=== PATIENT | female | born 1950 | race Hispanic/Latino ===

== ENCOUNTER 2017-07-08 15:15 | Emergency (ER) | payer OTHER ==
--- NOTE | 2017-07-08 16:55 | EDPHYS ---
Physician Documentation [facility] Name: Lottie Apodaca Age: 66 yrs Sex: Female : 1950 Arrival Date: 07/08/2017 Time: 15:19 Bed 30 Private MD: Carter Castillo V ED Physician Santana Macias HPI: 07/08 16:52 This 66 yrs old Female presents to ER via Ambulatory with complaints of Back pm1 Pain, High Blood Pressure. 16:52 The patient presents with pain that is chronic. The symptoms are located in the low pm1 back. The pain does not radiate. Associated signs and symptoms: Pertinent negatives: abdominal pain, chest pain, constipation, dysuria, fever, headache, incontinence, numbness, tingling, urinary retention, vomiting, weakness, shortness of breath. The problem was sustained Chronic pain. Patient usually requires CHRIS once per year. The patient has experienced similar episodes in the past, chronically. Patient with chronic lower back pain. Patient has [address] Olivier for epidural steroid injection. Patient is currently taking hydrocodone at home for pain. Patient reports pain was worse today and she noticed that her pressure was elevated at home. Patient's pain has not changed in location or characteristic, only increased intensity. Patient wanted to make sure that there were no issues that might prevent her from having her procedure tomorrow. 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 Historical: - Allergies: 15:30 No Known Allergies; hj - Home Meds: 15:30 metformin 1,000 mg Oral tr24 1 tab once daily [Active]; bisoprolol fumarate 5 mg oral hj tab 1 tab once daily [Active]; hydrocodone-acetaminophen 10-325 mg oral tab 1 tab every 4-6 hours [Active]; Lyrica Oral 1 cap 2 times per day [Active]; Myrbetriq 25 mg oral Tb24 1 tab once daily [Active]; - PMHx: 15:30 Diabetes - NIDDM; Hypertension; hj - PSHx: 15:30 LEFT KNEE REPAIR; LOWER BACK; hj ROS: 16:52 Constitutional: Negative for fever, chills, and weight loss, Eyes: Negative for injury, pm1 pain, redness, and discharge, ENT: Negative for injury, pain, and discharge, Neck: Negative for injury, pain, and swelling, Cardiovascular: Negative for chest pain, palpitations, and edema, Respiratory: Negative for shortness of breath, cough, wheezing, and pleuritic chest pain, Abdomen/GI: Negative for abdominal pain, nausea, vomiting, diarrhea, and constipation. 16:52 : Negative for injury, bleeding, discharge, and swelling, MS/Extremity: Negative for injury and deformity, Skin: Negative for injury, rash, and discoloration, Neuro: Negative for headache, weakness, numbness, tingling, and seizure. 16:52 Back: Positive for pain at rest, of the lumbar area. Exam: 16:52 Constitutional: This is a well developed, well nourished patient who is awake, alert, pm1 and in no acute distress. Head/Face: Normocephalic, atraumatic. Eyes: Pupils equal round and reactive to light, extra-ocular motions intact. Lids and lashes normal. Conjunctiva and sclera are non-icteric and not injected. Cornea within normal limits. Periorbital areas with no swelling, redness, or edema. ENT: Nares patent. No nasal discharge, no septal abnormalities noted. Tympanic membranes are normal and external auditory canals are clear. Oropharynx with no redness, swelling, or masses, exudates, or evidence of obstruction, uvula midline. Mucous membranes moist. Neck: Trachea midline, no thyromegaly or masses palpated, and no cervical lymphadenopathy. Supple, full range of motion without nuchal rigidity, or vertebral point tenderness. No Meningismus. Chest/axilla: Normal chest wall appearance and motion. Nontender with no deformity. No lesions are appreciated. Cardiovascular: Regular rate and rhythm with a normal S1 and S2. No gallops, murmurs, or rubs. No pulse deficits. Respiratory: Lungs have equal breath sounds bilaterally, clear to auscultation and percussion. No rales, rhonchi or wheezes noted. No increased work of breathing, no retractions or nasal flaring. Abdomen/GI: Soft, non-tender, with normal bowel sounds. No distension or tympany. No guarding or rebound. No evidence of tenderness throughout. 16:52 Skin: Warm, dry with normal turgor. Normal color with no rashes, no lesions, and no evidence of cellulitis. MS/ Extremity: Pulses equal, no cyanosis. Neurovascular intact. Full, normal range of motion. 16:52 Back: pain, is absent, normal spinal alignment noted, vertebral tenderness, is appreciated at lumbar spine, muscle spasm, is appreciated in the right low back. 16:52 Neuro: Orientation: is normal, Motor: moves all fours, Sensation: is normal, no obvious gross deficits, Deep tendon reflexes are 2+ (normal) in the right patellar, right Achilles, left patellar and left Achilles. Vital Signs: 15:31 BP 147 / 76; Pulse 58; Resp 18; Temp 98.1(TE); Pulse Ox 98% on R/A; Weight 84.37 kg; hj Height 4 ft. 9 in. (144.78 cm); Pain 10/10; 17:48 BP 142 / 80; Pulse 64; Resp 18; Pulse Ox 98% ; tl3 15:31 Body Mass Index 40.25 (84.37 kg, 144.78 cm) MDM: 16:19 Patient medically screened. [facility] 16:53 Data reviewed: vital signs. Data interpreted: Pulse oximetry: on room air is 98 %. pm1 Interpretation: normal. Counseling: I had a detailed discussion with the patient and/or guardian regarding: the historical points, exam findings, and any diagnostic results supporting the discharge/admit diagnosis, the need for outpatient follow up, to return to the emergency department if symptoms worsen or persist or if there are any questions or concerns that arise at home. Administered Medications: No medications were administered Disposition: 07/09 10:48 Co-signature as Attending Physician, Santana Macias MD I agree with the assessment and [facility] plan of care. Disposition: 07/08/17 16:54 Discharged to Home. Impression: Other chronic pain, Low back pain. - Condition is Stable. - Discharge Instructions: Chronic Back Pain. - Medication Reconciliation Form, Thank You Letter form. - Follow up: Emergency Department; When: As needed; Reason: Worsening of condition. Follow up: Guillermo Olivier DO; When: Tomorrow; Reason: Recheck today's complaints, Continuance of care, Re-evaluation by your physician. - Problem is new. - Symptoms have improved. Signatures: Santana Macias MD MD cha Joaquin, Henry RN RN J Luis Reardon NP [employer] MACHINE pm1 Meek, Staci, RN RN tl3 Corrections: (The following items were deleted from the chart) 07/08 16:55 16:53 Counseling: I had a detailed discussion with the patient and/or guardian pm1 regarding: the historical points, exam findings, and any diagnostic results supporting the discharge/admit diagnosis, the need for outpatient follow up, to return to the emergency department if symptoms worsen or persist or if there are any questions or concerns that arise at home, pm1
--- NOTE | 2017-07-08 16:55 | ER ---
Nurse's Notes [facility] Name: Lottie Apodaca Age: 66 yrs Sex: Female : 1950 Arrival Date: 07/08/2017 Time: 15:19 Bed 30 Private MD: Carter Castillo V Diagnosis: Other chronic pain;Low back pain Presentation: 07/08 15:26 Presenting complaint: Patient states: im scheduled for a epidural steroid injection hj with my pain doctor, and the pain is bad affecting my BP;. Transition of care: patient was not received from another setting of care. Onset of symptoms was July 08, 2017. Care prior to arrival: None. 15:26 Method Of Arrival: Ambulatory hj 15:26 Acuity: CHRIS 4 hj Triage Assessment: 15:31 General: Appears in no apparent distress. Behavior is calm, cooperative, appropriate hj for age. Pain: Complains of pain in lumbar area, left low back and right low back. Historical: - Allergies: 15:30 No Known Allergies; hj - Home Meds: 15:30 metformin 1,000 mg Oral tr24 1 tab once daily [Active]; bisoprolol fumarate 5 mg oral hj tab 1 tab once daily [Active]; hydrocodone-acetaminophen 10-325 mg oral tab 1 tab every 4-6 hours [Active]; Lyrica Oral 1 cap 2 times per day [Active]; Myrbetriq 25 mg oral Tb24 1 tab once daily [Active]; - PMHx: 15:30 Diabetes - NIDDM; Hypertension; hj - PSHx: 15:30 LEFT KNEE REPAIR; LOWER BACK; hj Screenin:17 Abuse screen: Denies threats or abuse. Nutritional screening: No deficits noted. kb1 Tuberculosis screening: No symptoms or risk factors identified. Fall Risk None identified. Assessment: 15:31 Neuro: Level of Consciousness is awake, alert, obeys commands, Oriented to person, hj place, time, situation. 16:17 General: Appears in no apparent distress. Behavior is calm, cooperative. Pain: kb1 Complains of pain in lower back. Neuro: Level of Consciousness is awake, alert, obeys commands, Oriented to person, place, time, situation. Cardiovascular: Patient's skin is warm and dry. Respiratory: Respiratory effort is even, unlabored, Respiratory pattern is regular, symmetrical. GI: No signs and/or symptoms were reported involving the gastrointestinal system. : No signs and/or symptoms were reported regarding the genitourinary system. Musculoskeletal: Reports pain in lower back pt is scheduled for epidural tomorrow for chronic back pain. States "the pain is just worse and I'm concerned because my blood pressure has been running high". Vital Signs: 15:31 BP 147 / 76; Pulse 58; Resp 18; Temp 98.1(TE); Pulse Ox 98% on R/A; Weight 84.37 kg; hj Height 4 ft. 9 in. (144.78 cm); Pain 10/10; 17:48 BP 142 / 80; Pulse 64; Resp 18; Pulse Ox 98% ; tl3 15:31 Body Mass Index 40.25 (84.37 kg, 144.78 cm) ED Course: 15:19 Patient arrived in ED. mr 15:19 Carter Castillo MD is Private Physician. mr 15:28 Triage completed. hj 15:31 Arm band placed on left wrist. hj 16:15 Sasha Avila RN is Primary Nurse. kb1 16:17 Patient has correct armband on for positive identification. Placed in gown. Bed in low kb1 position. Side rails up X 1. Pulse ox on. NIBP on. 16:17 No provider procedures requiring assistance completed. kb1 16:18 J Luis Reardon NP is PHCP. pm1 16:18 Santana Macias MD is Attending Physician. pm1 16:54 Guillermo Olivier DO is Referral Physician. pm1 17:48 Patient did not have IV access during this emergency room visit. tl3 Administered Medications: No medications were administered Outcome: 16:54 Discharge ordered by . pm1 17:48 Discharged to home via wheelchair. tl3 17:48 Condition: stable 17:48 Discharge instructions given to patient, Instructed on discharge instructions, Demonstrated understanding of instructions, follow-up care. 17:50 Patient left the ED. tl3 Signatures: Lottie BranduinNiranjan RN RN J Luis Reardon NP [employer] AGENT pm1 Sasha Avila RN RN kb1 Staci Eden RN RN tl3 Corrections: (The following items were deleted from the chart) 07/09 00:42 00:41 Patient did not have IV access during this emergency room visit. tl3 tl3
[2017-07-08 17:53] VITALS: BP 147/76; TEMP 98.1; O2SAT 98
== END 2017-07-08 17:50 | disposition home or self-care (01) ==
LOC: ER 15:15
DX: G89.29 Other chronic pain (principal); I10 Essential (primary) hypertension; E11.9 Type 2 diabetes mellitus without complications
CPT/HCPCS: 99283

== ENCOUNTER 2018-02-04 13:02 | Emergency (ER) | payer OTHER ==
--- NOTE | 2018-02-04 14:01 | RAD REPORT ---
EXAM DESCRIPTION: RAD - Knee Right 3 View - 02/04/2018 1:56 pm CLINICAL HISTORY: PAIN COMPARISON: No comparisons FINDINGS: Mild tricompartmental osteoarthritic changes are present. No fracture, dislocation or aggr essive bone lesion. Trace suprapatellar joint effusion is present. IMPRESSION: Mild osteoarthritis.
--- NOTE | 2018-02-04 14:41 | ER ---
Nurse's Notes [facility] Name: Lottie Apodaca Age: 67 yrs Sex: Female : 1950 Arrival Date: 02/04/2018 Time: 13:04 Bed 17 Private MD: Carter Castillo V Diagnosis: Pain in right knee Presentation: 02/04 13:07 Presenting complaint: Patient states: right knee pain since Sunday. Pt took Marlin 7.5 sv mg 1.5 hours ago. Transition of care: patient was not received from another setting of care. Onset of symptoms was January 29, 2018. Care prior to arrival: None. 13:07 Method Of Arrival: Ambulatory sv 13:07 Acuity: CHRIS 4 sv 13:16 Risk Assessment: Do you want to hurt yourself or someone else? Patient reports no ph desire to harm self or others. Initial Sepsis Screen: Does the patient meet any 2 criteria? No. Patient's initial sepsis screen is negative. Does the patient have a suspected source of infection? No. Patient's initial sepsis screen is negative. Triage Assessment: 13:07 General: Appears in no apparent distress. uncomfortable, Behavior is calm, cooperative, sv appropriate for age. Pain: Complains of pain in right knee Pain currently is 6 out of 10 on a pain scale. Neuro: Level of Consciousness is awake, alert, obeys commands, Oriented to person, place, time, situation, Moves all extremities. ambulates with her cane. Respiratory: Respiratory effort is even, unlabored, Respiratory pattern is regular, symmetrical. Historical: - Allergies: 13:14 No Known Allergies; sv - Home Meds: 13:14 bisoprolol fumarate 5 mg Oral tab 1 tab once daily [Active]; hydrocodone-acetaminophen sv 10-325 mg Oral tab 1 tab every 4-6 hours [Active]; Lyrica Oral 1 cap 2 times per day [Active]; metformin 1,000 mg Oral tr24 1 tab once daily [Active]; Myrbetriq 25 mg Oral Tb24 1 tab once daily [Active]; - PMHx: 13:14 Diabetes - NIDDM; Hypertension; sv - PSHx: 13:14 LEFT KNEE REPAIR; LOWER BACK; left toe; right shoulder; sv - Immunization history:: Flu vaccine is up to date. - Social history:: Smoking status: Patient/guardian denies using tobacco, Patient/guardian denies using alcohol, street drugs, The patient lives with family. - Ebola Screening: : No symptoms or risks identified at this time. - Family history:: not pertinent. Screenin:16 Abuse screen: Denies threats or abuse. Denies injuries from another. Nutritional ph screening: No deficits noted. Tuberculosis screening: No symptoms or risk factors identified. Fall Risk None identified. Assessment: 13:15 General: Appears in no apparent distress. comfortable, obese, Behavior is calm, bp cooperative, appropriate for age. General: PT AMBULATES WITH CANE AT BASELINE. 14:54 Reassessment: PT D/C HOME AMBULATORY WITH FAMILY, DX WITH R KNEE PAIN. bp Vital Signs: 13:14 BP 145 / 84; Pulse 64; Resp 20; Temp 97.4; Pulse Ox 97% ; Weight 88.45 kg; Height 4 ft. sv 9 in. (144.78 cm); Pain 6/10; 14:37 BP 107 / 80; Pulse 59; Resp 16; Pulse Ox 97% ; bp 13:14 Body Mass Index 42.20 (88.45 kg, 144.78 cm) sv ED Course: 13:04 Patient arrived in ED. as 13:04 Carter Castillo MD is Private Physician. as 13:07 Elgin Ryan MD is Attending Physician. ma2 13:13 Triage completed. sv 13:14 Arm band placed on. sv 13:16 Patient has correct armband on for positive identification. Bed in low position. Call ph light in reach. Side rails up X 1. 13:35 Abe Chavez, RADHA is Primary Nurse. bp 13:54 X-ray completed. Portable x-ray completed in exam room. Patient tolerated procedure ka well. 13:55 Knee Right 3 View XRAY In Process Unspecified. EDMS 14:55 No provider procedures requiring assistance completed. Patient did not have IV access bp during this emergency room visit. Administered Medications: No medications were administered Outcome: 14:41 Discharge ordered by . ma2 14:55 Discharged to home ambulatory, with family. bp 14:55 Condition: stable 14:55 Discharge instructions given to patient, family, Instructed on discharge instructions, follow up and referral plans. medication usage, crutch walking, Demonstrated understanding of instructions, follow-up care, medications, crutch walking, Prescriptions given X 1. 15:03 Patient left the ED. bp Signatures: Dispatcher [employer] EDMS Carol Robledo, RN Bree Bird Patricia, RN RN ph Aguilera, Katelyn ka Peltier, Brian, RN RN Elgin Mcfarlane MD MD ma2
--- NOTE | 2018-02-04 14:41 | EDPHYS ---
Physician Documentation [facility] Name: Lottie Apodaca Age: 67 yrs Sex: Female : 1950 Arrival Date: 02/04/2018 Time: 13:04 Bed 17 Private MD: Carter Castillo V ED Physician Elgin Ryan HPI: 02/04 13:14 This 67 yrs old Female presents to ER via Ambulatory with complaints of Knee ma2 Pain. 13:14 Onset: The symptoms/episode began/occurred suddenly, 1 day(s) ago. Context: The problem ma2 was sustained resulted from the patient falling, The patient can partially bear weight on the affected extremity. the patient is able to ambulate. Associated signs and symptoms: Pertinent positives: Pertinent negatives: fever, numbness, rash, tingling, weakness. Severity of symptoms: At their worst the symptoms were moderate, in the emergency department the symptoms are unchanged. Historical: - Allergies: 13:14 No Known Allergies; sv - Home Meds: 13:14 bisoprolol fumarate 5 mg Oral tab 1 tab once daily [Active]; hydrocodone-acetaminophen sv 10-325 mg Oral tab 1 tab every 4-6 hours [Active]; Lyrica Oral 1 cap 2 times per day [Active]; metformin 1,000 mg Oral tr24 1 tab once daily [Active]; Myrbetriq 25 mg Oral Tb24 1 tab once daily [Active]; - PMHx: 13:14 Diabetes - NIDDM; Hypertension; sv - PSHx: 13:14 LEFT KNEE REPAIR; LOWER BACK; left toe; right shoulder; sv - Immunization history:: Flu vaccine is up to date. - Social history:: Smoking status: Patient/guardian denies using tobacco, Patient/guardian denies using alcohol, street drugs, The patient lives with family. - Ebola Screening: : No symptoms or risks identified at this time. - Family history:: not pertinent. ROS: 13:14 Constitutional: Negative for fever, chills, and weight loss, Neck: Negative for injury, ma2 pain, and swelling, Back: Negative for injury and pain. 13:14 MS/extremity: Positive for injury or acute deformity, pain, Negative for abrasion, contusion, deformity, tenderness. 13:14 All other systems are negative. Exam: 13:14 Constitutional: This is a well developed, well nourished patient who is awake, alert, ma2 and in no acute distress. ENT: Nares patent. No nasal discharge, no septal abnormalities noted. Tympanic membranes are normal and external auditory canals are clear. Oropharynx with no redness, swelling, or masses, exudates, or evidence of obstruction, uvula midline. Mucous membranes moist. Cardiovascular: Regular rate and rhythm with a normal S1 and S2. No gallops, murmurs, or rubs. Normal PMI, no JVD. No pulse deficits. Respiratory: Lungs have equal breath sounds bilaterally, clear to auscultation and percussion. No rales, rhonchi or wheezes noted. No increased work of breathing, no retractions or nasal flaring. Abdomen/GI: Soft, non-tender, with normal bowel sounds. No distension or tympany. No guarding or rebound. No evidence of tenderness throughout. 13:14 Musculoskeletal/extremity: ROM: no acute changes, Circulation is intact in all extremities. Sensation intact. Compartment Syndrome exam of affected extremity: is normal. Vital Signs: 13:14 BP 145 / 84; Pulse 64; Resp 20; Temp 97.4; Pulse Ox 97% ; Weight 88.45 kg; Height 4 ft. sv 9 in. (144.78 cm); Pain 6/10; 14:37 BP 107 / 80; Pulse 59; Resp 16; Pulse Ox 97% ; bp 13:14 Body Mass Index 42.20 (88.45 kg, 144.78 cm) sv MDM: 13:07 Patient medically screened. ma2 13:14 Differential diagnosis: fracture, sprain, foreign body, arthritis. ma2 14:40 Data reviewed: vital signs, nurses notes, radiologic studies. Counseling: I had a ma2 detailed discussion with the patient and/or guardian regarding: the historical points, exam findings, and any diagnostic results supporting the discharge/admit diagnosis, the presence of at least one elevated blood pressure reading (>120/80) during this emergency department visit, the need for outpatient follow up. Response to treatment: the patient's symptoms have markedly improved after treatment. 02/04 13:14 Order name: Knee Right 3 View XRAY; Complete Time: 14:23 ma2 02/04 14:26 Order name: Knee Immobilizer; Complete Time: 14:53 ma2 Administered Medications: No medications were administered Disposition: 02/04/18 14:41 Discharged to Home. Impression: Pain in right knee. - Condition is Stable. - Discharge Instructions: Knee Pain. - Prescriptions for Tylenol- Codeine #3 300-30 mg Oral Tablet - take 2 tablet by ORAL route every 6 hours As needed; 6 tablet. - Medication Reconciliation Form, Thank You Letter, Antibiotic Education, Prescription Opioid Use form. - Follow up: Private Physician; When: Tomorrow; Reason: Continuance of care. Signatures: Dispatcher [employer] Carol Le, RN RN Abe Chavez RN RN bp Elgin Ryan MD MD ma2 Corrections: (The following items were deleted from the chart) 15:03 14:41 02/04/2018 14:41 Discharged to Home. Impression: Pain in right knee. Condition is bp Stable. Discharge Instructions: Knee Pain. Prescriptions for Tylenol-Codeine #3 300-30 mg Oral Tablet - take 2 tablet by ORAL route every 6 hours As needed; 6 tablet. and Forms are Medication Reconciliation Form, Thank You Letter, Antibiotic Education, Prescription Opioid Use. Follow up: Private Physician; When: Tomorrow; Reason: Continuance of care. ma2
[2018-02-05 14:46] VITALS: BP 107/80; TEMP 97.4; O2SAT 97
== END 2018-02-04 15:03 | disposition home or self-care (01) ==
LOC: ER 13:02
DX: M25.561 Pain in right knee (principal); I10 Essential (primary) hypertension; E11.9 Type 2 diabetes mellitus without complications
CPT/HCPCS: 99283

== ENCOUNTER 2018-02-22 17:38 | Emergency (ER) | payer OTHER ==
[2018-02-22] MEDS ORDERED: HYDROCODONE/APAP 5/325 MG TAB ONE (19:12)
--- NOTE | 2018-02-22 20:35 | RAD REPORT ---
EXAM DESCRIPTION: RAD - Shoulder Left 2 View - 02/22/2018 7:46 pm CLINICAL HISTORY: Left shoulder pain status post fall FINDINGS: No fracture or dislocation is seen. The bones are osteoporotic
--- NOTE | 2018-02-22 21:03 | RAD REPORT ---
EXAM DESCRIPTION: Adolph Single View02/22/2018 8:47 pm CLINICAL HISTORY: Chest pain COMPARISON: 2014 FINDINGS: The lungs appear clear of acute infiltrate. The heart is normal size A moderately displaced fracture of the medial left clavicle is seen
--- NOTE | 2018-02-22 21:04 | RAD REPORT ---
EXAM DESCRIPTION: RAD - Clavicle Left - 02/22/2018 7:46 pm CLINICAL HISTORY: Left shoulder pain status post fall FINDINGS: A moderately displaced fracture of the medial left clavicle is seen
--- NOTE | 2018-02-22 21:07 | ER ---
Nurse's Notes [facility] Name: Lottie Apodaca Age: 67 yrs Sex: Female : 1950 Arrival Date: 02/22/2018 Time: 17:39 Bed 19 Private MD: Carter Castillo V Diagnosis: Fracture of unspecified part of left clavicle Presentation: 02/22 18:13 Presenting complaint: Patient states: "I was carrying my purse and another small bag, aj1 and its a little wet, and I slipped and I hit the corner where the door is" Report pain to neck, and left shoulder. Denies hitting, denies LOC. Transition of care: patient was not received from another setting of care. Onset of symptoms was February 22, 2018 at 17:00. Risk Assessment: Do you want to hurt yourself or someone else? Patient reports no desire to harm self or others. Initial Sepsis Screen: Does the patient meet any 2 criteria? No. Patient's initial sepsis screen is negative. Does the patient have a suspected source of infection? No. Patient's initial sepsis screen is negative. Care prior to arrival: None. 18:13 Method Of Arrival: Wheelchair aj1 18:13 Acuity: CHRIS 4 aj1 Triage Assessment: 18:15 General: Appears in no apparent distress. uncomfortable, Behavior is calm, cooperative, aj1 appropriate for age. Pain: Complains of pain in anterior aspect of left shoulder, posterior aspect of left shoulder and neck Pain currently is 9 out of 10 on a pain scale. Neuro: Level of Consciousness is awake, alert, obeys commands. Cardiovascular: Patient's skin is warm and dry. Respiratory: Airway is patent Respiratory effort is even, unlabored, Respiratory pattern is regular, symmetrical. Historical: - Allergies: 18:15 No Known Allergies; aj1 - Home Meds: 18:15 bisoprolol fumarate 5 mg Oral tab 1 tab once daily [Active]; hydrocodone-acetaminophen aj1 10-325 mg Oral tab 1 tab every 4-6 hours [Active]; Lyrica Oral 1 cap 2 times per day [Active]; metformin 1,000 mg Oral tr24 1 tab once daily [Active]; Myrbetriq 25 mg Oral Tb24 1 tab once daily [Active]; - PMHx: 18:15 Diabetes - NIDDM; Hypertension; aj1 - Immunization history:: Flu vaccine is up to date. - Social history:: Smoking status: Patient/guardian denies using tobacco. - Ebola Screening: : Patient denies travel to an Ebola-affected area in the 21 days before illness onset. Screenin:12 Abuse screen: Denies threats or abuse. Denies injuries from another. Nutritional ak1 screening: No deficits noted. Tuberculosis screening: No symptoms or risk factors identified. Fall Risk None identified. Assessment: 19:13 General: Appears in no apparent distress. Behavior is calm, cooperative. Pain: ak1 Complains of pain in left arm. Neuro: Level of Consciousness is awake, alert, obeys commands, Oriented to person, place, time, situation, Appropriate for age Manager Financial Reporting are equal bilaterally Moves all extremities. Gait is steady, Speech is normal. Cardiovascular: No deficits noted. Respiratory: No deficits noted. GI: No signs and/or symptoms were reported involving the gastrointestinal system. : No signs and/or symptoms were reported regarding the genitourinary system. EENT: No signs and/or symptoms were reported regarding the EENT system. Derm: No signs and/or symptoms reported regarding the dermatologic system. Musculoskeletal: No signs and/or symptoms reported regarding the musculoskeletal system. Vital Signs: 18:15 BP 164 / 79; Pulse 56; Resp 18; Temp 97.6; Pulse Ox 96% on R/A; Weight 86.18 kg (R); aj1 Height 4 ft. 9 in. (144.78 cm) (R); Pain 9/10; 20:56 BP 127 / 63; Pulse 52; Resp 17; Pulse Ox 97% on R/A; mw2 18:15 Body Mass Index 41.12 (86.18 kg, 144.78 cm) aj1 ED Course: 17:39 Patient arrived in ED. as 17:39 Carter Castillo MD is Private Physician. as 18:15 Triage completed. aj1 18:15 Arm band placed on Patient placed in an exam room. aj1 18:27 J Luis Reardon NP is PHCP. pm1 18:27 Cullen Love MD is Attending Physician. pm1 19:01 Shazia Carter, RN is Primary Nurse. ak1 19:12 Patient has correct armband on for positive identification. Bed in low position. Call ak1 light in reach. Side rails up X 1. 19:46 Clavicle Left XRAY In Process Unspecified. EDMS 19:46 Shoulder Left (2 View) XRAY In Process Unspecified. EDMS 20:44 X-ray completed. Portable x-ray completed in exam room. Patient tolerated procedure kw well. 20:48 Chest Single View XRAY In Process Unspecified. EDMS 21:05 Van Ronquillo MD is Referral Physician. pm1 21:13 No provider procedures requiring assistance completed. Patient did not have IV access ak1 during this emergency room visit. Administered Medications: 19:08 Drug: [place] 5 mg-325 mg 1 tabs Route: PO; ak1 20:17 Follow up: Response: No adverse reaction ak1 Outcome: 21:06 Discharge ordered by MD. pm1 21:14 Condition: good ak1 21:14 Discharge instructions given to patient, family, Instructed on discharge instructions, follow up and referral plans. sling care 21:19 Discharged to home ambulatory, with family. ak1 21:19 Demonstrated understanding of instructions, follow-up care. 21:27 Patient left the ED. ak1 Signatures: Dispatcher [employer] EDMS Christy Butler, RN RN aj1 Bree Pineda Kimberlee kw Krenek, Amber, RN RN ak1 J Luis Reardon NP TRAPEZE ARTIST pm1 Dariel Patricio mw2
--- NOTE | 2018-02-22 21:07 | EDPHYS ---
Physician Documentation [facility] Name: Lottie Apodaca Age: 67 yrs Sex: Female : 1950 Arrival Date: 02/22/2018 Time: 17:39 Bed 19 Private MD: Carter Castillo V ED Physician Cullen Love HPI: 02/22 21:00 This 67 yrs old Female presents to ER via Wheelchair with complaints of Left pm1 shoulder and clavicle pain. 21:00 The patient or guardian complains of pain, that is acute. left shoulder and left pm1 clavicle. Context: The problem was sustained at home, resulted from a fall, Slipped on wet surface and hit the door frame with her left shoulder, The patient notes a deformity, left clavicle. Onset: The symptoms/episode began/occurred just prior to arrival, today. Modifying factors: the symptoms are alleviated by remaining still, The symptoms are aggravated by movement. Associated signs and symptoms: Pertinent negatives: chest pain, shortness of breath, headache, head injury, neck pain, LOC. Severity of symptoms: in the emergency department the symptoms are actually worse. Treatment prior to arrival includes: no previous treatment. The patient has not experienced similar symptoms in the past. The patient has not recently seen a physician. Historical: - Allergies: 18:15 No Known Allergies; aj1 - Home Meds: 18:15 bisoprolol fumarate 5 mg Oral tab 1 tab once daily [Active]; hydrocodone-acetaminophen aj1 10-325 mg Oral tab 1 tab every 4-6 hours [Active]; Lyrica Oral 1 cap 2 times per day [Active]; metformin 1,000 mg Oral tr24 1 tab once daily [Active]; Myrbetriq 25 mg Oral Tb24 1 tab once daily [Active]; - PMHx: 18:15 Diabetes - NIDDM; Hypertension; aj1 - Immunization history:: Flu vaccine is up to date. - Social history:: Smoking status: Patient/guardian denies using tobacco. - Ebola Screening: : Patient denies travel to an Ebola-affected area in the 21 days before illness onset. ROS: 21:00 Constitutional: Negative for fever, chills, and weight loss, Eyes: Negative for injury, pm1 pain, redness, and discharge, ENT: Negative for injury, pain, and discharge, Neck: Negative for injury, pain, and swelling, Cardiovascular: Negative for chest pain, palpitations, and edema, Respiratory: Negative for shortness of breath, cough, wheezing, and pleuritic chest pain, Abdomen/GI: Negative for abdominal pain, nausea, vomiting, diarrhea, and constipation, Back: Negative for injury and pain. 21:00 Skin: Negative for injury, rash, and discoloration, Neuro: Negative for headache, weakness, numbness, tingling, and seizure. 21:00 MS/extremity: Positive for pain, of the left clavicle and left shoulder. Exam: 21:00 Constitutional: This is a well developed, well nourished patient who is awake, alert, pm1 and in no acute distress. Head/Face: Normocephalic, atraumatic. Eyes: Pupils equal round and reactive to light, extra-ocular motions intact. Lids and lashes normal. Conjunctiva and sclera are non-icteric and not injected. Cornea within normal limits. Periorbital areas with no swelling, redness, or edema. ENT: Nares patent. No nasal discharge, no septal abnormalities noted. Tympanic membranes are normal and external auditory canals are clear. Oropharynx with no redness, swelling, or masses, exudates, or evidence of obstruction, uvula midline. Mucous membranes moist. Neck: Trachea midline, no thyromegaly or masses palpated, and no cervical lymphadenopathy. Supple, full range of motion without nuchal rigidity, or vertebral point tenderness. No Meningismus. Cardiovascular: Regular rate and rhythm with a normal S1 and S2. No gallops, murmurs, or rubs. Normal PMI, no JVD. No pulse deficits. 21:00 Respiratory: Lungs have equal breath sounds bilaterally, clear to auscultation and percussion. No rales, rhonchi or wheezes noted. No increased work of breathing, no retractions or nasal flaring. Abdomen/GI: Soft, non-tender, with normal bowel sounds. No distension or tympany. No guarding or rebound. No evidence of tenderness throughout. Back: No spinal tenderness. No costovertebral tenderness. Full range of motion. Skin: Warm, dry with normal turgor. Normal color with no rashes, no lesions, and no evidence of cellulitis. MS/ Extremity: Pulses equal, no cyanosis. Neurovascular intact. Full, normal range of motion. Patient able to raise left arm above her head and touch the top of her head and slowly lower left arm to side 21:00 Chest/axilla: Palpation: crepitus, is not appreciated, tenderness, of the left clavicle. 21:00 Neuro: Orientation: is normal, Motor: is normal, moves all fours, Sensation: is normal, no obvious gross deficits. Vital Signs: 18:15 BP 164 / 79; Pulse 56; Resp 18; Temp 97.6; Pulse Ox 96% on R/A; Weight 86.18 kg (R); aj1 Height 4 ft. 9 in. (144.78 cm) (R); Pain 9/10; 20:56 BP 127 / 63; Pulse 52; Resp 17; Pulse Ox 97% on R/A; mw2 18:15 Body Mass Index 41.12 (86.18 kg, 144.78 cm) aj1 MDM: 18:38 Patient medically screened. pm1 20:15 ED course: Left clavicular xray reviewed with Dr. Kincaid. Recommended chest x-ray. If no pm1 pneumothorax present, patient can follow up with orthopedics. 21:03 ED course: Reviewed X-ray with Dr. Kincaid. No pneumothorax present. Will discharge patient pm1 to follow up with orthopedics. 21:08 Data reviewed: vital signs. Data interpreted: Pulse oximetry: on room air is 97 %. pm1 Interpretation: normal. Counseling: I had a detailed discussion with the patient and/or guardian regarding: the historical points, exam findings, and any diagnostic results supporting the discharge/admit diagnosis, radiology results, the need for outpatient follow up, for definitive care, a orthopedic surgeon, to return to the emergency department if symptoms worsen or persist or if there are any questions or concerns that arise at home. 02/22 18:45 Order name: Clavicle Left XRAY; Complete Time: 21:08 pm1 02/22 18:45 Order name: Shoulder Left (2 View) XRAY; Complete Time: 20:57 pm1 02/22 20:13 Order name: Sling; Complete Time: 20:26 pm1 02/22 20:13 Order name: Chest Single View XRAY; Complete Time: 21:08 pm1 Administered Medications: 19:08 Drug: [place] 5 mg-325 mg 1 tabs Route: PO; ak1 20:17 Follow up: Response: No adverse reaction ak1 Disposition: 02/22/18 21:06 Discharged to Home. Impression: Fracture of unspecified part of left clavicle. - Condition is Stable. - Discharge Instructions: Clavicle Fracture. - Medication Reconciliation Form, Thank You Letter, Prescription Opioid Use form. - Follow up: Emergency Department; When: As needed; Reason: Worsening of condition. Follow up: Van Ronquillo MD; When: 2 - 3 days; Reason: Recheck today's complaints, Continuance of care, Re-evaluation by your physician. - Problem is new. - Symptoms have improved. Addendum: 02/25/2018 07:44 Co-signature as Attending Physician, Cullen Love MD. r n Signatures: Dispatcher [employer] EDMS Christy Butler RN RN aj1 Cullen Love MD MD rn Krenek, Amber, RN RN ak1 J Luis Reardon, TODDLER NANNY TODDLER NANNY pm1 Corrections: (The following items were deleted from the chart) 02/22 21:09 21:03 ED course: Reviewed X-ray with Dr. Kincaid. No pneumothorax present. Will discharge pm1 patient to follow up with orthopedics. pm1 21:27 21:06 02/22/2018 21:06 Discharged to Home. Impression: Fracture of unspecified part of ak1 left clavicle. Condition is Stable. Forms are Medication Reconciliation Form, Thank You Letter, Antibiotic Education, Prescription Opioid Use. Follow up: Emergency Department; When: As needed; Reason: Worsening of condition. Follow up: Van Ronquillo; When: 2 - 3 days; Reason: Recheck today's complaints, Continuance of care, Re-evaluation by your physician. Problem is new. Symptoms have improved. pm1
[2018-02-22 22:12] VITALS: TEMP 97.6
[2018-02-22 22:14] VITALS: BP 127/63; O2SAT 97
== END 2018-02-22 21:27 | disposition home or self-care (01) ==
LOC: ER 17:38
DX: S42.002A Fracture of unspecified part of left clavicle, initial encounter for closed fracture (principal); W01.198A Fall on same level from slipping, tripping and stumbling with subsequent striking against other object, initial encounter; Y93.89 Activity, other specified; Y92.009 Unspecified place in unspecified non-institutional (private) residence as the place of occurrence of the external cause; I10 Essential (primary) hypertension; E11.9 Type 2 diabetes mellitus without complications
CPT/HCPCS: 71045; 99283

== ENCOUNTER 2019-12-02 09:08 | Emergency (ER) | payer OTHER ==
[2019-12-02 09:56] LABS: Absolute Lymphocytes (CBC) 2.9 K/uL (0.7-4.9); Basophils % 1.3 % (0-1.3); Hematocrit 39.4 % (36.0-45.0); Lymphocytes % 39.7 % (15.3-44.8); MPV 11.4 fL (7.6-11.3); RBC Red Blood Cell Count 4.26 M/uL (3.86-4.86)
[2019-12-02 10:22] LABS: Albumin 3.5 g/dL (3.4-5.0); Bilirubin Total 0.5 mg/dL (0.2-1.0); Potassium 3.9 mmol/L (3.5-5.1); Protein, Total 7.9 g/dL (6.4-8.2)
--- NOTE | 2019-12-02 10:34 | RAD REPORT ---
EXAM DESCRIPTION: CT - Chest Abdomen Pelvis W Cont - 12/02/2019 10:04 am CLINICAL HISTORY: abd pain COMPARISON: No comparisons TECHNIQUE: Following dynamic enhancement using 100 milliliters nonionic IV contrast, axial imaging o f the chest, abdomen and pelvis was performed. Biphasic technique was utilized through the abdomen. No oral contrast administered. All CT scans are performed using dose optimization technique as appropriate and may include automated exposure control or mA/KV adjustment according to patient size. FINDINGS: No focal mass or consolidation. Dependent atelectasis seen in each posterior lower lung fi eld. No pleural effusion, pleural thickening or pneumothorax. No significant aortic or pulmonary elroy rial tree finding. Mediastinal and hilar regions show no mass or abnormal lymphadenopathy. No chest w all mass or axillary lymphadenopathy. Liver shows mild fatty infiltration pattern with no focal liver lesion. Spleen and pancreas show no s uspicious findings. Gallbladder and biliary tree are unremarkable. Gallstones can be occult on CT im aging. Symmetric renal function is seen with no suspicious mass or hydronephrosis. Fullness of each r enal pelvis is a normal variant. A 17 millimeter cyst is present anterior mid right kidney. No adrena l abnormality seen. Urinary bladder shows no wall thickening or mass. Punctate air density along the nondependent portion of the bladder without other abnormality seen. This may be from a catheterizatio n procedure. Cystitis is not suspected. Uterus and ovaries show no suspicious findings. No gastric dilatation or wall thickening. No dilated small bowel loops. Moderate stool volume seen in nondilated colon. No active colon process seen. Appendicitis is not evident. No free air, free fluid or inflammatory stranding. No mass or bulky lymphadenopathy. Disc and bony degenerative changes are present in the spine. Bilateral hip joint and shoulder joint d egenerative changes present as well. No acute or destructive process identified. Spinal stenosis and foraminal stenosis suspected at L5-S1 and L4-5. Central canal detail is inherently limited. No significant vascular findings. IMPRESSION: No acute lung parenchymal process. No mass, lymphadenopathy or other acute chest finding . Abdomen shows mild fatty infiltration of the liver with no focal liver lesion. No acute GI process id entifiable. Prominent degenerative changes in the lower lumbar spine with suspected spinal stenosis and foraminal stenosis at L4-5 and L5-S1.
--- NOTE | 2019-12-02 10:43 | RAD REPORT ---
EXAM DESCRIPTION: RAD - Hand Right 3 View - 12/02/2019 10:13 am CLINICAL HISTORY: hand pain COMPARISON: No comparisons FINDINGS: No fracture is identified. There is no dislocation or periosteal reaction noted. Osteopen ic changes are present. Degenerative changes are present in the first carpal row and radiocarpal join t space. IP joint degenerative changes are present. Patient appears to have a fixed flexure at the fth PIP joint. No foreign body. IV tubing overlies the wrist. IMPRESSION: Osteopenic and degenerative changes are present. No acute fracture confirmed. Repeat imaging in 7 days could be performed if the patient remains symptomatic for fracture.
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
[2019-12-02 11:14] VITALS: TEMP 98.6
[2019-12-02 11:15] VITALS: BP 148/63; O2SAT 95
== END 2019-12-02 11:08 | disposition home or self-care (01) ==
LOC: ER 09:08
DX: S20.221A Contusion of right back wall of thorax, initial encounter (principal); S20.211A Contusion of right front wall of thorax, initial encounter; M79.644 Pain in right finger(s); V49.49XA Driver injured in collision with other motor vehicles in traffic accident, initial encounter; I10 Essential (primary) hypertension; E11.9 Type 2 diabetes mellitus without complications
CPT/HCPCS: 85025; 36415; 82565; 80053; 71260; 74177; 73130; Q9967; 99284

== ENCOUNTER 2020-01-11 02:01 | Emergency (ER) | payer OTHER ==
[2020-01-11 02:45] LABS: Absolute Lymphocytes (CBC) 1.9 K/uL (0.7-4.9); Basophils % 0.8 % (0-1.3); Hematocrit 41.7 % (36.0-45.0); Lymphocytes % 8.1 % (15.3-44.8); MPV 11.6 fL (7.6-11.3); RBC Red Blood Cell Count 4.45 M/uL (3.86-4.86)
[2020-01-11] MEDS ORDERED: NA CHLORIDE 0.9% 1,000 ML ONE ×4 (02:47→07:36)
[2020-01-11] MEDS ORDERED: ONDANSETRON 4 MG/2 ML VIAL ONE ×2 (02:47→08:24)
[2020-01-11] MEDS ORDERED: FAMOTIDINE 20 MG/2 ML VIAL IV ONE (02:47)
[2020-01-11] MEDS ORDERED: MORPHINE 4 MG/ML SYR ONE ×2 (02:47→04:13)
[2020-01-11 03:07] LABS: Platelet Estimate ADEQ
[2020-01-11 03:08] LABS: Blood Morphology Comment NOT SEEN (NOT SEEN)
[2020-01-11 03:10] LABS: Albumin 3.7 g/dL (3.4-5.0); Bilirubin Direct 0.5 mg/dL (0-0.2); Bilirubin Total 0.9 mg/dL (0.2-1.0); Potassium 3.6 mmol/L (3.5-5.1)
[2020-01-11] MEDS ORDERED: PIPER/TAZO/NS 3.375gm 3.375 GM/100 ML BAG ONE (03:59)
[2020-01-11 05:42] LABS: Urine Blood 1+ (NEG); Urine Glucose 1+ (NEG); Urine Protein 1+ (NEG); Urine pH 5.5 (5.0-7.0)
[2020-01-11] MEDS ORDERED: HYDROMORPHONE HCL 1 MG/ML INJ ONE ×2 (06:48→08:24)
--- NOTE | 2020-01-11 07:23 | ER ---
Nurse's Notes [facility] Name: Lottie Apodaca Age: 69 yrs Sex: Female : 1950 Arrival Date: 01/11/2020 Time: 02:05 Bed 8 Private MD: Carter Castillo V Diagnosis: Upper abdominal pain, unspecified;Acute pancreatitis;Type 2 diabetes mellitus Presentation: 01/10 02:15 Chief complaint: Patient states: i have abdominal pain and vomiting since 10 pm last mg2 night. Coronavirus screen: Client denies travel out of the [place] in the last 14 days. At this time, the client does not indicate any symptoms associated with coronavirus-19. Ebola Screen: No symptoms or risks identified at this time. Initial Sepsis Screen: Does the patient meet any 2 criteria? No. Patient's initial sepsis screen is negative. Does the patient have a suspected source of infection? No. Patient's initial sepsis screen is negative. Risk Assessment: Do you want to hurt yourself or someone else? Patient reports no desire to harm self or others. Onset of symptoms was January 10, 2020 at 22:00. 02:15 Method Of Arrival: Wheelchair mg2 02:15 Acuity: CHRIS 3 mg2 Triage Assessment: 02:20 General: Appears in no apparent distress. comfortable, Behavior is calm, cooperative. mg2 Pain: Complains of pain in abdomen. EENT: No signs and/or symptoms were reported regarding the EENT system. Neuro: Level of Consciousness is awake, alert, obeys commands, Oriented to person, place, time, situation. Cardiovascular: Capillary refill < 3 seconds Patient's skin is warm and dry. Respiratory: Airway is patent Respiratory effort is even, unlabored, Respiratory pattern is regular, symmetrical. GI: Reports lower abdominal pain, upper abdominal pain, vomiting. : No signs and/or symptoms were reported regarding the genitourinary system. Derm: Skin is intact, is healthy with good turgor, Skin is pink, warm \T\ dry. normal. Musculoskeletal: Circulation, motion, and sensation intact. Capillary refill < 3 seconds. Historical: - Allergies: 02:20 No Known Allergies; mg2 - Home Meds: 02:20 metformin 1,000 mg Oral tr24 1 tab once daily [Active]; hydrocodone-acetaminophen mg2 10-325 mg Oral tab 1 tab every 4-6 hours [Active]; Lyrica Oral 1 cap 2 times per day [Active]; Myrbetriq 25 mg Oral Tb24 1 tab once daily [Active]; bisoprolol fumarate 5 mg Oral tab 1 tab once daily [Active]; - PMHx: 02:20 Diabetes - NIDDM; Hypertension; mg2 - PSHx: 02:20 shoulder sx; mg2 - Immunization history:: Flu vaccine status is unknown. - Social history:: Smoking status: Patient denies any tobacco usage or history of. Patient/guardian denies using alcohol, street drugs, IV drugs. Screenin:21 Abuse screen: Denies threats or abuse. Denies injuries from another. Nutritional mg2 screening: No deficits noted. Tuberculosis screening: No symptoms or risk factors identified. Fall Risk IV access (20 points). Assessment: 02:21 General: see triage assessment. mg2 02:23 General: [phone]- Anita ( daughter). mg2 03:16 Reassessment: Anita (daughter) [phone]. ea 03:37 GI: Abd is soft and non tender X 4 quads. mg2 04:34 Reassessment: Patient and/or family updated on plan of care and expected duration. Pain ea level reassessed. Patient is alert, oriented x 3, equal unlabored respirations, skin warm/dry/pink. 05:21 Reassessment: Daughter informed about the plan that patient may need hospitalization. mg2 05:56 Reassessment: Patient and/or family updated on plan of care and expected duration. Pain ea level reassessed. Patient is alert, oriented x 3, equal unlabored respirations, skin warm/dry/pink. 06:39 Reassessment: Patient appears in no apparent distress at this time. Patient and/or mg2 family updated on plan of care and expected duration. Pain level reassessed. Patient is alert, oriented x 3, equal unlabored respirations, skin warm/dry/pink. 06:53 Reassessment: i spoke to the daughter about the plan for transfer and she they prefer mg2 her to be transferred to [facility] or [facility]. [facility] has no GI specialist now, will try [facility]. 07:50 Reassessment: report called to Davin at [facility], pending EMS transportation. em 08:00 Reassessment: assisted to the restroom via wheelchair, reports pain is still 8/10, em provider notified, received ne verbal orders. 09:00 Reassessment: Patient appears in no apparent distress at this time. Patient is alert, em oriented x 3, equal unlabored respirations, skin warm/dry/pink. report given to [facility]. Vital Signs: 02:15 BP 168 / 89; Pulse 98; Resp 18; Temp 96.6; Pulse Ox 100% on R/A; Weight 79.38 kg; mg2 Height 4 ft. 11 in. (149.86 cm); 03:17 BP 188 / 89; Pulse 95; Resp 18; Pulse Ox 95% on R/A; ea 03:17 BP 168 / 89; Pulse 89; Resp 18; Pulse Ox 95% on R/A; mg2 03:57 BP 169 / 89; Pulse 97; Resp 18; Pulse Ox 97% on R/A; ea 04:33 BP 161 / 94; Pulse 96; Resp 18; Temp 97; Pulse Ox 95% on R/A; ea 06:00 BP 184 / 94; Pulse 100; Resp 18; Pulse Ox 94% on R/A; ea 06:19 BP 169 / 88; Pulse 105; Resp 18; Pulse Ox 92% on R/A; mg2 08:00 BP 192 / 92; Pulse 99; Resp 16; Pulse Ox 100% on 2 lpm NC; Pain 8/10; em 02:15 Body Mass Index 35.35 (79.38 kg, 149.86 cm) mg2 ED Course: 02:05 Patient arrived in ED. am2 02:05 Carter Castillo MD is Private Physician. am2 02:06 Marko Sandoval MD is Attending Physician. mh7 02:15 Moreno Allen RN is Primary Nurse. mg2 02:17 Triage completed. mg2 02:20 Arm band placed on. mg2 02:21 No provider procedures requiring assistance completed. Inserted saline lock: 20 gauge mg2 in right antecubital area, using aseptic technique. Blood collected. by meron barr. 02:22 Patient has correct armband on for positive identification. mg2 03:17 IV discontinued, intact, bleeding controlled, No redness/swelling at site. Pressure mg2 dressing applied. 03:18 Inserted saline lock: 20 gauge in left antecubital area, using aseptic technique. Blood mg2 collected. 03:48 CT Abd/Pelvis - IV Contrast Only In Process Unspecified. EDMS 06:37 Inserted saline lock: 20 gauge in right hand, using aseptic technique. Blood collected. mg2 06:45 initiated a transfer with Alysa from the [facility] [place]/ Per Alysa they have eb to decline the patient in transfer due to not having the services requested production sorter either. 06:51 initiated a transfer with Chadd from the [facility]. eb 06:59 per Chadd at the [facility] transfer declined due to [facility] being at capacity./ asked him to try [facility]. 07:08 connected the hospitalist production sorter from [facility] with Dr. Sandoval for ar5 patient transfer consultation. 07:13 Attending Physician role handed off by Marko Sandoval MD [facility] 07:13 Santana Macias MD is Attending Physician. [facility] 07:19 administrative approval given by Chadd Peng Rn/ patient has been accepted to ar5 [facility] 3rd floor/ Dr. Dempsey has accepted the patient in transfer/ report to be called to [phone]. Administered Medications: 02:50 Drug: Zofran (Ondansetron) 4 mg Route: IVP; Site: right antecubital; mg2 03:38 Follow up: Response: No adverse reaction mg2 02:50 Drug: Pepcid 20 mg Route: IVP; Site: right antecubital; mg2 03:37 Follow up: Response: No adverse reaction mg2 02:51 Drug: NS 0.9% 1000 ml Route: IV; Rate: 1000 ml; Site: right antecubital; mg2 08:24 Follow up: IV Status: Completed infusion; IV Intake: 1000ml em 02:51 Drug: morphine 4 mg Route: IVP; Site: right antecubital; mg2 03:38 Follow up: Response: No adverse reaction; RASS: Alert and Calm (0) mg2 03:58 Drug: Zosyn 3.375 grams Route: IVPB; Infused Over: 60 mins; Site: left antecubital; ea 08:24 Follow up: Response: No adverse reaction; IV Status: Completed infusion; IV Intake: em 100ml 03:58 Drug: NS 0.9% 1000 ml Route: IV; Rate: 1000 ml; Site: left antecubital; ea 08:23 Follow up: IV Status: Completed infusion; IV Intake: 1000ml em 04:10 Drug: morphine 4 mg {Note: RASS 0.} Route: IVP; Site: left antecubital; ea 04:31 Follow up: Response: No adverse reaction; Pain is decreased; RASS: Alert and Calm (0) ea 06:38 Drug: Dilaudid 1 mg Route: IVP; Site: right hand; mg2 07:05 Follow up: Response: No adverse reaction; Pain is decreased; RASS: Alert and Calm (0) ea 06:38 Drug: NS 0.9% 1000 ml Route: IV; Rate: 125 ml/hr; Site: right hand; mg2 07:48 Drug: NS 0.9% 1000 ml Route: IV; Rate: 1 bolus; Site: right hand; em 08:05 Drug: NS 0.9% 1000 ml Route: IV; Rate: 1 bolus; Site: right hand; em 08:20 Drug: Zofran (Ondansetron) 4 mg Route: IVP; Site: right hand; em 08:22 Drug: Dilaudid 1 mg Route: IVP; Site: right hand; em Intake: 08:23 IV: 1000ml; Total: 1000ml. em 08:24 IV: 100ml; Total: 1100ml. em 08:24 IV: 1000ml; Total: 2100ml. em Outcome: 07:23 ER care complete, transfer ordered by . [facility] 09:17 Transferred by ground EMS Transfer form completed. X-rays sent w/ patient. em 09:17 Condition: good 09:17 Instructed on the need for admit, Demonstrated understanding of instructions. 09:30 Patient left the ED. em Signatures: Dispatcher [employer] Santana Martin MD MD cha Munoz, Edgar RN RN Melvina Mendoza am2 Berta Carrillo RN RN ea Botello, Elizabeth eb Gardose, Michele RN Johanna Argueta Maurice, MD MD 7
--- NOTE | 2020-01-11 07:23 | EDPHYS ---
Physician Documentation [facility] Name: Lottie Apodaca Age: 69 yrs Sex: Female : 1950 Arrival Date: 01/11/2020 Time: 02:05 Bed 8 Private MD: Carter Castillo V ED Physician Santana Macias HPI: 01/10 02:27 This 69 yrs old Female presents to ER via Wheelchair with complaints of mh7 Abdominal Pain. 02:27 The patient presents with abdominal pain that is diffuse. Onset: The symptoms/episode mh7 began/occurred last night. The symptoms do not radiate. Associated signs and symptoms: Pertinent positives: nausea and vomiting, Pertinent negatives: anorexia, blood in stools, chest pain, constipation, diarrhea, dysuria, fever, headache, hematuria, palpitations, shortness of breath, vaginal discharge, vomiting blood. 02:28 The symptoms are described as intermittent, vague, waxing/waning. Modifying factors: mh7 The symptoms are alleviated by nothing, the symptoms are aggravated by food. Severity of pain: At its worst the pain was moderate today, in the emergency department the pain is unchanged. Historical: - Allergies: 02:20 No Known Allergies; mg2 - Home Meds: 02:20 metformin 1,000 mg Oral tr24 1 tab once daily [Active]; hydrocodone-acetaminophen mg2 10-325 mg Oral tab 1 tab every 4-6 hours [Active]; Lyrica Oral 1 cap 2 times per day [Active]; Myrbetriq 25 mg Oral Tb24 1 tab once daily [Active]; bisoprolol fumarate 5 mg Oral tab 1 tab once daily [Active]; - PMHx: 02:20 Diabetes - NIDDM; Hypertension; mg2 - PSHx: 02:20 shoulder sx; mg2 - Immunization history:: Flu vaccine status is unknown. - Social history:: Smoking status: Patient denies any tobacco usage or history of. Patient/guardian denies using alcohol, street drugs, IV drugs. ROS: 02:28 Constitutional: Negative for fever, chills, and weight loss, Eyes: Negative for injury, mh7 pain, redness, and discharge, ENT: Negative for injury, pain, and discharge, Neck: Negative for injury, pain, and swelling, Cardiovascular: Negative for chest pain, palpitations, and edema, Respiratory: Negative for shortness of breath, cough, wheezing, and pleuritic chest pain, Back: Negative for injury and pain, : Negative for injury, bleeding, discharge, and swelling, MS/Extremity: Negative for injury and deformity, Skin: Negative for injury, rash, and discoloration, Neuro: Negative for headache, weakness, numbness, tingling, and seizure, Psych: Negative for depression, anxiety, suicide ideation, homicidal ideation, and hallucinations, Allergy/Immunology: Negative for hives, rash, and allergies, Endocrine: Negative for neck swelling, polydipsia, polyuria, polyphagia, and marked weight changes, Hematologic/Lymphatic: Negative for swollen nodes, abnormal bleeding, and unusual bruising. Exam: 02:28 Head/Face: Normocephalic, atraumatic. Eyes: Pupils equal round and reactive to light, mh7 extra-ocular motions intact. Lids and lashes normal. Conjunctiva and sclera are non-icteric and not injected. Cornea within normal limits. Periorbital areas with no swelling, redness, or edema. Neck: Trachea midline, no thyromegaly or masses palpated, and no cervical lymphadenopathy. Supple, full range of motion without nuchal rigidity, or vertebral point tenderness. No Meningismus. Chest/axilla: Normal chest wall appearance and motion. Nontender with no deformity. No lesions are appreciated. Cardiovascular: Regular rate and rhythm with a normal S1 and S2. No gallops, murmurs, or rubs. Normal PMI, no JVD. No pulse deficits. Respiratory: Lungs have equal breath sounds bilaterally, clear to auscultation and percussion. No rales, rhonchi or wheezes noted. No increased work of breathing, no retractions or nasal flaring. 02:28 Back: No spinal tenderness. No costovertebral tenderness. Full range of motion. Skin: Warm, dry with normal turgor. Normal color with no rashes, no lesions, and no evidence of cellulitis. MS/ Extremity: Pulses equal, no cyanosis. Neurovascular intact. Full, normal range of motion. Neuro: Awake and alert, GCS 15, oriented to person, place, time, and situation. Cranial nerves II-XII grossly intact. Motor strength 5/5 in all extremities. Sensory grossly intact. Cerebellar exam normal. Normal gait. Psych: Awake, alert, with orientation to person, place and time. Behavior, mood, and affect are within normal limits. 02:28 Constitutional: The patient appears in no acute distress, alert, awake, uncomfortable. 02:28 Abdomen/GI: Inspection: abdomen appears normal, Bowel sounds: normal, in all quadrants, Palpation: moderate abdominal tenderness, in all quadrants, Rectal exam: the exam is deferred, because of patient request, Indicators: McBurney's point is tender, Boswell's sign is positive, Rovsing's sign is positive, Obturator sign is positive, Psoas sign is positive, Liver: no appreciated palpable abnormalities, Hernia: not appreciated. Vital Signs: 02:15 BP 168 / 89; Pulse 98; Resp 18; Temp 96.6; Pulse Ox 100% on R/A; Weight 79.38 kg; mg2 Height 4 ft. 11 in. (149.86 cm); 03:17 BP 188 / 89; Pulse 95; Resp 18; Pulse Ox 95% on R/A; ea 03:17 BP 168 / 89; Pulse 89; Resp 18; Pulse Ox 95% on R/A; mg2 03:57 BP 169 / 89; Pulse 97; Resp 18; Pulse Ox 97% on R/A; ea 04:33 BP 161 / 94; Pulse 96; Resp 18; Temp 97; Pulse Ox 95% on R/A; ea 06:00 BP 184 / 94; Pulse 100; Resp 18; Pulse Ox 94% on R/A; ea 06:19 BP 169 / 88; Pulse 105; Resp 18; Pulse Ox 92% on R/A; mg2 08:00 BP 192 / 92; Pulse 99; Resp 16; Pulse Ox 100% on 2 lpm NC; Pain 8/10; em 02:15 Body Mass Index 35.35 (79.38 kg, 149.86 cm) mg2 MDM: 02:26 Patient medically screened. 7 07:01 Differential diagnosis: bowel obstruction, cholecystitis, Cholelithiasis, mh7 diverticulitis, gastritis, gastroesophageal reflux disease, myocardia ischemia or infarction, non-specific abd pain, pancreatitis, Peptic Ulcer Disease, urinary tract infection. Data reviewed: vital signs, nurses notes, lab test result(s), CBC, electrolytes, urinalysis, EKG, radiologic studies, CT scan. Data interpreted: Pulse oximetry: on room air is 97 %. Interpretation: normal. 08:16 Test interpretation: by ED physician or midlevel provider: ECG. ED course: pt improving etienne and [facility] [place], dr treadwell. 01/10 02:15 Order name: Basic Metabolic Panel; Complete Time: 06:32 [facility] [place] 01/10 02:15 Order name: CBC with Diff; Complete Time: 03:42 [facility] [place] 01/10 02:15 Order name: Hepatic Function; Complete Time: 06:32 [facility] [place] 01/10 02:15 Order name: Lipase; Complete Time: 06:32 [facility] [place] 01/10 02:52 Order name: Lactate; Complete Time: 03:43 [facility] 01/10 02:52 Order name: Blood Culture Adult (2) [facility] 01/10 02:39 Order name: CT Abd/Pelvis - IV Contrast Only [facility] 01/10 02:53 Order name: Manual Differential; Complete Time: 03:42 [facility] 01/10 02:53 Order name: Blood Culture [facility] 01/10 04:31 Order name: Amylase, Serum; Complete Time: 06:32 [facility] 01/10 05:38 Order name: Urine Dipstick--Ancillary (enter results); Complete Time: 06:13 [facility] 01/10 07:14 Order name: Lactate Sepsis 2 HR Follow-up; Complete Time: 07:20 [facility] 01/10 02:15 Order name: IV Saline Lock; Complete Time: 02:22 [facility] [place] [place] 01/10 02:15 Order name: Labs collected and sent; Complete Time: 02:22 [facility] [place] [place] 01/10 02:27 Order name: Urine Dipstick-Ancillary (obtain specimen); Complete Time: 05:14 [facility] 01/10 02:27 Order name: EKG - Nurse/Tech; Complete Time: 02:51 7 Administered Medications: 02:50 Drug: Zofran (Ondansetron) 4 mg Route: IVP; Site: right antecubital; mg2 03:38 Follow up: Response: No adverse reaction mg2 02:50 Drug: Pepcid 20 mg Route: IVP; Site: right antecubital; mg2 03:37 Follow up: Response: No adverse reaction mg2 02:51 Drug: NS 0.9% 1000 ml Route: IV; Rate: 1000 ml; Site: right antecubital; mg2 08:24 Follow up: IV Status: Completed infusion; IV Intake: 1000ml em 02:51 Drug: morphine 4 mg Route: IVP; Site: right antecubital; mg2 03:38 Follow up: Response: No adverse reaction; RASS: Alert and Calm (0) mg2 03:58 Drug: Zosyn 3.375 grams Route: IVPB; Infused Over: 60 mins; Site: left antecubital; ea 08:24 Follow up: Response: No adverse reaction; IV Status: Completed infusion; IV Intake: em 100ml 03:58 Drug: NS 0.9% 1000 ml Route: IV; Rate: 1000 ml; Site: left antecubital; ea 08:23 Follow up: IV Status: Completed infusion; IV Intake: 1000ml em 04:10 Drug: morphine 4 mg {Note: RASS 0.} Route: IVP; Site: left antecubital; ea 04:31 Follow up: Response: No adverse reaction; Pain is decreased; RASS: Alert and Calm (0) ea 06:38 Drug: Dilaudid 1 mg Route: IVP; Site: right hand; mg2 07:05 Follow up: Response: No adverse reaction; Pain is decreased; RASS: Alert and Calm (0) ea 06:38 Drug: NS 0.9% 1000 ml Route: IV; Rate: 125 ml/hr; Site: right hand; mg2 07:48 Drug: NS 0.9% 1000 ml Route: IV; Rate: 1 bolus; Site: right hand; em 08:05 Drug: NS 0.9% 1000 ml Route: IV; Rate: 1 bolus; Site: right hand; em 08:20 Drug: Zofran (Ondansetron) 4 mg Route: IVP; Site: right hand; em 08:22 Drug: Dilaudid 1 mg Route: IVP; Site: right hand; em Disposition: 01/11/20 07:23 Transfer ordered to [facility]. Diagnosis are Upper abdominal pain, unspecified, Acute pancreatitis, Type 2 diabetes mellitus. - Reason for transfer: Higher level of care. - Accepting physician is to [facility] sanab[facility] Dr. Peter Chong. - Condition is Fair. - Problem is new. - Symptoms have improved. Signatures: Dispatcher [employer] Santana Martin MD MD cha Munoz, Edgar, RN RN em Berta Carrillo RN RN ea Gardose, Michele RN RN [facility] [place] Mariama Sandovale, MD MD mh7 Corrections: (The following items were deleted from the chart) 09:30 07:23 01/11/2020 07:23 Transfer ordered to [facility]. Diagnosis is Upper em abdominal pain, unspecified; Acute pancreatitis; Type 2 diabetes mellitus. Reason for transfer: Higher level of care. Accepting physician is to [facility], Dr. Marcio Treadwell. Condition is Fair. Problem is new. Symptoms have improved. etienne
[2020-01-11] MEDS ORDERED: ASPIRIN 81 MG CHEWABLE TABLET ONE (09:21)
[2020-01-11 09:43] VITALS: TEMP 97
[2020-01-11 09:47] VITALS: BP 192/92; O2SAT 100
--- NOTE | 2020-01-11 11:26 | RAD REPORT ---
EXAM DESCRIPTION: CT - Abdomen Pelvis W Contrast - 01/11/2020 4:51 am CLINICAL HISTORY: 69-year-old female with abdominal pain TECHNIQUE: Axial CT imaging of the abdomen and pelvis was performed following the administration of intravenous contrast.. Oral contrast was not administered. Sagittal and coronal reconstructed image s were then performed. The CT study is performed according to ALARA (as low as reasonably achievabl e) or ALARA/IMAGE GENTLY, with automatic adjustment of mA and/or kV according to patient size. Performed on: 01/11/2020 at 3:35 AM. COMPARISON: CT abdomen and pelvis performed on 12/02/2019 FINDINGS: Lung bases: The lung bases are clear. There is minimal bibasilar atelectasis and/or fibros is, greater in the left lung base. Liver: The liver is normal in size and configuration. No focal hepatic abnormalities are identified. Liver attenuation is within normal limits. Spleen: The spleen is normal is size, configuration and attenuation. There are a couple of calcified splenic granulomas. Gallbladder and bile duct: The gallbladder is well distended and unremarkable. There is no biliary ductal dilatation. Pancreas: There is extensive peripancreatic inflammation and edema. There is free fluid in the retrop eritoneal space. Findings are consistent with acute pancreatitis. Adrenal Glands: The adrenal glands are normal in size and configuration. Kidneys: The kidneys are normal in size and configuration. There is no evidence of hydronephrosis. Th ere is no evidence of nephrolithiasis. There is a grossly stable 1.6 cm right renal cyst. Stomach: The stomach is grossly normal. There is no definite hiatal hernia. Bowel: The bowel gas pattern is non specific and non obstructive. There are inflammatory changes surr ounding the duodenum likely reactive in nature due to the adjacent acute pancreatitis. There is also inflammation surrounding the hepatic flexure. Appendix: There is no CT evidence of acute appendicitis. Free air: There is no evidence of free air. Free fluid: There is free fluid in the retroperitoneal space and there is a small amount of free flui d in the pelvis. Vasculature: The aorta is normal in caliber and contour. The inferior vena cava is grossly unremarkab le. Lymphadenopathy: No pathologic lymphadenopathy is identified. Bladder: The bladder is well distended and smooth in contour. Reproductive: The uterus is grossly within normal limits. Bones: No acute osseous abnormalities are identified. There is an old fracture of the anterior right seventh rib. There are degenerative changes of the thoracolumbar spine with vacuum discs present at m ultiple levels. There is grade 1 anterolisthesis of L5 relative to S1 Soft tissues: No focal soft tissue abnormalities are identified. IMPRESSION: 1. There is extensive peripancreatic inflammation and edema consistent with acute pancre atitis. There is no CT evidence of pancreatic necrosis at this time. 2. Evidence of prior granulomatous disease. 3. Stable right renal cyst. Electronically signed by: Christina Frazier DO 01/11/2020 4:14 AM CDT Due to temporary technical issues with the PACS/Fluency reporting system, reports are being signed by the in house radiologist without review as a courtesy to ensure prompt reporting. The interpreting r adiologist is fully responsible for the content of the report.
== END 2020-01-11 09:30 | disposition short-term general hospital (02) ==
LOC: ER 02:01
DX: K85.90 Acute pancreatitis without necrosis or infection, unspecified (principal); E11.9 Type 2 diabetes mellitus without complications; I10 Essential (primary) hypertension
CPT/HCPCS: 93005; 87040 ×2; 85025; 80048; 36415; 82150; 80076; 83605 ×2; 81003; 83690; 74177; 99285; Q9967; J2543; J1170 ×2; J7030 ×4; J2405 ×2

== ENCOUNTER 2020-12-28 12:28 | Emergency (ER) | payer OTHER ==
--- OUTSIDE RECORDS SUMMARY | 2020-12-28 12:33 | XMS REPORT | Continuity of Care Document ---
:1950 Author Organization [facility] t Address [address] [place] [address] Care Team Providers Name Role Phone Ashwin Joseph Attending Clinician Lakesha Brunson Attending Clinician Ashwin Joseph Admitting Clinician Lakesha Brunson Admitting Clinician Problems Condition Condition Condition Status Onset Resolution Last Treating Co mments Source Name Details Category Date Date Treatment Clinician Date ACUTE Diagnosis Active 2020-01-20 Mem oria PANCREAITI 01-10 21:53:00 l S ACUTE 00:00: Emigdio PANCREAITI 00 S Active 01/11/2020 [facility] ACUTE Diagnosis Active 2020-01-11 Mem oria PANCREATIT 01-10 11:16:00 l IS ACUTE 00:00: [place] PANCREATIT 00 IS Active 0 [facility] DEGENERATI Diagnosis Active 2014-042015-03-22 Memoria VE 1-03 22:00:00 l ARTHRITIS 00:00: [place] LEFT KNEE DEGENERATI 00 VE ARTHRITIS LEFT KNEE Active 02/23/2015 [facility] DEGENERATI Diagnosis Active 2014-042015-03-11 Memoria VE -03 06:33:00 l ARTHRITIS 00:00: Emigdio DEGENERATI 00 VE ARTHRITIS Active 02/23/2015 [facility] Syncope Problem Resolve 2020-01-19 Mem oria and d 07:06:47 l collapse Syncope Isabel nn (disorder) and collapse (disorder) Resolved Problem 01/19/2020 D/T HYPOGLYCEM IA [facility], [place] Type II Problem Active 2020-01-19 Luis Eduardo duc diabetes 07:06:47 l mellitus Type II Isabel nn uncontroll diabetes ed mellitus (finding) uncontroll ed (finding) Active Problem 01/19/2020 [facility] ACUTE Diagnosis Active 2020-01-20 Mem oria PANCREATIT 21:53:00 l IS WITHOUT ACUTE Isabel nn NECROSIS PANCREATIT OR I IS WITHOUT NECROSIS OR I Active [facility] OSTEOARTHR Diagnosis Active 2015-03-22 Memoria ITIS OF 22:00:00 l KNEE, Emigdio UNSPECIFIE OSTEOARTHR D ITIS OF KNEE, UNSPECIFIE D Active [facility] Acute Problem 2020-01-19 Memor ia pancreatit 07:06:47 l is without Acute Isabel nn necrosis pancreatit or is without infection, necrosis unspecifie or d infection, unspecifie d 01/19/2020 [facility] Lower Problem Resolve 2014-042020-01-19 2020-01-19 Memoria urinary d 0-01 07:06:47 07:06:47 l tract Lower 00:00: Emigdio infectious urinary 00 disease tract (disorder) infectious disease (disorder) Resolved 01/21/2015 Problem 01/19/[facility] Anemia Problem Resolve 2020-01-19 2020-01-19 Memoria (disorder) d 1-01 07:06:47 07:06:47 l Anemia 00:00: Emigdio (disorder) 00 Resolved 04/23/2012 Problem 01/19/2020 D/T [facility] Allergies, Adverse Reactions, Alerts Allergy Allergy Status Severity Reaction(s) Onset Inactive Treating Comm ents Source Name Type Date Date Clinician YVONNE YVONNE Active Memoria Inhibito Inhibito l rs rs Emigdio Social History Social Habit Start Date Stop Date Quantity Comments Source Social History 2015-03-11 2015-03-11 [facility] carly 14:37:12 14:37:12 Medications Ordered Filled Start Stop Current Ordering Indication Dosage Frequency Signature Comments Components Source Medication Medication Date Date Medication? Clinician (SIG) Name Name Ciprofloxac Yes 500 mg = 1 Memoria in 500 MG 9-23 tab, PO, l Oral Tablet 16:12: Q12H, X 10 Emigdio [Cipro] 00 day, # 20 tab, 0 Refill(s), Pharmacy: [id number], 165.1, cm, 01/11/20 11:33:00 CDT, Height, 77.273, kg, 01/11/20 11:33:00 CDT, Weight Metronidazo 2019- Yes 500 mg = 1 Memoria le 500 MG 01-13 tab, PO, l Oral Tablet 16:12: Q8H, X 7 He rmann [Flagyl] day, # 21 tab, 0 Refill(s), Pharmacy: [facility] #[id number], 165.1, cm, 01/11/20 11:33:00 CDT, Height, 77.273, kg, 01/11/20 11:33:00 CDT, Weight ketOROLAC 2019-0 No IV, ONCE Luis Eduardo duc (ANES) 01-12 l 18:38: glycopyrrol No Route: IV, Memoria ate (ANES) 01-12 Drug form: l 18:38: INJ, ONCE, Stop date: 01/13/20 13:38:00 CDT neostigmine No Route: IV, Memoria (ANES) 01-12 Drug form: l 18:38: INJ, ONCE, Stop date: 01/13/20 13:38:00 CDT ePHEDrine No Route: IV, Me moria (ANES) 01-12 Drug form: l 18:21: INJ, ONCE, Stop date: 01/13/20 13:21:00 CDT fentaNYL No Route: IV, Mem oria (ANES) 01-12 Drug form: l 18:10: INJ, ONCE Stop date: 01/13/20 13:10:00 CDT ondansetron No Route: IV, Memoria (ANES) 01-12 Drug form: l 18:10: INJ, ONCE, Stop date: 01/13/20 13:10:00 CDT phenylephri 2019- No Route: IV, Memoria ne (ANES) 01-12 Drug form: l 18:05: INJ, ONCE, Stop date: 01/13/20 13:05:00 CDT esmolol 2019- No Route: IV, Luis Eduardo duc (ANES) 01-12 Drug form: l 18:05: INJ, ONCE, Stop date: 01/13/20 13:05:00 CDT propofol 2020-0 No Route: IV, Mem oria (ANES) 01-12 Drug form: l 17:55: INJ, ONCE, Stop date: 01/13/20 12:55:00 CDT rocuronium No Route: IV, Faisal emoria (ANES) 01-12 Drug form: l 17:55: INJ, ONCE, Stop date: 01/13/20 12:55:00 CDT succinylcho No Route: IV, Memoria line (ANES) 01-12 Drug form: l 17:55: INJ, ONCE, Stop date: 01/13/20 12:55:00 CDT ceFAZolin No Route: IV, moria (ANES) 01-12 Drug form: l 17:55: INJ, ONCE, Stop date: 01/13/20 12:55:00 CDT midazolam No Route: IV, Me moria (ANES) 01-12 Drug form: l 17:50: SOLN, 00 ONCE, Stop date: 01/13/20 12:50:00 CDT lidocaine No Route: IV, Me moria (ANES) 01-12 Drug form: l 17:50: INJ, ONCE, Stop date: 01/13/20 12:50:00 CDT Calcium No 1,000 mL, Memor ia Chloride 01-12 Rate: 75 l 0.0014 17:27: ml/hr, MEQ/ML / 00 Infuse Potassium over: 13.3 Chloride hr, Route: 0.004 IV, Dosing MEQ/ML / Weight Sodium 77.273 kg, Chloride Total 0.103 Volume: MEQ/ML / 1,000, Sodium Start Lactate date: 0.028 01/13/20 MEQ/ML 12:27:00 Injectable CDT, Solution Duration: 30 day, Stop date: 02/12/20 12:26:00 CDT, 1.9, m2, 0 Lactated No Route: IV, Mem oria Ringers 01-12 Total l Injection 16:53: Volume: Isabel nn IV (ANES) 00 1,000, 1000 mL Start date: 01/13/20 11:53:00 CDT, Stop date: 01/13/20 12:53:00 CDT Insulin 0 No 10 unit, Coleman a regular 01-12 Route: IV, l 16:32: ONCE, Dosing Weight 77.273, kg, Start date: 01/13/20 11:32:00 CDT, Stop date: 01/13/20 11:32:00 CDT Hydralazine No Notes: Luis Eduardo duc 01-12 (Same as: l 14:33: Apresoline Emigdio ) Push over 5 minutes Metoprolol No Notes: Memor ia 01-12 (Same as: l 14:33: Lopressor) Push over 2 minutes Oxycodone No Notes: Memori a Hydrochlori 01-12 (Same as: l de 5 MG 14:33: Roxicodone Herm giacomo Oral Tablet ) Morphine No Notes: Memoria 01-12 (Same l 14:33: as:MORPhin Emigdio 00 e Sulfate) Flumazenil No Notes: Memor ia 01-12 (Same as: l 14:33: Romazicon) Naloxone No Notes: Memoria 01-12 Same as l 14:33: Narcan Meperidine No Notes: Memor ia 01-12 (Same As: l 14:33: Demerol) Ondansetron No Notes: Luis Eduardo duc 01-12 (Same as: l 14:33: Zofran) MEDICATION WASTE Product Size: 4 mg Product Wasted: ___ mg Zosyn No Notes: Memoria 01-12 (Same as: l 13:00: Zosyn) Dosing based on Piperacill in component MEDICATION WASTE Product Size: 3375 mg Product Wasted: ___ mg insulin, No Notes: Memoria isophane 01-11 (Same as: l 22:00: Humulin N) Roll in palms of hands gently; Do not shake vigorously . WASTE: F/P - Black; E - Municipal Trash Bin Stable for 31 days at room temperatur e Expires in days from ____Date Hydralazine 2019-0 No Notes: Luis Eduardo duc 9-21 (Same as: l 16:00: Apresoline ) May interfere w/enteral feedings Take With Food. Protonix 2019-0 No Notes: For Mem oria 9-21 IV push l 14:00: reconstitu te with 10 ml 0.9% sodium chloride and push over 2 minutes. (Same as: Protonix) Amlodipine 2019-0 No 5 mg, 1 Luis Eduardo duc -21 tab, l 14:00: Route: PO, Drug form: TAB, Daily, Dosing Weight 77.273, kg, Start date: 01/12/20 9:00:00 CDT, Duration: 30 day, Stop date: 02/10/20 9:00:00 CDT Raloxifene 2019-0 No Notes: Memor ia - Hazardous l 14:00: Drug Group 2:Non-anti neoplastic Hazardous Drug -- Refer to safe handling procedure PPE Matrix (Same as:Evista) "Do Not Crush" Lyrica 2019-0 No Notes: Memoria 9-20 Same as l 22:00: Lyrica Amlodipine 2019-0 No Notes: Memor ia 9-20 (Same as: l 19:00: Norvasc) Dextrose 2019-0 No 12.5 gm, Memor ia 50% Syringe - 25 mL, l (D50W) 18:21: Route: IVP, Drug Form: INJ, Dosing Weight 77.273, kg, PRN, PRN Blood Glucose Results, Start date: 01/11/20 13:21:00 CDT, Duration: 30 day, Stop date: 02/10/20 13:20:00 CDT, 0 Glucagon 2019-0 No 1 mg, Memoria - Route: IM, l 18:21: Drug form: PDR/INJ, PRN, Dosing Weight 77.273, kg, PRN Blood Glucose Results, Start date: 01/11/20 13:21:00 CDT, Duration: 30 day, Stop date: 02/10/20 13:20:00 CDT, 0 Insulin 2020-0 No Notes: Memoria Lispro -20 (Same as: l 18:21: Humalog) [place] 00 Roll in palms of hands gently; Do not shake vigorously . WASTE: F/P - Black; E - Municipal Trash Bin Stable for 28 days at room temperatur e. Expires in days from ____Date Acetaminoph 2019-0 No Notes: Luis Eduardo duc en 325 MG / -20 Same as l Hydrocodone 18:21: [place] Isabel nn Bitartrate 00 325-7.5mg 7.5 MG Oral Do not Tablet exceed 4gm/day of acetaminop hen. amLODIPine 2019-0 Yes 5 mg = 1 Mem oria 5 mg oral 9-20 tab, PO, l tablet 17:56: Daily, # Emigdio 00 30 tab, 0 Refill(s) raloxifene 0 Yes 60 mg = 1 Me moria 60 mg oral 9-20 tab, PO, l tablet 17:56: Daily, # [place] 00 30 tab, 0 Refill(s) Acetaminoph 2019-0 Yes 1 tab, PO, Memoria en 325 MG / -20 TID, 0 l Hydrocodone 17:39: Refill(s) H ermann Bitartrate 00 7.5 MG Oral Tablet Hydrochloro 2019-0 Yes 1 tab, PO, Memoria thiazide 25 9-20 Daily, # l MG / 17:39: 30 tab, 0 [place] Losartan 00 Refill(s) Potassium 100 MG Oral Tablet pregabalin Yes 50 mg = 1 Me moria 50 MG Oral 9-20 cap, PO, l Capsule 17:39: BID, 0 [place] [Lyrica] 00 Refill(s) 24 HR Yes 50 mg = 1 Memoria mirabegron 9-20 tab, PO, l 50 MG 17:39: Daily, # [place] Extended 00 30 tab, 0 Release Refill(s) Tablet [Myrbetriq] Lovenox No Notes: Memoria 9-20 (Same as: l 16:00: Lovenox) Emigdio 00 Clonidine 2019-0 No Notes: Memori a Hydrochlori 20 (Same As: l de 0.1 MG 15:47: Catapres) Her ram Oral Tablet 00 Labetalol No Notes: Memori a -20 (Same as: l 15:46: Normodyne, [place] Trandate) Push over 2 minutes Give bolus over 2-3 minutes. Dextrose 2020-0 No 12.5 gm, Memor ia 50% Syringe - 25 mL, l (D50W) 15:45: Route: Emigdio 00 IVP, Drug Form: INJ, Dosing Weight 71.364, kg, PRN, PRN Blood Glucose Results, Start date: 01/11/20 10:45:00 CDT, Duration: 30 day, Stop date: 02/10/20 10:44:00 CDT, 0 Glucagon 2020-0 No 1 mg, Memoria 01-10 Route: IM, l 15:45: Drug form: [place] PDR/INJ, PRN, Dosing Weight 71.364, kg, PRN Blood Glucose Results, Start date: 01/11/20 10:45:00 CDT, Duration: 30 day, Stop date: 02/10/20 10:44:00 CDT, 0 Insulin 2019-0 No Notes: Memoria Lispro 01-10 (Same as: l 15:45: Humalog) Roll in palms of hands gently; Do not shake vigorously . WASTE: F/P - Black; E - Municipal Trash Bin Stable for 28 days at room temperatur e. Expires in days from ____Date LR IV 1,000 2020-0 No 1,000 mL, M emoria mL 01-10 Rate: 150 l 15:44: ml/hr, Infuse over: 6.7 hr, Route: IV, Dosing Weight 71.364 kg, Total Volume: 1,000, Start date: 01/11/20 10:44:00 CDT, Duration: 30 day, Stop date: 02/10/20 10:43:00 CDT, 1.73, m2, 0 Morphine 2020-0 No 2 mg, 1 Memori a 9-20 mL, Route: l 15:44: IVP, Drug form: SOLN, Q4H, Dosing Weight 71.364, kg, PRN Pain Score 7-10, Start date: 01/11/20 10:44:00 CDT, Duration: 30 day, Stop date: 02/10/20 10:43:00 CDT, 0 Zofran No Notes: Memoria 01-10 (Same as: l 15:44: Zofran) MEDICATION WASTE Product Size: 4 mg Product Wasted: ___ mg Morphine 2014-04 No Notes: Memoria 05-13 (Same l 20:50: as:MORPhin Emigdio 00 e Sulfate) Aspirin 81 2014-04 Yes 81 mg = 1 Me moria MG Chewable -21 tab, PO, l Tablet 15:24: BID, # 42 Gio n 00 tab, 0 Refill(s) POLYETHYLEN 2014-04 Yes 17 gm, PO, Memoria E GLYCOL 05-13 Daily, X l 3350 142 13:47: 15 day, # Herm giacomo MG/ML Oral 00 255 gm, 0 Solution Refill(s) [Miralax] docusate 2014-04 Yes 100 mg = 1 Mem oria sodium 100 -21 cap, PO, l mg oral 13:47: BID, # 28 Isable nn capsule 00 cap, 0 Refill(s) celecoxib 2014-04 Yes 200 mg = 1 Me moria 200 mg oral -21 cap, PO, l capsule 13:47: Q12H, # 28 Herm giacomo 00 cap, 0 Refill(s) Aspirin 325 2014-04 Yes 325 mg = 1 Memoria MG Enteric -21 tab, PO, l Coated 13:47: Q12H, # 28 Isabel nn Tablet 00 tab, 0 Refill(s) Glucagon 2014-04 No 1 mg, Memoria 05-13 Route: IM, l 12:48: Drug form: PDR/INJ, PRN, Dosing Weight 71.364, kg, PRN Blood Glucose Results, Start date: 03/13/15 6:48:00, Duration: 30 day, Stop date: 04/12/15 6:47:00 Dextrose 2014-04 No 12.5 gm, Memor ia 50% Syringe 05-13 25 mL, l 12:48: Route: IVP, Drug Form: INJ, Dosing Weight 71.364, kg, PRN, PRN Blood Glucose Results, Start date: 03/13/15 6:48:00, Duration: 30 day, Stop date: 04/12/15 6:47:00 Insulin, 2014-04 No Notes: Memoria Aspart, 1-21 (Same as: l Human 12:48: NovoLOG) [place] 00 Dexamethaso 2014-04 No Notes: Luis Eduardo duc ne 1-20 Concentrat l 18:28: ion: [place] 00 4mg/ml Ditropan XL 2014-04 No Notes: Luis Eduardo duc 1-20 (Same as: l 15:00: Ditropan [place] 00 XL) "Do Not Crush" POLYETHYLEN 2014-04 No Notes: Luis Eduardo duc E GLYCOL 1-20 Dissolve l 3350 15:00: in 8 oz of Emigdio 00 water or juice. (Same as: Miralax) Losartan 2014-04 No Notes: Memoria 1-20 (Same as: l 15:00: Cozaar) [place] 00 Hydrochloro 2014-04 No Notes: Luis Eduardo duc thiazide 1-20 (Same as: l 12.5 MG 15:00: Hydrodiuri Herm giacomo Oral 00 l) With Capsule food. Aspirin 81 2014-04 No 81 mg = 1 Me moria MG Chewable 1-20 tab, PO, l Tablet 15:00: BID, # 42 Gio n 00 tab, 0 Refill(s) Metformin 2014-04 No Notes: Memori a hydrochlori 1-20 (Same as: l de 1000 MG 14:00: Glucophage H ermann Oral Tablet 00 ) Take with meal Protonix 2014-04 No 40 mg, Memoria 1-20 Route: PO, l 13:30: Drug form: [place] 00 ECTAB, Before Breakfast, Dosing Weight 71.364, kg, Start date: 03/12/15 7:30:00, Duration: 30 day, Stop date: 04/10/15 7:30:00 Aspirin 2014-04 No Notes: (Do Luis Eduardo duc 1-20 Not Crush) l 03:00: Do not Emigdio 00 crush or chew. celecoxib 2014-04 No Notes: Memori a 1-20 NSAID. l 03:00: Please Emigdio 00 check indication . Not for seizure. (Same As: CeleBREX) Metformin 2014-04 No Notes: Memori a 1-20 (Same as: l 00:49: Glucophage Emigdio 00 ) Take with meal Ondansetron 2014-04 No Notes: Luis Eduardo duc -20 (Same as: l 00:28: Zofran) MEDICATION WASTE Product Size: 4 mg Product Wasted: ___ mg Tranexamic 2014-04 No Notes: Memor ia Acid -20 (Same as: l 00:28: Lysteda) Non-Formul amber Flexeril 2014-04 No Notes: Memoria 05-11 (Same As: l 23:20: Flexeril) Insulin, 2014-04 No Notes: Memoria Aspart, 05-11 (Same as: l Human 23:15: NovoLOG) Dextrose 2014-04 No 25 gm, 50 Luis Eduardo duc 50% Syringe 1-19 mL, Route: l 23:15: IVP, Drug Form: INJ, Dosing Weight 71.364, kg, PRN, PRN Blood Glucose Results, Start date: 03/11/15 17:15:00, Duration: 30 day, Stop date: 04/10/15 17:14:00 Glucagon 2014-04 No 1 mg, Memoria 05-11 Route: IM, l 23:15: Drug form: PDR/INJ, PRN, Dosing Weight 71.364, kg, PRN Blood Glucose Results, Start date: 03/11/15 17:15:00, Duration: 30 day, Stop date: 04/10/15 17:14:00 Docusate 2014-04 No Notes: Memoria 05-11 (Same as: l 23:00: Colace) (Do Not Crush) ceFAZolin 2014-04 No Notes: Memori a (SCIP) 05-11 Same as l 23:00: Ancef ropivacaine 2014-04 No Notes: Memoria 05-11 NOT FOR IV l 18:48: use Ropivacain e 5 mg/mL (49.25 mL) Epinephrin e 1 mg/mL (0.5 mL) Clonidine 0.1 mg/mL (0.8 mL) Ketorolac 30 mg/mL (1 mL) Normal Saline 48.45 mL Labetalol 2014-04 No 10 mg, 2 Luis Eduardo duc 1-19 mL, Route: l 18:36: IVP, Drug Emigdio 00 form: INJ, Q5Min, Dosing Weight 71.364, kg, PRN Elevated BP, Start date: 03/11/15 12:36:00, Duration: 5 doses or times, Stop date: 03/11/15 16:00:00 Hydralazine 2014-04 No Notes: Luis Eduardo duc - (Same as: l 18:36: Apresoline [place] ) Push over 5 minutes Naloxone 2014-04 No Notes: Memoria 05-11 Same as l 18:36: Narcan [place] Flumazenil 2014-04 No Notes: Memor ia 05-11 (Same as: l 18:36: Romazicon) Emigdio 00 Hydromorpho 2014-04 No Notes: Luis Eduardo duc ne 05-11 Same as l 18:36: Dilaudid Ondansetron 2014-04 No Notes: Luis Eduardo duc 05-11 (Same as: l 18:36: Zofran) [place] 00 MEDICATION WASTE Product Size: 4 mg Product Wasted: ___ mg Ondansetron 2014-04 No Notes: Luis Eduardo duc 05-11 (Same as: l 18:28: Zofran) Emigdio 00 MEDICATION WASTE Product Size: 4 mg Product Wasted: ___ mg Bisacodyl 2014-04 No Notes: Memori a - (Same As: l 18:28: Dulcolax, [place] 00 Bisco-Lax) Diphenhydra 2014-04 No Notes: Luis Eduardo duc mine 05-11 (Same as: l 18:28: Benadryl) Emigdio 00 Oxycodone 2014-04 No Notes: Memori a Hydrochlori 05-11 (Same as: l de 5 MG 18:28: Roxicodone Herm giacomo Oral Tablet ) Morphine 2014-04 No Notes: Memoria - (Same l 18:28: as:MORPhin [place] e Sulfate) Milk of 2014-04 No Notes: Memoria Magnesia 05-11 (Same as: l 18:28: Milk of Emigdio 00 Magnesia, MOM) Temazepam 2014-04 No Notes: Memori a - (Same As: l 18:28: Restoril) [place] Tylenol 2014-04 No Notes: Do Memor ia 05-11 not exceed l 18:28: 4 gm/day. Emigdio 00 (Same as: Tylenol) Acetaminoph 2014-04 No Notes: Do M emoria en 325 MG / 05-11 not exceed l Hydrocodone 18:28: 4gm/day of [place] Bitartrate 00 acetaminop 10 MG Oral hen. Tablet (Same as: [place] 325/10) zolpidem 2014-04 No Notes: Memoria 05-11 (Same As: l 18:28: Ambien) Emigdio 00 Maalox 2014-04 No Notes: Memoria Advanced 05-11 (aluminum l Regular 18:28: hydroxide- Herm giacomo Strength 00 magnesium SUSP hyd- simethicon e 400-400-40 mg/5ml 30 ml ud ISMAEL) Acetaminoph 2014-04 No Notes: Do M emoria en 325 MG / 05-11 not exceed l Hydrocodone 18:28: 4gm/day of [place] Bitartrate 00 acetaminop 10 MG Oral hen. Tablet (Same as: [Flushing Flushing 10/325] 325/10) NS 1,000 mL 2014-04 No 1,000 mL, M emoria 05-11 Rate: 85 l 18:28: ml/hr, [place] 00 Infuse over: 11.8 hr, Route: IV, Dosing Weight 71.364 kg, Total Volume: 1,000, Start date: 03/11/15 12:28:00, Duration: 30 day, Stop date: 04/10/15 12:27:00 Naloxone 2014-04 No Notes: Memoria 05-11 Same as l 16:46: Narcan Emigdio 00 Flumazenil 2014-04 No Notes: Memor ia 05-11 (Same as: l 16:46: Romazicon) Emigdio 00 Morphine 2014-04 No Notes: Memoria 05-11 (Same l 16:46: as:MORPhin Emigdio 00 e Sulfate) Hydromorpho 2014-04 No Notes: Luis Eduardo duc ne 05-11 Same as l 16:46: Dilaudid Emigdio 00 Ondansetron 2014-04 No Notes: Luis Eduardo duc 05-11 (Same as: l 16:46: Zofran) [place] 00 MEDICATION WASTE Product Size: 4 mg Product Wasted: ___ mg Hydralazine 2014-04 No Notes: Luis Eduardo duc 05-11 (Same as: l 16:46: Apresoline ) Push over 5 minutes Zofran 2014-04 No 4 mg, Memoria 05-11 Route: IV, l 15:12: ONCE, Dosing Weight 71.364, kg, Start date: 03/11/15 9:12:00, Stop date: 03/11/15 9:12:00 Ancef 2014-04 No Notes: Memoria 05-11 Same as l 15:12: Ancef Dexamethaso 2014-04 No 10 mg, Luis Eduardo duc ne 05-11 Route: IV, l 15:11: ONCE, Dosing Weight 71.364, kg, Start date: 03/11/15 9:11:00, Stop date: 03/11/15 9:11:00 Celebrex 2014-04 No 400 mg, Memori a 05-11 Route: PO, l 15:10: ONCE, Dosing Weight 71.364, kg, Start date: 03/11/15 9:10:00, Stop date: 03/11/15 9:10:00 Tranexamic 2014-04 No 1,950 mg, Me moria Acid 05-11 Route: PO, l 12:50: Drug form: Emigdio TAB, ONCE, Dosing Weight 72.727, kg, Start date: 03/11/15 6:50:00, Stop date: 03/11/15 6:50:00 losartan 25 2014-04 Yes 25 mg = 1 M emoria mg oral 1-18 tab, PO, l tablet 16:51: Daily, # Emigdio 00 30 tab, 0 Refill(s) promethazin 2014-04 Yes 25 mg = 1 M emoria e 25 mg 1-18 tab, PO, l oral tablet 16:50: Q4H, PRN He for motion sickness, # 60 tab, 0 Refill(s) meloxicam 2014-04 No 15 mg = 1 Mem oria 15 mg oral 1-18 tab, PO, l tablet 16:49: Daily, # Emigdio 00 30 tab, 0 Refill(s) Cyclobenzap 2014-04 Yes 10 mg = 1 M emoria rine 1-18 tab, PO, l hydrochlori 16:49: TID, PRN He rmann de 10 MG 00 for spasm, Oral Tablet # 30 tab, [Flexeril] 0 Refill(s) Acetaminoph 2014-04 No 1 tab, PO, Memoria en 325 MG / 1-18 BID, PRN l Hydrocodone 16:48: Pain, # 60 [place] Bitartrate 00 tab, 0 10 MG Oral Refill(s) Tablet [[place]ushing 10/325] hydrochloro 2014-04 Yes 12.5 mg = M emoria thiazide 1-18 1 tab, PO, l 12.5 mg 16:48: Daily, # Gio n oral tablet 00 30 tab, 0 Refill(s) 24 HR 2014-04 Yes 5 mg = 1 Memoria Oxybutynin 1-18 tab, PO, l chloride 5 16:47: BID, # 30 He rmann MG Extended 00 tab, 0 Release Refill(s) Tablet [Ditropan] Omeprazole 2014-04 Yes 40 mg = 1 Me moria 40 MG 1-18 cap, PO, l Enteric 16:47: Daily, # Gio n Coated 00 30 cap, 0 Capsule Refill(s) [Prilosec] Metformin 2014-04 Yes 1,000 mg = Me moria hydrochlori 1-18 1 tab, PO, l de 1000 MG 16:46: BID-Meals, H ermann Oral Tablet 00 # 60 tab, 0 Refill(s) Vital Signs Vital Name Observation Time Observation Value Comments Source Respitory Rate 2020-01-14 13:00:00 Maudeori al [place] Systolic (mm Hg) 2020-01-14 13:00:00 Luis Eduardo rial [place] Diastolic (mm Hg) 2020-01-14 13:00:00 Mem orial [place] Temperature Oral (F) 2020-01-14 13:00:00 98.2 F [facility] [place] Heart Rate 2020-01-14 13:00:00 [facility] Emigdio Systolic (mm Hg) 2020-01-14 09:00:00 Luis Eduardo rial [place] Diastolic (mm Hg) 2020-01-14 09:00:00 Mem orial Emigdio Heart Rate 2020-01-14 09:00:00 [facility] [place] Temperature Oral (F) 2020-01-14 09:00:00 98.5 F [facility] [place] Heart Rate 2020-01-14 05:00:00 [facility] [place] Systolic (mm Hg) 2020-01-14 05:00:00 Luis Eduardo rial [place] Diastolic (mm Hg) 2020-01-14 05:00:00 Mem orial Emigdio Temperature Oral (F) 2020-01-14 05:00:00 97.7 F [facility] [place] Respitory Rate 2020-01-13 21:00:00 Memori al [place] Respitory Rate 2020-01-13 19:35:00 Memori al [place] Height 2020-01-11 16:33:00 165.1 cm [facility] [place] Weight 2020-01-11 16:33:00 [facility] [place] BMI Calculated 2020-01-11 16:33:00 Memori al [place] Systolic (mm Hg) 2015-03-14 14:00:00 Luis Eduardo rial Emigdio Diastolic (mm Hg) 2015-03-14 14:00:00 Mem orial Emigdio Respitory Rate 2015-03-14 14:00:00 Memori al [place] Heart Rate 2015-03-14 14:00:00 [facility] [place] Temperature Oral (F) 2015-03-14 14:00:00 98 F [facility] [place] Respitory Rate 2015-03-14 10:30:00 Memori al [place] Heart Rate 2015-03-14 10:30:00 [facility] Emigdio Temperature Oral (F) 2015-03-14 10:30:00 97.9 F [facility] Emigdio Systolic (mm Hg) 2015-03-14 10:30:00 Luis Eduardo rial [facility] Diastolic (mm Hg) 2015-03-14 10:30:00 [facility] [place] Respitory Rate 2015-03-14 06:30:00 [facility] Systolic (mm Hg) 2015-03-14 06:30:00 Luis Eduardo [facility] [place] Diastolic (mm Hg) 2015-03-14 06:30:00 [facility] Temperature Oral (F) 2015-03-14 06:30:00 97.6 F [facility] [place] Heart Rate 2015-03-14 06:30:00 [facility] [place] Weight 2015-03-11 14:35:00 [facility] BMI Calculated 2015-03-11 14:35:00 [facility] [place] Height 2015-03-10 16:31:00 144.78 cm [facility] [place] Procedures Procedure Date / Time Performed Performing Clinician [facility] Arthroscopy of shoulder 2009-04-23 00:00:00 Luis Eduardo piper [facility] Arthrodesis of thumb 2004-04-23 00:00:00 Unique kaufman [facility] Arthroscopy of knee 2004-04-23 00:00:00 Carlyle Beal ORIF - Open reduction and 2003-04-23 00:00:00 Wa johnna Beal internal fixation of fracture Lumbar discectomy [facility]le [facility] nn Encounters Start End Encounter Admission Attending Care Care Encounter Source Date/Time Date/Time Type Type Clinicians Facility Department ID 2020-01-11 Inpatient [facility] [id number] B L 10:32:00 2020-01-11 2020-01-14 Inpatient nullFlavo [facility] [id number] Memoria 15:32:00 18:22:00 r Emigdio 62 l [facility] 2020-01-11 2020-01-14 Outpatient [facility] [id number] 10:32:00 13:22:00 , 62 [place] 2020-01-11 2020[facility] [id number] 10:32:00 13:22:00 , Sunny 62 [place] 2015-03-11 2015-03-14 Inpatient nullFlavo [facility] [id number] Mem[facility] 12:33:00 15:00:00 r Emigdio 00 l [facility] 2015-03-11 2015-03-14 Outpatient Nannette [facility] [id number] 06:33:00 09:00:00 Abe Crowder Results Test Description Test Time Test Comments Results Result Comments Source CHEM PANEL 2020-01-14 352 [facility] 09:22:00 CHEM PANEL 2020-01-14 252 [facility] 09:22:00 CHEM PANEL 2020-01-14 20 [facility] 09:22:00 CHEM PANEL 2020-01-14 0.99 [facility] 09:22:00 CHEM PANEL 2020-01-14 140 [facility] 09:22:00 CHEM PANEL 2020-01-14 3.3 [facility] 09:22:00 CHEM PANEL 2020-01-14 106 [facility] 09:22:00 CHEM PANEL 2020-01-14 26 [facility] 09:22:00 CHEM PANEL 2020-01-14 8.4 [facility] 09:22:00 CHEM PANEL 2020-01-14 6.1 [facility] 09:22:00 CHEM PANEL 2020-01-14 2.2 [facility] 09:22:00 CHEM PANEL 2020-01-14 42 [facility] 09:22:00 CHEM PANEL 2020-01-14 101 [facility] 09:22:00 CHEM PANEL 2020-01-14 85 [facility] 09:22:00 CHEM PANEL 2020-01-14 1.4 [facility] 09:22:00 CHEM PANEL 2020-01-14 11.3 [facility] 09:22:00 CHEM PANEL 2020-01-14 09:22:00 Test Item Value Reference Range Interpretation Comme nts B/C Ratio (test code = B/C Ratio) 20 1 6-25 [facility] PBSVG6092-10-53 09:22:003.9[facility] 2020-01-14 09:22:00 Test Item Value Reference Range Interpretation Comments A/G Ratio (test code = A/G Ratio) 0.6 1 0.7-1.6 [facility] PKRXP5988-22-01 09:22:0057[facility]MATOLOGY 2020-01-14 09:22:0018.4[facility] ShopotwHTOBWOGQVC5957-05-48 09:22:003.57[facility] XejxjphHQKSPCCTCX8556-02-19 09:22:0011.3[facility] SgtdgtqLLMWQMSMFM9343-91-41 09:22:0033.4[facility] OzztyxvGFEDZYYHVE5067-76-01 09:22:0093.8[facility] DTWQACEWIC7907-59-09 09:22:00 Test Item Value Reference Range Interpretation Comments MCH (test code = MCH) 31.6 pg 27.0-31.0 [facility] ThkajldZZQZVYIPXU5643-60-45 09:22:0033.7[facility]MATOLOGY 2020-01-14 09:22:0013.3[facility] XktlrmtRFWETFLBEK8029-34-73 09:22:40641Xerwttbq AynmzmgSNDWSIKKLR2725-88-13 09:22:0011.1[facility] GxaxxnmSOGQFMORHB0131-45-64 09:22:0085.1[facility] FqefgttWEPNFBVTUQ5088-64-19 09:22:006.8[facility] ASRAMHPZDP3727-07-59 09:22:007.9[facility] XllrqtkJYLYKFXBEY4862-61-54 09:22:000.1 [facility] FiohzpmPLFCAEIFQP1797-21-42 09:22:000.1[facility]Y 2020-01-14 09:22:0015.6[facility] QgbwcthGRADRVJGKV4881-17-66 09:22:001.3[facility] HpwbxiwRPEOZAWUPK0306-37-19 09:22:001.5[facility] ScwbcphEBTQOXZDSA1991-54-13 15:21:00Not Detected (01/13/20 10:21 AM)[facility] BLHGO5364-47-04 08:50:02798Heqzlzxj [facility]annCHEM JYSSD5821-84-79 08:50:0015[facility] FEKUT7627-56-38 08:50:000.80[facility] QAQXL9311-91-40 08:50:03558 [facility] ORJDY5912-15-89 08:50:003.4[facility]annCHE[facility] PANEL 2020-01-13 08:50:02970Gltrsinj [facility]annCHEM GJVMU3512-49-00 08:50:0024[facility] VIXRU6732-27-14 08:50:008.3[facility] VJREH7846-28-09 08:50:006.4[facility] GZXQX6556-92-28 08:50:002.4[facility] XRKRI2046-55-43 08:50:0038[facility] ZRJVZ2747-36-12 08:50:0095 [facility] BYOLM1071-24-25 08:50:0077[facility]CHE[facility] PANEL 2020-01-13 08:50:001.5[facility] XHDJX3640-38-06 08:50:0013.4[facility] EUNVY1641-47-83 08:50:00 Test Item Value Reference Range Interpretation Comments B/C Ratio (test code = B/C Ratio) 19 1 6-25 [facility] MBMNB6106-02-34 08:50:004.0[facility]CHE[facility] PANEL 2020-01-13 08:50:00 Test Item Value Reference Range Interpretation Comments A/G Ratio (test code = A/G Ratio) 0.6 1 0.7-1.6 [facility] RIKWG3635-54-63 08:50:0075[facility] PANEL 2020-01-13 08:50:500679Idxrltzt WgkzrzoJZAWAXBVCX0464-55-69 08:50:0024.6[facility] BezzwapTFLBAKUJJP5881-31-07 08:50:003.76[facility] RhcrbrdYPMJHRCODD0640-19-85 08:50:0011.9[facility] HgiajtpCDLWEBXONV3692-25-45 08:50:0035.0[facility] PBLMTLNWYS1558-69-78 08:50:0093.2[facility] VqnegjeVATOZFBBYF5377-73-34 08:50:00 Test Item Value Reference Range Interpretation Comments MCH (test code = MCH) 31.6 pg 27.0-31.0 [facility] CdvozeuEXKOBEBCJR1880-45-64 08:50:0033.9[facility]annHEMATOLOGY 2020-01-13 08:50:0012.9[facility] VndelbmMYPXCTXTIY2600-21-03 08:50:30897Arpprdxu SbmsuxxIAQLCHSQHA6071-46-52 08:50:0011.1[facility] SczgdsgGWKKBOCFNB7909-47-82 08:50:0086.1[facility] QwelquhYPKKAIRAXO3593-99-53 08:50:005.4[facility] NUPORRTLQH3084-60-26 08:50:008.4[facility] NklsgkiNHSVNFRFDC0149-27-68 08:50:000.1 [facility] XbyutoyMBYOERPSLO9234-83-56 08:50:0021.2[facility]annHEMATOLOGY 2020-01-13 08:50:001.3[facility] KvcquzsVMRTWIMNJL2042-27-40 08:50:002.1[facility]annSPECIAL DNXMGOCOE5897-60-15 08:50:007.7[facility]annCHEM PANEL 2020-01-12 09:04:006.3[facility]annCHE[facility] SLNDO0626-73-15 09:04:002.7[facility]annCHE[facility] KHLZD1929-13-00 09:04:0047[facility]CHE[facility] CUOWE4644-93-94 09:04:77883Uvrflggp HermannCHEM UKOKD7595-93-98 09:04:0068[facility]CHE[facility] TDKUB4831-52-93 09:04:001.4[facility] HBXRF9853-68-64 09:04:0011.9 [facility] FMJOU3880-85-40 09:04:00 Test Item Value Reference Range Interpretation Comments B/C Ratio (test code = B/C Ratio) 22 1 6-25 [facility] LYCUK8877-34-39 09:04:003.6[facility]annCHE[facility] PANEL 2020-01-12 09:04:00 Test Item Value Reference Range Interpretation Comments A/G Ratio (test code = A/G Ratio) 0.8 1 0.7-1.6 [facility] ZVYGE1908-51-13 09:04:0066[facility]annHEMATOLOGY 2020-01-12 09:04:0020.5[facility] WxhodczBAVBPAYENB6156-01-05 09:04:004.13[facility] UwxwbkjOMNHKFUDRS8742-12-28 09:04:0012.8[facility] LynytosEYIJBBBQXC9966-22-23 09:04:0038.3[facility] QllssniEGTDEFJPOE7938-47-38 09:04:0092.8[facility] WQNNECFSBN3303-88-35 09:04:00 Test Item Value Reference Range Interpretation Comments MCH (test code = MCH) 31.1 pg 27.0-31.0 [facility] YimqldkMNIGMMCHXB0581-80-82 09:04:0033.6[facility]annHEMATOLOGY 2020-01-12 09:04:0013.0[facility] UvecshfJYRCIGKQTJ7850-56-40 09:04:28039Dorgwkbu XqeeqdbWEELZNKCLK4229-36-69 09:04:0011.2[facility] ItooyiyLETSDVGKAS1202-62-28 09:04:0084.3[facility] FmgicsbUOMTHDCULC5535-93-98 09:04:006.5[facility] PQEIDEEBHW9224-43-80 09:04:008.9[facility] QmqjyodIJVQZQSBPM9689-77-51 09:04:000.3 [facility] AseeemqDPKSRFZEXO8826-69-65 09:04:0017.3[facility]annHEMATOLOGY 2020-01-12 09:04:001.3[facility] ManouqbCHBYMMAQHX2621-76-13 09:04:001.8[facility] AjnzndzOZQCLEKPJP0047-29-39 09:04:000.1[facility]annCHEM XJCUA4674-22-23 09:04:038709Umqwgnkn HermannCHEM KJKLJ3855-88-22 09:04:40408Qknpigzl [facility]annCHEM STGOC4617-32-99 09:04:0019[facility]annCHE[facility] YNLVT5910-76-06 09:04:000.88 [facility]CHE[facility] GXAWN9644-91-92 09:04:23257Vlunqobj [facility]annCHEM PANEL 2020-01-12 09:04:003.9[facility]annCHE[facility] SHWCP8880-42-67 09:04:19115Phkiyrsz [facility]annCHEM TDPJJ1093-52-78 09:04:0023[facility]annCHE[facility] DJBFY6901-30-38 09:04:008.1[facility] UjwzjynVGMLRS4238-46-52 17:27:29692Zfryyyrt HermannLIPIDS 2020-01-11 17:27:0075[facility] AygtzcyHJLCTJ2106-00-73 17:27:0064[facility] PBWZNZ2039-05-13 17:27:00 Test Item Value Reference Range Interpretation Comments CHD Risk (test code = CHD Risk) 2.36 1 3.90-5.80 [facility] MqlmxssHDBLVK3134-74-09 17:27:0072[facility] ZezbdwaIVPFDY2225-19-76 17:27:00 Test Item Value Reference Range Interpretation Comments VLDL (test code = VLDL) 15 1 [facility] OxzmdseLTUZLWOOCA3749-53-60 10:06:0031.0[facility]annHEMATOLOGY 2015-03-13 10:06:0010.1[facility] SxrhhrxAGPWOLTDQYPR2404-50-57 09:41:0025[facility] EwgtbzlQXKSKPJDCGXB4143-81-18 09:41:0012.5[facility] HermannELECTROLYTES 2015-03-12 09:41:000.9[facility] JjgnecyPTLLKUBEQTCV7881-85-98 09:41:51624Aptxfwuz QijwlumVDCSNTIRIOMY2594-30-11 09:41:0015[facility] VzjhfofIPPZLTLPOIKF0122-49-19 09:41:009.1[facility] ZdqhwojRWHCGJOAVSMA1681-01-83 09:41:0067[facility] ENZKBKWONZFF5317-39-02 09:41:004.5[facility] ItczsdoCZCSVAMUTVJU4786-20-48 09:41:27976Dgxdnozi KmjorohDLUSHHCCURGW0297-55-69 09:41:25576Uhqmcvqs [place] VTDSOETMGZ1486-86-10 09:41:009.9[facility] OkiqjkdCGTGZAQZFM7434-97-33 09:41:00 30.0[facility] HermannSPECIAL GWPNSBQXW8360-49-44 09:41:005.8[facility]
--- NOTE | 2020-12-28 15:56 | RAD REPORT ---
EXAM DESCRIPTION: CT - Head Brain Wo Cont - 12/28/2020 3:49 pm CLINICAL HISTORY: TRAUMA, fall with head trauma, headache COMPARISON: No comparisons TECHNIQUE: Axial 5 mm thick images of the head were obtained without IV contrast. All CT scans are performed using dose optimization technique as appropriate and may include automated exposure control or mA/KV adjustment according to patient size. FINDINGS: No intracranial hemorrhage, mass, edema or shift of mid-line structures. No acute cortical based infarction. No cortical edema or sulcal effacement. Mild to moderate atrophy present with vent ricles in proportion to volume loss. Chronic ischemic change seen in the cerebral hemispheres. Ventri cles are normal. Mastoid air cells and visualized portions of the paranasal sinuses are clear. No acute bony findings. IMPRESSION: Negative non-contrast CT head examination for acute intracranial finding.
--- NOTE | 2020-12-28 16:45 | EDPHYS ---
Physician Documentation [facility] Name: Lottie Apodaca Age: 70 yrs Sex: Female : 1950 Arrival Date: 12/28/2020 Time: 12:34 Bed 10 Private MD: ED Physician Santana Macias HPI: 12/28 16:34 This 70 yrs old Female presents to ER via Ambulatory with complaints of Fall jr8 Injury. 16:34 Details of fall: The patient fell from an upright position, while standing, while jr8 walking. Onset: The symptoms/episode began/occurred acutely, today. Associated injuries: The patient sustained injury to the head, injury to the chest, left arm. Severity of symptoms: At their worst the symptoms were moderate, in the emergency department the symptoms are unchanged. The patient has not experienced similar symptoms in the past. The patient has not recently seen a physician. This is a 70-year-old female that was walking up the stairs when she tripped causing her to fall forward hitting her head and left shoulder. Patient has since had left shoulder pain, left rib pain, mild frontal head pain. Denies loss of consciousness. Mechanical in origin.. Historical: - Allergies: 13:21 No Known Allergies; ll1 - PMHx: 13:21 Diabetes - NIDDM; Hypertension; ll1 - PSHx: 13:21 Cholecystectomy; ll1 - Immunization history:: Client reports receiving the 2nd dose of the Covid vaccine, Flu vaccine is not up to date. - Social history:: Smoking status: Patient denies any tobacco usage or history of. ROS: 16:34 Eyes: Negative for injury, pain, redness, and discharge, ENT: Negative for injury, jr8 pain, and discharge, Neck: Negative for injury, pain, and swelling, Cardiovascular: Negative for chest pain, palpitations, and edema, Respiratory: Negative for shortness of breath, cough, wheezing, and pleuritic chest pain, Abdomen/GI: Negative for abdominal pain, nausea, vomiting, diarrhea, and constipation, Back: Negative for injury and pain, Skin: Negative for injury, rash, and discoloration, Neuro: Negative for headache, weakness, numbness, tingling, and seizure. 16:34 MS/extremity: Positive for pain, tenderness, of the left arm. Exam: 16:34 Constitutional: This is a well developed, well nourished patient who is awake, alert, jr8 and in no acute distress. Head/Face: Normocephalic, atraumatic. Eyes: Pupils equal round and reactive to light, extra-ocular motions intact. Lids and lashes normal. Conjunctiva and sclera are non-icteric and not injected. Cornea within normal limits. Periorbital areas with no swelling, redness, or edema. ENT: Nares patent. No nasal discharge, no septal abnormalities noted. Tympanic membranes are normal and external auditory canals are clear. Oropharynx with no redness, swelling, or masses, exudates, or evidence of obstruction, uvula midline. Mucous membranes moist. Neck: Trachea midline, no thyromegaly or masses palpated, and no cervical lymphadenopathy. Supple, full range of motion without nuchal rigidity, or vertebral point tenderness. No Meningismus. Cardiovascular: Regular rate and rhythm with a normal S1 and S2. No gallops, murmurs, or rubs. Normal PMI, no JVD. No pulse deficits. Respiratory: Lungs have equal breath sounds bilaterally, clear to auscultation and percussion. No rales, rhonchi or wheezes noted. No increased work of breathing, no retractions or nasal flaring. Abdomen/GI: Soft, non-tender, with normal bowel sounds. No distension or tympany. No guarding or rebound. No evidence of tenderness throughout. Back: No spinal tenderness. No costovertebral tenderness. Full range of motion. Skin: Warm, dry with normal turgor. Normal color with no rashes, no lesions, and no evidence of cellulitis. Neuro: Awake and alert, GCS 15, oriented to person, place, time, and situation. Cranial nerves II-XII grossly intact. Motor strength 5/5 in all extremities. Sensory grossly intact. 16:34 Chest/axilla: Inspection: normal, Palpation: tenderness, that is mild, of the left lateral anterior chest. 16:34 Musculoskeletal/extremity: Extremities: grossly normal except: noted in the left shoulder: decreased ROM, pain, tenderness, ROM: limited active range of motion, limited passive range of motion, limited active range of motion due to pain, limited passive range of motion due to pain, Circulation is intact in all extremities. Sensation intact. Vital Signs: 13:19 BP 144 / 75; Pulse 60; Resp 17; Temp 98.2; Pulse Ox 100% ; Weight 68.49 kg; Height 4 ll1 ft. 9 in. (144.78 cm); Pain 10/10; 15:22 BP 128 / 54; Pulse 64; Resp 16; Pulse Ox 99% ; vg1 16:20 BP 126 / 60; Pulse 62; Resp 16; Pulse Ox 100% ; vg1 17:00 BP 122 / 71; Pulse 63; Resp 16; Pulse Ox 98% on R/A; vg1 13:19 Body Mass Index 32.68 (68.49 kg, 144.78 cm) ll1 Jazz Coma Score: 15:22 Eye Response: spontaneous(4). Verbal Response: oriented(5). Motor Response: obeys vg1 commands(6). Total: 15. Trauma Score (Adult): 15:22 Eye Response: spontaneous(1); Verbal Response: oriented(1); Motor Response: obeys vg1 commands(2); Systolic BP: > 89 mm Hg(4); Respiratory Rate: 10 to 29 per min(4); Jazz Score: 15; Trauma Score: 12 Procedures: 16:34 Splinting: Splint applied to left shoulder using sling, applied by nurse. Examined by 8 me, post splint application: neurovascular intact, 2+ distal pulses palpable, brisk capillary refill noted. MDM: 15:19 Patient medically screened. 8 16:34 Data reviewed: vital signs, nurses notes, radiologic studies, CT scan, plain films. 8 Data interpreted: Pulse oximetry: on room air is 99 %. Interpretation: normal. Counseling: I had a detailed discussion with the patient and/or guardian regarding: the historical points, exam findings, and any diagnostic results supporting the discharge/admit diagnosis, radiology results, the need for outpatient follow up, a orthopedic surgeon, to return to the emergency department if symptoms worsen or persist or if there are any questions or concerns that arise at home. ED course: Dr. Smiley. Recommend sling at this time. Unlikely to be operative. Patient placed in sling and will have him follow-up with Dr. Smiley.. 12/28 15:26 Order name: CT Head Brain wo Cont; Complete Time: 16:23 jr8 12/28 15:26 Order name: XRAY Ribs LEFT; Complete Time: 17:08 jr8 12/28 15:26 Order name: XRAY Shoulder LEFT 2 view; Complete Time: 17:08 jr8 12/28 16:33 Order name: Sling; Complete Time: 17:13 jr8 Administered Medications: 16:54 Drug: morphine 4 mg Route: IM; Site: right deltoid; vg1 19:22 Follow up: Response: No adverse reaction vg1 Disposition: 12/29 08:25 Co-signature as Attending Physician, Santana Macias MD I agree with the assessment and etienne plan of care. Disposition Summary: 12/28/20 16:45 Discharge Ordered Location: Home jr8 Problem: new jr8 Symptoms: have improved jr8 Condition: Stable jr8 Diagnosis - Displaced fracture left humeral head jr8 Followup: jr8 - With: Lior Smiley MD - When: 2 - 3 days - Reason: Recheck today's complaints, Continuance of care, Re-evaluation by your physician Discharge Instructions: - Discharge Summary Sheet jr8 - Humerus Fracture Treated With Immobilization jr8 Forms: - Medication Reconciliation Form jr8 - Thank You Letter jr8 - Antibiotic Education jr8 - Prescription Opioid Use jr8 Signatures: Dispatcher [employer] EDSantana Sethi MD MD cha Roszak, Josh, PA PA jr8 Prudence Rodriguez RN RN vg1 Jyotsna Ca RN RN ll1
--- NOTE | 2020-12-28 16:45 | ER ---
Nurse's Notes [facility] Name: Lottie Apodaca Age: 70 yrs Sex: Female : 1950 Arrival Date: 12/28/2020 Time: 12:34 Bed 10 Private MD: Diagnosis: Displaced fracture left humeral head Presentation: 12/28 13:19 Chief complaint: Patient states: Trip and fall 1 hour [employer]. Fell onto face. + nasal ll1 bleeding, resolved now. No known LOC. L shoulder/arm pain since. Pain down entire L side. Coronavirus screen: Client denies travel out of the [place] in the last 14 days. At this time, the client does not indicate any symptoms associated with coronavirus-19. Ebola Screen: Patient denies travel to an Ebola-affected area in the 21 days before illness onset. Initial Sepsis Screen: Does the patient meet any 2 criteria? No. Patient's initial sepsis screen is negative. Does the patient have a suspected source of infection? Yes: Bone or joint infection. Risk Assessment: Do you want to hurt yourself or someone else? Patient reports no desire to harm self or others. Onset of symptoms was December 28, 2020. 13:19 Method Of Arrival: Ambulatory ll1 13:19 Acuity: CHRIS 3 ll1 15:21 Care prior to arrival: None. Mechanism of Injury: Fall from standing position. Trauma vg1 event details: Injury occurred in the [facility]. Historical: - Allergies: 13:21 No Known Allergies; ll1 - PMHx: 13:21 Diabetes - NIDDM; Hypertension; ll1 - PSHx: 13:21 Cholecystectomy; ll1 - Immunization history:: Client reports receiving the 2nd dose of the Covid vaccine, Flu vaccine is not up to date. - Social history:: Smoking status: Patient denies any tobacco usage or history of. Screenin:20 Abuse screen: Denies threats or abuse. Nutritional screening: No deficits noted. vg1 Tuberculosis screening: No symptoms or risk factors identified. Fall Risk Fall in past 12 months (25 points). No secondary diagnosis (0 pts). No IV (0 pts). Ambulatory Aid- None/Bed Rest/Nurse Assist (0 pts). Gait- Normal/Bed Rest/Wheelchair (0 pts) Mental Status- Oriented to own ability (0 pts). Total Hou Fall Scale indicates No Risk (0-24 pts). Primary Survey: 15:17 NO uncontrolled hemorrhage observed. A: The patient is alert. Airway: patent, Oxygen vg1 via non-rebreather Oral cavity: clear. Breathing/Chest: Respiratory pattern: regular, Respiratory effort: spontaneous, Breath sounds: clear, Chest inspection: symmetrical rise and fall of the chest. Circulation: Pulses: palpable right radial artery and left radial artery. Disability Alert. Exposure/Environment: A warming method has been applied: A warm blanket has been provided to the patient. Assessment: 15:18 General: Appears in no apparent distress. comfortable, Behavior is calm, cooperative. vg1 Pain: Complains of pain in Left shoulder Pain currently is 10 out of 10 on a pain scale. Pain began today. Neuro: Level of Consciousness is awake, alert, obeys commands, confused, Oriented to person, place, time, situation. Cardiovascular: Capillary refill < 3 seconds in bilateral fingers Patient's skin is warm and dry. Respiratory: Airway is patent Respiratory effort is even, unlabored. GI: No signs and/or symptoms were reported involving the gastrointestinal system. : No signs and/or symptoms were reported regarding the genitourinary system. EENT: no abrasions or bruising noted on pt nose. Derm: Skin is intact, Skin is pink, warm \T\ dry. Bruising that is blue on Right loyola . Musculoskeletal: Range of motion: limited in left shoulder and left elbow. 16:38 Reassessment: Patient appears in no apparent distress at this time. No changes from vg1 previously documented assessment. Patient and/or family updated on plan of care and expected duration. Pain level reassessed. Patient is alert, oriented x 3, equal unlabored respirations, skin warm/dry/pink. 17:13 Reassessment: Patient appears in no apparent distress at this time. Patient and/or vg1 family updated on plan of care and expected duration. Pain level reassessed. Patient is alert, oriented x 3, equal unlabored respirations, skin warm/dry/pink. Patient states feeling better. Vital Signs: 13:19 BP 144 / 75; Pulse 60; Resp 17; Temp 98.2; Pulse Ox 100% ; Weight 68.49 kg; Height 4 ll1 ft. 9 in. (144.78 cm); Pain 10/10; 15:22 BP 128 / 54; Pulse 64; Resp 16; Pulse Ox 99% ; vg1 16:20 BP 126 / 60; Pulse 62; Resp 16; Pulse Ox 100% ; vg1 17:00 BP 122 / 71; Pulse 63; Resp 16; Pulse Ox 98% on R/A; vg1 13:19 Body Mass Index 32.68 (68.49 kg, 144.78 cm) ll1 Jazz Coma Score: 15:22 Eye Response: spontaneous(4). Verbal Response: oriented(5). Motor Response: obeys vg1 commands(6). Total: 15. Trauma Score (Adult): 15:22 Eye Response: spontaneous(1); Verbal Response: oriented(1); Motor Response: obeys vg1 commands(2); Systolic BP: > 89 mm Hg(4); Respiratory Rate: 10 to 29 per min(4); Jazz Score: 15; Trauma Score: 12 ED Course: 12:34 Patient arrived in ED. ja2 13:21 Triage completed. ll1 13:22 Arm band placed on. ll1 15:08 Prudence Rodriguez, RN is Primary Nurse. vg1 15:19 Bandar De La Torre PA is PHCP. jr8 15:19 Santana Macias MD is Attending Physician. jr8 15:20 Patient has correct armband on for positive identification. Bed in low position. Call vg1 light in reach. Adult w/ patient. 15:49 CT Head Brain wo Cont In Process Unspecified. EDMS 16:17 XRAY Ribs LEFT In Process Unspecified. EDMS 16:17 XRAY Shoulder LEFT 2 view In Process Unspecified. EDMS 16:43 Lior Zendejas MD is Referral Physician. jr8 17:15 No provider procedures requiring assistance completed. Patient did not have IV access vg1 during this emergency room visit. Administered Medications: 16:54 Drug: morphine 4 mg Route: IM; Site: right deltoid; vg1 19:22 Follow up: Response: No adverse reaction vg1 Outcome: 16:45 Discharge ordered by . jr8 17:15 Discharged to home via wheelchair, with family. vg1 17:15 Condition: stable 17:15 Discharge instructions given to patient, family, Instructed on discharge instructions, follow up and referral plans. Demonstrated understanding of instructions, follow-up care. 17:16 Patient left the ED. vg1 Signatures: Dispatcher [employer] EDMS Bandar De La Torre PA PA jr8 Prudence Rodriguez RN RN vg1 Jyotsna Ca RN RN ll1 Whitney Watts
--- NOTE | 2020-12-28 16:52 | RAD REPORT ---
EXAM DESCRIPTION: RAD - Shoulder Left 2 View - 12/28/2020 4:17 pm CLINICAL HISTORY: PAIN COMPARISON: Shoulder Left 2 View dated 02/22/2018; Chest Abdomen Pelvis W Cont dated 12/02/2019 TECHNIQUE: Internal and external rotation views of the left shoulder were obtained. FINDINGS: There is a transverse fracture through the surgical neck with 1/2 shaft width medial displ acement of the distal shaft fracture fragment. There is impaction of the lateral margin of the shaft into the medial margin of the partially dislocated humeral head. Acromial humeral joint space is widened. There is mineralization present in this joint space that cou ld represent greater tuberosity fracture. Prior joint calcification is possible as well. Joint calcif ications were evident on in November 2019 CT chest study. No AC joint separation or inferiorly directed spurring. There is partially calcified capsular thicken ing along the superior margin. No pathologic bone process seen. IMPRESSION: Transverse fracture of the surgical neck proximal left humerus. Shaft is displaced medi ally with the lateral margin impacting into the humeral head. Humeral head is partially dislocated and greater tuberosity fracture is suspected as well.
--- NOTE | 2020-12-28 16:54 | RAD REPORT ---
EXAM DESCRIPTION: RAD - Ribs Left - 12/28/2020 4:17 pm CLINICAL HISTORY: Fall, rib pain COMPARISON: Left shoulder same date FINDINGS: Proximal humerus fracture and partial dislocation of the humeral head are present and sepa rately detailed in left shoulder report. No pneumothorax, pulmonary contusion or measurable pleural fluid collection identifiable in the left hemithorax. Rib detail is limited. No displaced rib fractures identified. IMPRESSION: Rib detail is limited but no displaced rib fracture is identifiable. Proximal left humerus fracture and left shoulder joint findings are separately detailed.
[2020-12-28] MEDS ORDERED: MORPHINE 4 MG/ML SYR ONE (17:04)
[2020-12-28] MEDS ORDERED: ONDANSETRON 4 MG (ODT) TAB ONE (17:20)
[2020-12-28 17:23] VITALS: TEMP 98.2
[2020-12-28 17:26] VITALS: BP 122/71; O2SAT 98
== END 2020-12-28 17:16 | disposition home or self-care (01) ==
LOC: ER 12:28
DX: S42.212A Unspecified displaced fracture of surgical neck of left humerus, initial encounter for closed fracture (principal); W19.XXXA Unspecified fall, initial encounter; Y93.01 Activity, walking, marching and hiking; I10 Essential (primary) hypertension
CPT/HCPCS: 70450; 96372; 99283

== ENCOUNTER 2022-03-01 11:17 | Emergency (ER) | payer OTHER ==
--- OUTSIDE RECORDS SUMMARY | 2022-03-01 11:24 | XMS REPORT | Continuity of Care Document ---
:1950 Author Organization [facility] Address [address] [place] [address] Care Team Providers Name Role Phone YOSEF PRADO Primary Care Physician Unavailable BOONE MAHARAJ Attending Clinician Unavailable Forrest Joyner Attending Clinician Unavailable Doctor Unassigned, [place] Attending Clinician Unavailable Kendra Cortes PT Attending Clinician Unavailable Boone Maharaj MD Attending Clinician Sana Frank PT Attending Clinician Unavailable LANE LINCOLN Attending Clinician Unavailable Nurse, Adc Pob Immunization Attending Clinician Unavailable Lane Lincoln DO Attending Clinician Kaela Gresham PT Attending Clinician Unavailable SUNNY SOMERS Attending Clinician Unavailable Sunny Somers Attending Clinician Abe Brunson Attending Clinician Forrest Joyner Admitting Clinician Unavailable SUNNY SOMERS Admitting Clinician Unavailable Sunny Somers Admitting Clinician Abe Brunson Admitting Clinician Payers Payer Name Policy Type Policy Number Effective Date Expiration Date S ource MEDICARE PART A [id number] 2013 \\T\\ B 00:00:00 Problems Condition Condition Condition Status Onset Resolution Last Treating Co mments Source Name Details Category Date Date Treatment Clinician Date Decreased Decreased Disease Active 2020-04 Uni vers ROM of ROM of 1-10 ity of left left 00:00: [place] shoulder shoulder 00 Medica l Branch Shoulder Shoulder Disease Active 2020-04 Unive rs weakness weakness 1-10 ity of 00:00: [place] 00 Medical Branch Abnormal Abnormal Disease Active 2020-04 Unive rs posture posture 1-10 ity of 00:00: [place] [address] Medical Branch ACUTE ACUTE Diagnosis Active 2020-01-11 Mem oria PANCREATIT PANCREATIT 01-10 11:16:00 l IS IS Active 00:00: Emigdio 01/11/[address] [place] [address] ACUTE ACUTE Diagnosis Active 2020-01-20 Mem oria PANCREAITI PANCREAITI 01-10 21:53:00 l S S Active 00:00: Emigdio 01/11/2020 [facility] DEGENERATI DEGENERAT Diagnosis Active 2014-042015-03-22 Memoria VE CHRISTY 1-03 22:00:00 l ARTHRITIS ARTHRITIS 00:00: Herm giacomo LEFT KNEE LEFT KNEE 00 Active 02/23/2015 [facility] DEGENERATI DEGENERAT Diagnosis Active 2014-042015-03-11 Memoria VE CHRISTY 1-03 06:33:00 l ARTHRITIS ARTHRITIS 00:00: Herm giacomo Active 00 02/23/2015 [facility] Type II Type II Problem Active 2020-01-19 Id moria diabetes diabetes 07:06:47 l mellitus mellitus Gio n uncontroll uncontroll ed ed (finding) (finding) Active Problem 01/19/2020 [facility] ACUTE ACUTE Diagnosis Active 2020-01-20 Mem oria PANCREATIT PANCREATIT 21:53:00 l IS WITHOUT IS WITHOUT He rmann NECROSIS NECROSIS OR I OR I Active [facility] OSTEOARTHR OSTEOARTH Diagnosis Active 2015-03-22 Memoria ITIS OF RITIS OF 22:00:00 l KNEE, KNEE, [place] UNSPECIFIE UNSPECIFIE D D Active [facility] Acute Acute Problem 2020-01-19 Memor ia pancreatit pancreatit 07:06:47 l is without is without He rmann necrosis necrosis or or infection, infection, unspecifie unspecifie d d 01/19/2020 [facility] Syncope Syncope Problem Resolve 2020-01-19 M emoria and and d 07:06:47 l collapse collapse Gio n (disorder) (disorder) Resolved Problem 01/19/2020 D/T HYPOGLYCEM IA [facility] Lower Lower Problem Resolve 2014-042020-01-19 2020-01-19 Memoria urinary urinary d 0 07:06:47 07:06:47 l tract tract 00:00: [place] infectious infectious 00 disease disease (disorder) (disorder) Resolved 01/21/2015 Problem 01/19/2020 [facility] Anemia Anemia Problem Resolve 2020-01-19 2020-01-19 Memoria (disorder) (disorder) d 04-23 07:06:47 07:06:47 l Resolved 00:00: Emigdio 04/23/2012 00 Problem 01/19/2020 D/T BLEEDING ULCER [facility] Allergies, Adverse Reactions, Alerts Allergy Allergy Status Severity Reaction(s) Onset Inactive Treating Comm ents Source Name Type Date Date Clinician No Known DA Active U [facility] Allergie 2-08 Clear s 00:00: [address] NO KNOWN Drug Active [facility] ALLERGIE Class ity of [facility] YVONNE YVONNE Active Memoria Inhibito Inhibito l rs rs Emigdio Social History Social Habit Start Date Stop Date Quantity Comments Source Exposure to Not sure [facility] SARS-CoV-2 (event) Medica l [place] Alcohol intake 2021-02-04 2021-02-04 0 /d [facility] 00:00:00 00:00:00 Medical Branch Social History 2015-03-11 2015[facility]03[facility]11 [facility] 14:37:12 Sex [birth year] [facility] 00:00:00 00:00:00 Medical Branch Smoking Status Start Date Stop Date Source Never smoker [facility] Medications Ordered Filled Start Stop Current Ordering Indication Dosage Frequency Signature Comments Components Source Medication Medication Date Date Medication? Clinician (SIG) Name Name amLODIPine Yes Univers 5 mg tablet 9-10 ity of 00:00: [place] 00 [facility] Branch amLODIPine 2021-0 Yes Univers 5 mg tablet 9-10 ity of 00:00: [place] 00 Medical Branch amLODIPine 2020-0 Yes Univers 5 mg tablet 9-10 ity of 00:00: [place] 00 Medical Branch raloxifene 2020-0 Yes Univers 60 mg 9-09 ity of tablet 00:00: [place] 00 Medical Branch raloxifene 2020-0 Yes Univers 60 mg 9-09 ity of tablet 00:00: [place] 00 Medical Branch raloxifene 2020-0 Yes Univers 60 mg 9-09 ity of tablet 00:00: [place] 00 Medical Branch MYRBETRIQ 2020-0 Yes 1{tbl} Take 1 Univ ers 50 mg 9-02 tablet by ity of tablet 00:00: mouth [place] 00 daily. Medical Branch MYRBETRIQ 2020-0 Yes 1{tbl} Take 1 Univ ers 50 mg 9-02 tablet by ity of tablet 00:00: mouth [place] 00 daily. Medical Branch MYRBETRIQ 2020-0 Yes 1{tbl} Take 1 Univ ers 50 mg 9-02 tablet by ity of tablet 00:00: mouth [place] 00 daily. Medical Branch metoprolol 2020-0 Yes 25mg Take 25 mg U nivers tartrate 25 8-31 by mouth 2 it y of mg tablet 00:00: (two) [place] 00 times Medical daily with Branch meals. metoprolol 2020-0 Yes 25mg Take 25 mg U nivers tartrate 25 8-31 by mouth 2 it y of mg tablet 00:00: (two) [place] 00 times Medical daily with Branch meals. metoprolol 2020-0 Yes 25mg Take 25 mg U nivers tartrate 25 8-31 by mouth 2 it y of mg tablet 00:00: (two) [place] 00 times Medical daily with Branch meals. LEVEMIR 0 Yes INJECT Univers FLEXTOUCH 8-24 UNDER THE ity o f U-100 00:00: SKIN 30 [place] INSULN 100 00 UNITS ONCE Med ical unit/mL (3 A DAY Branch mL) BEFORE injection BEDTIME MEAL LEVEMIR 2020-0 Yes INJECT Univers FLEXTOUCH 8-24 UNDER THE ity o f U-100 00:00: SKIN 30 [place] INSULN 100 00 UNITS ONCE Med ical unit/mL (3 A DAY Branch mL) BEFORE injection BEDTIME MEAL LEVEMIR 2020-0 Yes INJECT Univers FLEXTOUCH 8-24 UNDER THE ity o f U-100 00:00: SKIN 30 [place] INSULN 100 00 UNITS ONCE Med ical unit/mL (3 A DAY Branch mL) BEFORE injection BEDTIME MEAL levocetiriz 2020-0 Yes 5mg Take 5 mg U nivers ine 5 mg 8-20 by mouth ity of tablet 00:00: at [place] [address] bedtime. Medical Branch levocetiriz 2020-0 Yes 5mg Take 5 mg U nivers ine 5 mg 8-20 by mouth ity of tablet 00:00: at [place] [address] bedtime. Medical Branch levocetiriz 0 Yes 5mg Take 5 mg U nivers ine 5 mg 8-20 by mouth ity of tablet 00:00: at [place] [address] bedtime. Medical Branch pravastatin 0 Yes TAKE 1 Univ ers 20 mg 7-31 TABLET BY ity of tablet 00:00: MOUTH [place] 00 DAILY WITH Medical EVEING Branch MEAL pravastatin 0 Yes TAKE 1 Univ ers 20 mg 7-31 TABLET BY ity of tablet 00:00: MOUTH [place] 00 DAILY WITH Medical EVEING Branch MEAL pravastatin 2020-0 Yes TAKE 1 Univ ers 20 mg 7-31 TABLET BY ity of tablet 00:00: MOUTH [place] 00 DAILY WITH Medical EVEING Branch MEAL pregabalin 0 Yes 50mg Take 50 mg U nivers 50 mg 6-25 by mouth 2 ity of capsule 00:00: (two) [place] 00 times Medical daily. Branch pregabalin 0 Yes 50mg Take 50 mg U nivers 50 mg 6-25 by mouth 2 ity of capsule 00:00: (two) [place] 00 times Medical daily. Branch pregabalin 0 Yes 50mg Take 50 mg U nivers 50 mg 6-25 by mouth 2 ity of capsule 00:00: (two) [place] 00 times Medical daily. Branch Ciprofloxac Yes 500 mg = 1 Memoria in 500 MG 9-23 tab, PO, l Oral Tablet 16:12: Q12H, X 10 [place] [Cipro] 00 day, # 20 tab, 0 Refill(s), Pharmacy: [facility] #[id number], 165.1, cm, 01/11/20 11:33:00 CDT, Height, 77.273, kg, 01/11/20 11:33:00 CDT, Weight Metronidazo 2020-0 Yes 500 mg = 1 Memoria le 500 MG 9-23 tab, PO, l Oral Tablet 16:12: Q8H, X 7 He rmann [Flagyl] day, # 21 tab, 0 Refill(s), [id number], 165.1, cm, 01/11/20 11:33:00 CDT, Height, 77.273, kg, 01/11/20 11:33:00 CDT, Weight Ciprofloxac Yes 500 mg = 1 Memoria in 500 MG 9-23 tab, PO, l Oral Tablet 16:12: Q12H, X 10 [place] [Cipro] day, # 20 tab, 0 Refill(s), Pharmacy: [facility] #[id number], 165.1, cm, 01/11/20 11:33:00 CDT, Height, 77.273, kg, 01/11/20 11:33:00 CDT, Weight Metronidazo 2019-0 Yes 500 mg = 1 Memoria le 500 MG 9-23 tab, PO, l Oral Tablet 16:12: Q8H, X 7 He rmann [Flagyl] day, # 21 tab, 0 Refill(s), Pharmacy: [facility] #[id number], 165.1, cm, 01/11/20 11:33:00 CDT, Height, 77.273, kg, 01/11/20 11:33:00 CDT, Weight ketOROLAC 0 No IV, ONCE Luis Eduardo duc (ANES) 01-12 l 18:38: glycopyrrol 0 No Route: IV, Memoria ate (ANES) 01-12 Drug form: l 18:38: INJ, ONCE, Stop date: 01/13/20 13:38:00 CDT neostigmine 0 No Route: IV, Memoria (ANES) 01-12 Drug form: l 18:38: INJ, ONCE, Stop date: 01/13/20 13:38:00 CDT ketOROLAC 2019-0 No IV, ONCE Luis Eduardo duc (ANES) 01-12 l 18:38: glycopyrrol 2019-0 No Route: IV, Memoria ate (ANES) 01-12 Drug form: l 18:38: INJ, ONCE, Stop date: 01/13/20 13:38:00 CDT neostigmine 2019-0 No Route: IV, Memoria (ANES) 01-12 Drug form: l 18:38: INJ, ONCE, Stop date: 01/13/20 13:38:00 CDT ePHEDrine 2019-0 No Route: IV, Me moria (ANES) 01-12 Drug form: l 18:21: INJ, ONCE, Stop date: 01/13/20 13:21:00 CDT ePHEDrine 2020-0 No Route: IV, Me moria (ANES) 01-12 Drug form: l 18:21: INJ, ONCE, Stop date: 01/13/20 13:21:00 CDT fentaNYL 2020-0 No Route: IV, Mem oria (ANES) 01-12 Drug form: l 18:10: INJ, ONCE, Stop date: 01/13/20 13:10:00 CDT ondansetron 2020-0 No Route: IV, Memoria (ANES) 01-12 Drug form: l 18:10: INJ, ONCE, Stop date: 01/13/20 13:10:00 CDT fentaNYL 2020-0 No Route: IV, Mem oria (ANES) 01-12 Drug form: l 18:10: INJ, ONCE, Stop date: 01/13/20 13:10:00 CDT ondansetron 2020-0 No Route: IV, Memoria (ANES) 01-12 Drug form: l 18:10: INJ, ONCE, Stop date: 01/13/20 13:10:00 CDT phenylephri 2019-0 No Route: IV, Memoria ne (ANES) 01-12 Drug form: l 18:05: INJ, ONCE, Stop date: 01/13/20 13:05:00 CDT esmolol 2019-0 No Route: IV, Luis Eduardo duc (ANES) 01-12 Drug form: l 18:05: INJ, ONCE, Stop date: 01/13/20 13:05:00 CDT phenylephri 2020-0 No Route: IV, Memoria ne (ANES) 01-12 Drug form: l 18:05: INJ, ONCE, Stop date: 01/13/20 13:05:00 CDT esmolol 2020-0 No Route: IV, Luis Eduardo duc (ANES) 01-12 Drug form: l 18:05: INJ, ONCE, Stop date: 01/13/20 13:05:00 CDT propofol 2020-0 No Route: IV, Mem oria (ANES) 01-12 Drug form: l 17:55: INJ, ONCE, Stop date: 01/13/20 12:55:00 CDT rocuronium 2020-0 No Route: IV, M emoria (ANES) 01-12 Drug form: l 17:55: INJ, ONCE, Stop date: 01/13/20 12:55:00 CDT succinylcho 2020-0 No Route: IV, Memoria line (ANES) 01-12 Drug form: l 17:55: INJ, ONCE, Stop date: 01/13/20 12:55:00 CDT ceFAZolin 2020-0 No Route: IV, Me moria (ANES) 01-12 Drug form: l 17:55: INJ, ONCE, Stop date: 01/13/20 12:55:00 CDT propofol 2020-0 No Route: IV, Mem oria (ANES) 01-12 Drug form: l 17:55: INJ, ONCE, Stop date: 01/13/20 12:55:00 CDT rocuronium 2020-0 No Route: IV, M emoria (ANES) 01-12 Drug form: l 17:55: INJ, ONCE, Stop date: 01/13/20 12:55:00 CDT succinylcho 2020-0 No Route: IV, Memoria line (ANES) 01-12 Drug form: l 17:55: INJ, ONCE, Stop date: 01/13/20 12:55:00 CDT ceFAZolin 2020-0 No Route: IV, Me moria (ANES) 01-12 Drug form: l 17:55: INJ, ONCE, Stop date: 01/13/20 12:55:00 CDT midazolam 2020-0 No Route: IV, Me moria (ANES) 01-12 Drug form: l 17:50: SOLN, Emigdio 00 ONCE, Stop date: 01/13/20 12:50:00 CDT lidocaine 2020-0 No Route: IV, moria (ANES) 01-12 Drug form: l 17:50: INJ, ONCE, Emigdio Stop date: 01/13/20 12:50:00 CDT midazolam 2020-0 No Route: IV, Me moria (ANES) 01-12 Drug form: l 17:50: SOLN, [place] 00 ONCE, Stop date: 01/13/20 12:50:00 CDT lidocaine 2020-0 No Route: IV, Me moria (ANES) 01-12 Drug form: l 17:50: INJ, ONCE, Emigdio 00 Stop date: 01/13/20 12:50:00 CDT Calcium 2019-0 No 1,000 mL, Memor ia Chloride 01-12 Rate: 75 l 0.0014 17:27: ml/hr, Emigdio MEQ/ML / 00 Infuse Potassium over: 13.3 Chloride hr, Route: 0.004 IV, Dosing MEQ/ML / Weight Sodium 77.273 kg, Chloride Total 0.103 Volume: MEQ/ML / 1,000, Sodium Start Lactate date: 0.028 01/13/20 MEQ/ML 12:27:00 Injectable CDT, Solution Duration: 30 day, Stop date: 02/12/20 12:26:00 CDT, 1.9, m2, 0 Calcium 2019-0 No 1,000 mL, Memor ia Chloride 01-12 Rate: 75 l 0.0014 17:27: ml/hr, Emigdio MEQ/ML / 00 Infuse Potassium over: 13.3 Chloride hr, Route: 0.004 IV, Dosing MEQ/ML / Weight Sodium 77.273 kg, Chloride Total 0.103 Volume: MEQ/ML / 1,000, Sodium Start Lactate date: 0.028 01/13/20 MEQ/ML 12:27:00 Injectable CDT, Solution Duration: 30 day, Stop date: 02/12/20 12:26:00 CDT, 1.9, m2, 0 Lactated 2019-0 No Route: IV, Mem oria Ringers 9-22 Total l Injection 16:53: Volume: Isabel nn IV (ANES) 00 1,000, 1000 mL Start date: 01/13/20 11:53:00 CDT, Stop date: 01/13/20 12:53:00 CDT Lactated 2020-0 No Route: IV, Mem oria Ringers 01-12 Total l Injection 16:53: Volume: Isabel nn IV (ANES) 00 1,000, 1000 mL Start date: 01/13/20 11:53:00 CDT, Stop date: 01/13/20 12:53:00 CDT Insulin 2020-0 No 10 unit, Memori a regular 01-12 Route: IV, l 16:32: ONCE, Dosing Weight 77.273, kg, Start date: 01/13/20 11:32:00 CDT, Stop date: 01/13/20 11:32:00 CDT Insulin 2020-0 No 10 unit, Memori a regular 01-12 Route: IV, l 16:32: ONCE, Dosing Weight 77.273, kg, Start date: 01/13/20 11:32:00 CDT, Stop date: 01/13/20 11:32:00 CDT Hydralazine 0 No Notes: Luis Eduardo duc 01-12 (Same as: l 14:33: Apresoline ) Push over 5 minutes Metoprolol 0 No Notes: Memor ia 01-12 (Same as: l 14:33: Lopressor) Push over 2 minutes Oxycodone 0 No Notes: Memori a Hydrochlori 01-12 (Same as: l de 5 MG 14:33: Roxicodone Herm giacomo Oral Tablet ) Morphine No Notes: Memoria 01-12 (Same l 14:33: as:MORPhin [place] 00 e Sulfate) Flumazenil 0 No Notes: Memor ia 01-12 (Same as: l 14:33: Romazicon) Naloxone 2019-0 No Notes: Memoria 01-12 Same as l 14:33: Narcan Meperidine 0 No Notes: Memor ia 01-12 (Same As: l 14:33: Demerol) Ondansetron 2020-0 No Notes: Luis Eduardo duc 01-12 (Same as: l 14:33: Zofran) Emigdio 00 MEDICATION WASTE Product Size: 4 mg Product Wasted: ___ mg Hydralazine No Notes: Luis Eduardo duc 01-12 (Same as: l 14:33: Apresoline [place] ) Push over 5 minutes Metoprolol No Notes: Memor ia 01-12 (Same as: l 14:33: Lopressor) Emigdio Push over 2 minutes Oxycodone 0 No Notes: Memori a Hydrochlori 01-12 (Same as: l de 5 MG 14:33: Roxicodone Herm giacomo Oral Tablet ) Morphine No Notes: Memoria 01-12 (Same l 14:33: as:MORPhin [place] e Sulfate) Flumazenil No Notes: Memor ia 01-12 (Same as: l 14:33: Romazicon) Emigdio Naloxone No Notes: Memoria 01-12 Same as l 14:33: Narcan [place] Meperidine No Notes: Memor ia 01-12 (Same As: l 14:33: Demerol) Emigdio 00 Ondansetron No Notes: Luis Eduardo duc 01-12 (Same as: l 14:33: Zofran) Emigdio MEDICATION WASTE Product Size: 4 mg Product Wasted: ___ mg Zosyn No Notes: Memoria 01-12 (Same as: l 13:00: Zosyn) Emigdio Dosing based on Piperacill in component MEDICATION WASTE Product Size: 3375 mg Product Wasted: ___ mg Zosyn No Notes: Memoria 01-12 (Same as: l 13:00: Zosyn) Emigdio 00 Dosing based on Piperacill in component MEDICATION WASTE Product Size: 3375 mg Product Wasted: ___ mg insulin, 0 No Notes: Memoria isophane 01-11 (Same as: l 22:00: Humulin N) [place] 00 Roll in palms of hands gently; Do not shake vigorously . WASTE: F/P - Black; E - Municipal Trash Bin Stable for 31 days at room temperatur e Expires in days from ____Date insulin, 0 No Notes: Memoria isophane 01-11 (Same as: l 22:00: Humulin N) Roll in palms of hands gently; Do not shake vigorously . WASTE: F/P - Black; E - Municipal Trash Bin Stable for 31 days at room temperatur e Expires in days from ____Date Hydralazine No Notes: Luis Eduardo duc - (Same as: l 16:00: Apresoline ) May interfere w/enteral feedings Take With Food. Hydralazine No Notes: Luis Eduardo duc -21 (Same as: l 16:00: Apresoline ) May interfere w/enteral feedings Take With Food. Protonix No Notes: For Mem oria 21 IV push l 14:00: reconstitu te with 10 ml 0.9% sodium chloride and push over 2 minutes. (Same as: Protonix) Amlodipine 2020-0 No 5 mg, 1 Luis Eduardo duc -21 tab, l 14:00: Route: PO, Drug form: TAB, Daily, Dosing Weight 77.273, kg, Start date: 01/12/20 9:00:00 CDT, Duration: 30 day, Stop date: 02/10/20 9:00:00 CDT Raloxifene No Notes: Memor ia 01-11 Hazardous l 14:00: Drug Group 2:Non-anti neoplastic Hazardous Drug -- Refer to safe handling procedure PPE Matrix (Same as:Evista) "Do Not Crush" Protonix 2019-0 No Notes: For Mem oria -21 IV push l 14:00: reconstitu te with 10 ml 0.9% sodium chloride and push over 2 minutes. (Same as: Protonix) Amlodipine 2020-0 No 5 mg, 1 Luis Eduardo duc [...] Matrix (Same as:Evista) "Do Not Crush" Lyrica No Notes: Memoria 9-20 Same as l 22:00: Lyrica Lyrica 2019-0 No Notes: Memoria 9-20 Same as l 22:00: Lyrica Amlodipine No Notes: Memor ia -20 (Same as: l 19:00: Norvasc) Amlodipine No Notes: Memor ia - (Same as: l 19:00: Norvasc) Dextrose 2019-0 No 12.5 gm, Memor ia 50% Syringe 01-10 25 mL, l (D50W) 18:21: Route: IVP, Drug Form: INJ, Dosing Weight 77.273, kg, PRN, PRN Blood Glucose Results, Start date: 01/11/20 13:21:00 CDT, Duration: 30 day, Stop date: 02/10/20 13:20:00 CDT, 0 Glucagon 2019-0 No 1 mg, Memoria 01-10 Route: IM, l 18:21: Drug form: PDR/INJ, PRN, Dosing Weight 77.273, kg, PRN Blood Glucose Results, Start date: 01/11/20 13:21:00 CDT, Duration: 30 day, Stop date: 02/10/20 13:20:00 CDT, 0 Insulin 2019-0 No Notes: Memoria Lispro -20 (Same as: l 18:21: Humalog) Roll in palms of hands gently; Do not shake vigorously . WASTE: F/P - Black; E - Municipal Trash Bin Stable for 28 days at room temperatur e. Expires in days from ____Date Acetaminoph 2020-0 No Notes: Luis Eduardo duc en 325 MG / 9-20 Same as l Hydrocodone 18:21: [place] Isabel nn Bitartrate 00 325-7.5mg 7.5 MG Oral Do not Tablet exceed 4gm/day of acetaminop hen. Dextrose 2020-0 No 12.5 gm, Memor ia 50% Syringe -20 25 mL, l (D50W) 18:21: Route: [place] 00 IVP, Drug Form: INJ, Dosing Weight 77.273, kg, PRN, PRN Blood Glucose Results, Start date: 01/11/20 13:21:00 CDT, Duration: 30 day, Stop date: 02/10/20 13:20:00 CDT, 0 Glucagon 2020-0 No 1 mg, Memoria - Route: IM, l 18:21: Drug form: Emigdio 00 PDR/INJ, PRN, Dosing Weight 77.273, kg, PRN Blood Glucose Results, Start date: 01/11/20 13:21:00 CDT, Duration: 30 day, Stop date: 02/10/20 13:20:00 CDT, 0 Insulin 2020-0 No Notes: Memoria Lispro -20 (Same as: l 18:21: Humalog) Roll in palms of hands gently; Do not shake vigorously . WASTE: F/P - Black; E - Municipal Trash Bin Stable for 28 days at room temperatur e. Expires in days from ____Date Acetaminoph 2020-0 No Notes: Luis Eduardo duc en 325 MG / 9-20 Same as l Hydrocodone 18:21: [place] Isabel nn Bitartrate 00 325-7.5mg 7.5 MG Oral Do not Tablet exceed 4gm/day of acetaminop hen. amLODIPine 2020-0 Yes 5 mg = 1 Mem oria 5 mg oral 9-20 tab, PO, l tablet 17:56: Daily, # 30 tab, 0 Refill(s) raloxifene 2020-0 Yes 60 mg = 1 Me moria 60 mg oral 9-20 tab, PO, l tablet 17:56: Daily, # 30 tab, 0 Refill(s) amLODIPine 2020-0 Yes 5 mg = 1 Mem oria 5 mg oral 9-20 tab, PO, l tablet 17:56: Daily, # [place] 00 30 tab, 0 Refill(s) raloxifene 2020-0 Yes 60 mg = 1 Me moria 60 mg oral 9-20 tab, PO, l tablet 17:56: Daily, # [place] 00 30 tab, 0 Refill(s) Acetaminoph 2020-0 Yes 1 tab, PO, Memoria en 325 MG / 9-20 TID, 0 l Hydrocodone 17:39: Refill(s) H ermann Bitartrate 00 7.5 MG Oral Tablet Hydrochloro 2020-0 Yes 1 tab, PO, Memoria thiazide 25 9-20 Daily, # l MG / 17:39: 30 tab, 0 Bo[place] Losartan 00 Refill(s) Potassium 100 MG Oral Tablet pregabalin 2020-0 Yes 50 mg = 1 Me moria 50 MG Oral 9-20 cap, PO, l Capsule 17:39: BID, 0 Emigdio [Lyrica] 00 Refill(s) 24 HR 2019-0 Yes 50 mg = 1 Memoria mirabegron 9-20 tab, PO, l 50 MG 17:39: Daily, # Emigdio Extended 00 30 tab, 0 Release Refill(s) Tablet [Myrbetriq] Acetaminoph 2020-0 Yes 1 tab, PO, Memoria en 325 MG / 9-20 TID, 0 l Hydrocodone 17:39: Refill(s) H ermann Bitartrate 00 7.5 MG Oral Tablet Hydrochloro 2020-0 Yes 1 tab, PO, Memoria thiazide 25 9-20 Daily, # l MG / 17:39: 30 tab, 0 Boaz Losartan 00 Refill(s) Potassium 100 MG Oral Tablet pregabalin 2020-0 Yes 50 mg = 1 Me moria 50 MG Oral 9-20 cap, PO, l Capsule 17:39: BID, 0 Emigdio [Lyrica] 00 Refill(s) 24 HR 2020-0 Yes 50 mg = 1 Memoria mirabegron 9-20 tab, PO, l 50 MG 17:39: Daily, # Emigdio Extended 00 30 tab, 0 Release Refill(s) Tablet [Myrbetriq] Lovenox 2019-0 No Notes: Memoria 9-20 (Same as: l 16:00: Lovenox) [place] 00 Lovenox 2019-0 No Notes: Memoria 9-20 (Same as: l 16:00: Lovenox) Clonidine 2019-0 No Notes: Memori a Hydrochlori 9-20 (Same As: l de 0.1 MG 15:47: Catapres) Her ram Oral Tablet 00 Clonidine 2019-0 No Notes: Memori a Hydrochlori 9-20 (Same As: l de 0.1 MG 15:47: Catapres) Her ram Oral Tablet 00 Labetalol 2019-0 No Notes: Memori a 9-20 (Same as: l 15:46: Normodyne, Trandate) Push over 2 minutes Give bolus over 2-3 minutes. Labetalol 2019-0 No Notes: Memori a 9-20 (Same as: l 15:46: Normodyne, Trandate) Push over 2 minutes Give bolus over 2-3 minutes. Dextrose 2019-0 No 12.5 gm, Memor ia 50% Syringe 01-10 25 mL, l (D50W) 15:45: Route: IVP, Drug Form: INJ, Dosing Weight 71.364, kg, PRN, PRN Blood Glucose Results, Start date: 01/11/20 10:45:00 CDT, Duration: 30 day, Stop date: 02/10/20 10:44:00 CDT, 0 Glucagon 2019-0 No 1 mg, Memoria - Route: IM, l 15:45: Drug form: PDR/INJ, PRN, Dosing Weight 71.364, kg, PRN Blood Glucose Results, Start date: 01/11/20 10:45:00 CDT, Duration: 30 day, Stop date: 02/10/20 10:44:00 CDT, 0 Insulin 2019-0 No Notes: Memoria Lispro 9-20 (Same as: l 15:45: Humalog) Roll in palms of hands gently; Do not shake vigorously . WASTE: F/P - Black; E - Municipal Trash Bin Stable for 28 days at room temperatur e. Expires in days from ____Date Dextrose 2020-0 No 12.5 gm, Memor ia 50% Syringe 9 25 mL, l (D50W) 15:45: Route: IVP, Drug Form: INJ, Dosing Weight 71.364, kg, PRN, PRN Blood Glucose Results, Start date: 01/11/20 10:45:00 CDT, Duration: 30 day, Stop date: 02/10/20 10:44:00 CDT, 0 Glucagon 2020-0 No 1 mg, Memoria 01-10 Route: IM, l 15:45: Drug form: PDR/INJ, PRN, Dosing Weight 71.364, kg, PRN Blood Glucose Results, Start date: 01/11/20 10:45:00 CDT, Duration: 30 day, Stop date: 02/10/20 10:44:00 CDT, 0 Insulin 2020-0 No Notes: Memoria Lispro 01-10 (Same as: [...] Stop date: 02/10/20 10:43:00 CDT, 0 Zofran 2020-0 No Notes: Memoria -20 (Same as: l 15:44: Zofran) MEDICATION WASTE Product Size: 4 mg Product Wasted: ___ mg LR IV 1,000 2019-0 No 1,000 mL, M emoria mL 9-20 Rate: 150 l 15:44: ml/hr, Infuse over: 6.7 hr, Route: IV, Dosing Weight 71.364 kg, Total Volume: 1,000, Start date: 01/11/20 10:44:00 CDT, Duration: 30 day, Stop date: 02/10/20 10:43:00 CDT, 1.73, m2, 0 Morphine No 2 mg, 1 Memori a 9-20 mL, Route: l 15:44: IVP, Drug form: SOLN, Q4H, Dosing Weight 71.364, kg, PRN Pain Score 7-10, Start date: 01/11/20 10:44:00 CDT, Duration: 30 day, Stop date: 02/10/20 10:43:00 CDT, 0 Zofran No Notes: Memoria -20 (Same as: l 15:44: Zofran) MEDICATION WASTE Product Size: 4 mg Product Wasted: ___ mg losartan Yes 25mg Take 25 mg Uni vers (COZAAR) 25 4-23 by mouth ity of mg tablet 11:42: daily. [address] meloxicam Yes 15mg Take 15 mg Un segun (MOBIC) 15 4-23 by mouth ity o f mg tablet 11:42: daily. [address] [place] HYDROcodone Yes 1{tbl} Take 1 Tab [facility] -acetaminop 4-23 by mouth ity of hen (NORCO) 11:42: every 8 Dominick as 10-325 mg 17 (eight) Medical tablet hours. Branch metFORMIN Yes 1000mg Take 1,000 [facility] (GLUCOPHAGE 4-23 mg by ity of ) 1,000 mg 11:42: [place] 17 (two) Medical times Branch daily. hydrochloro Yes 12.5mg Take 12.5 [facility] thiazide 4-23 mg by ity of (ESIDRIX) 11:42: mouth [place] 12.5 mg 17 daily. Medical capsule Branch bisoprolol Yes 5mg Take 5 mg Un segun 5 mg tablet 4-23 by mouth ity of 11:42: daily. [address] losartan 2018-0 Yes 25mg Take 25 mg Uni vers (COZAAR) 25 4-23 by mouth ity of mg tablet 11:42: daily. [address] meloxicam 2018-0 Yes 15mg Take 15 mg Un segun (MOBIC) 15 4-23 by mouth ity o f mg tablet 11:42: daily. [address] HYDROcodone 2018-0 Yes 1{tbl} Take 1 Tab [facility] -acetaminop 4-23 by mouth ity of hen (NORCO) 11:42: every 8 [place] as 10-325 mg 17 (eight) Medical tablet hours. Branch metFORMIN 2017-0 Yes 1000mg Take 1,000 [facility] (GLUCOPHAGE 4-23 mg by ity of ) 1,000 mg 11:42: [place] tablet 17 (two) Medical times Branch daily. hydrochloro 2018-0 Yes 12.5mg Take 12.5 [facility] thiazide 4-23 mg by ity of (ESIDRIX) 11:42: mouth [place] 12.5 mg 17 daily. Medical capsule Branch bisoprolol 2018-0 Yes 5mg Take 5 mg Un segun 5 mg tablet 4-23 by mouth ity of 11:42: daily. [address] losartan 2017-0 Yes 25mg Take 25 mg Uni vers (COZAAR) 25 4-23 by mouth ity of mg tablet 11:42: daily. [address] meloxicam 2017-0 Yes 15mg Take 15 mg Un segun (MOBIC) 15 4-23 by mouth ity o f mg tablet 11:42: daily. [address] HYDROcodone 2018-0 Yes 1{tbl} Take 1 Tab [facility] -acetaminop 4-23 by mouth ity of hen (NORCO) 11:42: every 8 [place] as 10-325 mg 17 (eight) Medical tablet hours. Branch metFORMIN 2018-0 Yes 1000mg Take 1,000 [facility] (GLUCOPHAGE 4-23 mg by ity of ) 1,000 mg 11:42: [place] 17 (two) Medical times Branch daily. hydrochloro 2018-0 Yes 12.5mg Take 12.5 [facility] thiazide 4-23 mg by ity of (ESIDRIX) 11:42: mouth [place] 12.5 mg 17 daily. Medical capsule Branch bisoprolol 0 Yes 5mg Take 5 mg Un segun 5 mg tablet 4-23 by mouth ity of 11:42: daily. [address] Branch Morphine 2014-04 No Notes: Memoria -21 (Same l 20:50: as:MORPhin Emigdio 00 e Sulfate) Morphine 2014-04 No Notes: Memoria 05-13 (Same l 20:50: as:MORPhin [place] 00 e Sulfate) Aspirin 81 2014-04 Yes 81 mg = 1 Me moria MG Chewable 1-21 tab, PO, l Tablet 15:24: BID, # 42 Gio n 00 tab, 0 Refill(s) Aspirin 81 2014-04 Yes 81 mg = 1 Me moria MG Chewable 1-21 tab, PO, l Tablet 15:24: BID, # 42 Gio n 00 tab, 0 Refill(s) POLYETHYLEN 2014-04 Yes 17 gm, PO, Memoria E GLYCOL 1-21 Daily, X l 3350 142 13:47: 15 day, # Herm giacomo MG/ML Oral 00 255 gm, 0 Solution Refill(s) [Miralax] docusate 2014-04 Yes 100 mg = 1 Mem oria sodium 100 1-21 cap, PO, l mg oral 13:47: BID, # 28 Isabel nn capsule 00 cap, 0 Refill(s) celecoxib 2014-04 Yes 200 mg = 1 Me moria 200 mg oral 1-21 cap, PO, l capsule 13:47: Q12H, # 28 Herm giacomo 00 cap, 0 Refill(s) Aspirin 325 2014-04 Yes 325 mg = 1 Memoria MG Enteric 1-21 tab, PO, l Coated 13:47: Q12H, # 28 Isabel nn Tablet 00 tab, 0 Refill(s) POLYETHYLEN 2014-04 Yes 17 gm, PO, Memoria E GLYCOL 1-21 Daily, X l 3350 142 13:47: 15 day, # Herm giacomo MG/ML Oral 00 255 gm, 0 Solution Refill(s) [Miralax] docusate 2014-04 Yes 100 mg = 1 Mem oria sodium 100 1-21 cap, PO, l mg oral 13:47: BID, # 28 Isabel nn capsule 00 cap, 0 Refill(s) celecoxib 2014-04 Yes 200 mg = 1 Me moria 200 mg oral 1-21 cap, PO, l capsule 13:47: Q12H, # 28 Herm giacomo 00 cap, 0 Refill(s) Aspirin 325 2014-04 Yes 325 mg = 1 Memoria MG Enteric 1-21 tab, PO, l Coated 13:47: Q12H, # 28 Isabel nn Tablet 00 tab, 0 Refill(s) Glucagon 2014-04 No 1 mg, Memoria 05-13 Route: IM, l 12:48: Drug form: Emigdio 00 PDR/INJ, PRN, Dosing Weight 71.364, kg, PRN Blood Glucose Results, Start date: 03/13/15 6:48:00, Duration: 30 day, Stop date: 04/12/15 6:47:00 Dextrose 2014-04 No 12.5 gm, Memor ia 50% Syringe 05-13 25 mL, l 12:48: Route: Boaz 00 IVP, Drug Form: INJ, Dosing Weight 71.364, kg, PRN, PRN Blood Glucose Results, Start date: 03/13/15 6:48:00, Duration: 30 day, Stop date: 04/12/15 6:47:00 Insulin, 2014-04 No Notes: Memoria Aspart, - (Same as: l Human 12:48: NovoLOG) Glucagon 2014-04 No 1 mg, Memoria 05-13 [...] 6:47:00 Insulin, 2014-04 No Notes: Memoria Aspart, - (Same as: l Human 12:48: NovoLOG) Dexamethaso 2014-04 No Notes: Luis Eduardo duc ne 1-20 Concentrat l 18:28: ion: Emigdio 00 4mg/ml Dexamethaso 2014-04 No Notes: Luis Eduardo duc ne 1-20 Concentrat l 18:28: ion: Emigdio 00 4mg/ml Ditropan XL 2014-04 No Notes: Luis Eduardo duc 1-20 (Same as: l 15:00: Ditropan [place] 00 XL) "Do Not Crush" POLYETHYLEN 2014-04 No Notes: Luis Eduardo duc E GLYCOL 1-20 Dissolve l 3350 15:00: in 8 oz of [place] 00 water or juice. (Same as: Miralax) Losartan 2014-04 No Notes: Memoria 1-20 (Same as: l 15:00: Cozaar) Emigdio 00 Hydrochloro 2014-04 No Notes: Luis Eduardo duc thiazide 1-20 (Same as: l 12.5 MG 15:00: Hydrodiuri Herm giacomo Oral 00 l) With Capsule food. Aspirin 81 2014-04 No 81 mg = 1 Me moria MG Chewable 1-20 tab, PO, l Tablet 15:00: BID, # 42 Gio n 00 tab, 0 Refill(s) Ditropan XL 2014-04 No Notes: Luis Eduardo duc 1-20 (Same as: l 15:00: Ditropan [place] 00 XL) "Do Not Crush" POLYETHYLEN 2014-04 No Notes: Luis Eduardo duc E GLYCOL 1-20 Dissolve l 3350 15:00: in 8 oz of [place] 00 water or juice. (Same as: Miralax) Losartan 2014-04 No Notes: Memoria 1-20 (Same as: l 15:00: Cozaar) [place] 00 Hydrochloro 2014-04 No Notes: Luis Eduardo [...] Oral Tablet 00 ) Take with meal Metformin 2014-04 No Notes: Memori a hydrochlori 1-20 (Same as: l de 1000 MG 14:00: Glucophage H ermann Oral Tablet 00 ) Take with meal Protonix 2014-04 No 40 mg, Memoria 1-20 Route: PO, l 13:30: Drug form: [place] 00 ECTAB, Before Breakfast, Dosing Weight 71.364, kg, Start date: 03/12/15 7:30:00, Duration: 30 day, Stop date: 04/10/15 7:30:00 Protonix 2014-04 No 40 mg, Memoria 1-20 Route: PO, l 13:30: Drug form: [place] 00 ECTAB, Before Breakfast, Dosing Weight 71.364, kg, Start date: 03/12/15 7:30:00, Duration: 30 day, Stop date: 04/10/15 7:30:00 Aspirin 2014-04 No Notes: (Do Luis Eduardo duc 1-20 Not Crush) l 03:00: Do not Boaz 00 crush or chew. celecoxib 2014-04 No Notes: Memori a 1-20 NSAID. l 03:00: Please Boaz 00 check indication . Not for seizure. (Same As: CeleBREX) Aspirin 2014-04 No Notes: (Do Luis Eduardo duc 1-20 Not Crush) l 03:00: Do not [place] 00 crush or chew. celecoxib 2014-04 No Notes: Memori a 1-20 NSAID. l 03:00: Please [place] 00 check indication . Not for seizure. (Same As: CeleBREX) Metformin 2014-04 No Notes: Memori a 1-20 (Same as: l 00:49: Glucophage Emigdio 00 ) Take with meal Metformin 2014-04 No Notes: Memori a 1-20 (Same as: l 00:49: Glucophage Boaz 00 ) Take with meal Ondansetron 2014-04 No Notes: Luis Eduardo duc 1-20 (Same as: l 00:28: Zofran) [place] 00 MEDICATION WASTE Product Size: 4 mg Product Wasted: ___ mg Tranexamic 2014-04 No Notes: Memor ia Acid 1-20 (Same as: l 00:28: Lysteda) [place] 00 Non-Formul amber Ondansetron 2014-04 No Notes: Luis Eduardo duc 1-20 (Same as: l 00:28: Zofran) MEDICATION WASTE Product Size: 4 mg Product Wasted: ___ mg Tranexamic 2014-04 No Notes: Memor ia Acid -20 (Same as: l 00:28: Lysteda) Non-Formul amber Flexeril 2014-04 No Notes: Memoria - (Same As: l 23:20: Flexeril) Flexeril 2014-04 No Notes: Memoria - (Same As: l 23:20: Flexeril) Insulin, 2014-04 No Notes: Memoria Aspart, - (Same as: l Human 23:15: NovoLOG) Dextrose 2014-04 No 25 gm, 50 Luis Eduadro duc 50% Syringe 1-19 mL, Route: l 23:15: IVP, Drug Form: INJ, Dosing Weight 71.364, kg, PRN, PRN Blood Glucose Results, Start date: 03/11/15 17:15:00, Duration: 30 day, Stop date: 04/10/15 17:14:00 Glucagon 2014-04 No 1 mg, Memoria 05-11 Route: IM, l 23:15: Drug form: Emigdio 00 PDR/INJ, PRN, Dosing Weight 71.364, kg, PRN Blood Glucose Results, Start date: 03/11/15 17:15:00, Duration: 30 day, Stop date: 04/10/15 17:14:00 Insulin, 2014-04 No Notes: Memoria Aspart, 05-11 [...] 05-11 Route: IM, l 23:15: Drug form: Emigdio 00 PDR/INJ, PRN, Dosing Weight 71.364, kg, PRN Blood Glucose Results, Start date: 03/11/15 17:15:00, Duration: 30 day, Stop date: 04/10/15 17:14:00 Docusate 2014-04 No Notes: Memoria - (Same as: l 23:00: Colace) Emigdio (Do Not Crush) ceFAZolin 2014-04 No Notes: Memori a (SCIP) - Same as l 23:00: Ancef [place] Docusate 2014-04 No Notes: Memoria - (Same as: l 23:00: Colace) Emigdio (Do Not Crush) ceFAZolin 2014-04 No Notes: Memori a (SCIP) - Same as l 23:00: Ancef [place] ropivacaine 2014-04 No Notes: Memoria - NOT FOR IV l 18:48: use Emigdio 00 Ropivacain e 5 mg/mL (49.25 mL) Epinephrin e 1 mg/mL (0.5 mL) Clonidine 0.1 mg/mL (0.8 mL) Ketorolac 30 mg/mL (1 mL) Normal Saline 48.45 mL ropivacaine 2014-04 No Notes: Memoria - NOT FOR IV l 18:48: use Emigdio 00 Ropivacain e 5 mg/mL (49.25 mL) Epinephrin e 1 mg/mL (0.5 mL) Clonidine 0.1 mg/mL (0.8 mL) Ketorolac 30 mg/mL (1 mL) Normal Saline 48.45 mL Hydralazine 2014-04 No Notes: Luis Eduardo duc - (Same as: l 18:36: Apresoline ) Push over 5 minutes Naloxone 2014-04 No Notes: Memoria - Same as l 18:36: Narcan Flumazenil 2014-04 No Notes: Memor ia - (Same as: l 18:36: Romazicon) Hydromorpho 2014-04 No Notes: Luis Eduardo duc ne - Same as l 18:36: Dilaudid Ondansetron 2014-04 No Notes: Luis Eduardo duc - (Same as: l 18:36: Zofran) MEDICATION WASTE Product Size: 4 mg Product Wasted: ___ mg Labetalol 2014-04 No 10 mg, 2 Luis Eduardo duc 1-19 mL, Route: l 18:36: IVP, Drug form: INJ, Q5Min, Dosing Weight 71.364, kg, PRN Elevated BP, Start date: 03/11/15 12:36:00, Duration: 5 doses or times, Stop date: 03/11/15 16:00:00 Labetalol 2014-04 No 10 mg, 2 Luis Eduardo duc 1-19 mL, Route: l 18:36: IVP, Drug form: INJ, Q5Min, Dosing Weight 71.364, kg, PRN Elevated BP, Start date: 03/11/15 12:36:00, Duration: 5 doses or times, Stop date: 03/11/15 16:00:00 Hydralazine 2014-04 No Notes: Luis Eduardo duc 05-11 (Same as: l 18:36: Apresoline ) Push over 5 minutes Naloxone 2014-04 No Notes: Memoria 05-11 Same as l 18:36: Narcan Flumazenil 2014-04 No Notes: Memor ia 05-11 (Same as: l 18:36: Romazicon) Hydromorpho 2014-04 No Notes: Luis Eduardo duc ne 05-11 Same as l 18:36: Dilaudid Ondansetron 2014-04 No Notes: Luis Eduardo duc 05-11 (Same as: l 18:36: Zofran) Emigdio 00 MEDICATION WASTE Product Size: 4 mg Product Wasted: ___ mg Ondansetron 2014-04 No Notes: Luis Eduardo duc - (Same as: l 18:28: Zofran) Emigdio 00 MEDICATION WASTE Product Size: 4 mg Product Wasted: ___ mg Bisacodyl 2014-04 No Notes: Memori a 05-11 (Same As: l 18:28: Dulcolax, Bisco-Lax) Diphenhydra 2014-04 No Notes: Luis Eduardo duc mine 05-11 (Same as: l 18:28: Benadryl) Oxycodone 2014-04 No Notes: Memori a Hydrochlori -19 (Same as: l de 5 MG 18:28: Roxicodone Herm giacomo Oral Tablet 00 ) Morphine 2014-04 No Notes: Memoria 1-19 (Same l 18:28: as:MORPhin Emigdio 00 e Sulfate) Milk of 2014-04 No Notes: Memoria Magnesia - (Same as: l 18:28: Milk of Boaz 00 Magnesia, MOM) Temazepam 2014-04 No Notes: Memori a -19 (Same As: l 18:28: Restoril) Emigdio Tylenol 2014-04 No Notes: Do Memor ia 05-11 not exceed l 18:28: 4 gm/day. Boaz (Same as: Tylenol) Acetaminoph 2014-04 No Notes: Do M emoria en 325 MG / 05-11 not exceed l Hydrocodone 18:28: 4gm/day of Emigdio Bitartrate 00 acetaminop 10 MG Oral hen. (Same Tablet as: [place] 325/10) zolpidem 2014-04 No Notes: Memoria -19 (Same As: l 18:28: Ambien) [place]az 00 Maalox 2014-04 No Notes: Memoria Advanced 05-11 (aluminum l Regular 18:28: hydroxide- Herm giacomo Strength 00 magnesium SUSP hyd- simethicon e 400-400-40 mg/5ml 30 ml ud ISMAEL) Acetaminoph 2014-04 No Notes: Do M emoria en 325 MG / 05-11 not exceed l Hydrocodone 18:28: 4gm/day of [place] Bitartrate 00 acetaminop 10 MG Oral hen. (Same Tablet as: [place] [[place] 325/10) 10325] NS 1,000 mL 2014-04 No 1,000 mL, M emoria 05-11 Rate: 85 l 18:28: ml/hr, Emigdio 00 Infuse over: 11.8 hr, Route: IV, Dosing Weight 71.364 kg, Total Volume: 1,000, Start date: 03/11/15 12:28:00, Duration: 30 day, Stop date: 04/10/15 12:27:00 Ondansetron 2014-04 No Notes: Luis Eduardo duc - (Same as: l 18:28: Zofran) Boaz 00 MEDICATION WASTE Product Size: 4 mg Product Wasted: ___ mg Bisacodyl 2014-04 No Notes: Memori a - (Same As: l 18:28: Dulcolax, Emigdio 00 Bisco-Lax) Diphenhydra 2014-04 No Notes: Luis Eduardo duc mine 05-11 (Same as: l 18:28: Benadryl) Emigdio 00 Oxycodone 2014-04 No Notes: Memori a Hydrochlori 05-11 (Same as: l de 5 MG 18:28: Roxicodone Herm giacomo Oral Tablet 00 ) Morphine 2014-04 No Notes: Memoria 05-11 (Same l 18:28: as:MORPhin Emigdio 00 e Sulfate) Milk of 2014-04 No Notes: Memoria Magnesia 05-11 (Same as: l 18:28: Milk of Emigdio 00 Magnesia, MOM) Temazepam 2014-04 No Notes: Memori a 05-11 (Same As: l 18:28: Restoril) Emigdio 00 Tylenol 2014-04 No Notes: Do Memor ia 05-11 not exceed l 18:28: 4 gm/day. Emigdio 00 (Same as: Tylenol) Acetaminoph 2014-04 No Notes: Do M emoria en 325 MG / 05-11 not exceed l Hydrocodone 18:28: 4gm/day of Boaz Bitartrate 00 acetaminop 10 MG Oral hen. (Same Tablet as: [place] 325/10) zolpidem 2014-04 No Notes: Memoria 05-11 (Same As: l 18:28: Ambien) Emigdio 00 Maalox 2014-04 No Notes: Memoria Advanced 05-11 (aluminum l Regular 18:28: hydroxide- Herm giacomo Strength 00 magnesium SUSP hyd- simethicon e 400-400-40 mg/5ml 30 ml ud ISMAEL) Acetaminoph 2014-04 No Notes: Do M emoria en 325 MG / 05-11 not exceed l Hydrocodone 18:28: 4gm/day of [place]az Bitartrate 00 acetaminop 10 MG Oral hen. (Same Tablet as: [place] [[place] 325/10) 10/325] NS 1,000 mL 2014-04 No 1,000 mL, M emoria 05-11 Rate: 85 l 18:28: ml/hr, Emigdio 00 Infuse over: 11.8 hr, Route: IV, Dosing Weight 71.364 kg, Total Volume: 1,000, Start date: 03/11/15 12:28:00, Duration: 30 day, Stop date: 04/10/15 12:27:00 Naloxone 2014-04 No Notes: Memoria - Same as l 16:46: Narcan Emigdio Flumazenil 2014-04 No Notes: Memor ia 1-19 (Same as: l 16:46: Romazicon) Emigdio Morphine 2014-04 No Notes: Memoria - (Same l 16:46: as:MORPhin Emigdio 00 e Sulfate) Hydromorpho 2014-04 No Notes: Luis Eduardo duc ne 05-11 Same as l 16:46: Dilaudid Emigdio 00 Ondansetron 2014-04 No Notes: Luis Eduardo duc - (Same as: l 16:46: Zofran) Emgidio 00 MEDICATION WASTE Product Size: 4 mg Product Wasted: ___ mg Hydralazine 2014-04 No Notes: Luis Eduardo duc 1-19 (Same as: l 16:46: Apresoline Boaz 00 ) Push over 5 minutes Naloxone 2014-04 No Notes: Memoria 05-11 Same as l 16:46: Narcan Emigdio 00 Flumazenil 2014-04 No Notes: Memor ia - (Same as: l 16:46: Romazicon) Emigdio 00 Morphine 2014-04 No Notes: Memoria - (Same l 16:46: as:MORPhin Emigdio 00 e Sulfate) Hydromorpho 2014-04 No Notes: Luis Eduardo duc ne -19 Same as l 16:46: Dilaudid [place] 00 Ondansetron 2014-04 No Notes: Luis Eduardo duc 1-19 (Same as: l 16:46: Zofran) Emigdio 00 MEDICATION WASTE Product Size: 4 mg Product Wasted: ___ mg Hydralazine 2014-04 No Notes: Luis Eduardo duc 1-19 (Same as: l 16:46: Apresoline [place]az 00 ) Push over 5 minutes Zofran 2014-04 No 4 mg, Memoria 05-11 Route: IV, l 15:12: ONCE, Dosing Weight 71.364, kg, Start date: 03/11/15 9:12:00, Stop date: 03/11/15 9:12:00 Ancef 2014-04 No Notes: Memoria 05-11 Same as l 15:12: Ancef Zofran 2014-04 No 4 mg, Memoria 05-11 Route: IV, l 15:12: ONCE, Dosing Weight 71.364, kg, Start date: 03/11/15 9:12:00, Stop date: 03/11/15 9:12:00 Ancef 2014-04 No Notes: Memoria 05-11 Same as l 15:12: Dexamethaso 2014-04 No 10 mg, Luis Eduardo duc ne 05-11 Route: IV, l 15:11: ONCE, Dosing Weight 71.364, kg, Start date: 03/11/15 9:11:00, Stop date: 03/11/15 9:11:00 Dexamethaso 2014-04 No 10 mg, Luis Eduardo duc ne 05-11 Route: IV, l 15:11: ONCE, Dosing Weight 71.364, kg, Start date: 03/11/15 9:11:00, Stop date: 03/11/15 9:11:00 Celebrex 2014-04 No 400 mg, Memori a 05-11 Route: PO, l 15:10: ONCE, Dosing Weight 71.364, kg, Start date: 03/11/15 9:10:00, Stop date: 03/11/15 9:10:00 Celebrex 2014-04 No 400 mg, Memori a 05-11 Route: PO, l 15:10: ONCE, Dosing Weight 71.364, kg, Start date: 03/11/15 9:10:00, Stop date: 03/11/15 9:10:00 Tranexamic 2014-04 No 1,950 mg, Me moria Acid 05-11 Route: PO, l 12:50: Drug form: TAB, ONCE, Dosing Weight 72.727, kg, Start date: 03/11/15 6:50:00, Stop date: 03/11/15 6:50:00 Tranexamic 2014-04 No 1,950 mg, Me moria Acid 05-11 Route: PO, l 12:50: Drug form: Emigdio 00 TAB, ONCE, Dosing Weight 72.727, kg, Start date: 03/11/15 6:50:00, Stop date: 03/11/15 6:50:00 losartan 25 2014-04 Yes 25 mg = 1 M emoria mg oral 1-18 tab, PO, l tablet 16:51: Daily, # Emigdio 00 30 tab, 0 Refill(s) losartan 2014-04 Yes 25 mg = 1 M emoria mg oral 1-18 tab, PO, l tablet 16:51: Daily, # Emigdio 00 30 tab, 0 Refill(s) promethazin 2014-04 Yes 25 mg = 1 M emoria e 25 mg 1-18 tab, PO, l oral tablet 16:50: Q4H, PRN He rmann 00 for motion sickness, # 60 tab, 0 Refill(s) promethazin 2014-04 Yes 25 mg = 1 M emoria e 25 mg 1-18 tab, PO, l oral tablet 16:50: Q4H, PRN He rmann 00 for motion sickness, # 60 tab, 0 [...] Tablet # 30 tab, [Flexeril] 0 Refill(s) meloxicam 2014-04 No 15 mg = 1 Mem oria 15 mg oral 1-18 tab, PO, l tablet 16:49: Daily, # Boaz 00 30 tab, 0 Refill(s) Cyclobenzap 2014-04 Yes 10 mg = 1 M emoria rine 1-18 tab, PO, l hydrochlori 16:49: TID, PRN He rmann de 10 MG 00 for spasm, Oral Tablet # 30 tab, [Flexeril] 0 Refill(s) Acetaminoph 2014-04 No 1 tab, PO, Memoria en 325 MG / 1-18 BID, PRN l Hydrocodone 16:48: Pain, # 60 Emigdio Bitartrate 00 tab, 0 10 MG Oral Refill(s) Tablet [[place] 10/325] hydrochloro 2014-04 Yes 12.5 mg = M emoria thiazide 1-18 1 tab, PO, l 12.5 mg 16:48: Daily, # Gio n oral tablet 00 30 tab, 0 Refill(s) Acetaminoph 2014-04 No 1 tab, PO, Memoria en 325 MG / 1-18 BID, PRN l Hydrocodone 16:48: Pain, # 60 Emigdio Bitartrate 00 tab, 0 10 MG Oral Refill(s) Tablet [[place] 10/325] hydrochloro 2014-04 Yes 12.5 mg = [...] 00 30 cap, 0 Capsule Refill(s) [Prilosec] 24 HR 2014-04 Yes 5 mg = [...] Tablet 00 # 60 tab, 0 Refill(s) Metformin 2014-04 Yes 1,000 mg = Me moria hydrochlori 1-18 1 tab, PO, l de 1000 MG 16:46: BID-Meals, H ermann Oral Tablet 00 # 60 tab, 0 Refill(s) Immunizations Ordered Filled Immunization Date Status Comments Sour e Immunization Name Name SARS-COV-2 COVID-19 2021-04-13 Completed [facility] of PFIZER VACCINE 00:00:00 [facility] SARS-COV-2 COVID-19 2020-06-18 Completed Unive rsity of PFIZER VACCINE 00:00:00 [facility] SARS-COV-2 COVID-19 2020-06-18 Completed Unive rsity of PFIZER VACCINE 00:00:00 [facility] SARS-COV-2 COVID-19 2020-06-18 Completed Unive rsity of PFIZER VACCINE 00:00:00 [facility] SARS-COV-2 COVID-19 2020-05-28 Completed Unive rsity of PFIZER VACCINE 00:00:00 [facility] SARS-COV-2 COVID-19 2020-05-28 Completed Unive rsity of PFIZER VACCINE 00:00:00 [facility] SARS-COV-2 COVID-19 2020-05-28 Completed Unive rsity of PFIZER VACCINE 00:00:00 [facility] Vital Signs Vital Name Observation Time Observation Value Comments Source Body height 2021-02-04 15:25:00 144.8 cm [facility] Body weight 2021-02-04 15:25:00 68.04 kg [facility] BMI 2021-02-04 15:25:00 32.46 kg/m2 [facility] Respitory Rate 2020-01-14 13:00:00 Memori al Emigdio Systolic (mm Hg) 2020-01-14 13:00:00 Luis Eduardo rial Emigdio Diastolic (mm Hg) 2020-01-14 13:00:00 Mem orial Emigdio Temperature Oral (F) 2020-01-14 13:00:00 98.2 F [facility] [place] Heart Rate 2020-01-14 13:00:00 [facility] Emigdio Systolic (mm Hg) 2020-01-14 09:00:00 Luis Eduardo rial [place] Diastolic (mm Hg) 2020-01-14 09:00:00 Mem orial [place] Heart Rate 2020-01-14 09:00:00 [facility] Emigdio Temperature Oral (F) 2020-01-14 09:00:00 98.5 F [facility] [place] Heart Rate 2020-01-14 05:00:00 [facility] [place] Systolic (mm Hg) 2020-01-14 05:00:00 Luis Eduardo rial [place] Diastolic (mm Hg) 2020-01-14 05:00:00 Mem orial [place] Temperature Oral (F) 2020-01-14 05:00:00 97.7 F [facility] [place] Respitory Rate 2020-01-13 21:00:00 Memori al [place] Respitory Rate 2020-01-13 19:35:00 [facility] al [place] Height 2020-01-11 16:33:00 165.1 cm [facility] [place] Weight 2020-01-11 16:33:00 [facility] Emigdio BMI Calculated 2020-01-11 16:33:00 Memori al [place] Systolic (mm Hg) 2015-03-14 14:00:00 Luis Eduardo rial Emigdio Diastolic (mm Hg) 2015-03-14 14:00:00 Mem orial [place] Respitory Rate 2015-03-14 14:00:00 Memori al Emigdio Heart Rate 2015-03-14 14:00:00 [facility] [place] Temperature Oral (F) 2015-03-14 14:00:00 98 F [facility] [place] Respitory Rate 2015-03-14 10:30:00 Memori al Emigdio Heart Rate 2015-03-14 10:30:00 [facility] Emigdio Temperature Oral (F) 2015-03-14 10:30:00 97.9 F [facility] [place] Systolic (mm Hg) 2015-03-14 10:30:00 Luis Eduardo rial Emigdio Diastolic (mm Hg) 2015-03-14 10:30:00 Mem orial Emigdio Respitory Rate 2015-03-14 06:30:00 Memori al Emigdio Systolic (mm Hg) 2015-03-14 06:30:00 Luis Eduardo rial [place] Diastolic (mm Hg) 2015-03-14 06:30:00 Mem orial Emigdio Temperature Oral (F) 2015-03-14 06:30:00 97.6 F [facility] Emigdio Heart Rate 2015-03-14 06:30:00 [facility] Emigdio Weight 2015-03-11 14:35:00 [facility] Emigdio BMI Calculated 2015-03-11 14:35:00 Coleman Chaparro Height 2015-03-10 16:31:00 144.78 cm Carlyle Beal Procedures Procedure Date / Time Performing Clinician Source Performed PHYSICIAN ORDERS 2021-05-30 06:01:[address] [facility] Arthroscopy of shoulder 2009-04-23 00:00:00 Luis Eduardo Beal Arthrodesis of thumb 2004-04-23 00:00:00 Unique Beal Arthroscopy of knee 2004-04-23 00:00:00 Carlyle Beal ORIF - Open reduction 2003-04-23 00:00:00 Coleman Chaparro and internal fixation of fracture Lumbar discectomy Carlyle Hall nn Encounters Start End Encounter Admission Attending Care Care Encounter Source Date/Time Date/Time Type Type Clinicians Facility Department ID 2021-06-07 2021-06-07 Outpatient R CAROL ANN [facility] [id number] [facility] 15:15:00 15:15:00 BOONE young [facility] 2021-05-31 2021-05-31 Inpatient CHINA KingTO LABO [id number] [facility] 09:00:00 23:00:00 [place] [facility] 2021-05-31 2021-05-31 Outpatient CHINA JoynerCL LABO [id number] [facility] 19:00:00 19:00:00 Forrest 18 [facility] 2021-05-31 2021-05-31 Outpatient JoynerCHINAWU REFE [id number] [facility] 18:36:00 18:36:00 Forrest 09 [facility] 2021-05-30 2021-05-30 Orders Doctor GUAN 1.2.840.114 [id number] [facility] 00:00:00 00:00:00 Only UnassignedMICHAEL 350.1.13.10 ity of [facility] 4.2.7.2.686 Dominick as [id number] [address] 2021-04-22 2021-04-22 Ancillary Kendra Cortes [facility] 1.2.84 0.114 [id number] Univers 09:20:00 10:00:00 Visit Boone Maharaj 350.1.13.10 [place] [id number] Me dical NAL 179 [facility] 2021-04-22 2021-04-22 Outpatient R CAROL ANN [facility] [id number] [facility] 09:20:00 09:20:00 BOONE young [facility] 2021-04-19 2021-04-19 Ancillary Sana Frank [facility] 1.2. 840.114 [id number] Univers 08:40:00 09:20:00 Visit Boone Maharaj 350.1.13.10 ity of [place] [facility] 4[place] [id number] Id dical NAL 179 [facility] 2021-04-13 2021-04-13 Outpatient R SALAZAR [facility] [id number] [facility] 13:00:00 13:00:[address] shahidaaby [facility] 2021-04-13 2021-04-13 Imm/Inj Nurse, Adc Pob Immunization [facility] 1.2.840.114 [id number] Univers 13:00:00 13:00:[address] [place] 350.1.13 .10 ity of [place] [id number] Id dical NAL 421 [facility] 2021-04-13 2021-04-13 Ancillary Sana Frank [facility] 1.2. 840.114 [id number] Univers 11:20:00 12:00:00 Visit Boone Maharaj 350.1.13.10 [place] [id number] Id dical NAL 179 [facility] 2021-04-08 2021-04-08 Ancillary Kendra Cortes [facility] 1.2.84 0.114 [id number] Univers 08:40:00 09:20:00 Visit Boone Maharaj 350.1.13.10 [place]y [place] [facility] 4[place] [id number] Id dical NAL [address] [facility] 2021-03-30 2021-03-30 Ancillary Kendra Cortes [facility] 1.2.84 0.114 [id number] [facility] 08:46:43 09:26:43 Visit Boone Maharaj [id number] it[id number] [phone] Id dical NAL [address] [facility] 2021-03-16 2021-03-16 Ancillary Sophia Kendra Pitts [facility] 1.2.84 0.114 [id number] [facility] 11:05:35 11:45:35 Visit Boone Maharaj [id number] it[place] of [id number] [phone] Id dical NAL 179 [facility] 2021-03-16 2021-03-16 Outpatient Marlin MAHARAJ [facility] [id number] [facility] 11:20:00 11:20:00 BOONE itaby [facility] 2021-03-14 2021-03-14 Ancillary Kaela Gresham [facility] 1 .2.840.114 [id number] [facility] 10:40:08 11:20:08 Visit Boone Maharaj [id number] [id number] [phone] Id dical NAL 179 [facility] 2021-03-10 2021-03-10 Ancillary Sana Frank [facility] 1.2. 840.114 [id number] [facility] 09:42:17 10:22:17 Visit Boone Maharaj [id number] it[id number] [phone] Id dical NAL [address] 2021-03-08 2021-03-08 Ancillary Sana Frank [facility] 1.2. 840.114 [id number] [facility] 10:44:18 11:24:18 Visit Boone Maharaj [id number] [id number] [phone] Id dical NAL 179 [facility] 2021-03-03 2021-03-03 Ancillary Sana Frank [facility] 1.2. 840.114 [id number] [facility] 13:35:15 14:15:15 Visit Boone Maharaj [id number] ity of [place] [facility] [id number] [phone] Id dical NAL 179 [facility] 2021-03-02 2021-03-02 Ancillary Kendra Cortes [facility] 1.2.84 0.114 [id number] [facility] 10:23:16 11:27:17 Visit Boone Maharaj [id number] ity of [place] [facility] [id number] [phone] Id dical NAL 179 [facility] 2021-02-04 2021-02-04 Hospital Carol Ann [facility] 1.2.840.114 [id number] [facility] 10:30:00 23:59:00 Encounter Boone Islas [id number] ity of [place] [id number] Dominick as Rocky?Blea [id number] Id ambar rashid 809 [facility] Office [facility] 2021-02-04 2021-02-04 Office Carol Ann [facility] 1.2.185.705 [id number] [facility] 10:30:00 11:06:34 Visit Boone ISLAS [id number] it y [facility] [id number] Dominick as ROCKY?BLEA [phone] Id ambar RASHID 198 [facility] OFFICE BUILDING 2021-02-04 2021-02-04 Outpatient R CAROL ANN [facility] [id number] [facility] 10:30:00 11:06:34 BOONE young [facility] 2021-02-04 2021-02-04 Outpatient R CAROL ANN [facility] [id number] [facility] 10:30:00 10:30:00 BOONE young [facility] 2021-02-03 2021-02-03 Outpatient R CAROL ANN [facility] [id number] Univers 08:00:00 08:00:00 BOONE young [facility] 2021-01-07 2021-01-07 [facility] [id number] Univers 09:48:51 10:34:00 Visit Boone [facility] [id number] it y of [place] [id number] Dominick as Rocky?Blea [id number] Id dic[address] Medical Office Building 2021-01-07 2021-01-07 [facility] [id number] [facility] 10:15:00 10:15:00 BOONE young [facility] 2021-01-07 2021-01-07 Orders Doctor FREIDA 1.2.840.114 [id number] [facility] 00:00:00 00:00:00 Only Unassigned, MICHAEL [id number] ity of [place] [facility] [id number] Dominick as [id number] [address] 2021-01-07 2021-01-07 Orders Doctor FREIDA 1.2.840.114 [id number] [facility] 00:00:00 00:00:00 Only Unassigned, MICHAEL [id number] ity of [place] [facility] [id number] Dominick as [id number] [address] 2020-01-11 2020-01-14 Inpatient [facility] [id number] Memoria 15:32:00 18:22:00 marlin Abarca l [facility] 2020-01-11 2020-01-14 Inpatient [facility] [id number] Memoria 15:32:00 18:22:00 marlin Abarca l [facility] 2020-01-11 2020-01-14 Inpatient U DHAMOTHARAN [facility] MED [id number] [facility]BL 10:32:00 13:22:00 , 2020-01-11 2020-01-14 Outpatient Dhamotharan [facility] [id number] 10:32:00 13:22:00 , 64 [place] 2020-01-11 2020-01-14 Outpatient Dhamotharan [facility] [id number] 10:32:00 13:22:00 , 64 [place] 2015-03-11 2015-03-14 Inpatient [facility] [id number] Memoria 12:33:00 15:00:00 r Emigdio 00 l [facility] 2015-03-11 2015-03-14 Inpatient [facility] [id number] Memoria 12:33:00 15:00:00 r Boaz 00 l [facility] 2015-03-11 2015-03-14 Outpatient Nannette [facility] [id number] 06:33:00 09:00:00 Abe 00 [place] Results Test Description Test Time Test Comments Results Result Comments Source Novel Coronavirus 2018 Inhouse 2021-06-01 19:04:00 Test Item Value Reference Range Interpretation Comme nts Novel Coronavirus 2018 Negative Negative Posit christy results are indicative of the Inhouse (test code = presenc e [id number]-9 RNA, clinical COVNONPUI) correlation wit h patient historyand other diagnosti c information is necessary to de terminepatient infection status. Positiv e results do not rule outbacterial in fection or co-infection with other viru ses. Negative results do not preclude SA RS-CoV-2 infection andshould not b e used as the sole basis for patient man agementdecisions. Negative result s must be combined with otherclinical o bservations, patient history, and ep idemiologicalinformation. Detection of SA RS-CoV-2 RNA may be affected bysamp le collection methods, storage conditi ons, and/or stageof infection. Izzy l RNA mutations, vaccinations, a ntiviraltherapeutics, antibiotics, ch emotherapeutic orimmunosuppres cornelio drugs have not been evaluated for e ffectson detection. Results are for the identification of SARS-CoV-2 RNA usingreal-time (RT) polymerase fadi n reaction (PCR) technologyfor t he qualitative detection of nucleic acid s from qahNBCQ-JtC-7 virus and diagn osis of SARS-CoV-2 virusinfection. It is an Emergency Use Authorization ( EUA) testauthorized by the U.S. FDA. Novel Coronavirus 2018 [id number] 19:03:00 Test Item Value Reference Range Interpretation Comments Novel Coronavirus Negative Negative Positive r esults are 2019 Inhouse (test indicativ e of the presence code = COVNONPUI) ofSARS-CoV -2 RNA, clinical correlation wit h patient historyand othe r diagnostic info rmation is necessary to determinepatien t infection status. Positiv e results do not rule out bacterial infection or co -infection with other viru ses. Negative result s do not preclude SARS-C oV-2 infection andsh ould not be used as the eric e basis for patient managementdecis ions. Negative result s must be combined with otherclinical observations, p atient history, and epidemiological information . Detection of SARS-CoV-2 RNA may be affe cted bysample collec tion methods, storag e conditions, and /or stageof infection. Izzy l RNA mutations, vacc inations, antiviraltherap eutics, antibiotics, chemotherapeuti c orimmunosuppres cornelio drugs have not been e valuated for effectson d etection. Results are for the identification of SARS-CoV-2 RNA usingreal-time (RT) polymerase fadi n reaction (PCR) technolog yfor the qualitative det ection of nucleic acids f rom ljeZPSL-[id number]-7 v irus and diagnosis of SA RS-CoV-2 virusinfection. It is an Emergency Use Authorization ( EUA) testauthorized by the U.S. FDA. GLYCOSYLATED HEMOGLOBIN (HA1C)2021-05-31 21:07:00 Test Item Value Reference Range Interpretation Comments GLYCOSYLATED 9.8 % 4.8-5.9 H Any condition t hat shortens HEMOGLOBIN (HA1C) erythocyte survival or (test code = GLYHGB) decreas esmean erythrocyte age (e.g., bret very from acute blood los s,hemolytic anemia) will fa lsely lower HGBA1c resultsr egardless of the method used . HGBA1c results from roel tiwari HbSS, HbCC, and HbSc must be interpreted with cautiongiven th e pathological pr ocesses, including anemi a,increased red cell turnov er, transfusion req uirements, thatadversely i mpact HGBA1c as a marker of long-term glycemiccontrol . Alternative for ms of testing such as fructosaminesho uld be considered for these patients. GLYCOSYLATED HEMOGLOBIN (HA1C)2021-05-31 21:07:00 Test Item Value Reference Range Interpretation Comments GLYCOSYLATED 9.8 % 4.8-5.9 H Any condition t hat shortens HEMOGLOBIN (HA1C) erythocyte survival or (test code = GLYHGB) decreas esmean erythrocyte age (e.g., bret very from acute blood los s,hemolytic anemai) will fa lsely lower HGBA1c resultsr egardless of the method used . HGBA1c results frompat ients with HbSS, HbCC and HbSc must be interpreted wit hcaution given the patho logical processes, incl uding anemia,increase d red cell turnover, trans fusion requirements, t hatadversely impact HGBA1c a s a marker of long-term glycemiccontrol . Alternative for ms of testing such as fructosaminesho uld be considered for these patients.Any co ndition that shortens erytho cyte survival or dec reasesmean erythrocyte age (e.g., recovery from a cute blood loss,hemolytic anemia) will falsely lower H GBA1c resultsregardle ss of the method used. HG BA1c results from patientswi th HbSS, HbCC, and HbSc must be interpreted wit h cautiongiven th e pathological pr ocesses, including anemi a,increased red cell turnov er, transfusion req uirements, thatadversely i mpact HGBA1c as a marker of long-term glycemiccontrol . Alternative for ms of testing such as fructosaminesho uld be considered for these patients.DONE A T: [facility] [id number] [facility], [place], [place] [address] COMPREHENSIVE METABOLIC [id number] 18:22:00 Test Item Value Reference Range Interpretation Comments SODIUM (test code = 142 mmol/L 136-145 N NA) POTASSIUM (test code = 4.3 mmol/L 3.5-5.1 N K) CHLORIDE (test code = 105.0 mmol/L 98-107 N CL) CARBON DIOXIDE (test 30.0 mmol/L 21-32 N code = CO2) GLUCOSE (test code = 59 mg/dL 70-110 L GLU) BLOOD UREA NITROGEN 19 mg/dL 7-18 H (test code = BUN) GLOMERULAR FILTRATION 65.7 >60 Unit o f measure: RATE (test code = GFR) mL/mi n/1.73 v5Mlpijoprx Range:Healthy Adults >90 mL/min/1.73 m2 For Chronic Kidney Disease: Stage II Mild Decrease i n GFR 60-90 Stage III Moderate Decrea se in GFR 30-59 St age IV Severe Decre ase in GFR 15-29 S tage V Kidney Failur e <15 CREATININE (test code 0.85 mg/dL 0.55-1.30 N = CREAT) TOTAL PROTEIN (test 7.1 g/dL 6.4-8.2 N code = PROT) ALBUMIN (test code = 3.4 g/dL 3.4-5.0 N ALB) GLOBULIN (test code = 3.7 g/dL 2.2-4.2 N GLOB) ALBUMIN/GLOBULIN RATIO 0.9 0.7-2.0 N (test code = A/G) CALCIUM (test code = 9.1 mg/dL 8.2-10.1 N CA) BILIRUBIN TOTAL (test 0.40 mg/dL 0.2-1.00 N code = BILT) SGOT/AST (test code = 40.0 U/L 15-37 H AST) SGPT/ALT (test code = 27.0 U/L 12-78 N Please note new ALT) normal range. ALKALINE PHOSPHATASE 112 U/L 46-116 N TOTAL (test code = ALKP) CBC W/AUTO [id number] 18:19:00 Test Item Value Reference Range Interpretation Comments WHITE BLOOD CELL (test code = WBC) 10.2 K/mm3 5.8-11.0 N RED BLOOD CELL (test code = RBC) 4.22 M/mm3 4.2-5.4 N HEMOGLOBIN (test code = HGB) 12.9 g/dL 12-16 N HEMATOCRIT (test code = HCT) 38.4 % 37-47 N MEAN CELL VOLUME (test code = MCV) 91 fL 80-98 N MEAN CELL HGB (test code = MCH) 30.6 pg 27-34 N MEAN CELL HGB CONCENTRATION (test 33.6 g/dL 30.8-34.1 N code = MCHC) RED CELL DISTRIBUTION WIDTH (test 13.1 % 11-16 N code = RDW) PLT (test code = PLT) 129 K/mm3 130-400 L MEAN PLATELET VOLUME (test code = 13.8 fL 8.9-12.1 H MPV) NEUTROPHIL % (test code = NT%) 44.0 % 45-70 L LYMPHOCYTE % (test code = LY%) 44.5 % 20-40 H MONOCYTE % (test code = MO%) 7.9 % 3-10 N EOSINOPHIL % (test code = EO%) 2.5 % 1-5 N BASOPHIL % (test code = BA%) 0.8 % 0.0-1.1 N NEUTROPHIL # (test code = NT#) 4.48 K/mm3 2.00-7.50 N LYMPHOCYTE # (test code = LY#) 4.54 K/mm3 1.50-4.00 H MONOCYTE # (test code = MO#) 0.81 K/mm3 0.2-0.8 H EOSINOPHIL # (test code = EO#) 0.26 K/mm3 0.04-0.4 N BASOPHIL # (test code = BA#) 0.08 K/mm3 0.02-0.10 N MANUAL DIFF REQUIRED (test code = NO MANUAL DIFF MDIFF) NUCLEATED RED BLOOD CELL (test 0 % 0-0 N code = NRBC) PROTHROMBIN [id number] 18:16:00 Test Item Value Reference Range Interpretation Comments PROTHROMBIN TIME 11.6 secs 9.7-12.5 N Please note new normal PATIENT (test code = range. PTP) INTERNATIONAL NORMAL 1.04 <2.0 RECOMME NDED THERAPEUTIC RATIO (test code = RANGE FOR ORAL INR) ANTICOAGULANTTR EATMENT: CONDITION INRPr ophylaxis of venous throm bosis in 2.0 - 3.0 high- risk medical or surg ical patientsTreatme nt of venous thrombos is 2.0 - 3.0Prevention o f embolism 2.0 - 3.0Prevention o f recurrent embol ism, or 3.0 - 4.5 patie nts with mechanical pros thetic intravascular v loving IS PATIENT ON ANTICOAGULANTS ? NHas Lab been notified if Patient is on Heparin Drip? NOIf Yes, orderCBC, OCCULT BLOOD, PT every other day NTHROMBOPLASTIN TIME [id number] 18:16:00 Test Item Value Reference Range Interpretation Comments PTT ACTIVATED (test 33.0 secs 26.6-34.6 N Please n ote new code = APTT) normal range. IS PATIENT ON ANTICOAGULANTS ? NHas Lab been notified if Patient is on Heparin Drip? NOIf Yes, orderCBC, OCCULT BLOOD, PT every other day NCHEM [id number] 09:[facility] 09:22:67265[facility]zzvykwn[facility]2020-09-23 09:22:0020[facility]2020-09-23 09:22:000.99 [facility]2020-09-23 09:22:00 Test Item Value Reference Range Interpretation Comments Lipase Lvl (test code = Lipase Lvl) 352 73-393 [facility]2020-09-23 09:22:00 Test Item Value Reference Range Interpretation Comments Glucose Lvl (test code = Glucose Lvl) 252 70-99 [facility]2020-09-23 09:22:00 Test Item Value Reference Range Interpretation Comments BUN (test code = BUN) 20 - [facility]2020-09-23 09:22:00 Test Item Value Reference Range Interpretation Comments Creatinine Lvl (test code = Creatinine 0.99 0.50-1.40 Lvl) [facility]2020-09-23 09:22:23570GwknylsbG[facility] 2020-01-14 09:22:00 Test Item Value Reference Range Interpretation Comments Sodium Lvl (test code = Sodium Lvl) 140 135-145 [facility]2020-09-23 09:22:00 Test Item Value Reference Range Interpretation Comments Potassium Lvl (test code = Potassium 3.3 3.5-5.1 Lvl) [facility]2020-09-23 09:22:00 Test Item Value Reference Range Interpretation Comments Chloride Lvl (test code = Chloride Lvl) 106 95-109 [facility]2020-09-23 09:22:00 Test Item Value Reference Range Interpretation Comments CO2 (test code = CO2) 26 24-32 [facility]2020-09-23 09:22:00 Test Item Value Reference Range Interpretation Comments Calcium Lvl (test code = Calcium Lvl) 8.4 8.5-10.5 [facility]2020-09-23 09:22:00 Test Item Value Reference Range Interpretation Comments Total Protein (test code = Total 6.1 6.4-8.4 Protein) [facility]2020-09-23 09:22:00 Test Item Value Reference Range Interpretation Comments Albumin Lvl (test code = Albumin Lvl) 2.2 3.5-5.0 [facility]2020-09-23 09:22:00 Test Item Value Reference Range Interpretation Comments ALT (test code = ALT) 42 See_Comment [Auto mated message] The system which ge nerated this result transmit emily reference range : <=65. The reference range was not used to interpr et this result as leanne l/abnormal. [facility]2020-09-23 09:22:00 Test Item Value Reference Range Interpretation Comments AST (test code = AST) 101 See_Comment [Auto mated message] The system which ge nerated this result transmit emily reference range : <=37. The reference range was not used to interpr et this result as leanne l/abnormal. [facility]2020-09-23 09:22:00 Test Item Value Reference Range Interpretation Comments Alk Phos (test code = Alk Phos) 85 39-136 [facility]2020-09-23 [facility] 09:22:00 Test Item Value Reference Range Interpretation Comments Bili Total (test code = Bili Total) 1.4 0.2-1.3 [facility]2020-09-23 09:22:00 Test Item Value Reference Range Interpretation Comments AGAP (test code = AGAP) 11.3 10.0-20.0 [facility]2020-09-23 09:22:00 Test Item Value Reference Range Interpretation Comments B/C Ratio (test code = B/C Ratio) 20 1 6-25 [facility]2020-09-23 09:22:00 Test Item Value Reference Range Interpretation Comments Globulin (test code = Globulin) 3.9 2.7-4.2 [facility]2020-09-23 09:22:00 Test Item Value Reference Range Interpretation Comments A/G Ratio (test code = A/G Ratio) 0.6 1 0.7-1.6 [facility]2020-09-23 09:22:00 Test Item Value Reference Range Interpretation Comments eGFR (test code = eGFR) 57 [facility]mvkfvqHFSADYYUQR4763-86-58 09:22:00 Test Item Value Reference Range Interpretation Comments WBC (test code = WBC) 18.4 3.7-10.4 [facility]MegyexeMNZZRJIORK7963-07-68 09:22:00 Test Item Value Reference Range Interpretation Comments RBC (test code = RBC) 3.57 4.20-5.40 [facility]stRfuzhagYTTKVAHXFN0758-37-98 09:22:00 Test Item Value Reference Range Interpretation Comments Hgb (test code = Hgb) 11.3 12.0-16.0 [facility]stMmyfowyTEZPLVRPDX6526-41-59 09:22:00 Test Item Value Reference Range Interpretation Comments Hct (test code = Hct) 33.4 36.0-48.0 [facility]2020-09-23 09:22:82323Sdqqudeu Herm[facility]HE[facility] 2020-01-14 09:22:00 Test Item Value Reference Range Interpretation Comments MCV (test code = MCV) 93.8 80.0-98.0 [facility]stKwlmygqDMNBKXIUVS0775-80-18 09:22:00 Test Item Value Reference Range Interpretation Comments MCH (test code = MCH) 31.6 pg 27.0-31.0 [facility]stFercgwjNCGIWXZNPA9058-01-53 09:22:00 Test Item Value Reference Range Interpretation Comments MCHC (test code = MCHC) 33.7 32.0-36.0 [facility]stLmotgjvHSZIDDONEN4755-47-31 09:22:00 Test Item Value Reference Range Interpretation Comments RDW (test code = RDW) 13.3 11.5-14.5 [facility]stEhqcjkkUBSOVIYABZ2016-30-20 09:22:00 Test Item Value Reference Range Interpretation Comments Platelet (test code = Platelet) 115 133-450 [facility]stHonxuinUBIXWXGIYW8815-19-49 09:22:00 Test Item Value Reference Range Interpretation Comments MPV (test code = MPV) 11.1 7.4-10.4 [facility]stOtbvcvpKXXHOOKQZL7549-00-79 09:22:00 Test Item Value Reference Range Interpretation Comments Segs (test code = Segs) 85.1 45.0-75.0 [facility]stLwgdzieSAYCJOUGSQ6980-87-37 09:22:00 Test Item Value Reference Range Interpretation Comments Lymphocytes (test code = Lymphocytes) 6.8 20.0-40.0 [facility]stGmdqnacBBTGAMPVZZ7215-92-07 09:22:00 Test Item Value Reference Range Interpretation Comments Monocytes (test code = Monocytes) 7.9 2.0-12.0 [facility]BfutyxoBUFWFACUJY8519-28-72 09:22:00 Test Item Value Reference Range Interpretation Comments Eosinophils (test code = 0.1 See_Comment [A utomated message] The Eosinophils) system which ge nerated this result tra nsmitted reference range : <=4.0. The reference r mara was not used to int erpret this result as normal/abnormal . [facility]icsannCHEM [id number] 09:22:0026[facility] 2020-01-14 09:22:00 Test Item Value Reference Range Interpretation Comments Basophils (test code = 0.1 See_Comment [Aut omated message] The Basophils) system which ge nerated this result tra nsmitted reference range : <=1.0. The reference r mara was not used to int erpret this result as normal/abnormal . [facility] HospitalAfjtquvUQWNLFPDXB2181-43-95 09:22:00 Test Item Value Reference Range Interpretation Comments Neutrophils # (test code = Neutrophils 15.6 1.5-8.1 #) [facility] HospitalCqionvnSLDWTWQFDV4905-07-45 09:22:00 Test Item Value Reference Range Interpretation Comments Lymphocytes # (test code = Lymphocytes 1.3 1.0-5.5 #) [facility] HospitalRtvrhngKXGMFRKWMX4718-73-79 09:22:00 Test Item Value Reference Range Interpretation Comments Monocytes # (test code 1.5 See_Comment [Aut omated message] The = Monocytes #) system which generated this result tra nsmitted reference range : <=0.8. The reference r mara was not used to int erpret this result as normal/abnormal . [facility]annCHE[facility] PYQQF0839-29-18 09:22:008.4[facility] HermannCHEM PANEL 2020-01-14 09:22:006.1[facility] HermannCHEM [id number] 09:22:002.2[facility] HermannCHEM KZSQR0240-41-63 09:22:0042[facility] HermannCHEM LVAKY5902-90-18 09:22:43134Kbfkubtx HermannCHEM SVMAP1476-45-01 09:22:0085[facility] HermannCHEM WFRGG0040-32-11 09:22:001.4[facility] HermannCHEM JIUBC1596-46-01 09:22:0011.3 [facility]annCHEM ZQKOI0111-98-19 09:22:00 Test Item Value Reference Range Interpretation Comments B/C Ratio (test code = B/C Ratio) 20 1 6-25 [facility]annCHEM [id number] 09:22:003.9[facility] HermannCHEM PANEL 2020-01-14 09:22:00 Test Item Value Reference Range Interpretation Comments A/G Ratio (test code = A/G Ratio) 0.6 1 0.7-1.6 [facility]annCHEM [id number] 09:22:0057[facility] HermannHEMATOLOGY 2020-01-14 09:22:0018.4[facility] BpnccoaKSPTLCNXBY6964-32-96 09:22:003.57[facility] GtavjnfZBOAAURMKU5514-18-66 09:22:0011.3[facility] SjzmoxwJZANOHLMLG0602-74-04 09:22:0033.4[facility] RjmzugwAITCYYSHAO3264-44-10 09:22:0093.8[facility] SPIXMJMHTW3649-13-95 09:22:00 Test Item Value Reference Range Interpretation Comments MCH (test code = MCH) 31.6 pg 27.0-31.0 [facility] JzirfaxCFXPQOLHOK6952-87-99 09:22:0033.7[facility] HermannHEMATOLOGY 2020-01-14 09:22:0013.3[facility] MguvqmjXFAKSULCWL6668-91-02 09:22:74702Qkzvlqrg IwbbugaQFLDMHRQMQ2371-18-43 09:22:0011.1[facility] HdinwnyAUCIVCIUXC8190-86-10 09:22:0085.1[facility] SjbtlokDUXBQXQNLO0171-10-55 09:22:006.8[facility] RJYZRFIBHP9228-89-97 09:22:007.9[facility] FqebrxkACVVJCGHPM0967-43-69 09:22:000.1 [facility] FbnoxwzSVCLAXBTFR5080-95-41 09:22:000.1[facility] HermannHEMATOLOGY 2020-01-14 09:22:0015.6[facility] VsnghbgPLYMUPRNPG5674-39-34 09:22:001.3[facility] MzdmxtvQQXJBPKYOP2350-75-78 09:22:001.5[facility] IntmtpqIHKGSSMLLW4171-47-52 15:21:00 Test Item Value Reference Range Interpretation Comments Coronavirus (COVID-19) Not Detected (01/13/20 SUBHA (test code = 10:21 AM) Coronavirus (COVID-19) SUBHA) [facility] BvikfhvYLAEHXJEFK8577-61-59 15:21:00Not Detected (01/13/20 10:21 AM) [facility]annCHEM [id number] 08:50:0075[facility] HermannCHEM PANEL 2020-01-13 08:50:060642Ayhiegye BgpazikIYUDCQHBOE3213-98-03 08:50:0024.6[facility] FqixbyyCDKTMONOEN9920-96-70 08:50:003.76[facility] HoyahirWPUSSARJUG0349-20-23 08:50:0011.9[facility] TuehnemUAPJGAFFOS4010-57-85 08:50:0035.0[facility] NYNPWCRVAG8376-74-94 08:50:0093.2[facility] JtvkzicKSYXRIXCZZ2344-79-22 08:50:00 Test Item Value Reference Range Interpretation Comments MCH (test code = MCH) 31.6 pg 27.0-31.0 [facility] IklkvxkCVLLGGIMMD7641-96-15 08:50:0033.9[facility] HermannHEMATOLOGY 2020-01-13 08:50:0012.9[facility] MhmjetaJCMEVPSBXN7148-62-44 08:50:55960Btxetfch GclfiahQDAYZHBXQH3245-46-18 08:50:0011.1[facility] JvztectQZDDMPHSMW7219-46-70 08:50:0086.1[facility] QaaplymENJETOGFJZ2861-51-79 08:50:005.4[facility] Emigdio JZEOIHSOAP3674-45-80 08:50:008.4[facility] SlwbhzjESZKMNMJAD2068-12-50 08:50:000.1 [facility] LnepmbvPLCIISWQJF1748-57-92 08:50:0021.2[facility] HermannHEMATOLOGY 2020-01-13 08:50:001.3[facility] BgkfszrODHGRREUPK8004-66-22 08:50:002.1[facility] HermannSPECIAL QZNXWEXKO6805-28-71 08:50:007.7[facility] BoazCHEM PANEL 2020-01-13 08:50:00 Test Item Value Reference Range Interpretation Comments Glucose Lvl (test code = Glucose Lvl) 238 70-99 [facility]2020-09-22 08:50:00 Test Item Value Reference Range Interpretation Comments BUN (test code = BUN) 15 7-22 [facility]2020-09-22 08:50:00 Test Item Value Reference Range Interpretation Comments Creatinine Lvl (test code = Creatinine 0.80 0.50-1.40 Lvl) [facility]2020-09-22 08:50:00 Test Item Value Reference Range Interpretation Comments Sodium Lvl (test code = Sodium Lvl) 139 135-145 [facility]2020-09-22 08:50:00 Test Item Value Reference Range Interpretation Comments Potassium Lvl (test code = Potassium 3.4 3.5-5.1 Lvl) [facility]2020-09-22 08:50:00 Test Item Value Reference Range Interpretation Comments Chloride Lvl (test code = Chloride Lvl) 105 95-109 [facility]2020-09-22 08:50:00 Test Item Value Reference Range Interpretation Comments CO2 (test code = CO2) 24 24-32 [facility]2020-09-22 08:50:00 Test Item Value Reference Range Interpretation Comments Calcium Lvl (test code = Calcium Lvl) 8.3 8.5-10.5 [facility]2020-09-22 08:50:00 Test Item Value Reference Range Interpretation Comments Total Protein (test code = Total 6.4 6.4-8.4 Protein) [facility]2020-09-22 08:50:00 Test Item Value Reference Range Interpretation Comments Albumin Lvl (test code = Albumin Lvl) 2.4 3.5-5.0 [facility]2020-09-22 08:50:00 Test Item Value Reference Range Interpretation Comments ALT (test code = ALT) 38 See_Comment [Auto mated message] The system which ge nerated this result transmit emily reference range : <=65. The reference range was not used to interpr et this result as leanne l/abnormal. [facility] [id number] 08:50:00 Test Item Value Reference Range Interpretation Comments AST (test code = AST) 95 See_Comment [Auto mated message] The system which ge nerated this result transmit emily reference range : <=37. The reference range was not used to interpr et this result as leanne l/abnormal. [facility] [id number] 08:50:00 Test Item Value Reference Range Interpretation Comments Alk Phos (test code = Alk Phos) 77 39-136 [facility] [id number] 08:50:00 Test Item Value Reference Range Interpretation Comments Bili Total (test code = Bili Total) 1.5 0.2-1.3 [facility] [id number] 08:50:00 Test Item Value Reference Range Interpretation Comments AGAP (test code = AGAP) 13.4 10.0-20.0 [facility] [id number] 08:50:00 Test Item Value Reference Range Interpretation Comments B/C Ratio (test code = B/C Ratio) 19 1 6-25 [facility] [id number] 08:50:00 Test Item Value Reference Range Interpretation Comments Globulin (test code = Globulin) 4.0 2.7-4.2 [facility] [id number] 08:50:00 Test Item Value Reference Range Interpretation Comments A/G Ratio (test code = A/G Ratio) 0.6 1 0.7-1.6 [facility] [id number] 08:50:00 Test Item Value Reference Range Interpretation Comments eGFR (test code = eGFR) 75 [facility] [id number] 08:50:00 Test Item Value Reference Range Interpretation Comments Lipase Lvl (test code = Lipase Lvl) 1377 [address] [facility]icsShrvqmbGEXZOMXXGD9999-85-43 08:50:00 Test Item Value Reference Range Interpretation Comments WBC (test code = WBC) 24.6 3.7-10.4 [facility]icsNibsmwvGLFHCVTLTY7493-27-13 08:50:00 Test Item Value Reference Range Interpretation Comments RBC (test code = RBC) 3.76 4.20-5.40 [facility]QobkoxnGUJMHSHHIV5873-92-25 08:50:00 Test Item Value Reference Range Interpretation Comments Hgb (test code = Hgb) 11.9 12.0-16.0 [facility] HospitalPjrwpflDOABHTTZUB9693-31-40 08:50:00 Test Item Value Reference Range Interpretation Comments Hct (test code = Hct) 35.0 36.0-48.0 [facility] HospitalYbxccwmFQEUEXLDAN0705-94-30 08:50:00 Test Item Value Reference Range Interpretation Comments MCV (test code = MCV) 93.2 80.0-98.0 [facility] HospitalVddmdrmLLPTUTRPEK7300-03-43 08:50:00 Test Item Value Reference Range Interpretation Comments MCH (test code = MCH) 31.6 pg 27.0-31.0 [facility] HospitalQnfwjjaSTCAYGLQEP6799-53-32 08:50:00 Test Item Value Reference Range Interpretation Comments MCHC (test code = MCHC) 33.9 32.0-36.0 [facility] HospitalPmcrrsjYKAIXKCUMZ7440-94-77 08:50:00 Test Item Value Reference Range Interpretation Comments RDW (test code = RDW) 12.9 11.5-14.5 [facility] HospitalJihytxkJYJJDXDDVX5544-40-24 08:50:00 Test Item Value Reference Range Interpretation Comments Platelet (test code = Platelet) 117 133-450 [facility] HospitalZfaiggdUWOZNNLDYI4350-47-47 08:50:00 Test Item Value Reference Range Interpretation Comments MPV (test code = MPV) 11.1 7.4-10.4 [facility] HospitalOnnwlieZXZPWYPTSW6351-67-98 08:50:00 Test Item Value Reference Range Interpretation Comments Segs (test code = Segs) 86.1 45.0-75.0 [place] 569130-09-22 08:50:00 Test Item Value Reference Range Interpretation Comments Lymphocytes (test code = Lymphocytes) 5.4 20.0-40.0 [place] 569130-09-22 08:50:00 Test Item Value Reference Range Interpretation Comments Monocytes (test code = Monocytes) 8.4 2.0-12.0 [facility] HospitalFmhknsjUDDZPJRWBB9531-36-74 08:50:00 Test Item Value Reference Range Interpretation Comments Basophils (test code = 0.1 See_Comment [Aut omated message] The Basophils) system which ge nerated this result tra nsmitted reference range : <=1.0. The reference r mara was not used to int erpret this result as normal/abnormal . [facility]icsFtgikajQFAMVGMXIO3936-63-78 08:50:00 Test Item Value Reference Range Interpretation Comments Neutrophils # (test code = Neutrophils 21.2 1.5-8.1 #) [facility]PjndgilJSLDBVSKFQ0904-57-68 08:50:00 Test Item Value Reference Range Interpretation Comments Lymphocytes # (test code = Lymphocytes 1.3 1.0-5.5 #) [facility]icsMfeckogNBIHQDKGCD5817-66-63 08:50:00 Test Item Value Reference Range Interpretation Comments Monocytes # (test code 2.1 See_Comment [Aut omated message] The = Monocytes #) system which generated this result tra nsmitted reference range : <=0.8. The reference r mara was not used to int erpret this result as normal/abnormal . [facility]icsannTH[facility]IAL BFJSKJAXQ0621-80-01 08:50:00 Test Item Value Reference Range Interpretation Comments Hgb A1C (test code = Hgb A1C) 7.7 [facility]annCHEM [id number] 08:50:47021Tmangwzn HermannCHEM PANEL 2020-01-13 08:50:0015[facility] HermannCHEM UAKXB1057-90-01 08:50:000.80[facility] HermannCHEM MNLVI9570-70-52 08:50:79003Mwitcurr HermannCHEM UAHIX8012-23-46 08:50:003.4[facility] HermannCHEM ZCEWD5979-51-28 08:50:11284Exhjsfle HermannCHEM XSDXG7493-55-82 08:50:0024[facility] HermannCHEM HEAUQ6833-67-21 08:50:008.3 [facility]annCHEM CNZZR5752-73-46 08:50:006.4[facility] HermannCHEM PANEL 2020-01-13 08:50:002.4[facility] HermannCHEM INIXA0677-73-62 08:50:0038[facility] HermannCHEM DZXQR8358-75-23 08:50:0095[facility] HermannCHEM HNNNP6863-95-36 08:50:0077[facility] HermannCHEM NWRCV3441-77-16 08:50:001.5[facility] HermannCHEM HMVYB3872-69-45 08:50:0013.4[facility] HermannCHEM YRONZ3849-86-50 08:50:00 Test Item Value Reference Range Interpretation Comments B/C Ratio (test code = B/C Ratio) 19 1 6-25 [facility]annCHEM SCVWY4127-74-35 08:50:004.0[facility] HermannCHEM PANEL 2020-01-13 08:50:00 Test Item Value Reference Range Interpretation Comments A/G Ratio (test code = A/G Ratio) 0.6 1 0.7-1.6 [facility]annCHEM [id number] 09:04:168641Xtpgacwe HermannCHEM PANEL 2020-01-12 09:04:28886Knusoqdt HermannCHEM VHWQT5868-21-39 09:04:0019[facility] HermannCHEM QKXVW6051-35-15 09:04:000.88[facility] HermannCHEM TXASM1402-78-48 09:04:97069Pstgqdsf HermannCHEM YSAEX8148-78-20 09:04:003.9[facility] HermannCHEM HNBGM5584-86-11 09:04:13054Zoawxrhp HermannCHEM QXGXA7153-35-84 09:04:0023 [facility]annCHEM JADLP2195-93-56 09:04:008.1[facility] HermannCHEM PANEL 2020-01-12 09:04:006.3[facility] HermannCHEM WZIPE8061-71-64 09:04:002.7[facility] HermannCHEM YHJYC3877-52-90 09:04:0047[facility] HermannCHEM FHAAV4879-09-02 09:04:46228Mamuuogk HermannCHEM HTZNT6369-98-29 09:04:0068[facility] HermannCHEM HEEIY5180-25-70 09:04:001.4[facility] HermannCHEM VJFQW5924-12-43 09:04:0011.9 [facility]annCHEM MTVTH0137-75-13 09:04:00 Test Item Value Reference Range Interpretation Comments B/C Ratio (test code = B/C Ratio) 22 1 6-25 [facility]annCHEM GCKBL9041-67-69 09:04:003.6[facility] HermannCHEM PANEL 2020-01-12 09:04:00 Test Item Value Reference Range Interpretation Comments A/G Ratio (test code = A/G Ratio) 0.8 1 0.7-1.6 [facility]annCHEM DMZXM5943-79-99 09:04:0066[facility] HermannHEMATOLOGY 2020-01-12 09:04:0020.5[facility] FemyjgwXTJJLFUNYN0629-36-24 09:04:004.13[facility] XicadgaJZWWFDEAQE5378-75-56 09:04:0012.8[facility] InhcbexGBCFNMPZQD3920-36-56 09:04:0038.3[facility] FsqnmkoBDXZXQQDRK0010-64-59 09:04:0092.8[facility] BBTZXTVAOU6648-81-95 09:04:00 Test Item Value Reference Range Interpretation Comments MCH (test code = MCH) 31.1 pg 27.0-31.0 [facility] CtfwmdgREALZJDPCF2048-75-25 09:04:0033.6[facility] HermannHEMATOLOGY 2020-01-12 09:04:0013.0[facility] IzddxbhLZHZEVDQSG8043-64-57 09:04:31916Jqhvgqxx ZowcackDCSSSGJMUZ8718-84-41 09:04:0011.2[facility] IxpanvzPSQTAEJVSL4953-03-54 09:04:0084.3[facility] GyivdomILIYTKHQCK1297-91-74 09:04:006.5[facility] Emigdio FBONDDMNHZ6720-02-79 09:04:008.9[facility] EwxzjziMRBWUYCIYK3657-92-22 09:04:000.3 [facility] MjlclgrIZMCPVPSCY3917-28-86 09:04:0017.3[facility] HermannHEMATOLOGY 2020-01-12 09:04:001.3[facility] QjpzqudMTBNYZYNOC1767-84-23 09:04:001.8[facility] ZavnlheJODTITAFTM0290-20-45 09:04:000.1[facility] HermannCHEM OHBWW2940-95-90 09:04:00 Test Item Value Reference Range Interpretation Comments Lipase Lvl (test code = Lipase Lvl) 6650 73393 [facility]2020-09-21 09:04:00 Test Item Value Reference Range Interpretation Comments Glucose Lvl (test code = Glucose Lvl) 285 70-99 [place] 606910-09-21 09:04:00 Test Item Value Reference Range Interpretation Comments BUN (test code = BUN) 19 7-22 [place] 606910-09-21 09:04:00 Test Item Value Reference Range Interpretation Comments Creatinine Lvl (test code = Creatinine 0.88 0.50-1.40 Lvl) [facility]2020-09-21 09:04:00 Test Item Value Reference Range Interpretation Comments Sodium Lvl (test code = Sodium Lvl) 141 135-145 [place] 606910-09-21 09:04:00 Test Item Value Reference Range Interpretation Comments Potassium Lvl (test code = Potassium 3.9 3.5-5.1 Lvl) [place] 606910-09-21 09:04:00 Test Item Value Reference Range Interpretation Comments Chloride Lvl (test code = Chloride Lvl) 110 95-109 [place] 606910-09-21 09:04:00 Test Item Value Reference Range Interpretation Comments CO2 (test code = CO2) 23 24-32 [place] 606910-09-21 09:04:00 Test Item Value Reference Range Interpretation Comments Calcium Lvl (test code = Calcium Lvl) 8.1 8.5-10.5 [place] 606910-09-21 09:04:00 Test Item Value Reference Range Interpretation Comments Total Protein (test code = Total 6.3 6.4-8.4 Protein) [place] 606910-09-21 09:04:00 Test Item Value Reference Range Interpretation Comments Albumin Lvl (test code = Albumin Lvl) 2.7 3.5-5.0 [place] 606910-09-21 09:04:00 Test Item Value Reference Range Interpretation Comments ALT (test code = ALT) 47 See_Comment [Auto mated message] The system which ge nerated this result transmit emily reference range : <=65. The reference range was not used to interpr et this result as leanne l/abnormal. [place] 606910-09-21 09:04:00 Test Item Value Reference Range Interpretation Comments AST (test code = AST) 114 See_Comment [Auto mated message] The system which ge nerated this result transmit emily reference range : <=37. The reference range was not used to interpr et this result as leanne l/abnormal. [facility] ClinicsYub XCQFF5217-45-53 09:04:00 Test Item Value Reference Range Interpretation Comments Alk Phos (test code = Alk Phos) 68 39-136 [facility] ClinicsYub MSZOQ9146-53-28 09:04:00 Test Item Value Reference Range Interpretation Comments Bili Total (test code = Bili Total) 1.4 0.2-1.3 [facility] KWPRU9133-22-01 09:04:00 Test Item Value Reference Range Interpretation Comments AGAP (test code = AGAP) 11.9 10.0-20.0 [facility] ClinicsYub RYEMA1920-26-13 09:04:00 Test Item Value Reference Range Interpretation Comments B/C Ratio (test code = B/C Ratio) 22 1 6-25 [facility] DSEFX0326-88-26 09:04:00 Test Item Value Reference Range Interpretation Comments Globulin (test code = Globulin) 3.6 2.7-4.2 [facility]icsYub JYGTD9410-07-56 09:04:00 Test Item Value Reference Range Interpretation Comments A/G Ratio (test code = A/G Ratio) 0.8 1 0.7-1.6 [facility] ClinicsYub ZAEBU0179-08-38 09:04:00 Test Item Value Reference Range Interpretation Comments eGFR (test code = eGFR) 66 [facility]stHavynljXSDBUHTFAY1615-99-41 09:04:00 Test Item Value Reference Range Interpretation Comments WBC (test code = WBC) 20.5 3.7-10.4 [place] 569130-09-21 09:04:00 Test Item Value Reference Range Interpretation Comments RBC (test code = RBC) 4.13 4.20-5.40 [facility] HospitalDldllvtCMANDEIWLD2795-37-73 09:04:00 Test Item Value Reference Range Interpretation Comments Hgb (test code = Hgb) 12.8 12.0-16.0 [facility]stOznitjhFRYIQIQXSW1491-71-03 09:04:00 Test Item Value Reference Range Interpretation Comments Hct (test code = Hct) 38.3 36.0-48.0 [facility] HospitalUnqqjmkHHJFPGQXJI8027-78-80 09:04:00 Test Item Value Reference Range Interpretation Comments MCV (test code = MCV) 92.8 80.0-98.0 [facility] HospitalIzsndoeIUZJOFQSBI0405-22-36 09:04:00 Test Item Value Reference Range Interpretation Comments MCH (test code = MCH) 31.1 pg 27.0-31.0 [facility] HospitalUtjwflsVAGVZRMJXF3991-71-68 09:04:00 Test Item Value Reference Range Interpretation Comments MCHC (test code = MCHC) 33.6 32.0-36.0 [facility] HospitalUlzakvtJVPMDKGPVC0302-12-50 09:04:00 Test Item Value Reference Range Interpretation Comments RDW (test code = RDW) 13.0 11.5-14.5 [facility] HospitalGkplhgxBGJJZVPLTT2536-41-06 09:04:00 Test Item Value Reference Range Interpretation Comments Platelet (test code = Platelet) 131 133-450 [facility] HospitalVvjjesmWIRJBUXOUB4080-73-18 09:04:00 Test Item Value Reference Range Interpretation Comments MPV (test code = MPV) 11.2 7.4-10.4 [facility] HospitalXwliimbVLASITNGUU4129-91-37 09:04:00 Test Item Value Reference Range Interpretation Comments Segs (test code = Segs) 84.3 45.0-75.0 [facility] HospitalTsbjxqoNVJPMOSQBQ5308-02-98 09:04:00 Test Item Value Reference Range Interpretation Comments Lymphocytes (test code = Lymphocytes) 6.5 20.0-40.0 [facility] HospitalIxgnwukTPLRFLBVTJ7101-20-06 09:04:00 Test Item Value Reference Range Interpretation Comments Monocytes (test code = Monocytes) 8.9 2.0-12.0 [facility] HospitalYaoupnjZEANYNIOPH6422-13-57 09:04:00 Test Item Value Reference Range Interpretation Comments Basophils (test code = 0.3 See_Comment [Aut omated message] The Basophils) system which ge nerated this result tra nsmitted reference range : <=1.0. The reference r mara was not used to int erpret this result as normal/abnormal . [facility] HospitalZqeqnusJBAJGSZYNW2058-50-30 09:04:00 Test Item Value Reference Range Interpretation Comments Neutrophils # (test code = Neutrophils 17.3 1.5-8.1 #) [facility] HospitalBptcxmyDKNYKZESEN9103-18-45 09:04:00 Test Item Value Reference Range Interpretation Comments Lymphocytes # (test code = Lymphocytes 1.3 1.0-5.5 #) [facility] HospitalPotgztkGFSXLKYQGU3441-46-87 09:04:00 Test Item Value Reference Range Interpretation Comments Monocytes # (test code 1.8 See_Comment [Aut omated message] The = Monocytes #) system which generated this result tra nsmitted reference range : <=0.8. The reference r mara was not used to int erpret this result as normal/abnormal . [facility] HospitalNlbzulfRTRWPQHOCU0911-57-39 09:04:00 Test Item Value Reference Range Interpretation Comments Basophils # (test code 0.1 See_Comment [Aut omated message] The = Basophils #) system which generated this result tra nsmitted reference range : <=0.2. The reference r mara was not used to int erpret this result as normal/abnormal . [facility]stPpmoexnUTCRCE6251-68-35 17:27:01683Rnhejxhl EszmoutTSROWF5925-20-47 17:27:0075[facility] CamarilloUuxkbctIPHXZY8555-20-18 17:27:0064[facility] HermannLIPIDS 2020-01-11 17:27:00 Test Item Value Reference Range Interpretation Comments CHD Risk (test code = CHD Risk) 2.36 1 3.90-5.80 [facility]stBgdvqglYTQLZK5222-80-51 17:27:0072[facility]St[facility] CamarilloFlbhbwxJSBQKT4383-92-38 17:27:00 Test Item Value Reference Range Interpretation Comments VLDL (test code = VLDL) 15 1 [facility] ClinicsRntlpxoFJMPVD4731-20-86 17:27:00 Test Item Value Reference Range Interpretation Comments Chol (test code = Chol) 151 [facility]stPdjiprrXALXWH1408-05-81 17:27:00 Test Item Value Reference Range Interpretation Comments Trig (test code = Trig) 75 [facility] HillcrestVvdkzemJGBAVY3666-66-10 17:27:00 Test Item Value Reference Range Interpretation Comments HDL (test code = HDL) 64 [facility] Hill[facility]stFvpoatfDIPGSS3479-58-55 17:27:00 Test Item Value Reference Range Interpretation Comments CHD Risk (test code = CHD Risk) 2.36 1 3.90-5.80 [facility] IupednoNSACWE3538-32-74 17:27:00 Test Item Value Reference Range Interpretation Comments LDL (Calculated) (test code = LDL 72 (Calculated)) [facility] CapefebZGXIVG0286-06-99 17:27:00 Test Item Value Reference Range Interpretation Comments VLDL (test code = VLDL) 15 1 [facility] UclsraiTUULPKPLNQ6334-43-84 10:06:0031.0[facility] HermannHEMATOLOGY 2015-03-13 10:06:0010.1[facility] DloypjpZKEIPZVMDM7429-83-46 10:06:00 Test Item Value Reference Range Interpretation Comments Hct (test code = Hct) 31.0 36.0-48.0 [facility] VntipkjKESLTEITMV7348-16-61 10:06:00 Test Item Value Reference Range Interpretation Comments Hgb (test code = Hgb) 10.1 12.0-16.0 [facility] IidaxjuIGJCVFCXVMGT1543-18-87 09:41:0025[facility] HermannELECTROLYTES 2015-03-12 09:41:0012.5[facility] XfzbgtuERSEBOQINSLW9625-91-95 09:41:000.9 [facility] HdrauczTWNPNWBUQBJF7764-67-58 09:41:09563Fhrfthda HermannELECTROLYTES 2015-03-12 09:41:0015[facility] YpqihtyNDBHKHUJSFUJ2909-51-76 09:41:009.1[facility] ByzbsauCSRMFJEYMRZX3600-50-65 09:41:0067[facility] YyiewkrQXDLBHCQIFDP1060-78-02 09:41:004.5[facility] ZqrswjcDYMGNEFEADEV4853-83-35 09:41:06445Jcllnrnt Emigdio CLOKCGLRJWTP5406-92-65 09:41:30627Vbslpuid PveihscDFVYNWIZRC1100-56-52 09:41:00 9.9[facility] QswvgxpXQGSOSQEKD2076-21-82 09:41:0030.0[facility] HermannSPECIAL USZXJDZDZ6491-55-80 09:41:005.8[facility] RmmtaykFOFSGEJIIUSG6862-74-67 09:41:00 Test Item Value Reference Range Interpretation Comments CO2 (test code = CO2) 25 24-32 [facility] XpogmleZYDKHZUKWOEX1081-81-23 09:41:00 Test Item Value Reference Range Interpretation Comments AGAP (test code = AGAP) 12.5 10.0-20.0 [facility]NnnuncmYJFQAPYHOMMN7131-16-88 09:41:00 Test Item Value Reference Range Interpretation Comments Creatinine Lvl (test code = Creatinine 0.9 0.5-1.4 Lvl) [facility] HospitalNhfsqnfMLPYAIOYFTFS7812-14-93 09:41:00 Test Item Value Reference Range Interpretation Comments Glucose Lvl (test code = Glucose Lvl) 137 70-99 [facility] HospitalFzsrlubQVOAYKPKIBCL0659-50-80 09:41:00 Test Item Value Reference Range Interpretation Comments BUN (test code = BUN) 15 7-22 [facility] HospitalCtkltiiHDDACFMLPBEI4105-32-06 09:41:00 Test Item Value Reference Range Interpretation Comments Calcium Lvl (test code = Calcium Lvl) 9.1 8.5-10.5 [facility] HospitalWaqczmyWTJPPQMIOMEQ4320-21-15 09:41:00 Test Item Value Reference Range Interpretation Comments eGFR (test code = eGFR) 67 [facility] HospitalKftllsxWDBPDORWWPBH1398-44-88 09:41:00 Test Item Value Reference Range Interpretation Comments Potassium Lvl (test code = Potassium 4.5 3.5-5.1 Lvl) [facility] HospitalIsljmhbUWIAHUAZZZPT8265-22-04 09:41:00 Test Item Value Reference Range Interpretation Comments Chloride Lvl (test code = Chloride Lvl) 105 95-109 [facility] HospitalBnyldoaMRBDULWGUFSO9855-39-31 09:41:00 Test Item Value Reference Range Interpretation Comments Sodium Lvl (test code = Sodium Lvl) 138 135-145 [facility]FcxvpmxMVDKXWOQRO2485-36-97 09:41:00 Test Item Value Reference Range Interpretation Comments Hgb (test code = Hgb) 9.9 12.0-16.0 [facility] HospitalTuwoysfHFBKVMAHWK5495-61-41 09:41:00 Test Item Value Reference Range Interpretation Comments Hct (test code = Hct) 30.0 36.0-48.0 [facility] QCNMBTPNO6773-79-20 09:41:00 Test Item Value Reference Range Interpretation Comments Hgb A1C (test code = Hgb A1C) 5.8 [facility]
--- NOTE | 2022-03-01 12:45 | RAD REPORT ---
EXAM DESCRIPTION: CT - Head C Spine Cap Wo Con - 03/01/2022 12:25 pm CLINICAL HISTORY: Trauma, head and neck injury. Chest, abdomen and pelvis pain. fall with head injury and right flank pain COMPARISON: Abdomen Pelvis W Contrast dated 01/11/2020 TECHNIQUE: CT head without contrast. CT cervical spine without contrast with coronal and sagittal reformatted images. CT chest, abdomen and pelvis with coronal and sagittal reformatted images of the spine. All CT scans are performed using dose optimization technique as appropriate and may include automated exposure control or mA/KV adjustment according to patient size. FINDINGS: CT HEAD WITHOUT CONTRAST: No intracranial hemorrhage, hydrocephalus or extra-axial fluid collection. No acute large vascular te rritory infarct. The paranasal sinuses and mastoids are clear. The calvarium is intact. CT CERVICAL SPINE WITHOUT CONTRAST: No fracture or subluxation. The prevertebral soft tissues are normal in thickness. CT CHEST, ABDOMEN, PELVIS: Thorax: Chest Wall: No abnormal mass Lungs: No acute abnormality. Scattered calcified pulmonary nodules. Pleura: No effusions or pneumothorax. Jocelyne/Mediastinum: No lymphadenopathy. Aorta/Pulmonary Arteries: Unremarkable Heart: Normal size. Multi-vessel coronary artery disease. Mitral annular calcifications. Abdomen/Pelvis: Liver: No acute abnormality or suspicious lesions. Biliary: Cholecystectomy. Question extrahepatic biliary ductal dilatation measured 18 millimeters. No te dilatation seen of the pancreatic head, however. No intrahepatic biliary ductal dilatation is seen . Stomach: No significant focal abnormality. Duodenum: No significant focal abnormality. Pancreas: 4.7 cm fluid collection at the pancreatic body likely a pseudocyst. Pancreatic atrophy is n oted. Spleen: No significant abnormality. Adrenal: No suspicious lesions. Kidney/ureter: No hydronephrosis. No renal calculi. Retroperitoneum: No retroperitoneal adenopathy. Vascular: No aneurysm. Bowel: No significant focal abnormality. Peritoneum: No ascites or free air. Bladder: Grossly unremarkable. Reproductive: No adnexal masses. Bones: Chronic superior endplate deformity at L3. Mild compression deformity at L5 is unchanged. Righ t lateral sixth through eighth rib fractures that are nondisplaced. Other: n/a IMPRESSION: 1. No acute intracranial abnormality. 2. No acute fracture or traumatic malalignment of the cervical spine. 3. Acute right lateral fifth through eighth rib fractures. No pneumothorax. The rib fractures are non displaced. 4. Cystic structure at the pancreatic body likely represent a pseudocyst from prior pancreatitis. All started this possible dilatation of the common hepatic duct. This is not well assessed without contr ast. Correlate with LFTs. Nonemergent MRCP could better evaluate.
--- NOTE | 2022-03-01 13:16 | RAD REPORT ---
EXAM DESCRIPTION: RAD - Humerus Right - 03/01/2022 12:41 pm CLINICAL HISTORY: PAIN, trip and fall COMPARISON: No comparisons FINDINGS: No fracture is identified. There is no dislocation or periosteal reaction noted. AC joint is intact. Radial head at the elbow joint is not optimally visualized but appears be intact. No suspi cious soft tissue finding. IMPRESSION: No fracture of the right humerus or other acute finding identifiable.
[2022-03-01 14:17] LABS: Absolute Lymphocytes (CBC) 2.4 K/uL (0.7-4.9); Hematocrit 41.1 % (36.0-45.0); Lymphocytes % 23.2 % (15.3-44.8); MCV 91.4 fL (80-100); MPV 11.6 fL (7.6-11.3)
[2022-03-01 14:55] LABS: Albumin 3.3 g/dL (3.4-5.0); Bilirubin Total 0.6 mg/dL (0.2-1.0); Potassium 4.2 mmol/L (3.5-5.1); Protein, Total 7.5 g/dL (6.4-8.2)
--- NOTE | 2022-03-01 15:02 | ER ---
Nurse's Notes [facility] Name: Lottie Apodaca Age: 71 yrs Sex: Female : 1950 Arrival Date: 03/01/2022 Time: 11:18 Bed 11 Private MD: Carter Castillo V Diagnosis: Multiple fractures of ribs, right side Presentation: 03/01 11:39 Chief complaint: Patient states: tripped over a rug in her kitchen last night , fell to iw the ground on right side , she did hit her head but did not LOC, was able to crawl and get herself up , now she is hurting in her right ribs and right arm. 11:39 Acuity: CHRIS 4 iw 11:39 Method Of Arrival: Ambulatory iw 11:40 Coronavirus screen: At this time, the client does not indicate any symptoms associated iw with coronavirus-19. Ebola Screen: Patient negative for fever greater than or equal to 101.5 degrees Fahrenheit, and additional compatible Ebola Virus Disease symptoms Patient denies exposure to infectious person. Patient denies travel to an Ebola-affected area in the 21 days before illness onset. No symptoms or risks identified at this time. Initial Sepsis Screen: Does the patient meet any 2 criteria? No. Patient's initial sepsis screen is negative. Does the patient have a suspected source of infection? No. Patient's initial sepsis screen is negative. Risk Assessment: Do you want to hurt yourself or someone else? Patient reports no desire to harm self or others. Onset of symptoms was February 28, 2022. 14:52 Acuity: CHRIS 3 iw Historical: - Allergies: 11:41 No Known Allergies; iw - Home Meds: 11:41 bisoprolol fumarate 5 mg Oral tab 1 tab once daily [Active]; hydrocodone-acetaminophen iw 10-325 mg Oral tab 1 tab every 4-6 hours [Active]; Lyrica Oral 1 cap 2 times per day [Active]; metformin 1,000 mg Oral tr24 1 tab once daily [Active]; Myrbetriq 25 mg Oral Tb24 1 tab once daily [Active]; - PMHx: 11:41 Diabetes - NIDDM; Hypertension; iw - PSHx: 11:41 Cholecystectomy; iw Screenin:59 Abuse screen: Denies threats or abuse. Denies injuries from another. Nutritional iw screening: No deficits noted. Tuberculosis screening: No symptoms or risk factors identified. Fall Risk None identified. Assessment: 12:58 General: Appears in no apparent distress. Behavior is calm, cooperative. Pain: iw Complains of pain in right lateral posterior chest and right lateral anterior chest. Neuro: Level of Consciousness is awake, alert, obeys commands, Oriented to person, place, time, situation, Moves all extremities. Cardiovascular: Patient's skin is warm and dry. Respiratory: Respiratory effort is even, unlabored, Respiratory pattern is regular, symmetrical. Derm: Skin is intact, is healthy with good turgor. Musculoskeletal: Range of motion: intact in all extremities. 15:26 Reassessment: pt requests to sit in room until the traffic dies down so she can drive iw home. Vital Signs: 11:40 BP 146 / 76; Pulse 59; Resp 16; Temp 98.4; Pulse Ox 98% on R/A; Weight 69.85 kg; Height iw 4 ft. 9 in. (144.78 cm); Pain 6/10; 11:40 Body Mass Index 33.32 (69.85 kg, 144.78 cm) iw ED Course: 11:18 Patient arrived in ED. as 11:18 Carter Castillo MD is Private Physician. as 11:19 Dominick Frankel MD is Attending Physician. kdr 11:40 Triage completed. iw 11:41 Arm band placed on. iw 12:27 Head C Spine Cap Wo Con In Process Unspecified. EDMS 12:43 Humerus Right XRAY In Process Unspecified. EDMS 12:58 Sulema Cortez, RN is Primary Nurse. iw 12:59 No provider procedures requiring assistance completed. Patient did not have IV access iw during this emergency room visit. 13:57 Initial lab(s) drawn, by oh, sent to lab. Inserted saline lock: 20 gauge in right jw7 antecubital area, using aseptic technique. Blood collected. 13:57 CBC with Diff Sent. jw7 13:57 CMP Sent. jw7 13:57 Lipase Sent. jw7 15:00 Carter Castillo MD is Referral Physician. kdr Administered Medications: 15:16 Drug: Ketorolac 15 mg Route: IM; Site: right deltoid; iw Outcome: 15:02 Discharge ordered by . kdr 15:46 Patient left the ED. iw Signatures: Dispatcher [employer] Dominick Powell MD MD kdr Martinez, Amelia as Williams, Irene, RN RN Lia Nowak jw7
--- NOTE | 2022-03-01 15:02 | EDPHYS ---
Physician Documentation [facility] Name: Lottie Apodaca Age: 71 yrs Sex: Female : 1950 Arrival Date: 03/01/2022 Time: 11:18 Bed 11 Private MD: Carter Castillo V ED Physician Dominick Frankel HPI: 03/01 13:30 This 71 yrs old Female presents to ER via Ambulatory with complaints of Fall kdr Injury. 13:30 Patient tripped and fell on a kitchen rug last night. She fell to the ground on her kdr right side. She states that she did hit her head but there was no loss of consciousness. Afterwards, she was able to crawl and get her self up. Today she presents complaining of pain to the right side of her thorax. She also has pain in her right upper arm. Patient is otherwise nonacute and none toxic appearing. Onset: The symptoms/episode began/occurred last night. Severity of symptoms: At their worst the symptoms were mild moderate in the emergency department the symptoms are unchanged. The patient has not experienced similar symptoms in the past. The patient has not recently seen a physician. Historical: - Allergies: 11:41 No Known Allergies; iw - Home Meds: 11:41 bisoprolol fumarate 5 mg Oral tab 1 tab once daily [Active]; hydrocodone-acetaminophen iw 10-325 mg Oral tab 1 tab every 4-6 hours [Active]; Lyrica Oral 1 cap 2 times per day [Active]; metformin 1,000 mg Oral tr24 1 tab once daily [Active]; Myrbetriq 25 mg Oral Tb24 1 tab once daily [Active]; - PMHx: 11:41 Diabetes - NIDDM; Hypertension; iw - PSHx: 11:41 Cholecystectomy; iw ROS: 13:30 Constitutional: Negative for fever, chills, and weight loss, Eyes: Negative for injury, kdr pain, redness, and discharge, ENT: Negative for injury, pain, and discharge, Neck: Negative for injury, pain, and swelling, Respiratory: Negative for shortness of breath, cough, wheezing, and pleuritic chest pain, Abdomen/GI: Negative for abdominal pain, nausea, vomiting, diarrhea, and constipation, Back: Negative for injury and pain, : Negative for injury, bleeding, discharge, and swelling, MS/Extremity: Negative for injury and deformity, Skin: Negative for injury, rash, and discoloration, Neuro: Negative for headache, weakness, numbness, tingling, and seizure activity. Psych: Negative for depression, anxiety, suicide ideation, homicidal ideation, and hallucinations, Allergy/Immunology: Negative for hives, rash, and allergies, Endocrine: Negative for neck swelling, polydipsia, polyuria, polyphagia, and marked weight changes, Hematologic/Lymphatic: Negative for swollen nodes, abnormal bleeding, and unusual bruising. 13:30 Cardiovascular: Positive for chest pain, with cough, with movement, of the right lateral posterior chest and right lateral anterior chest. Exam: 13:30 Constitutional: This is a well developed, well nourished patient who is awake, alert, kdr and in no acute distress. Head/Face: Normocephalic, atraumatic. Eyes: Pupils equal round and reactive to light, extra-ocular motions intact. Lids and lashes normal. Conjunctiva and sclera are non-icteric and not injected. Cornea within normal limits. Periorbital areas with no swelling, redness, or edema. Neck: Trachea midline, no thyromegaly or masses palpated, and no cervical lymphadenopathy. Supple, full range of motion without nuchal rigidity, or vertebral point tenderness. No Meningismus. Cardiovascular: Regular rate and rhythm with a normal S1 and S2. No gallops, murmurs, or rubs. Normal PMI, no JVD. No pulse deficits. Respiratory: Lungs have equal breath sounds bilaterally, clear to auscultation and percussion. No rales, rhonchi or wheezes noted. No increased work of breathing, no retractions or nasal flaring. Abdomen/GI: Soft, non-tender, with normal bowel sounds. No distension or tympany. No guarding or rebound. No evidence of tenderness throughout. Back: No spinal tenderness. No costovertebral tenderness. Full range of motion. Skin: Warm, dry with normal turgor. Normal color with no rashes, no lesions, and no evidence of cellulitis. MS/ Extremity: Pulses equal, no cyanosis. Neurovascular intact. Full, normal range of motion. Neuro: Awake and alert, GCS 15, oriented to person, place, time, and situation. Cranial nerves II-XII grossly intact. Motor strength 5/5 in all extremities. Sensory grossly intact. Cerebellar exam normal. Normal gait. Psych: Awake, alert, with orientation to person, place and time. Behavior, mood, and affect are within normal limits. 13:30 Chest/axilla: Inspection: normal, Obese, Patient is not obviously injured but is very tender to palpation on her right ribs, Palpation: tenderness, that is moderate, of the right lateral posterior chest and right lateral anterior chest. Vital Signs: 11:40 BP 146 / 76; Pulse 59; Resp 16; Temp 98.4; Pulse Ox 98% on R/A; Weight 69.85 kg; Height iw 4 ft. 9 in. (144.78 cm); Pain 6/10; 11:40 Body Mass Index 33.32 (69.85 kg, 144.78 cm) iw MDM: 13:30 Data reviewed: vital signs, nurses notes, lab test result(s), radiologic studies. kdr Counseling: I had a detailed discussion with the patient and/or guardian regarding: the historical points, exam findings, and any diagnostic results supporting the discharge/admit diagnosis, lab results, radiology results, the need for outpatient follow up. 13:52 ED course: Radiology reference possible hepatic duct dilation. This suggested that kdr there should be correlation between laboratory values and these radiology findings. We will order a comprehensive metabolic panel to evaluate.. 15:02 Patient medically screened. kdr 03/01 13:24 Order name: CBC with Diff; Complete Time: 14:45 kdr 03/01 13:24 Order name: CMP; Complete Time: 14:59 kdr 03/01 12:03 Order name: Humerus Right XRAY; Complete Time: 13:23 kdr 03/01 12:15 Order name: Head C Spine Cap Wo Con; Complete Time: 13:23 EDMS 03/01 13:24 Order name: Lipase; Complete Time: 14:59 kdr 03/01 13:24 Order name: IV Saline Lock; Complete Time: 13:57 kdr 03/01 13:24 Order name: Labs collected and sent; Complete Time: 13:57 kdr Administered Medications: 15:16 Drug: Ketorolac 15 mg Route: IM; Site: right deltoid; iw Disposition Summary: 03/01/22 15:02 Discharge Ordered Location: Home kdr Problem: new kdr Symptoms: have improved kdr Condition: Stable kdr Diagnosis - Multiple fractures of ribs, right side kdr Followup: kdr - With: Carter Castillo MD - When: 2 - 3 days - Reason: If symptoms return, Further diagnostic work-up, Recheck today's complaints, Continuance of care, Re-evaluation by your physician Discharge Instructions: - Discharge Summary Sheet kdr - Rib Fracture, [id number] kdr Forms: - Medication Reconciliation Form kdr - Thank You Letter kdr - Prescription Opioid Use kdr Prescriptions: - Tylenol-Codeine #3 300 mg-30 mg Oral - take 1 tablet by ORAL route every 4-6 hours As needed; 20 tablet; Refills: 0, kdr Product Selection Permitted Signatures: Dispatcher [employer] EDMS Dominick Frankel MD MD kdr Sulema Cortez RN RN iw Corrections: (The following items were deleted from the chart) 12:15 12:07 Head C Spine CAP W Con+CT.RAD.BRZ ordered. EDMS EDMS
[2022-03-01] MEDS ORDERED: KETOROLAC 30 MG/ML INJ ONE (15:10)
[2022-03-01 16:09] VITALS: BP 146/76; TEMP 98.4; O2SAT 98
== END 2022-03-01 15:46 | disposition home or self-care (01) ==
LOC: ER 11:17
DX: S22.41XA Multiple fractures of ribs, right side, initial encounter for closed fracture (principal); E11.9 Type 2 diabetes mellitus without complications; I10 Essential (primary) hypertension
CPT/HCPCS: 36415; 70450; 71250; 72125; 80053; 83690; 85025; 96372; 99284

== ENCOUNTER → 2023-06-28 | Emergency (ER) | payer OTHER ==
[~2023-06-28] MED LIST: FLUORESCEIN SODIUM 1 MG/WRAP ONE; TETRACAINE HCL 0.5% 4ML OPTH ONE
--- NOTE | 2023-06-28 12:16 | ER ---
Nurse's Notes [facility] Name: Ene Apodaca Age: 72 yrs Sex: Female : 1950 Arrival Date: 06/28/2023 Time: 11:28 Bed 10 Private MD: Diagnosis: Injury of conjunctiva and corneal abrasion without foreign body Presentation: 06/27 11:56 Chief complaint: Patient states: I have been having progressive pain and itching in my kd3 right eye. It is very red, swollen and teary. Coronavirus screen: Vaccine status: Patient reports receiving the 2nd dose of the covid vaccine. Ebola Screen: No symptoms or risks identified at this time. Mechanism of Injury: No Mechanism of Injury. The patient denies any loss of vision. Initial Sepsis Screen: Does the patient meet any 2 criteria? No. Patient's initial sepsis screen is negative. Does the patient have a suspected source of infection? No. Patient's initial sepsis screen is negative. Risk Assessment: Do you want to hurt yourself or someone else? Patient reports no desire to harm self or others. Onset of symptoms was June 28, 2023. 11:56 Method Of Arrival: Ambulatory kd3 11:56 Acuity: CHRIS 3 kd3 Triage Assessment: 11:57 General: Appears in no apparent distress. Behavior is calm, cooperative. Pain: kd3 Complains of pain in right eye. EENT: Eyes redness, watery . Historical: - PMHx: 11:57 Diabetes - NIDDM; Hypertension; kd3 - PSHx: 11:57 Cholecystectomy; kd3 - Immunization history:: Adult Immunizations up to date. - Social history:: Smoking status: unknown. Screenin:09 [facility] ED Fall Risk Assessment (Adult) History of falling in the last 3 months, rs5 including since admission No falls in past 3 months (0 pts) Confusion or Disorientation No (0 pts) Intoxicated or Sedated No (0 pts) Impaired Gait No (0 pts) Mobility Assist Device Used No (0 pt) Altered Elimination No (0 pt) Score/Fall Risk Level 0 - 2 = Low Risk Oriented to surroundings, Maintained a safe environment. 12:09 Abuse screen: Denies threats or abuse. Nutritional screening: No deficits noted. rs5 Tuberculosis screening: No symptoms or risk factors identified. Assessment: 12:05 General: Appears in no apparent distress. comfortable, Behavior is calm, cooperative. rs5 12:05 Pain: Denies pain. Neuro: Level of Consciousness is awake, alert, obeys commands, rs5 Oriented to person, place, time, situation. Cardiovascular: Rhythm is regular. Respiratory: Airway is patent Respiratory effort is even, unlabored, Respiratory pattern is regular, symmetrical. GI: Abdomen is round non-distended. : No signs and/or symptoms were reported regarding the genitourinary system. EENT: Sclera/Cornea w/ abrasion noted on right eye. Derm: Skin is intact, Skin is pink, warm \T\ dry. Musculoskeletal: Range of motion: intact in all extremities. 12:20 Reassessment: Patient and/or family updated on plan of care and expected duration. Pain rs5 level reassessed. Patient is alert, oriented x 3, equal unlabored respirations, skin warm/dry/pink. Vital Signs: 11:53 Pulse 68; Resp 16; Temp 98.3; Pulse Ox 98% ; Weight 61.69 kg; Height 4 ft. 9 in. ; Pain kd3 5/10; 11:56 BP 145 / 76; kd3 11:53 Body Mass Index 29.43 (61.69 kg, 144.78 cm) kd3 11:53 Pain Scale: Adult kd3 Visual Acuity: 12:10 Left Eye Visual acuity 20/20, Pupil size 3 mm, Normal, Reactive To Accomodation; Right rs5 Eye Visual acuity 20/20, Pupil size 3 mm, Normal, Reactive To Accomodation; Both Eyes Visual acuity 20/20; Without Lenses; ED Course: 11:33 Patient arrived in ED. mg5 11:42 Frank Russo MD is Attending Physician. ec2 11:57 Triage completed. kd3 11:57 Arm band placed on right wrist. kd3 12:09 Patient has correct armband on for positive identification. Placed in gown. Bed in low rs5 position. Call light in reach. Side rails up X2. 12:09 No provider procedures requiring assistance completed. rs5 12:15 Bryce Gerber RN is Primary Nurse. rs5 12:15 Mike Gardiner MD is Referral Physician. ec2 12:30 Patient did not have IV access during this emergency room visit. rs5 Administered Medications: 12:21 Drug: Tetracaine Ophthalmic Drops 0.5 % 1 drops Ophthalmic once Route: Ophthalmic; rs5 Site: left eye; 12:40 Follow up: Response: No adverse reaction rs5 Medication: 12:09 VIS not applicable for this client. rs5 Outcome: 12:15 Discharge ordered by . ec2 12:30 Discharged to home ambulatory, rs5 12:30 Condition: stable 12:30 Discharge instructions given to patient, Instructed on discharge instructions, follow up and referral plans. medication usage, Demonstrated understanding of instructions, follow-up care, medications, Prescriptions given X 1, 12:31 Patient left the ED. rs5 Signatures: Radha Pierson RN RN kd3 Bryce Gerber RN RN rs5 Daniela Murrell mg5 Frank Russo MD MD ec2 Corrections: (The following items were deleted from the chart) 14:36 13:10 Reassessment: Patient and/or family updated on plan of care and expected rs5 duration. Pain level reassessed. Patient is alert, oriented x 3, equal unlabored respirations, skin warm/dry/pink. rs5
--- NOTE | 2023-06-28 12:16 | EDPHYS ---
Physician Documentation [facility] Name: Ene Apodaca Age: 72 yrs Sex: Female : 1950 Arrival Date: 06/28/2023 Time: 11:28 Bed 10 Private MD: ED Physician Frank Russo HPI: 06/27 12:02 This 72 yrs old Female presents to ER via Ambulatory with complaints of Eye ec2 Pain, Eye Problem. 12:02 Patient arrives today for evaluation of right eye pain. Patient been having pain and ec2 drainage for the past 1 week. States that she frequently works outside and thinks she might events over the eye. Patient reports no known injury or trauma. Reports history of diabetes otherwise no known eye pathology.. Historical: - PMHx: 11:57 Diabetes - NIDDM; Hypertension; kd3 - PSHx: :57 Cholecystectomy; kd3 - Immunization history:: Adult Immunizations up to date. - Social history:: Smoking status: unknown. ROS: 12:02 Constitutional: as per hpi ec2 Exam: 12:02 Constitutional: GEN: NAD Head: atraumatic Eyes: EOMI Ears: External ears are normal. ec2 Right globe intact with good pupillary response, intact range of motion, no pain with range of motion. I swept under the eyelids and showed no evidence of retained foreign body. Significant tearing and conjunctival injection noted. CV: regular rate LUNGS: no respiratory distress ABD: non-distended SKIN: no evidence of rashes MSK: no evidence of trauma NEURO: moves all extremities equally Vital Signs: 11:53 Pulse 68; Resp 16; Temp 98.3; Pulse Ox 98% ; Weight 61.69 kg; Height 4 ft. 9 in. ; Pain kd3 5/10; 11:56 BP 145 / 76; kd3 11:53 Body Mass Index 29.43 (61.69 kg, 144.78 cm) kd3 11:53 Pain Scale: Adult kd3 Visual Acuity: 12:10 Left Eye Visual acuity 20/20, Pupil size 3 mm, Normal, Reactive To Accomodation; Right rs5 Eye Visual acuity 20/20, Pupil size 3 mm, Normal, Reactive To Accomodation; Both Eyes Visual acuity 20/20; Without Lenses; MDM: 12:02 Data reviewed: vital signs. ED course: Patient arrives today for right eye tearing and ec2 pain. Examination remarkable for eye findings as noted above. Will perform corneal stain. Suspect abrasion, doubt retained foreign body given negative sweep. Doubt glaucoma acute angle-closure. . 12:07 Patient medically screened. ec2 12:14 ED course: Corneal stain performed, shows linear approximately 1/4 cm linear abrasion. ec2 Will discharge home with topical erythromycin ointment. Return precautions given.. 06/27 12:02 Order name: Eye Tray; Complete Time: 12:06 ec2 06/27 12:02 Order name: Fluoresene Opth strip; Complete Time: 12:06 ec2 Administered Medications: 12:21 Drug: Tetracaine Ophthalmic Drops 0.5 % 1 drops Ophthalmic once Route: Ophthalmic; rs5 Site: left eye; 12:40 Follow up: Response: No adverse reaction rs5 Disposition Summary: 06/28/23 12:15 Discharge Ordered Notes: Location: Home ec2 Condition: Stable ec2 Diagnosis - Injury of conjunctiva and corneal abrasion without foreign body ec2 Followup: ec2 - With: Mike Gardiner MD - When: - Reason: Recheck today's complaints Discharge Instructions: - Discharge Summary Sheet ec2 - Corneal Abrasion, [id number] ec2 Forms: - Medication Reconciliation Form ec2 - Thank You Letter ec2 - Antibiotic Education ec2 - Prescription Opioid Use ec2 - Patient Portal Instructions ec2 - Leadership Thank You Letter ec2 Prescriptions: - Erythromycin 5 mg/gram (0.5 %) Ophthalmic ointment - apply 1 centimeter OPHTHALMIC route 2-3 times daily for 7 days; 3.5 gram; ec2 Refills: 0, Product Selection Permitted Signatures: Radha Pierson, RN RN kd3 Bryce Gerber, RN RN rs5 Frank Russo MD MD ec2
[2023-06-28 12:54] VITALS: BP 145/76; TEMP 98.3; O2SAT 98
== END ==
LOC: ER 11:28
DX: S05.01XA Injury of conjunctiva and corneal abrasion without foreign body, right eye, initial encounter (principal)
CPT/HCPCS: 99283

== ENCOUNTER 2023-12-13 15:47 | Emergency (ER) | payer OTHER ==
--- NOTE | 2023-12-13 16:05 | ER ---
Nurse's Notes [facility] Name: Lottie Apodaca Age: 73 yrs Sex: Female : 1950 Arrival Date: 12/13/2023 Time: 15:47 Bed IW2 Private MD: Diagnosis: Subconjunctival hemorrhage, right eye Presentation: 12/12 15:54 Chief complaint: Patient states: Pt states woke up this morning with redness to her rt dd2 eye. Pt denies blurred vision. Coronavirus screen: At this time, the client does not indicate any symptoms associated with coronavirus-19. Ebola Screen: No symptoms or risks identified at this time. Initial Sepsis Screen: Does the patient meet any 2 criteria? No. Patient's initial sepsis screen is negative. Does the patient have a suspected source of infection? No. Patient's initial sepsis screen is negative. Risk Assessment: Do you want to hurt yourself or someone else? Patient reports no desire to harm self or others. Onset of symptoms was December 13, 2023. 15:54 Method Of Arrival: Ambulatory dd2 15:54 Acuity: CHRIS 3 dd2 Triage Assessment: 15:57 General: Appears in no apparent distress. Behavior is calm, cooperative. Pain: Denies dd2 pain. Historical: - Allergies: 15:57 No Known Allergies; dd2 - PMHx: 15:57 Diabetes - NIDDM; Hypertension; dd2 - PSHx: 15:57 Cholecystectomy; dd2 - Immunization history:: Adult Immunizations up to date. - Infectious Disease History:: Denies. - Social history:: Smoking status: Patient denies any tobacco usage or history of. Screenin:02 [facility] ED Fall Risk Assessment (Adult) History of falling in the last 3 months, dd2 including since admission No falls in past 3 months (0 pts) Confusion or Disorientation No (0 pts) Intoxicated or Sedated No (0 pts) Impaired Gait No (0 pts) Mobility Assist Device Used No (0 pt) Altered Elimination No (0 pt) Score/Fall Risk Level 0 - 2 = Low Risk. Abuse screen: Denies threats or abuse. Nutritional screening: No deficits noted. Tuberculosis screening: No symptoms or risk factors identified. Assessment: 16:02 Neuro: No deficits noted. Cardiovascular: No deficits noted. Respiratory: No deficits dd2 noted. GI: No deficits noted. : No deficits noted. EENT: Eyes redness to schlera. Sclera/Cornea are reddened in inner aspect of conjuctiva of right eye. Derm: No deficits noted. Musculoskeletal: No deficits noted. Vital Signs: 15:54 BP 140 / 65; Pulse 52; Resp 15; Temp 97.7; Pulse Ox 99% ; dd2 16:06 BP 138 / 68; Pulse 54; Resp 16; Pulse Ox 100% ; ko1 ED Course: 15:50 Patient arrived in ED. im 15:51 Dulce Avila PA-C is PHCP. sb4 15:51 Frank Russo MD is Attending Physician. sb4 15:57 Triage completed. dd2 15:57 Arm band placed on right wrist. Patient placed in waiting room, in view of staff dd2 members. 16:02 Patient has correct armband on for positive identification. Provided Education on: dd2 discharge info. 16:02 No provider procedures requiring assistance completed. IV discontinued. dd2 Administered Medications: No medications were administered Medication: 16:02 VIS not applicable for this client. dd2 Outcome: 16:04 Discharge ordered by . sb4 16:06 Discharged to home ambulatory, with family, ko1 16:06 Condition: stable 16:06 Discharge instructions given to patient, family, Instructed on discharge instructions, follow up and referral plans. Demonstrated understanding of instructions, follow-up care, 16:07 Patient left the ED. ko1 Signatures: Gisel Caro RN RN ko1 Dulce Avila PA-C PA-C sb4 Sharon Ford IAM MELENDREZ RN RN dd2
--- NOTE | 2023-12-13 16:05 | EDPHYS ---
Physician Documentation [facility] Name: Lottie Apodaca Age: 73 yrs Sex: Female : 1950 Arrival Date: 12/13/2023 Time: 15:47 Bed IW2 Private MD: ED Physician Frank Russo HPI: 12/12 16:06 This 73 yrs old Female presents to ER via Ambulatory with complaints of Eye sb4 Problem. 16:06 The patient is experiencing redness, The patient sustained None. to the right eye, sb4 caused by an unknown mechanism. Onset: The symptoms/episode began/occurred this morning. Duration: the symptoms are continuous. Aggravated by nothing. Alleviated by nothing. Associated signs and symptoms: Pertinent negatives: chills, dizziness, ear ache, fever, headache, runny nose. Patient wears glasses. Severity of symptoms: At their worst the symptoms were very mild. The patient has not experienced similar symptoms in the past. Historical: - Allergies: 15:57 No Known Allergies; dd2 - PMHx: 15:57 Diabetes - NIDDM; Hypertension; dd2 - PSHx: 15:57 Cholecystectomy; dd2 - Immunization history:: Adult Immunizations up to date. - Infectious Disease History:: Denies. - Social history:: Smoking status: Patient denies any tobacco usage or history of. ROS: 16:06 Constitutional: Negative for fever, chills, and weight loss, sb4 16:06 Eyes: Positive for redness, of the inner aspect of conjuctiva of right eye, 16:06 All other systems are negative, Exam: 16:06 Visual Acuity: Visual acuity is within normal limits. sb4 16:06 Constitutional: This is a well developed, well nourished patient who is awake, alert, and in no acute distress. Head/Face: Normocephalic, atraumatic. 16:06 Eyes: Periorbital structures: appear normal, Pupils: equal, round, and reactive to light and accomodation, Extraocular movements: intact throughout, Conjunctiva: subconjunctival hemorrhage(s), seen in the right eye, at 3 o'clock, Corneas: are normal, Sclera: no appreciated abnormality, Lids and lashes: appear normal, Vital Signs: 15:54 BP 140 / 65; Pulse 52; Resp 15; Temp 97.7; Pulse Ox 99% ; dd2 16:06 BP 138 / 68; Pulse 54; Resp 16; Pulse Ox 100% ; ko1 MDM: 15:54 Patient medically screened. sb4 16:07 Data reviewed: vital signs, nurses notes, and as a result, I will discharge patient. sb4 Counseling: I had a detailed discussion with the patient and/or guardian regarding the historical points, exam findings, and any diagnostic results supporting the discharge/admit diagnosis, to return to the emergency department if symptoms worsen or persist or if there are any questions or concerns that arise at home. Administered Medications: No medications were administered Disposition Summary: 12/13/23 16:04 Discharge Ordered Notes: Location: Home sb4 Problem: new sb4 Symptoms: are unchanged sb4 Condition: Stable sb4 Diagnosis - Subconjunctival hemorrhage, right eye sb4 Followup: sb4 - With: Emergency Department - When: As needed - Reason: Worsening of condition Discharge Instructions: - Discharge Summary Sheet sb4 - Subconjunctival Hemorrhage sb4 Forms: - Patient Portal Instructions sb4 - Leadership Thank You Letter sb4 Addendum: 12/17/2023 16:07 I was immediately available for consultation during this patient's visit. I did not e c2 personally see the patient or discuss the patient with the ANNALISE. . Signatures: Dulce Avila PA-C PA-C sb4 Frank Russo MD MD ec2 IAM MELENDREZ RN RN dd2
[2023-12-13 16:11] VITALS: TEMP 97.7
[2023-12-13 16:12] VITALS: BP 138/68; O2SAT 100
== END 2023-12-13 16:07 | disposition home or self-care (01) ==
LOC: ER 15:47
DX: H11.31 Conjunctival hemorrhage, right eye (principal)
CPT/HCPCS: 99282

== ENCOUNTER 2024-04-20 11:30 | Emergency (ER) | payer OTHER ==
--- NOTE | 2024-04-20 12:58 | RAD REPORT ---
EXAMINATION: CT CHEST WITHOUT CONTRAST CLINICAL INDICATION: Female, 73 years old. blunt trauma, fall, right anterolateral rib pain TECHNIQUE: Routine CT scan of the chest without intravenous contrast. One or more of the following do se reduction techniques were used: Automated exposure control, adjustment of the mA and/or kV according to patient size, and/or iterative reconstruction. Unless otherwise specified, incidental fi ndings do not require dedicated imaging follow-up. [id number]. COMPARISON: Chest radiograph 11/13/2023 FINDINGS: LOWER NECK: Visualized thyroid gland and soft tissues are normal. LUNGS AND AIRWAYS: Airways are clear. No evidence of airspace or interstitial process.No suspicious a nd/or stable pulmonary nodules. PLEURA: No pleural effusion. No pneumothorax. Hemidiaphragms are normally positioned. MEDIASTINUM AND LYMPH NODES: No mediastinal mass or fluid collection. Normal size mediastinal, hilar, and axillary lymph nodes. THORACIC AORTA: No thoracic aortic aneurysm. Atherosclerotic changes are present. PULMONARY ARTERIES: Caliber is within normal limits. HEART: Mild cardiomegaly. Multivessel coronary artery diseaseNo significant pericardial effusion. OSSEOUS STRUCTURES AND CHEST WALL: Multilevel degenerative changes. Mildly angulated right third, fou rth, fifth, sixth ribs anteriorly. These are suspicious for nondisplaced rib fractures.. UPPER ABDOMEN: No significant abnormalities.Cholecystectomy. Punctate stone in the right kidney. IMPRESSION: Mildly angulated right anterior third through sixth ribs suspicious for nondisplaced rib fractures. N o underlying pneumothorax.
--- NOTE | 2024-04-20 13:02 | ER ---
Nurse's Notes [facility] Name: Lottie Apodaca Age: 73 yrs Sex: Female : 1950 Arrival Date: 04/20/2024 Time: 11:30 Bed IW1 Private MD: Diagnosis: Multiple fractures of ribs, right side Presentation: 04/20 11:43 Chief complaint: Patient states: was pulling boxes out and I fell and hit the cement. tm6 Happened about 3 days ago. Right rib pain. Coronavirus screen: Client denies travel out of the [place] in the last 14 days. Ebola Screen: Patient negative for fever greater than or equal to 101.5 degrees Fahrenheit, and additional compatible Ebola Virus Disease symptoms Patient denies exposure to infectious person. Patient denies travel to an Ebola-affected area in the 21 days before illness onset. No symptoms or risks identified at this time. Risk Assessment: Do you want to hurt yourself or someone else? Patient reports no desire to harm self or others. Onset of symptoms was April 17, 2024. 11:43 Method Of Arrival: Ambulatory tm6 11:43 Initial Sepsis Screen: Does the patient meet any 2 criteria? No. Patient's initial ss sepsis screen is negative. Does the patient have a suspected source of infection? No. Patient's initial sepsis screen is negative. 11:43 Acuity: CHRIS 3 ss Triage Assessment: 11:43 General: Appears in no apparent distress. Behavior is calm, cooperative. Pain: tm6 Complains of pain in diaphragm Pain began 2-3 days ago. EENT: No signs and/or symptoms were reported regarding the EENT system. Neuro: Level of Consciousness is awake, alert, obeys commands, Oriented to person, place, time, situation. Cardiovascular: Patient's skin is warm and dry. Respiratory: Airway is patent Respiratory effort is even, unlabored, Respiratory pattern is regular, symmetrical. GI: No signs and/or symptoms were reported involving the gastrointestinal system. Abdomen is flat, non-distended. : No signs and/or symptoms were reported regarding the genitourinary system. Derm: No signs and/or symptoms reported regarding the dermatologic system. Musculoskeletal: Reports pain in diaphragm since 3 days ago. Historical: - Allergies: 11:46 No Known Allergies; tm6 - PMHx: 11:46 Diabetes - NIDDM; Hypertension; Chronic back pain; tm6 - PSHx: 11:46 Cholecystectomy; tm6 - Immunization history:: Flu vaccine status is unknown. - Infectious Disease History:: Denies. - Social history:: Smoking status: Patient denies any tobacco usage or history of. - Hospitalizations: : No recent hospitalization is reported. Screenin:01 [facility] ED Fall Risk Assessment (Adult) History of falling in the last 3 months, tm6 including since admission Yes- single mechanical fall (1 pt) Confusion or Disorientation No (0 pts) Intoxicated or Sedated No (0 pts) Impaired Gait Yes (1 pt) Mobility Assist Device Used Yes (1 pt) Altered Elimination No (0 pt) Score/Fall Risk Level 3 or more points = High Risk Oriented to surroundings, Maintained a safe environment, Educated pt \T\ family on fall prevention, incl call for assistance when getting out of bed. Abuse screen: Denies threats or abuse. Denies injuries from another. Nutritional screening: No deficits noted. Tuberculosis screening: No symptoms or risk factors identified. Assessment: 14:00 Reassessment: see triage assessment. tm6 Vital Signs: 11:47 Pain 7/10; tm6 11:51 BP 149 / 83; Pulse 53; Resp 19; Temp 97.5(TE); Pulse Ox 100% on R/A; MAP 101 mmHg; tm6 Weight 58.97 kg; Height 4 ft. 9 in. ; Pain 7/10; 14:00 BP 145 / 80; Pulse 55; Resp 18; Temp 97.5; Pulse Ox 100% on R/A; Pain 7/10; tm6 11:51 Body Mass Index 28.13 (58.97 kg, 144.78 cm) tm6 11:47 Pain Scale: Adult tm6 11:51 Pain Scale: Adult tm6 14:00 Pain Scale: Adult tm6 ED Course: 11:35 Patient arrived in ED. im 11:41 Cullen Love MD is Attending Physician. rn 11:43 Arm band placed on right wrist. tm6 12:50 CT Chest Wo Con In Process Unspecified. EDMS 13:44 Triage completed. ss 14:01 Patient has correct armband on for positive identification. Provided Education on: tm6 follow up with PCP. 14:01 No provider procedures requiring assistance completed. Patient did not have IV access tm6 during this emergency room visit. Administered Medications: No medications were administered Medication: 14:02 VIS not applicable for this client. tm6 Outcome: 13:02 Discharge ordered by . rn 14:01 Discharged to home ambulatory, tm6 14:01 Condition: stable 14:01 Discharge instructions given to patient, Instructed on discharge instructions, follow up and referral plans. Demonstrated understanding of instructions, follow-up care, 14:02 Patient left the ED. tm6 Signatures: Dispatcher [employer] EDAR Cullen Love MD MD rn Blanchard, Shelby, RN RN Sharon Ford Tawney, RN RN tm6 Corrections: (The following items were deleted from the chart) 11:47 11:46 Allergies: No Known Allergies; tm6 tm6 11:47 11:46 Allergies: chronic back pain; tm6 tm6
--- NOTE | 2024-04-20 13:02 | EDPHYS ---
Physician Documentation [facility] Name: Lottie Apodaca Age: 73 yrs Sex: Female : 1950 Arrival Date: 04/20/2024 Time: 11:30 Bed IW1 Private MD: ED Physician Cullen Love HPI: 04/20 12:11 This 73 yrs old Female presents to ER via Ambulatory with complaints of Fall rn Injury, Rib pain. 12:11 Details of fall: The patient fell from an upright position. rn 12:11 Onset: The symptoms/episode began/occurred 3 day(s) ago. Associated injuries: The rn patient sustained injury to the chest. Severity of symptoms: At their worst the symptoms were mild, in the emergency department the symptoms are unchanged. The patient has not experienced similar symptoms in the past. The patient has been recently seen by a physician:. Patient reports fall 3 days ago from standing, injured right anterior lateral ribs. Reports pain mostly underneath right breast. No other injury. No head injury. No vomiting. No shortness of breath. Came to make sure ribs were not broken.. Historical: - Allergies: 11:46 No Known Allergies; tm6 - PMHx: 11:46 Diabetes - NIDDM; Hypertension; Chronic back pain; tm6 - PSHx: 11:46 Cholecystectomy; tm6 - Immunization history:: Flu vaccine status is unknown. - Infectious Disease History:: Denies. - Social history:: Smoking status: Patient denies any tobacco usage or history of. - Hospitalizations: : No recent hospitalization is reported. ROS: 12:11 Constitutional: Negative for fever, chills, and weight loss, Neck: Negative for injury, rn pain, and swelling, Cardiovascular: Positive for right rib pain Respiratory: Negative for shortness of breath, cough, wheezing, and pleuritic chest pain, Abdomen/GI: Negative for abdominal pain, nausea, vomiting, diarrhea, and constipation, Back: Negative for injury and pain, MS/Extremity: Negative for injury and deformity, Skin: Negative for injury, rash, and discoloration, Neuro: Negative for headache, weakness, numbness, tingling, and seizure, Exam: 12:11 Constitutional: This is a well developed, well nourished patient who is awake, alert, rn and in no acute distress. Chest/axilla: Mild tenderness right anterolateral inferior rib. No crepitus. Respiratory: No increased work of breathing, no retractions or nasal flaring. Abdomen/GI: Soft, nontender Vital Signs: 11:47 Pain 7/10; tm6 11:51 BP 149 / 83; Pulse 53; Resp 19; Temp 97.5(TE); Pulse Ox 100% on R/A; MAP 101 mmHg; tm6 Weight 58.97 kg; Height 4 ft. 9 in. ; Pain 7/10; 14:00 BP 145 / 80; Pulse 55; Resp 18; Temp 97.5; Pulse Ox 100% on R/A; Pain 7/10; tm6 11:51 Body Mass Index 28.13 (58.97 kg, 144.78 cm) tm6 11:47 Pain Scale: Adult tm6 11:51 Pain Scale: Adult tm6 14:00 Pain Scale: Adult tm6 MDM: 11:41 Medical Screening Exam initiated rn 13:01 Differential diagnosis: contusion, fracture. Data reviewed: vital signs, nurses notes, rn radiologic studies, CT scan, and as a result, I will discharge patient. Counseling: I had a detailed discussion with the patient and/or guardian regarding the historical points, exam findings, and any diagnostic results supporting the discharge/admit diagnosis, radiology results, the need for outpatient follow up, to return to the emergency department if symptoms worsen or persist or if there are any questions or concerns that arise at home. ED course: CT shows nondisplaced 3rd through 6th rib fractures. No pneumothorax. Will discharge home with return precautions, [id number] pain medication and incentive spirometry.. 04/20 11:51 Order name: CT Chest Wo Con; Complete Time: 13:00 rn 04/20 13:00 Order name: INCENTIVE SPIROMETRY rn Administered Medications: No medications were administered Disposition Summary: 04/20/24 13:02 Discharge Ordered Notes: Location: Home rn Problem: new rn Symptoms: have improved rn Condition: Stable rn Diagnosis - Multiple fractures of ribs, right side rn Followup: rn - With: Private Physician - When: As needed - Reason: Recheck today's complaints, Re-evaluation by your physician Discharge Instructions: - Discharge Summary Sheet rn - Rib Fracture rn Forms: - Medication Reconciliation Form rn - Antibiotic rn picu - Prescription Opioid Use rn - Patient Portal Instructions rn - Leadership Thank You Letter rn Signatures: Dispatcher [employer] Cullen El MD MD rn Masterson, Tawney, RN RN 6 Corrections: (The following items were deleted from the chart) 11:47 11:46 Allergies: No Known Allergies; tm6 tm6 11:47 11:46 Allergies: chronic back pain; tm6 tm6 12:13 12:11 Constitutional: Negative for fever, chills, and weight loss, Neck: Negative for rn injury, pain, and swelling, Cardiovascular: Positive for right rib pain Respiratory: Negative for shortness of breath, cough, wheezing, and pleuritic chest pain, Abdomen/GI: Negative for abdominal pain, nausea, vomiting, diarrhea, and constipation, MS/Extremity: Negative for injury and deformity, Skin: Negative for injury, rash, and discoloration, Neuro: Negative for headache, weakness, numbness, tingling, and seizure, rn
[2024-04-20 14:07] VITALS: TEMP 97.5; O2SAT 100
[2024-04-20 14:09] VITALS: BP 145/80
== END 2024-04-20 14:02 | disposition home or self-care (01) ==
LOC: ER 11:30
DX: S22.41XA Multiple fractures of ribs, right side, initial encounter for closed fracture (principal); W18.30XA Fall on same level, unspecified, initial encounter
CPT/HCPCS: 71250; 99283

== ENCOUNTER 2024-07-11 16:03 | Emergency (ER) | payer OTHER ==
--- NOTE | 2024-07-11 17:56 | RAD REPORT ---
EXAMINATION: ONE VIEW CHEST XR CLINICAL INDICATION: fall TECHNIQUE: Frontal chest projection is submitted. Examination is limited by patient positioning and t echnique. COMPARISON: 11/13/2023 FINDINGS: The lungs are well inflated and clear. The heart is normal in size. Significant osteopenia. Chronica lly deformity proximal left humerus. IMPRESSION: No acute intrathoracic abnormalities.
--- NOTE | 2024-07-11 17:57 | RAD REPORT ---
EXAMINATION: LEFT RIB SERIES INDICATION: glf COMPARISON: None TECHNIQUE: Frontal and multiple oblique views of the LEFT ribs. FINDINGS: Diffuse osteopenia. Lucency in several lower outer ribs suspicious for nondisplaced fractures. No und erlying pneumothorax.. Chronic deformity proximal humerus.
--- NOTE | 2024-07-11 18:43 | EDPHYS ---
Physician Documentation [facility] Name: Lottie Apodaca Age: 73 yrs Sex: Female : 1950 Arrival Date: 07/11/2024 Time: 16:03 Bed DX3 Private MD: ED Physician Frank Russo HPI: 07/11 17:33 This 73 yrs old Female presents to ER via Unassigned with complaints of Fall ec2 Injury. 17:33 Patient arrives today for evaluation of a left rib injury. Had been walking ec2 subsequently tripped and fell landed on her left wrist. Patient was concerned about a fracture as she had previously injured her right ribs with fractures. Patient reports no difficulty breathing, no shortness of breath, no abdominal pain.. Historical: - Allergies: 22:19 No Known Allergies; iw - PMHx: 17:01 chronic back pain; Diabetes - NIDDM; Hypertension; iw - PSHx: 17:01 Cholecystectomy; iw ROS: 17:33 Constitutional: as per hpi ec2 Exam: 17:33 Constitutional: GEN: NAD Head: atraumatic Eyes: EOMI Ears: External ears are ec2 normal. CV: regular rate LUNGS: no respiratory distress ABD: non-distended SKIN: no evidence of rashes MSK: no evidence of trauma, left-sided chest wall TTP without deformities or crepitus appreciated. Vital Signs: 17:15 BP 134 / 78; Pulse 79; Resp 16; Temp 98.1; Pulse Ox 100% on R/A; Pain 7/10; iw 17:15 Pain Scale: Adult iw MDM: 16:58 Medical Screening Exam initiated ec2 17:34 Data reviewed: vital signs, nurses notes. ED course: Patient arrives today for ec2 evaluation after a ground-level fall, with complaints of left rib pain. Examination yields MSK findings as above. Will obtain chest and rib series, will Evaluate for bony fracture, doubt solid organ injury such as splenic injury given reassuring abdominal examination. Will treat the patient's pain with Tylenol, Robaxin and Lidoderm patch.. 18:43 ED course: Chest x-ray and rib series show possible single rib fracture left-sided, ec2 patient is well-appearing no acute distress. I discussed pain management and patient reports he has multiple pain medications at home. Will discharge home. Return precautions given. Instructions on pneumonia and breathing precautions given as well.. 07/11 17:05 Order name: CXR XRAY; Complete Time: 18:09 ec2 07/11 17:05 Order name: Ribs Left XRAY; Complete Time: 18:09 ec2 Administered Medications: 18:58 Drug: Lidoderm Topical Patch 5 % (700 mg/patch) 1 patches Topical once; leave on for 12 iw hours; cover most painful area; may cut into smaller pieces Route: Topical; Site: affected area; 18:58 Drug: Acetaminophen PO 1000 mg PO once Route: PO; iw 18:58 Drug: Methocarbamol PO 500 mg PO once Route: PO; iw Disposition Summary: 07/11/24 18:43 Discharge Ordered Notes: Location: Home ec2 Condition: Stable ec2 Diagnosis - Fracture of one rib, left side ec2 Followup: ec2 - With: Private Physician - When: - Reason: Re-evaluation by your physician Discharge Instructions: - Discharge Summary Sheet ec2 - Rib Fracture, [id number] ec2 Forms: - Medication Reconciliation Form ec2 - Antibiotic Education ec2 - Prescription Opioid Use ec2 - Patient Portal Instructions ec2 - Leadership Thank You Letter ec2 Signatures: Dispatcher [employer] Sulema Claros RN RN iw Corral, Edwin, MD MD ec2
--- NOTE | 2024-07-11 18:43 | ER ---
Nurse's Notes [facility] Name: Lottie Apodaca Age: 73 yrs Sex: Female : 1950 Arrival Date: 07/11/2024 Time: 16:03 Bed DX3 Private MD: Diagnosis: Fracture of one rib, left side Presentation: 07/11 17:00 Chief complaint: Patient states: tripped and fell yesterday , pain to left ribs. iw 17:00 Acuity: CHRIS 4 iw 17:00 Method Of Arrival: Wheelchair iw 17:00 Coronavirus screen: At this time, the client does not indicate any symptoms associated iw with coronavirus-19. Ebola Screen: No symptoms or risks identified at this time. Initial Sepsis Screen: Does the patient meet any 2 criteria? No. Patient's initial sepsis screen is negative. Does the patient have a suspected source of infection? No. Patient's initial sepsis screen is negative. Risk Assessment: Do you want to hurt yourself or someone else? Patient reports no desire to harm self or others. Historical: - Allergies: 22:19 No Known Allergies; iw - PMHx: 17:01 chronic back pain; Diabetes - NIDDM; Hypertension; iw - PSHx: 17:01 Cholecystectomy; iw Screenin:00 [facility] ED Fall Risk Assessment (Adult) History of falling in the last 3 months, iw including since admission Yes- single mechanical fall (1 pt) Confusion or Disorientation No (0 pts) Intoxicated or Sedated No (0 pts) Impaired Gait Yes (1 pt) Mobility Assist Device Used Yes (1 pt) Altered Elimination No (0 pt) Score/Fall Risk Level 3 or more points = High Risk Oriented to surroundings. Abuse screen: Denies threats or abuse. Denies injuries from another. Nutritional screening: No deficits noted. Tuberculosis screening: No symptoms or risk factors identified. Assessment: 17:00 General: Appears in no apparent distress. Behavior is calm, cooperative. Pain: iw Complains of pain in left lateral anterior chest. Neuro: Level of Consciousness is awake, alert, obeys commands, Oriented to person, place, time, situation, Moves all extremities. Cardiovascular: Patient's skin is warm and dry. Respiratory: Respiratory effort is unlabored. Vital Signs: 17:15 BP 134 / 78; Pulse 79; Resp 16; Temp 98.1; Pulse Ox 100% on R/A; Pain 7/10; iw 17:15 Pain Scale: Adult iw ED Course: 16:04 Patient arrived in ED. im 16:04 Frank Russo MD is Attending Physician. ec2 17:01 Triage completed. iw 17:50 Ribs Left XRAY In Process Unspecified. EDMS 17:51 CXR XRAY In Process Unspecified. EDMS 18:58 Sulema Cortez RN is Primary Nurse. iw Administered Medications: 18:58 Drug: Lidoderm Topical Patch 5 % (700 mg/patch) 1 patches Topical once; leave on for 12 iw hours; cover most painful area; may cut into smaller pieces Route: Topical; Site: affected area; 18:58 Drug: Acetaminophen PO 1000 mg PO once Route: PO; iw 18:58 Drug: Methocarbamol PO 500 mg PO once Route: PO; iw Outcome: 18:43 Discharge ordered by . ec2 19:13 Patient left the ED. iw Signatures: Dispatcher [employer] Sulema Claros RN RN Sharon Ford im Frank Russo MD MD ec2
[2024-07-11] MEDS ORDERED: methocarbamoL 500 MG TAB ONE (18:44)
[2024-07-11] MEDS ORDERED: ACETAMINOPHEN 500 MG TAB ONE (18:44)
[2024-07-11] MEDS ORDERED: LIDOCAINE 4% PATCH ONE (18:44)
== END 2024-07-11 19:13 | disposition home or self-care (01) ==
LOC: ER 16:03
DX: S22.32XA Fracture of one rib, left side, initial encounter for closed fracture (principal); W01.0XXA Fall on same level from slipping, tripping and stumbling without subsequent striking against object, initial encounter
CPT/HCPCS: 71045; 71100; 99282; J2003

== ENCOUNTER 2024-09-15 11:29 | Emergency (ER) | payer OTHER ==
--- OUTSIDE RECORDS SUMMARY | 2024-09-15 11:43 | XMS REPORT | Continuity of Care Document ---
Author Name Unknown Address [address] [place] [address] [facility] ID Address [address] [place] [address] Care Team Providers Care Mold Stacker Name Role Phone YOSEF PRADO Primary Care Physician Unavailab BOONE Gonzalez Attending Clinician Unavailabl e Forrest Joyner X Attending Clinician Unavaila ble Doctor Unassigned, [place] Attending Clinician U graham Cortes PT, Kendra T Attending Clinician Unavail able Boone Maharaj MD Attending Clinician [phone] Monika PTSana Attending Clinician Unava ilable LANE LINCOLN Attending Clinician Unavail able Nurse, Adc Pob Immunization Attending Clinician Unavailable Lane Lincoln DO Attending Clinician [phone] Hamlet Mckeon PT, Kaela Attending Clinician Un available SLIM SOMERS Attending Clinician Un available Dottie Joynerilios X Admitting Clinician Unavaila ble SL[place] Admitting Clinician Un available Payers Payer Name Policy Type Policy Number Effective Date Expirati on Date Source MEDICARE PART A \\T\\ [id number] 2013 00:00:00 Problems Condition Name Condition Details Condition Category Status Onset Date Resolution Date Last Treatment Date Treating Clinician Comments Source Decreased ROM of left shoulder Decreased ROM of left shoulder Disease Active 2020-04 00:00: 00 [facility] Shoulder weakness Shoulder weakness Disease Active 2020-04 00:00: 00 [facility] Abnormal posture Abnormal posture Disease Active 2020-04 00:00: 00 [facility] WEAKNESS WEAKNESS Active 01/21/2020 [facility] Diagnosis Active 01-20 18:50: 00 2020-01-23 07:18:00 [facility]al DKA,TYPE 2,METABOLI C ACIDOSIS,A CUTE KIDN DKA,TYPE 2,METABOLI C ACIDOSIS,A CUTE KIDN Active 01/21/2020 [facility] Diagnosis Active 01-20 00:00: 00 2020-01-30 21:59:00 Unique [facility]al ACUTE PANCREATIT IS ACUTE PANCREATIT IS Active 01/11/2020 [facility] Diagnosis Active 01-10 00:00: 00 2020-01-11 11:16:00 Unique Beal ACUTE PANCREAITI S ACUTE PANCREAITI S Active 01/11/2020 [facility] Diagnosis Active 01-10 00:00: 00 2020-01-20 21:53:00 Unique Beal DEGENERATI VE ARTHRITIS LEFT KNEE DEGENERATI VE ARTHRITIS LEFT KNEE Active 02/23/2015 [facility] Diagnosis Active 2014-04 00:00: 00 2015-03-22 22:00:00 Unique Beal DEGENERATI VE ARTHRITIS DEGENERATI VE ARTHRITIS Active 02/23/2015 [facility] Diagnosis Active 2014-04 00:00: 00 2015-03-11 06:33:00 Unique [facility]al Type II diabetes mellitus uncontroll ed (finding) Type II diabetes mellitus uncontroll ed (finding) Active Problem 01/28/2020 [facility] Problem Active 2020-01-28 22:07:14 Unique [facility]al ACUTE PANCREATIT IS WITHOUT NECROSIS OR I ACUTE PANCREATIT IS WITHOUT NECROSIS OR I Active [facility] Diagnosis Active 2020-01-20 21:53:00 Memdwayne Beal OSTEOARTHR ITIS OF KNEE, UNSPECIFIE D OSTEOARTHR ITIS OF KNEE, UNSPECIFIE D Active [facility] Diagnosis Active 2015-03-22 22:00:00 Memdwayne Beal Acute pancreatit is without necrosis or infection, unspecifie d Acute pancreatit is without necrosis or infection, unspecifie d 01/19/2020 [facility] Problem 2020-01-19 07:06:47 Memdwayne Beal Type 2 diabetes mellitus with ketoacidos is without coma Type 2 diabetes mellitus with ketoacidos is without coma 01/28/2020 [facility] Problem 2020-01-28 22:07:14 [facility] TYPE 2 DIABETES MELLITUS WITH KETOACIDOS TYPE 2 DIABETES MELLITUS WITH KETOACIDOS Active [facility] Active 2020-01-30 21:59:00 Memdwayne Martinsann ACIDOSIS ACIDOSIS Active [facility] Active 2022-06-29 12:55:00 [facility] TYPE 2 DIABETES MELLITUS WITH KETOACIDOS IS WITHOUT CO TYPE 2 DIABETES MELLITUS WITH KETOACIDOS IS WITHOUT CO Active [facility] Active 2020-01-24 08:02:00 Maudedwayne shae Beal Syncope and collapse (disorder) Syncope and collapse (disorder) Resolved Problem 01/28/2020 D/T HYPOGLYCEM IA [facility], Faisal Espit[facility] Problem Resolve d 2020-01-28 22:07:14 [facility] Lower urinary tract infectious disease (disorder) Lower urinary tract infectious disease (disorder) Resolved 01/21/2015 Problem 01/28/2020 [facility], Faisal Espitia [facility] Problem Resolve d 2014-04 00:00: 00 2020-01-28 22:07:14 2020-01-28 22:07:14 [facility] Anemia (disorder) Anemia (disorder) Resolved 04/23/2012 Problem 01/28/2020 D/T BLEEDING ULCER [facility], Faisal Espitia [facility] Problem Resolve d 04-23 00:00: 00 2020-01-28 22:07:14 2020-01-28 22:07:14 [facility] Allergies, Adverse Reactions, Alerts Allergy Name Allergy Type Status Severity Reaction(s) Onset Date Inactive Date Treating Clinician Comments Source No Known Allergie s DA Active U 05-31 00:00: 00 [facility] YVONNE Inhibito rs YVONNE Inhibito rs Active [facility] NO KNOWN ALLERGIE S Drug Class Active [facility] Social History Social Habit Start Date Stop Date Quantity Comments Source Exposure to SARS-CoV-2 (event) Not sure [facility] Alcohol intake 2021-02-04 00:00:00 2021-02-04 00:00:00 0 /d [facility] Social History 2015-03-11 14:37:12 2015-03-11 14:37:12 [facility] Sex Ass[birth year] At 1950 00:00:00 1950 00:00:00 [facility] Smoking Status Start Date Stop Date Source Never smoker [facility] Medications Ordered Medication Name Filled Medication Name Start Date Stop Date Current Medication? Ordering Clinician Indication Dosage Frequency Signature (SIG) Comments Components Source amLODIPine 5 mg tablet 12-31 00:00: 00 Yes [facility] raloxifene 60 mg tablet 12-30 00:00: 00 Yes [facility] MYRBETRIQ 50 mg tablet 12-23 00:00: 00 Yes 1{tbl} Take 1 tablet by mouth daily. [facility] metoprolol tartrate 25 mg tablet 12-21 00:00: 00 Yes 25mg Take 25 mg by mouth 2 (two) times daily with meals. [facility] LEVEMIR FLEXTOUCH U-100 INSULN 100 unit/mL (3 mL) injection 12-14 00:00: 00 Yes INJECT UNDER THE SKIN 30 UNITS ONCE A DAY BEFORE BEDTIME MEAL [facility] levocetiriz ine 5 mg tablet 12-10 00:00: 00 Yes 5mg Take 5 mg by mouth at bedtime. [facility] pravastatin 20 mg tablet 11-20 00:00: 00 Yes TAKE 1 TABLET BY MOUTH DAILY WITH EVEING MEAL [facility] pregabalin 50 mg capsule 10-15 00:00: 00 Yes 50mg Take 50 mg by mouth 2 (two) times daily. [facility] 3 ML insulin detemir 100 UNT/ML Prefilled Syringe [Levemir] 2019-04 18:12: 00 Yes 25 unit, SUB-Q, Daily, # 3 mL, 3 Refill(s), Pharmacy: [facility] #[id number], 160, cm, 01/23/20 6:52:00 CDT, Height, 77.8, kg, 01/22/20 2:21:00 CDT, Weight [facility] Streptococc us pneumoniae serotype 1 capsular antigen diphtheria [id number] protein conjugate vaccine / Streptococc us pneumoniae serotype 14 capsular antigen diphtheria [id number] protein conjugate vaccine / Streptococc us pneumoniae serotype 18C capsular antigen d 2019-04 14:46: 25 No Notes: Shake well prior to use (Same as: Arie 13) [facility] cefdinir 300 MG Oral Capsule 2019-04 14:24: 00 Yes 300 mg = 1 cap, PO, Q12H, X 5 day, # 10 cap, 0 Refill(s), Pharmacy: [facility] #[id number], 160, cm, 01/23/20 6:52:00 CDT, Height, 77.8, kg, 01/22/20 2:21:00 CDT, Weight Unique Bela metoprolol tartrate 25 mg oral tablet 2019-04 14:19: 00 Yes 25 mg = 1 tab, PO, Q12H, # 60 tab, 0 Refill(s), Pharmacy: [facility] #[id number], 160, cm, 01/23/20 6:52:00 CDT, Height, 77.8, kg, 01/22/20 2:21:00 CDT, Weight [facility] metoprolol tartrate 2019-04 14:00: 00 No Notes: (Same as: Lopressor) [facility] Acetaminoph en 325 MG / Hydrocodone Bitartrate 7.5 MG Oral Tablet [[place] 7.5/325] 2019-04 13:53: 00 No Notes: Same as [place] 325-7.5mg Do not exceed 4gm/day of acetaminop hen. 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 WASTE: F/P - Black; E - Municipal Trash Bin Stable for 28 days at room temperatur e. 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 [facility] Lyrica 2019-04 14:00: 00 No Notes: Same as Lyrica [facility] Raloxifene 2019-04 14:00: 00 No Notes: Hazardous Drug Group 2:Non-anti neoplastic Hazardous Drug -- Refer to safe handling procedure PPE Matrix (Same as:Evista) "Do Not Crush" [facility] Metformin hydrochlori de 1000 MG Oral Tablet 2019-04 13:00: 00 No Notes: (Same as: Glucophage ) Take with meal [facility] Flexeril 2019-04 12:59: 00 No Notes: (Same As: Flexeril) [facility] potassium phosphate-s odium phosphate 250 mg-280 mg-160 mg oral powder for reconstitut ion 2019-04 18:29: 00 No Notes: (Same as: Phos-NaK) Each 1.5 gm pkt has 250mg phosphorou s. Mix w/2.5oz water and stir. [facility] potassium phosphate 2019-04 18:29: 00 No Notes: (Same as: K Phosphate. ) Do not infuse phosphorou s concurrent ly in the same line as TPN or IVF that contains calcium. For double lumen central lines, phosphorou s may be infused in a separate lumen from TPN. 1 mMol phoshate has 1.47 mEq potassium Infuse over 4 hours [facility] Insulin Glargine 100 UNT/ML Injectable Solution [Lantus] 2019-04 18:07: 00 No Notes: (Same as: Lantus) Do not hold insulin without contacting prescriber WASTE: F/P - Black; E - Municipal Trash Bin "single patient use only" Stable for 28 days at room temperatur e Expires in days from ____Date [facility] potassium phosphate-s odium phosphate 250 mg-280 mg-160 mg oral powder for reconstitut ion 2019-04 23:01: 00 No Notes: (Same as: Phos-NaK) Each 1.5 gm pkt has 250mg phosphorou s. Mix w/2.5oz water and stir. Unique Martinsann sodium phosphate 2019-04 23:01: 00 No Notes: Infuse over 4 hour. Do not infuse phosphorou s concurrent ly in the same line as TPN or IVF that contains calcium. For double lumen central lines, phosphorou s may be infused in a separate lumen from TPN. [facility] Magnesium Oxide 2019-04 23:01: 00 No Notes: (Same as: Mag-Ox 400) Magnesium oxide 185gc=938f g elemental magnesium Dose=____m g magnesium oxide (___mg elemental magnesium) [facility] Calcium Gluconate 2019-04 23:01: 00 No Notes: Contains: calcium gluconate 20mg/mL NaCl 0.67% 50mL WASTE: F/P - Sink; E - Municipal Trash Bin [facility] Potassium Chloride 2019-04 23:01: 00 No Notes: (Same as: KCL) Infuse no faster than 10 mEq/hr if given peripheral ly. [facility] potassium phosphate 2019-04 23:01: 00 No Notes: (Same as: K Phosphate. ) Do not infuse phosphorou s concurrent ly in the same line as TPN or IVF that contains calcium. For double lumen central lines, phosphorou s may be infused in a separate lumen from TPN. 1 mMol phoshate has 1.47 mEq potassium Infuse over 4 hours [facility] Magnesium Sulfate 2019-04 23:01: 00 No Notes: WASTE: F/P - Sink; E - Municipal Trash Bin [facility] Calcium Carbonate 500 MG Chewable Tablet 2019-04 23:01: 00 No Notes: (Same As: Tums) Calcium Carbonate 500 mg = 200 mg elemental calcium Dose = mg calcium carbonate ( mg elemental calcium) [facility] Ceftriaxone 2019-04 23:00: 00 No Notes: (Same As: Rocephin). Use with 100 mL NS and infuse over 30 min MEDICATION WASTE Product Size: 1000 mg Product Wasted: ___ mg Unique [facility]al Azithromyci n 2019-04 18:00: 00 No Notes: (Same As: Zithromax IV) [facility] Insulin regular 100 unit + Sodium Chloride 0.9% (titrate) 99 mL 2019-04 17:47: 00 No Notes: (Same as: Humulin R, NovoLIN R) Roll in palms of hands gently; Do not shake vigorously . WASTE: F/P - Black; E - Municipal Trash Bin Stable for 31 days at room temperatur e Expires in days from ____Date [facility] Dextrose 50% Syringe (D50W) 2019-04 17:47: 00 No 25 gm, 50 mL, Route: IVP, Drug Form: INJ, Dosing Weight 77.8, kg, PRN, PRN Blood Glucose Results, Start date: 01/22/20 12:47:00 CDT, Duration: 30 day, Stop date: 02/21/20 12:46:00 CDT, 0 [facility] Lactated Ringers IV 1,000 mL 2019-04 17:47: 00 No 1,000 mL, Rate: 75 ml/hr, Infuse over: 13.3 hr, Route: IV, Dosing Weight 77.8 kg, Total Volume: 1,000, Start date: 01/22/20 12:47:00 CDT, Duration: 30 day, Stop date: 02/21/20 12:46:00 CDT, 1.88, m2, 0 [facility] cefepime 2019-04 17:00: 00 No Notes: (Same As: Maxipime) MEDICATION WASTE Product Size: 1000 mg Product Wasted: ___ mg [facility] Aspirin 2019-04 14:00: 00 No Notes: Take with food. [facility]al heparin 2019-04 13:00: 00 No Notes: porcine heparin [facility] Acetaminoph en 2019-04 07:39: 00 No Notes: Do not exceed 4 gm/day. (Same as: Tylenol) [facility] sennosides, SHELTER 8.6 MG Oral Tablet 2019-04 07:39: 00 No Notes: (Same as: Senokot) [facility] Saline Flush 0.9% 2019-04 07:38: 00 No Notes: (Same as: BD Posiflush) [facility] Nystatin 100 UNT/MG Topical Powder 2019-04 07:38: 00 No Notes: (Same as:Mycosta tin, Nilstat) For external use only. [facility] potassium phosphate 2019-04 07:14: 00 No Notes: (Same as: K Phosphate. ) Do not infuse phosphorou s concurrent ly in the same line as TPN or IVF that contains calcium. For double lumen central lines, phosphorou s may be infused in a separate lumen from TPN. 1 mMol phoshate has 1.47 mEq potassium Infuse over 4 hours [facility] Dextrose 50% Syringe (D50W) 2019-04 07:14: 00 No 12.5 gm, 25 mL, Route: IVP, Drug Form: INJ, Dosing Weight 81.818, kg, PRN, PRN Blood Glucose Results, Start date: 01/22/20 2:14:00 CDT, Duration: 30 day, Stop date: 02/21/20 2:13:00 CDT, 0 [facility] Glucagon 2019-04 07:14: 00 No 1 mg, Route: IM, Drug form: PDR/INJ, PRN, Dosing Weight 81.818, kg, PRN Blood Glucose Results, Start date: 01/22/20 2:14:00 CDT, Duration: 30 day, Stop date: 02/21/20 2:13:00 CDT, 0 Maudedwayne kaufman Emigdio Potassium Chloride 2019-04 07:14: 00 No Notes: (Same as: KCL) Infuse no faster than 10 mEq/hr if given peripheral ly. [facility] Magnesium Sulfate 2019-04 07:14: 00 No Notes: WASTE: F/P - Sink; E - Municipal Trash Bin [facility] Sodium Chloride 0.9% IV 1,000 mL 2019-04 07:14: 00 No 1,000 mL, Rate: 250 ml/hr, Infuse over: 4 hr, Route: IV, Dosing Weight 81.818 kg, Total Volume: 1,000, When Finger stick blood glucose values remain ABOVE 250 mg/dL administer until BG is less than 250 mg/dL., Start date: 01/22/20 2:14:00 CDT, Duratio... Unique Martinsann D5W 1/2NS 1,000 mL 2019-04 07:14: 00 No 1,000 mL, Rate: 250 ml/hr, Infuse over: 4 hr, Route: IV, Dosing Weight 81.818 kg, Total Volume: 1,000, Start date: 01/22/20 2:14:00 CDT, Duration: 30 day, Stop date: 02/21/20 2:13:00 CDT, 1.85, m2, 0 Unique Martinsann Insulin (regular) Titrate IV additive 100 unit + Sodium Chloride 0.9% (titrate) 99 mL 2019-04 07:14: 00 No Notes: (Same as: Humulin R, NovoLIN R) Roll in palms of hands gently; Do not shake vigorously . WASTE: F/P - Black; E - Municipal Trash Bin Stable for 31 days at room temperatur e Expires in days from ____Date [facility] Vancomycin 2019-04 04:13: 00 No 2001 mg: infuse over 2.5 hours For adult patients only: Round to nearest 250 mg per Medical Staff approval MEDICATION WASTE Product Size: 1000 mg Product Wasted: ___ mg Unique Beal cefepime 2019-04 04:13: 00 No Notes: (Same As: Maxipime) MEDICATION WASTE Product Size: 1000 mg Product Wasted: ___ mg Unique [facility]al Rocephin 2019-04 04:10: 00 No 1 gm, Route: IVPB, Drug form: PDR/INJ, ONCE, Dosing Weight 81.818, kg, Priority: STAT, Start date: 01/21/20 23:10:00 CDT, Stop date: 01/21/20 23:10:00 CDT, ABX Indication : ED - Suspected Sepsis [facility]al Insulin (regular) Titrate IV additive 100 unit + Sodium Chloride 0.9% (titrate) 99 mL 2019-04 02:16: 00 No Notes: (Same as: Humulin R, NovoLIN R) Roll in palms of hands gently; Do not shake vigorously . WASTE: F/P - Black; E - Municipal Trash Bin Stable for 31 days at room temperatur e Expires in days from ____Date Unique kaufman Emigdio Sodium Chloride 0.9% IV 1,000 mL 2019-04 02:16: 00 No 1,000 mL, Rate: 250 ml/hr, Infuse over: 4 hr, Route: IV, Dosing Weight 81.818 kg, Total Volume: 1,000, When Finger stick blood glucose values remain ABOVE 250 mg/dL administer until BG is less than 250 mg/dL., Start date: 01/21/20 21:16:00 CDT, Durati... Unique kaufman Emigdio D5W 1/2NS 1,000 mL 2019-04 02:16: 00 No 1,000 mL, Rate: 250 ml/hr, Infuse over: 4 hr, Route: IV, Dosing Weight 81.818 kg, Total Volume: 1,000, Start date: 01/21/20 21:16:00 CDT, Duration: 30 day, Stop date: 02/20/20 21:15:00 CDT, 1.85, m2, 0 Unique Martinsann Insulin regular 2019-04 02:16: 00 No Notes: (Same as: Humulin R) Roll in palms of hands gently; Do not shake vigorously . WASTE: F/P - Black; E - Municipal Trash Bin Stable for 31 days at room temperatur e Expires in days from ____Date [facility] Dextrose 50% Syringe (D50W) 2019-04 02:16: 00 No 12.5 gm, 25 mL, Route: IVP, Drug Form: INJ, Dosing Weight 81.818, kg, PRN, PRN Blood Glucose Results, Start date: 01/21/20 21:16:00 CDT, Duration: 30 day, Stop date: 02/20/20 21:15:00 CDT, 0 Unique kaufman Emigdio Glucagon 2019-04 02:16: 00 No 1 mg, Route: IM, Drug form: PDR/INJ, PRN, Dosing Weight 81.818, kg, PRN Blood Glucose Results, Start date: 01/21/20 21:16:00 CDT, Duration: 30 day, Stop date: 02/20/20 21:15:00 CDT, 0 Maudedwayne shae Beal Potassium Chloride 2019-04 02:16: 00 No Notes: (Same as: KCL) Infuse no faster than 10 mEq/hr if given peripheral ly. [facility] Magnesium Sulfate 2019-04 02:16: 00 No Notes: WASTE: F/P - Sink; E - Municipal Trash Bin [facility]al potassium phosphate 2019-04 02:16: 00 No Notes: (Same as: K Phosphate. ) Do not infuse phosphorou s concurrent ly in the same line as TPN or IVF that contains calcium. For double lumen central lines, phosphorou s may be infused in a separate lumen from TPN. 1 mMol phoshate has 1.47 mEq potassium Infuse over 4 hours Unique Beal NS (Bolus) IV 2019-04 02:15: 00 No 1,000 mL, 1,000 ml/hr, Infuse Over: 1 hr, Route: IV, 1,000, Drug form: INJ, ONCE, Priority: STAT, Dosing Weight 81.818 kg, Start date: 01/21/20 21:15:00 CDT, Stop date: 01/21/20 21:15:00 CDT, 0 [facility]al Ciprofloxac in 500 MG Oral Tablet [Cipro] 01-13 16:12: 00 Yes 500 mg = 1 tab, PO, Q12H, X 10 day, # 20 tab, 0 Refill(s), Pharmacy: [facility] #[id number], 165.1, cm, 01/11/20 11:33:00 CDT, Height, 77.273, kg, 01/11/20 11:33:00 CDT, Weight Unique [facility]al Metronidazo le 500 MG Oral Tablet [Flagyl] 01-13 16:12: 00 Yes 500 mg = 1 tab, PO, Q8H, X 7 day, # 21 tab, 0 Refill(s), Pharmacy: [facility] #[id number], 165.1, cm, 01/11/20 11:33:00 CDT, Height, 77.273, kg, 01/11/20 11:33:00 CDT, Weight [facility] ketOROLAC (ANES) 01-12 18:38: 00 No IV, ONCE [facility] glycopyrrol ate (ANES) 01-12 18:38: 00 No Route: IV, Drug form: INJ, ONCE, Stop date: 01/13/20 13:38:00 CDT [facility] neostigmine (ANES) 01-12 18:38: 00 No Route: IV, Drug form: INJ, ONCE, Stop date: 01/13/20 13:38:00 CDT [facility] Emig[facility]io ketOROLAC (ANES) 01-12 18:38: 00 No IV, ONCE [facility] Emig[facility]io glycopyrrol ate (ANES) 01-12 18:38: 00 No Route: IV, Drug form: INJ, ONCE, Stop date: 01/13/20 13:38:00 CDT [facility] Emigdio neostigmine (ANES) 01-12 18:38: 00 No Route: IV, Drug form: INJ, ONCE, Stop date: 01/13/20 13:38:00 CDT [facility] ePHEDrine (ANES) 01-12 18:21: 00 No Route: IV, Drug form: INJ, ONCE, Stop date: 01/13/20 13:21:00 CDT [facility] ePHEDrine (ANES) 01-12 18:21: 00 No Route: IV, Drug form: INJ, ONCE, Stop date: 01/13/20 13:21:00 CDT [facility] fentaNYL (ANES) 01-12 18:10: 00 No Route: IV, Drug form: INJ, ONCE, Stop date: 01/13/20 13:10:00 CDT [facility] Emig[facility]io fentaNYL (ANES) 01-12 18:10: 00 No Route: IV, Drug form: INJ, ONCE, Stop date: 01/13/20 13:10:00 CDT [facility] ondansetron (ANES) 01-12 18:10: 00 No Route: IV, Drug form: INJ, ONCE, Stop date: 01/13/20 13:10:00 CDT Memoria hsae MartinsRandolph phenylephri ne ([facility]) 01-12 18:05: 00 No Route: IV, Drug form: INJ, ONCE, Stop date: 01/13/20 13:05:00 CDT Memoria shae MartinsRandolph esmolol ([facility]) 01-12 18:05: 00 No Route: IV, Drug form: INJ, ONCE, Stop date: 01/13/20 13:05:00 CDT [facility] l Emigdio phenylephri ne ([facility]) 01-12 18:05: 00 No Route: IV, Drug form: INJ, ONCE, Stop date: 01/13/20 13:05:00 CDT [facility] l Emigdio esmolol ([facility]) 01-12 18:05: 00 No Route: IV, Drug form: INJ, ONCE, Stop date: 01/13/20 13:05:00 CDT [facility] propofol ([facility]) 01-12 17:55: 00 No Route: IV, Drug form: INJ, ONCE, Stop date: 01/13/20 12:55:00 CDT [facility] Emig[facility] rocuronium ([facility]) 01-12 17:55: 00 No Route: IV, Drug form: INJ, ONCE, Stop date: 01/13/20 12:55:00 CDT Memdwayne l Emigdio succinylcho line ([facility]) 01-12 17:55: 00 No Route: IV, Drug form: INJ, ONCE, Stop date: 01/13/20 12:55:00 CDT Memdwayne Martinsann ceFAZolin ([facility]) 01-12 17:55: 00 No Route: IV, Drug form: INJ, ONCE, Stop date: 01/13/20 12:55:00 CDT [facility] Emigdio propofol ([facility]) 01-12 17:55: 00 No Route: IV, Drug form: INJ, ONCE, Stop date: 01/13/20 12:55:00 CDT [facility] l Emigdio rocuronium ([facility]) 01-12 17:55: 00 No Route: IV, Drug form: INJ, ONCE, Stop date: 01/13/20 12:55:00 CDT Mem[facility] l Emigdio succinylcho line (ANES) 01-12 17:55: 00 No Route: IV, Drug form: INJ, ONCE, Stop date: 01/13/20 12:55:00 CDT Unique Beal ceFAZolin (ANES) 01-12 17:55: 00 No Route: IV, Drug form: INJ, ONCE, Stop date: 01/13/20 12:55:00 CDT Unique shae [facility] midazolam (ANES) 01-12 17:50: 00 No Route: IV, Drug form: SOLN, ONCE, Stop date: 01/13/20 12:50:00 CDT Maudedwayne shae Emigdio lidocaine (ANES) 01-12 17:50: 00 No Route: IV, Drug form: INJ, ONCE, Stop date: 01/13/20 12:50:00 CDT Maudedwayne shae Beal midazolam (ANES) 01-12 17:50: 00 No Route: IV, Drug form: SOLN, ONCE, Stop date: 01/13/20 12:50:00 CDT Unique Beal lidocaine (ANES) 01-12 17:50: 00 No Route: IV, Drug form: INJ, ONCE, Stop date: 01/13/20 12:50:00 CDT Unique shae Beal Calcium Chloride 0.0014 MEQ/ML / Potassium Chloride 0.004 MEQ/ML / Sodium Chloride 0.103 MEQ/ML / Sodium Lactate 0.028 MEQ/ML Injectable Solution 01-12 17:27: 00 No 1,000 mL, Rate: 75 ml/hr, Infuse over: 13.3 hr, Route: IV, Dosing Weight 77.273 kg, Total Volume: 1,000, Start date: 01/13/20 12:27:00 CDT, Duration: 30 day, Stop date: 02/12/20 12:26:00 CDT, 1.9, m2, 0 Maudedwayne shae Beal Calcium Chloride 0.0014 MEQ/ML / Potassium Chloride 0.004 MEQ/ML / Sodium Chloride 0.103 MEQ/ML / Sodium Lactate 0.028 MEQ/ML Injectable Solution 01-12 17:27: 00 No 1,000 mL, Rate: 75 ml/hr, Infuse over: 13.3 hr, Route: IV, Dosing Weight 77.273 kg, Total Volume: 1,000, Start date: 01/13/20 12:27:00 CDT, Duration: 30 day, Stop date: 02/12/20 12:26:00 CDT, 1.9, m2, 0 Memdwayne Beal Lactated Ringers Injection IV (ANES) 1000 mL 01-12 16:53: 00 No Route: IV, Total Volume: 1,000, Start date: 01/13/20 11:53:00 CDT, Stop date: 01/13/20 12:53:00 CDT Maudedwayne shae Beal Insulin regular 01-12 16:32: 00 No 10 unit, Route: IV, ONCE, Dosing Weight 77.273, kg, Start date: 01/13/20 11:32:00 CDT, Stop date: 01/13/20 11:32:00 CDT Maudedwayne shae Beal Insulin regular 01-12 16:32: 00 No 10 unit, Route: IV, ONCE, Dosing Weight 77.273, kg, Start date: 01/13/20 11:32:00 CDT, Stop date: 01/13/20 11:32:00 CDT Unique Beal Metoprolol 01-12 14:33: 00 No Notes: (Same as: Lopressor) Push over 2 minutes Unique Beal Oxycodone Hydrochlori de 5 MG Oral Tablet 01-12 14:33: 00 No Notes: (Same as: Roxicodone ) Unique Beal Flumazenil 01-12 14:33: 00 No Notes: (Same as: Romazicon) Unique Beal Naloxone 01-12 14:33: 00 No Notes: Same as Narcan Unique Beal Meperidine 01-12 14:33: 00 No Notes: (Same As: Demerol) Unique [facility]al Ondansetron 01-12 14:33: 00 No Notes: (Same as: Zofran) MEDICATION WASTE Product Size: 4 mg Product Wasted: ___ mg Unique Beal Hydralazine 01-12 14:33: 00 No Notes: (Same as: Apresoline ) Push over 5 minutes Unique Beal Metoprolol 01-12 14:33: 00 No Notes: (Same as: Lopressor) Push over 2 minutes Unique Beal Oxycodone Hydrochlori de 5 MG Oral Tablet 01-12 14:33: 00 No Notes: (Same as: Roxicodone ) Unique Beal Morphine 01-12 14:33: 00 No Notes: (Same as:MORPhin e Sulfate) Memdwayne Beal Flumazenil 01-12 14:33: 00 No Notes: (Same as: Romazicon) Unique Beal Naloxone 01-12 14:33: 00 No Notes: Same as Narcan Memdwayne Beal Meperidine 01-12 14:33: 00 No Notes: (Same As: Demerol) Unique Beal Ondansetron 01-12 14:33: 00 No Notes: (Same as: Zofran) MEDICATION WASTE Product Size: 4 mg Product Wasted: ___ mg Unique Beal Zosyn 01-12 13:00: 00 No Notes: (Same as: Zosyn) Dosing based on Piperacill in component MEDICATION WASTE Product Size: 3375 mg Product Wasted: ___ mg Unique Beal Zosyn 01-12 13:00: 00 No Notes: (Same as: Zosyn) Dosing based on Piperacill in component MEDICATION WASTE Product Size: 3375 mg Product Wasted: ___ mg Unique Beal insulin, isophane 01-11 22:00: 00 No Notes: (Same as: Humulin N) Roll in palms of hands gently; Do not shake vigorously . WASTE: F/P - Black; E - Municipal Trash Bin Stable for 31 days at room temperatur e Expires in days from ____Date Unique Beal insulin, isophane 01-11 22:00: 00 No Notes: (Same as: Humulin N) Roll in palms of hands gently; Do not shake vigorously . WASTE: F/P - Black; E - Municipal Trash Bin Stable for 31 days at room temperatur e Expires in days from ____Date Unique Beal Hydralazine 01-11 16:00: 00 No Notes: (Same as: Apresoline ) May interfere w/enteral feedings Take With Food. Unique Beal Hydralazine 01-11 16:00: 00 No Notes: (Same as: Apresoline ) May interfere w/enteral feedings Take With Food. Unique Beal Protonix 01-11 14:00: 00 No Notes: For IV push reconstitu te with 10 ml 0.9% sodium chloride and push over 2 minutes. (Same as: Protonix) Unique Beal Raloxifene 01-11 14:00: 00 No Notes: Hazardous Drug Group 2:Non-anti neoplastic Hazardous Drug -- Refer to safe handling procedure PPE Matrix (Same as:Evista) "Do Not Crush" Unique Beal Protonix 01-11 14:00: 00 No Notes: For IV push reconstitu te with 10 ml 0.9% sodium chloride and push over 2 minutes. (Same as: Protonix) Unique Beal Amlodipine 01-11 14:00: 00 No 5 mg, 1 tab, Route: PO, Drug form: TAB, Daily, Dosing Weight 77.273, kg, Start date: 01/12/20 9:00:00 CDT, Duration: 30 day, Stop date: 02/10/20 9:00:00 CDT Unique Beal Raloxifene 01-11 14:00: 00 No Notes: Hazardous Drug Group 2:Non-anti neoplastic Hazardous Drug -- Refer to safe handling procedure PPE Matrix (Same as:Evista) "Do Not Crush" Unique Martinsann Lyrica 01-10 22:00: 00 No Notes: Same as Lyrica Maudedwayne shae MartinsEmigdio Lyrica 01-10 22:00: 00 No Notes: Same as Lyrica Unique shae [facility] Amlodipine 01-10 19:00: 00 No Notes: (Same as: Norvasc) Unique Beal Amlodipine 01-10 19:00: 00 No Notes: (Same as: Norvasc) Unique Beal Dextrose 50% Syringe (D50W) 01-10 18:21: 00 No 12.5 gm, 25 mL, Route: IVP, Drug Form: INJ, Dosing Weight 77.273, kg, PRN, PRN Blood Glucose Results, Start date: 01/11/20 13:21:00 CDT, Duration: 30 day, Stop date: 02/10/20 13:20:00 CDT, 0 Unique Beal Glucagon 01-10 18:21: 00 No 1 mg, Route: IM, Drug form: PDR/INJ, PRN, Dosing Weight 77.273, kg, PRN Blood Glucose Results, Start date: 01/11/20 13:21:00 CDT, Duration: 30 day, Stop date: 02/10/20 13:20:00 CDT, 0 Unique [facility]al Insulin Lispro 01-10 18:21: 00 No Notes: (Same as: Humalog) Roll in palms of hands gently; Do not shake vigorously . WASTE: F/P - Black; E - Municipal Trash Bin Stable for 28 days at room temperatur e. Expires in days from ____Date Unique Beal Acetaminoph en 325 MG / Hydrocodone Bitartrate 7.5 MG Oral Tablet 01-10 18:21: 00 No Notes: Same as [place] 325-7.5mg Do not exceed 4gm/day of acetaminop hen. Unique Beal amLODIPine 5 mg oral tablet 01-10 17:56: 00 Yes 5 mg = 1 tab, PO, Daily, # 30 tab, 0 Refill(s) Unique Beal raloxifene 60 mg oral tablet 01-10 17:56: 00 Yes 60 mg = 1 tab, PO, Daily, # 30 tab, 0 Refill(s) Unique Beal Acetaminoph en 325 MG / Hydrocodone Bitartrate 7.5 MG Oral Tablet 01-10 17:39: 00 Yes 1 tab, PO, TID, 0 Refill(s) Unique Beal Hydrochloro thiazide 25 MG / Losartan Potassium 100 MG Oral Tablet 01-10 17:39: 00 Yes 1 tab, PO, Daily, # 30 tab, 0 Refill(s) Memdwayne Beal pregabalin 50 MG Oral Capsule [Lyrica] 01-10 17:39: 00 Yes 50 mg = 1 cap, PO, BID, 0 Refill(s) Unique Beal 24 HR mirabegron 50 MG Extended Release Tablet [Myrbetriq] 01-10 17:39: 00 Yes 50 mg = 1 tab, PO, Daily, # 30 tab, 0 Refill(s) Unique Beal Acetaminoph en 325 MG / Hydrocodone Bitartrate 7.5 MG Oral Tablet 01-10 17:39: 00 Yes 1 tab, PO, TID, 0 Refill(s) Unique Beal Hydrochloro thiazide 25 MG / Losartan Potassium 100 MG Oral Tablet 01-10 17:39: 00 Yes 1 tab, PO, Daily, # 30 tab, 0 Refill(s) Unique Beal 24 HR mirabegron 50 MG Extended Release Tablet [Myrbetriq] 01-10 17:39: 00 Yes 50 mg = 1 tab, PO, Daily, # 30 tab, 0 Refill(s) Unique Martinsann Lovenox 01-10 16:00: 00 No Notes: (Same as: Lovenox) Memdwayne shae Emigdio Lovenox 01-10 16:00: 00 No Notes: (Same as: Lovenox) Memdwayne shae Randolph Clonidine Hydrochlori de 0.1 MG Oral Tablet 01-10 15:47: 00 No Notes: (Same As: Catapres) Memdwayne shae Randolph Clonidine Hydrochlori de 0.1 MG Oral Tablet 01-10 15:47: 00 No Notes: (Same As: Catapres) Memdwayne shae Randolph Labetalol 01-10 15:46: 00 No Notes: (Same as: Normodyne, Trandate) Push over 2 minutes Give bolus over 2-3 minutes. Unique Beal Labetalol 01-10 15:46: 00 No Notes: (Same as: Normodyne, Trandate) Push over 2 minutes Give bolus over 2-3 minutes. Unique kaufman Randolph Dextrose 50% Syringe (D50W) 01-10 15:45: 00 No 12.5 gm, 25 mL, Route: IVP, Drug Form: INJ, Dosing Weight 71.364, kg, PRN, PRN Blood Glucose Results, Start date: 01/11/20 10:45:00 CDT, Duration: 30 day, Stop date: 02/10/20 10:44:00 CDT, 0 Unique Martinsann Glucagon 01-10 15:45: 00 No 1 mg, Route: IM, Drug form: PDR/INJ, PRN, Dosing Weight 71.364, kg, PRN Blood Glucose Results, Start date: 01/11/20 10:45:00 CDT, Duration: 30 day, Stop date: 02/10/20 10:44:00 CDT, 0 Unique Martinsann Insulin Lispro 01-10 15:45: 00 No Notes: (Same as: Humalog) Roll in palms of hands gently; Do not shake vigorously . WASTE: F/P - Black; E - Municipal Trash Bin Stable for 28 days at room temperatur e. Expires in days from ____Date Unique kaufman Emigdio Dextrose 50% Syringe (D50W) 01-10 15:45: 00 No 12.5 gm, 25 mL, Route: IVP, Drug Form: INJ, Dosing Weight 71.364, kg, PRN, PRN Blood Glucose Results, Start date: 01/11/20 10:45:00 CDT, Duration: 30 day, Stop date: 02/10/20 10:44:00 CDT, 0 Unique kaufman Emigdio Glucagon 01-10 15:45: 00 No 1 mg, Route: IM, Drug form: PDR/INJ, PRN, Dosing Weight 71.364, kg, PRN Blood Glucose Results, Start date: 01/11/20 10:45:00 CDT, Duration: 30 day, Stop date: 02/10/20 10:44:00 CDT, 0 Memdwayne Beal Insulin Lispro 01-10 15:45: 00 No Notes: (Same as: Humalog) Roll in palms of hands gently; Do not shake vigorously . WASTE: F/P - Black; E - Municipal Trash Bin Stable for 28 days at room temperatur e. Expires in days from ____Date Unique Beal Zofran 01-10 15:44: 00 No Notes: (Same as: Ana) MEDICATION WASTE Product Size: 4 mg Product Wasted: ___ mg Memdwayne kaufman Randolph Morphine 01-10 15:44: 00 No 2 mg, 1 mL, Route: IVP, Drug form: SOLN, Q4H, Dosing Weight 71.364, kg, PRN Pain Score 7-10, Start date: 01/11/20 10:44:00 CDT, Duration: 30 day, Stop date: 02/10/20 10:43:00 CDT, 0 Memdwayne Martinsann LR IV 1,000 mL 01-10 15:44: 00 No 1,000 mL, Rate: 150 ml/hr, Infuse over: 6.7 hr, Route: IV, Dosing Weight 71.364 kg, Total Volume: 1,000, Start date: 01/11/20 10:44:00 CDT, Duration: 30 day, Stop date: 02/10/20 10:43:00 CDT, 1.73, m2, 0 Memoria l Emigdio Morphine 01-10 15:44: 00 No 2 mg, 1 mL, Route: IVP, Drug form: SOLN, Q4H, Dosing Weight 71.364, kg, PRN Pain Score 7-10, Start date: 01/11/20 10:44:00 CDT, Duration: 30 day, Stop date: 02/10/20 10:43:00 CDT, 0 Memoria l Randolph Zofran 01-10 15:44: 00 No Notes: (Same as: Ana) MEDICATION WASTE Product Size: 4 mg Product Wasted: ___ mg Maudedwayne Beal losartan (COZAAR) 25 mg tablet 08-13 11:42: 17 Yes 25mg Take 25 mg by mouth daily. [facility] meloxicam (MOBIC) 15 mg tablet 08-13 11:42: 17 Yes 15mg Take 15 mg by mouth daily. [facility] HYDROcodone -acetaminop hen (NORCO) 10-325 mg tablet 08-13 11:42: 17 Yes 1{tbl} Take 1 Tab by mouth every 8 (eight) hours. [facility] metFORMIN (GLUCOPHAGE ) 1,000 mg tablet 08-13 11:42: 17 Yes 1000mg Take 1,000 mg by mouth 2 (two) times daily. [facility] hydrochloro thiazide (ESIDRIX) 12.5 mg capsule 08-13 11:42: 17 Yes 12.5mg Take 12.5 mg by mouth daily. [facility] bisoprolol 5 mg tablet 08-13 11:42: 17 Yes 5mg Take 5 mg by mouth daily. [facility] Morphine 2014-04 20:50: 00 No Notes: (Same as:MORPhin e Sulfate) Unique Beal Aspirin 81 MG Chewable Tablet 2014-04 15:24: 00 Yes 81 mg = 1 tab, PO, BID, # 42 tab, 0 Refill(s) Unique Beal POLYETHYLEN E GLYCOL 3350 142 MG/ML Oral Solution [Miralax] 2014-04 13:47: 00 Yes 17 gm, PO, Daily, X 15 day, # 255 gm, 0 Refill(s) Unique Beal celecoxib 200 mg oral capsule 2014-04 13:47: 00 Yes 200 mg = 1 cap, PO, Q12H, # 28 cap, 0 Refill(s) Unique Beal Aspirin 325 MG Enteric Coated Tablet 2014-04 13:47: 00 Yes 325 mg = 1 tab, PO, Q12H, # 28 tab, 0 Refill(s) Unique Beal docusate sodium 100 mg oral capsule 2014-04 13:47: 00 Yes 100 mg = 1 cap, PO, BID, # 28 cap, 0 Refill(s) Unique Beal Aspirin 325 MG Enteric Coated Tablet 2014-04 13:47: 00 Yes 325 mg = 1 tab, PO, Q12H, # 28 tab, 0 Refill(s) Unique Beal Glucagon 2014-04 12:48: 00 No 1 mg, Route: IM, Drug form: PDR/INJ, PRN, Dosing Weight 71.364, kg, PRN Blood Glucose Results, Start date: 03/13/15 6:48:00, Duration: 30 day, Stop date: 04/12/15 6:47:00 Unique Martinsann Insulin, Aspart, Human 2014-04 12:48: 00 No Notes: (Same as: NovoLOG) Unique Martinsann Dexamethaso ne 2014-04 18:28: 00 No Notes: Concentrat ion: 4mg/ml Maudedwayne shae Beal Ditropan XL 2014-04 15:00: 00 No Notes: (Same as: Ditropan XL) "Do Not Crush" Unique Martinsann POLYETHYLEN E GLYCOL 3350 2014-04 15:00: 00 No Notes: Dissolve in 8 oz of water or juice. (Same as: Miralax) Unique shae Beal Losartan 2014-04 15:00: 00 No Notes: (Same as: Kirstie) Unique Martinsann Hydrochloro thiazide 12.5 MG Oral Capsule 2014-04 15:00: 00 No Notes: (Same as: [place] kaufman) With food. Unique Martinsann Aspirin 81 MG Chewable Tablet 2014-04 15:00: 00 No 81 mg = 1 tab, PO, BID, # 42 tab, 0 Refill(s) Unique Martinsann Ditropan XL 2014-04 15:00: 00 No Notes: (Same as: Ditropan XL) "Do Not Crush" Unique Martinsann POLYETHYLEN E GLYCOL 3350 2014-04 15:00: 00 No Notes: Dissolve in 8 oz of water or juice. (Same as: Miralax) Unique Beal Losartan 2014-04 15:00: 00 No Notes: (Same as: Cozaar) Unique Beal Hydrochloro thiazide 12.5 MG Oral Capsule 2014-04 15:00: 00 No Notes: (Same as: Hydrodiuri l) With food. Unique Beal Aspirin 81 MG Chewable Tablet 2014-04 15:00: 00 No 81 mg = 1 tab, PO, BID, # 42 tab, 0 Refill(s) Unique Beal Metformin hydrochlori de 1000 MG Oral Tablet 2014-04 14:00: 00 No Notes: (Same as: Glucophage ) Take with meal Unique Beal Protonix 2014-04 13:30: 00 No 40 mg, Route: PO, Drug form: ECTAB, Before Breakfast, Dosing Weight 71.364, kg, Start date: 03/12/15 7:30:00, Duration: 30 day, Stop date: 04/10/15 7:30:00 Unique Beal Protonix 2014-04 13:30: 00 No 40 mg, Route: PO, Drug form: ECTAB, Before Breakfast, Dosing Weight 71.364, kg, Start date: 03/12/15 7:30:00, Duration: 30 day, Stop date: 04/10/15 7:30:00 Unique Beal Aspirin 2014-04 03:00: 00 No Notes: (Do Not Crush) Do not crush or chew. Unique Beal Aspirin 2014-04 03:00: 00 No Notes: (Do Not Crush) Do not crush or chew. Unique Beal celecoxib 2014-04 03:00: 00 No Notes: NSAID. Please check indication . Not for seizure. (Same As: CeleBREX) Unique Beal Metformin 2014-04 00:49: 00 No Notes: (Same as: Glucophage ) Take with meal Unique Beal Metformin 2014-04 00:49: 00 No Notes: (Same as: Glucophage ) Take with meal Unique Beal Ondansetron 2014-04 00:28: 00 No Notes: (Same as: Zofran) MEDICATION WASTE Product Size: 4 mg Product Wasted: ___ mg Unique Beal Tranexamic Acid 2014-04 00:28: 00 No Notes: (Same as: Lysteda) Non-Formul amber Unique Beal Flexeril 2014-04 23:20: 00 No Notes: (Same As: Flexeril) Unique Beal Flexeril 2014-04 23:20: 00 No Notes: (Same As: Flexeril) Unique Beal Glucagon 2014-04 23:15: 00 No 1 mg, Route: IM, Drug form: PDR/INJ, PRN, Dosing Weight 71.364, kg, PRN Blood Glucose Results, Start date: 03/11/15 17:15:00, Duration: 30 day, Stop date: 04/10/15 17:14:00 Unique Beal Dextrose 50% Syringe 2014-04 23:15: 00 No 25 gm, 50 mL, Route: IVP, Drug Form: INJ, Dosing Weight 71.364, kg, PRN, PRN Blood Glucose Results, Start date: 03/11/15 17:15:00, Duration: 30 day, Stop date: 04/10/15 17:14:00 Unique Beal Insulin, Aspart, Human 2014-04 23:15: 00 No Notes: (Same as: NovoLOG) Unique Beal Insulin, Aspart, Human 2014-04 23:15: 00 No Notes: (Same as: NovoLOG) Unique Beal Glucagon 2014-04 23:15: 00 No 1 mg, Route: IM, Drug form: PDR/INJ, PRN, Dosing Weight 71.364, kg, PRN Blood Glucose Results, Start date: 03/11/15 17:15:00, Duration: 30 day, Stop date: 04/10/15 17:14:00 Unique Beal Docusate 2014-04 23:00: 00 No Notes: (Same as: Colace) (Do Not Crush) Unique Beal Docusate 2014-04 23:00: 00 No Notes: (Same as: Colace) (Do Not Crush) Unique Beal ceFAZolin (SCIP) 2014-04 23:00: 00 No Notes: Same as Ancef Unique Beal ropivacaine 2014-04 18:48: 00 No Notes: NOT FOR IV use Ropivacain e 5 mg/mL (49.25 mL) Epinephrin e 1 mg/mL (0.5 mL) Clonidine 0.1 mg/mL (0.8 mL) Ketorolac 30 mg/mL (1 mL) Normal Saline 48.45 mL Unique Beal ropivacaine 2014-04 18:48: 00 No Notes: NOT FOR IV use Ropivacain e 5 mg/mL (49.25 mL) Epinephrin e 1 mg/mL (0.5 mL) Clonidine 0.1 mg/mL (0.8 mL) Ketorolac 30 mg/mL (1 mL) Normal Saline 48.45 mL Unique Beal Hydralazine 2014-04 18:36: 00 No Notes: (Same as: Apresoline ) Push over 5 minutes Unique Beal Naloxone 2014-04 18:36: 00 No Notes: Same as Narcan Unique Beal Flumazenil 2014-04 18:36: 00 No Notes: (Same as: Romazicon) Unique Beal Hydromorpho ne 2014-04 18:36: 00 No Notes: Same as Dilaudid Unique Beal Ondansetron 2014-04 18:36: 00 No Notes: (Same as: Ana) MEDICATION WASTE Product Size: 4 mg Product Wasted: ___ mg Unique Beal Labetalol 2014-04 18:36: 00 No 10 mg, 2 mL, Route: IVP, Drug form: INJ, Q5Min, Dosing Weight 71.364, kg, PRN Elevated BP, Start date: 03/11/15 12:36:00, Duration: 5 doses or times, Stop date: 03/11/15 16:00:00 Unique Beal Ondansetron 2014-04 18:36: 00 No Notes: (Same as: Ana) MEDICATION WASTE Product Size: 4 mg Product Wasted: ___ mg Unique Beal Labetalol 2014-04 18:36: 00 No 10 mg, 2 mL, Route: IVP, Drug form: INJ, Q5Min, Dosing Weight 71.364, kg, PRN Elevated BP, Start date: 03/11/15 12:36:00, Duration: 5 doses or times, Stop date: 03/11/15 16:00:00 Memoria shae Beal Ondansetron 2014-04 18:28: 00 No Notes: (Same as: Ana) MEDICATION WASTE Product Size: 4 mg Product Wasted: ___ mg Unique Beal Bisacodyl 2014-04 18:28: 00 No Notes: (Same As: Dulcolax, Bisco-Lax) Unique Beal Diphenhydra mine 2014-04 18:28: 00 No Notes: (Same as: Benadryl) Memdwayne Beal Oxycodone Hydrochlori de 5 MG Oral Tablet 2014-04 18:28: 00 No Notes: (Same as: Roxicodone ) Memdwayne Beal Morphine 2014-04 18:28: 00 No Notes: (Same as:MORPhin e Sulfate) Memdwayne Beal Milk of Magnesia 2014-04 18:28: 00 No Notes: (Same as: Milk of Magnesia, MOM) Unique Beal Temazepam 2014-04 18:28: 00 No Notes: (Same As: Restoril) Memdwayne Beal Tylenol 2014-04 18:28: 00 No Notes: Do not exceed 4 gm/day. (Same as: Tylenol) Memdwayne Beal Acetaminoph en 325 MG / Hydrocodone Bitartrate 10 MG Oral Tablet 2014-04 18:28: 00 No Notes: Do not exceed 4gm/day of acetaminop hen. (Same as: [place] 325/10) Memoria shae Beal zolpidem 2014-04 18:28: 00 No Notes: (Same As: Ambien) Memoria shae Beal Maalox Advanced Regular Strength SUSP 2014-04 18:28: 00 No Notes: (aluminum hydroxide- magnesium hyd- simethicon e 400-400-40 mg/5ml 30 ml ud ISMAEL) Unique Beal Acetaminoph en 325 MG / Hydrocodone Bitartrate 10 MG Oral Tablet [[place] 10/325] 2014-04 18:28: 00 No Notes: Do not exceed 4gm/day of acetaminop hen. (Same as: [place] 325/10) Memdwayne Beal NS 1,000 mL 2014-04 18:28: 00 No 1,000 mL, Rate: 85 ml/hr, Infuse over: 11.8 hr, Route: IV, Dosing Weight 71.364 kg, Total Volume: 1,000, Start date: 03/11/15 12:28:00, Duration: 30 day, Stop date: 04/10/15 12:27:00 Maudedwayne Beal Ondansetron 2014-04 18:28: 00 No Notes: (Same as: Ana) MEDICATION WASTE Product Size: 4 mg Product Wasted: ___ mg Maudedwayne Martinsann Bisacodyl 2014-04 18:28: 00 No Notes: (Same As: Dulcolax, Bisco-Lax) Maudedwayne Beal Diphenhydra mine 2014-04 18:28: 00 No Notes: (Same as: Benadryl) Maudedwayne Beal Oxycodone Hydrochlori de 5 MG Oral Tablet 2014-04 18:28: 00 No Notes: (Same as: Roxicodone ) Maudedwayne Martinsann Morphine 2014-04 18:28: 00 No Notes: (Same as:MORPhin e Sulfate) Memdwayne shae Randolph Milk of Magnesia 2014-04 18:28: 00 No Notes: (Same as: Milk of Magnesia, MOM) Maudedwayne shae Emigdio Temazepam 2014-04 18:28: 00 No Notes: (Same As: Restoril) Maudedwayne shae Randolph Tylenol 2014-04 18:28: 00 No Notes: Do not exceed 4 gm/day. (Same as: Tylenol) Unique kaufman Emigdio zolpidem 2014-04 18:28: 00 No Notes: (Same As: Ambien) Memdwayne Beal Maalox Advanced Regular Strength SUSP 2014-04 18:28: 00 No Notes: (aluminum hydroxide- magnesium hyd- simethicon e 400-400-40 mg/5ml 30 ml ud ISMAEL) Memoria l Randolph NS 1,000 mL 2014-04 18:28: 00 No 1,000 mL, Rate: 85 ml/hr, Infuse over: 11.8 hr, Route: IV, Dosing Weight 71.364 kg, Total Volume: 1,000, Start date: 03/11/15 12:28:00, Duration: 30 day, Stop date: 04/10/15 12:27:00 Memoria l Randolph Naloxone 2014-04 16:46: 00 No Notes: Same as Narcan Memoria l Randolph Flumazenil 2014-04 16:46: 00 No Notes: (Same as: Romazicon) Memoria l Emigdio Morphine 2014-04 16:46: 00 No Notes: (Same as:MORPhin e Sulfate) Memoria l Emigdio Hydromorpho ne 2014-04 16:46: 00 No Notes: Same as Dilaudid Memoria l Randolph Ondansetron 2014-04 16:46: 00 No Notes: (Same as: Ana) MEDICATION WASTE Product Size: 4 mg Product Wasted: ___ mg Memoria l Emigdio Hydralazine 2014-04 16:46: 00 No Notes: (Same as: Apresoline ) Push over 5 minutes Memoria l Randolph Morphine 2014-04 16:46: 00 No Notes: (Same as:MORPhin e Sulfate) Memoria l Randolph Hydralazine 2014-04 16:46: 00 No Notes: (Same as: Apresoline ) Push over 5 minutes Memoria l Emigdio Naloxone 2014-04 16:46: 00 No Notes: Same as Narcan Memoria l Emigdio Flumazenil 2014-04 16:46: 00 No Notes: (Same as: Romazicon) Memoria l Randolph Hydromorpho ne 2014-04 16:46: 00 No Notes: Same as Dilaudid Memoria l Emigdio Ondansetron 2014-04 16:46: 00 No Notes: (Same as: Jademelissa) MEDICATION WASTE Product Size: 4 mg Product Wasted: ___ mg Unique Perez 2014-04 15:12: 00 No 4 mg, Route: IV, ONCE, Dosing Weight 71.364, kg, Start date: 03/11/15 9:12:00, Stop date: 03/11/15 9:12:00 Unique [place] 2014-04 15:12: 00 No Notes: Same as [facility] Unique Perez 2014-04 15:12: 00 No 4 mg, Route: IV, ONCE, Dosing Weight 71.364, kg, Start date: 03/11/15 9:12:00, Stop date: 03/11/15 9:12:00 Unique [place] 2014-04 15:12: 00 No Notes: [facility] Dex[facility]aso brent 2014-04 15:11: 00 No 10 mg, Route: IV, ONCE, Dosing Weight 71.364, kg, Start date: 03/11/15 9:11:00, Stop date: 03/11/15 9:11:00 Unique Beal Dexamethaso ne 2014-04 15:11: 00 No 10 mg, Route: IV, ONCE, Dosing Weight 71.364, kg, Start date: 03/11/15 9:11:00, Stop date: 03/11/15 9:11:00 Unique Beal Celebrex 2014-04 15:10: 00 No 400 mg, Route: PO, ONCE, Dosing Weight 71.364, kg, Start date: 03/11/15 9:10:00, Stop date: 03/11/15 9:10:00 Unique Beal Celebrex 2014-04 15:10: 00 No 400 mg, Route: PO, ONCE, Dosing Weight 71.364, kg, Start date: 03/11/15 9:10:00, Stop date: 03/11/15 9:10:00 Unique Beal Tranexamic Acid 2014-04 12:50: 00 No 1,950 mg, Route: PO, Drug form: TAB, ONCE, Dosing Weight 72.727, kg, Start date: 03/11/15 6:50:00, Stop date: 03/11/15 6:50:00 Maudedwayne shae Beal Tranexamic Acid 2014-04 12:50: 00 No 1,950 mg, Route: PO, Drug form: TAB, ONCE, Dosing Weight 72.727, kg, Start date: 03/11/15 6:50:00, Stop date: 03/11/15 6:50:00 Unique Beal losartan 25 mg oral tablet 2014-04 16:51: 00 Yes 25 mg = 1 tab, PO, Daily, # 30 tab, 0 Refill(s) Unique Beal promethazin e 25 mg oral tablet 2014-04 16:50: 00 Yes 25 mg = 1 tab, PO, Q4H, PRN for motion sickness, # 60 tab, 0 Refill(s) Unique Beal meloxicam 15 mg oral tablet 2014-04 16:49: 00 No 15 mg = 1 tab, PO, Daily, # 30 tab, 0 Refill(s) Unique Beal Cyclobenzap rine hydrochlori de 10 MG Oral Tablet [Flexeril] 2014-04 16:49: 00 Yes 10 mg = 1 tab, PO, TID, PRN for spasm, # 30 tab, 0 Refill(s) Unique Beal Acetaminoph en 325 MG / Hydrocodone Bitartrate 10 MG Oral Tablet [[place] 10/325] 2014-04 16:48: 00 No 1 tab, PO, BID, PRN Pain, # 60 tab, 0 Refill(s) Unique Beal hydrochloro thiazide 12.5 mg oral tablet 2014-04 16:48: 00 Yes 12.5 mg = 1 tab, PO, Daily, # 30 tab, 0 Refill(s) Unique Beal Acetaminoph en 325 MG / Hydrocodone Bitartrate 10 MG Oral Tablet [[place] 10/325] 2014-04 16:48: 00 No 1 tab, PO, BID, PRN Pain, # 60 tab, 0 Refill(s) Unique Beal 24 HR Oxybutynin chloride 5 MG Extended Release Tablet [Ditropan] 2014-04 16:47: 00 Yes 5 mg = 1 tab, PO, BID, # 30 tab, 0 Refill(s) Unique Beal Omeprazole 40 MG Enteric Coated Capsule [Prilosec] 2014-04 16:47: 00 Yes 40 mg = 1 cap, PO, Daily, # 30 cap, 0 Refill(s) Unique Beal Metformin hydrochlori de 1000 MG Oral Tablet 2014-04 16:46: 00 Yes 1,000 mg = 1 tab, PO, BID-Meals, # 60 tab, 0 Refill(s) Unique Beal Metformin hydrochlori de 1000 MG Oral Tablet 2014-04 16:46: 00 Yes 1,000 mg = 1 tab, PO, BID-Meals, # 60 tab, 0 Refill(s) [facility] Vital Signs Vital Name Observation Time Observation Value Comments S ource Body height 2021-02-04 15:25:00 144.8 cm [facility] Body weight 2021-02-04 15:25:00 68.04 kg [facility] BMI 2021-02-04 15:25:00 32.46 kg/m2 [facility] Temperature Oral (F) 2020-01-26 17:02:00 98.4 F [facility] Heart Rate 2020-01-26 17:02:00 [facility] Respitory Rate 2020-01-26 17:02:00 [facility] Systolic (mm Hg) 2020-01-26 17:02:00 [facility] Diastolic (mm Hg) 2020-01-26 17:02:00 [facility] Temperature Oral (F) 2020-01-26 13:37:00 98.3 F [facility] Heart Rate 2020-01-26 13:37:00 [facility] Respitory Rate 2020-01-26 13:37:00 [facility] Systolic (mm Hg) 2020-01-26 13:37:00 [facility] Diastolic (mm Hg) 2020-01-26 13:37:00 [facility] Temperature Oral (F) 2020-01-26 08:14:00 98.5 F [facility] Heart Rate 2020-01-26 08:14:00 [facility] Respitory Rate 2020-01-26 08:14:00 [facility] Systolic (mm Hg) 2020-01-26 08:14:00 [facility] Diastolic (mm Hg) 2020-01-26 08:14:00 [facility] Height 2020-01-23 10:00:00 160 cm [facility] Height 2020-01-22 07:21:00 160.02 cm [facility] Weight 2020-01-22 07:21:00 [facility] BMI Calculated 2020-01-22 07:21:00 [facility] Respitory Rate 2020-01-22 06:00:00 [facility] Respitory Rate 2020-01-22 05:30:00 [facility] Systolic (mm Hg) 2020-01-22 05:30:00 [facility] Diastolic (mm Hg) 2020-01-22 05:30:00 [facility] Respitory Rate 2020-01-22 03:36:00 [facility] Systolic (mm Hg) 2020-01-22 03:00:00 [facility] Diastolic (mm Hg) 2020-01-22 03:00:00 [facility] Systolic (mm Hg) 2020-01-22 02:30:00 [facility] Diastolic (mm Hg) 2020-01-22 02:30:00 [facility] Height 2020-01-22 00:08:00 144.78 cm [facility] BMI Calculated 2020-01-22 00:08:00 [facility] Weight 2020-01-22 00:08:00 [facility] Heart Rate 2020-01-22 00:08:00 [facility] Temperature Oral (F) 2020-01-22 00:08:00 98.1 F [facility] Respitory Rate 2020-01-14 13:00:00 [facility] Systolic (mm Hg) 2020-01-14 13:00:00 [facility] Diastolic (mm Hg) 2020-01-14 13:00:00 [facility] Temperature Oral (F) 2020-01-14 13:00:00 98.2 F [facility] Heart Rate 2020-01-14 13:00:00 [facility] Systolic (mm Hg) 2020-01-14 09:00:00 [facility] Diastolic (mm Hg) 2020-01-14 09:00:00 [facility] Heart Rate 2020-01-14 09:00:00 [facility] Temperature Oral (F) 2020-01-14 09:00:00 98.5 F [facility] Heart Rate 2020-01-14 05:00:00 [facility] Systolic (mm Hg) 2020-01-14 05:00:00 [facility] Diastolic (mm Hg) 2020-01-14 05:00:00 [facility] Temperature Oral (F) 2020-01-14 05:00:00 97.7 F [facility] Respitory Rate 2020-01-13 21:00:00 [facility] Respitory Rate 2020-01-13 19:35:00 [facility] Height 2020-01-11 16:33:00 165.1 cm [facility] Weight 2020-01-11 16:33:00 [facility] BMI Calculated 2020-01-11 16:33:00 [facility] Systolic (mm Hg) 2015-03-14 14:00:00 [facility] Diastolic (mm Hg) 2015-03-14 14:00:00 [facility] Respitory Rate 2015-03-14 14:00:00 [facility] Heart Rate 2015-03-14 14:00:00 [facility] Temperature Oral (F) 2015-03-14 14:00:00 98 F [facility] Respitory Rate 2015-03-14 10:30:00 [facility] Heart Rate 2015-03-14 10:30:00 [facility] Temperature Oral (F) 2015-03-14 10:30:00 97.9 F [facility] Systolic (mm Hg) 2015-03-14 10:30:00 [facility] Diastolic (mm Hg) 2015-03-14 10:30:00 [facility] Respitory Rate 2015-03-14 06:30:00 [facility] Systolic (mm Hg) 2015-03-14 06:30:00 [facility] Diastolic (mm Hg) 2015-03-14 06:30:00 [facility] Temperature Oral (F) 2015-03-14 06:30:00 97.6 F [facility] Heart Rate 2015-03-14 06:30:00 [facility] Weight 2015-03-11 14[facility]35:00 [facility] Calculated 2015-03-11 14:35:00 M [facility] Height 2015-03-10 16:31:00 144.78 cm [facility] Procedures Procedure Date / Time Performed Performing Clinician Source PHYSICIAN ORDERS 2021-05-30 06:01:00 Doctor Unas signed, [place] [facility] Arthroscopy of shoulder 2009-04-23 00:00:00 [facility] Arthrodesis of thumb 2004-04-23 00:00:00 [facility] Arthroscopy of knee 2004-04-23 00:00:00 princess Beal ORIF - Open reduction and internal fixation of fracture 2003-04-23 00:00:00 [facility] Lumbar discectomy [facility] Encounters Start Date/Time End Date/Time Encounter Type Admission Type Attending Clinicians Care Facility Care Department Encounter ID Source 2022-06-09 21:00:00 2022-06-09 21:00:00 Ambulatory Pre-Reg [facility] [place] [id number] [facility] 2021-06-07 15:15:00 2021-06-07 15:15:00 Outpatient BOONE SANCHEZ [facility] [id number] [facility] 2021-05-31 09:00:00 2021-05-31 23:00:00 Inpatient Forrest King [facility] [id number] [facility] 2021-05-31 19:00:00 2021-05-31 19:00:00 Outpatient Forrest Joyner HCACL LABO [id number] [facility] 2021-05-31 18:36:00 2021-05-31 18:36:00 Outpatient Forrest Joyner HCAWU REFE [id number] [facility] 2021-05-30 00:00:00 2021-05-30 00:00:00 Orders Only Doctor Unassigned, [place] [facility] 1..114 350.1.13.10 4.2.7.2.686 [id number] [facility] 2021-04-22 09:20:00 2021-04-22 10:00:00 Ancillary Visit Kendra Cortes Craig L [facility] 1.84.114 350.1.13.10 4.2.7.2.686 [id number] [facility] 2021-04-22 09:20:00 2021-04-22 09:20:00 Outpatient R BOONE MAHARAJ [facility] [id number] [facility] 2021-04-19 08:40:00 2021-04-19 09:20:00 Ancillary Visit Sana Frank Craig L [facility] 1.84.114 350.1.13.10 4.2.7.2.686 [id number] [facility] 2021-04-13 13:00:00 2021-04-13 13:00:[address] BR[address]T [facility] [id number] [facility] 2021-04-13 13:00:00 2021-04-13 13:00:00 Imm/Inj Visit Nurse, Krystyna Poannabel Immunizatio Lane Alicia [facility] 1.2.114 350.1.13.10 4.2.7.2.686 [id number] [facility] 2021-04-13 11:20:00 2021-04-13 12:00:00 Ancillary Visit Sana Frank Craig L [facility] 1.284.114 350.1.13.10 4.2.7.2.686 [id number] [facility] 2021-04-08 08:40:00 2021-04-08 09:20:00 Ancillary Visit Kendra Cortes Craig L [facility] 1.2840.114 350.1.13.10 4.2.7.2.686 [id number] [facility] 2021-03-30 08:46:43 2021-03-30 09:26:43 Ancillary Visit Kendra Cortes Craig L [facility] 1.2840.114 350.1.13.10 4.2.7.2.686 [id number] [facility] 2021-03-16 11:05:35 2021-03-16 11:45:35 Ancillary Visit Kendra Cortes Craig L [facility] 1.2840.114 350.1.13.10 4.2.7.2.686 [id number] [facility] 2021-03-16 11:20:00 2021-03-16 11:20:00 Outpatient R BOONE MAHARAJ [facility] [id number] [facility] 2021-03-14 10:40:08 2021-03-14 11:20:08 Ancillary Visit Kaela Gresham Craig L [facility] 1.2.840.114 350.1.13.10 4.2.7.2.686 [id number] [facility] 2021-03-10 09:42:17 2021-03-10 10:22:17 Ancillary Visit Sana Frank Craig L [facility] 1.2.840.114 350.1.13.10 4.2.7.2.686 [id number] [facility] 2021-03-08 10:44:18 2021-03-08 11:24:18 Ancillary Visit Sana FrankBoone [facility] 1.2.840.114 350.1.13.10 4.2.7.2.686 [id number] [facility] 2021-03-03 13:35:15 2021-03-03 14:15:15 Ancillary Visit Sana FrankBoone [facility] 1.2.840.114 350.1.13.10 4.2.7.2.686 [id number] [facility] 2021-03-02 10:23:16 2021-03-02 11:27:17 Ancillary Visit Kendra CortesBoone [facility] 1.2.840.114 350.1.13.10 4.2.7.2.686 [id number] [facility] 2021-02-04 10:30:00 2021-02-04 23:59:00 Hospital Encounter Boone Maharaj [facility] 1.2.840.114 350.1.13.10 4.2.7.2.686 [id number] [facility] 2021-02-04 10:30:00 2021-02-04 11:06:34 Office Visit Boone Maharaj [facility] 1.2.840.114 350.1.13.10 4.2.7.2.686 [id number] [facility] 2021-02-04 10:30:00 2021-02-04 11:06:34 Outpatient R BOONE MAHARAJ [facility] [id number] [facility] 2021-02-04 10:30:00 2021-02-04 10:30:00 Outpatient R BOONE MAHARAJ [facility] [id number] [facility] 2021-02-03 08:00:00 2021-02-03 08:00:00 Outpatient Marlin BOONE MAHARAJ [facility] [id number] [facility] 2021-01-07 09:48:51 2021-01-07 10:34:00 Office Visit Boone Maharaj [facility] 1.2.840.114 350.1.13.10 4.2.7.2.686 [id number] [facility] 2021-01-07 10:15:00 2021-01-07 10:15:00 Outpatient Marlin MAHARAJBOONE [facility] [id number] [facility] 2021-01-07 00:00:00 2021-01-07 00:00:00 Orders Only Doctor Unassigned, [place] [id number] 350.1.13.10 4.2.7.2.686 [id number] [facility] 2021-01-07 00:00:00 2021-01-07 00:00:00 Orders Only Doctor Unassigned, [place] [id number] 350.1.13.10 4.2.7.2.686 [id number] [facility] 2020-01-22 06:49:00 2020-01-26 21:41:00 Inpatient nullFlavo r [facility] [id number] [facility] 2020-01-21 23:50:20 2020-01-22 06:26:00 Emergency nullFlavo r [facility] [id number] [facility] 2020-01-11 15:32:00 2020-01-14 18:22:00 Inpatient nullFlavo r [facility] [id number] [facility] 2020-01-11 10:32:00 2020-01-14 13:22:00 Inpatient U [facility] 0264 [facility] 2015-03-11 12:33:00 2015-03-14 15:00:00 Inpatient nullFlavo r [facility] [id number] [facility] Results Test Description Test Time Test Comments Results Result Co mments Source Novel Coronavirus 2019 [id number] 19:03:00* Test Item Value Reference Range Interpretation Comme nts Novel Coronavirus 2019 Inhouse (test code = COVNONPUI) Negative Negative Positive resul ts are indicative of the presence xyLOEG-LcV-4 RNA, clinical correlation with patient historyand other diagnostic information is necessary to determinepatient infection status. Positive results do not rule outbacterial infection or co-infection with other viruses. Negative results do not preclude SARS-CoV-2 infection andshould not be used as the sole basis for patient managementdecisions. Negative results must be combined with otherclinical observations, patient history, and epidemiologicalinformation . Detection of SARS-CoV-2 RNA may be affected bysample collection methods, storage conditions, and/or stageof infection. Viral RNA mutations, vaccinations, antiviraltherapeutics, antibiotics, chemotherapeutic orimmunosuppressant drugs have not been evaluated for effectson detection. Results are for the identification of SARS-CoV-2 RNA usingreal-time (RT) polymerase chain reaction (PCR) technologyfor the qualitative detection of nucleic acids from rhdNPRM-EuP-9 virus and diagnosis of SARS-CoV-2 virusinfection. It is an Emergency Use Authorization (EUA) testauthorized by the U.S. FDA. GLYCOSYLATED HEMOGLOBIN (HA1C)2021-05-31 21:07:00* Test Item Value Reference Range Interpretation Comme nts GLYCOSYLATED HEMOGLOBIN (HA1C) (test code = GLYHGB) 9.8 % 4.8-5.9 H Any conditi on that shortens erythocyte survival or decreasesmean erythrocyte age (e.g., recovery from acute blood loss,hemolytic anemia) will falsely lower HGBA1c resultsregardless of the method used. HGBA1c results from patientswith HbSS, HbCC, and HbSc must be interpreted with cautiongiven the pathological processes, including anemia,increased red cell turnover, transfusion requirements, thatadversely impact HGBA1c as a marker of long-term glycemiccontrol. Alternative forms of testing such as fructosamineshould be considered for these patients. GLYCOSYLATED HEMOGLOBIN (HA1C)2021-05-31 21:07:00* Test Item Value Reference Range Interpretation Comme nts GLYCOSYLATED HEMOGLOBIN (HA1C) (test code = GLYHGB) 9.8 % 4.8-5.9 H Any conditi on that shortens erythocyte survival or decreasesmean erythrocyte age (e.g., recovery from acute blood loss,hemolytic anemai) will falsely lower HGBA1c resultsregardless of the method used. HGBA1c results frompatients with HbSS, HbCC and HbSc must be interpreted withcaution given the pathological processes, including anemia,increased red cell turnover, transfusion requirements, thatadversely impact HGBA1c as a marker of long-term glycemiccontrol. Alternative forms of testing such as fructosamineshould be considered for these patients.Any condition that shortens erythocyte survival or decreasesmean erythrocyte age (e.g., recovery from acute blood loss,hemolytic anemia) will falsely lower HGBA1c resultsregardless of the method used. HGBA1c results from patientswith HbSS, HbCC, and HbSc must be interpreted with cautiongiven the pathological processes, including anemia,increased red cell turnover, transfusion requirements, thatadversely impact HGBA1c as a marker of long-term glycemiccontrol. Alternative forms of testing such as fructosamineshould be considered for these patients.DONE AT: [facility] [address] [place] [address] COMPREHENSIVE METABOLIC [id number] 18:22:00* Test Item Value Reference Range Interpretation Comme nts SODIUM (test code = NA) 142 mmol/L 136-145 N POTASSIUM (test code = K) 4.3 mmol/L 3.5-5.1 N CHLORIDE (test code = CL) 105.0 mmol/L 98-107 N CARBON DIOXIDE (test code = CO2) 30.0 mmol/L 21-32 N GLUCOSE (test code = GLU) 59 mg/dL 70-110 L BLOOD UREA NITROGEN (test code = BUN) 19 mg/dL 7-18 H GLOMERULAR FILTRATION RATE (test code = GFR) 65.7 >60 Unit of m easure: mL/min/1.73 [id number] Range:Healthy Adults >90 mL/min/1.73 m2 For Chronic Kidney Disease: Stage II Mild Decrease in GFR 60-90 Stage III Moderate Decrease in GFR 30-59 Stage IV Severe Decrease in GFR 15-29 Stage V Kidney Failure <15 CREATININE (test code = CREAT) 0.85 mg/dL 0.55-1.30 N TOTAL PROTEIN (test code = PROT) 7.1 g/dL 6.4-8.2 N ALBUMIN (test code = ALB) 3.4 g/dL 3.4-5.0 N GLOBULIN (test code = GLOB) 3.7 g/dL 2.2-4.2 N ALBUMIN/GLOBULIN RATIO (test code = A/G) 0.9 0.7-2.0 N CALCIUM (test code = CA) 9.1 mg/dL 8.2-10.1 N BILIRUBIN TOTAL (test code = BILT) 0.40 mg/dL 0.2-1.00 N SGOT/AST (test code = AST) 40.0 U/L 15-37 H SGPT/ALT (test code = ALT) 27.0 U/L 12-78 N Please note new normal range. ALKALINE PHOSPHATASE TOTAL (test code = ALKP) 112 U/L 46-116 N CBC W/AUTO [id number] 18:19:00* Test Item Value Reference Range Interpretation Comme nts WHITE BLOOD CELL (test code = WBC) [...] 27-34 N MEAN CELL HGB CONCENTRATION (test code = MCHC) 33.6 g/dL 30.8-34.1 N RED CELL DISTRIBUTION WIDTH (test code = RDW) 13.1 % 11-16 N PLT (test code = PLT) 129 K/mm3 130-400 L MEAN PLATELET VOLUME (test c ode = MPV) 13.8 fL 8.9-12.1 H NEUTROPHIL % (test code = NT%) 44.0 [...] K/mm3 0.02-0.10 N MANUAL DIFF REQUIRED (test c ode = MDIFF) NO MANUAL DIFF NUCLEATED RED BLOOD CELL (te st code = NRBC) 0 % 0-0 N THROMBOPLASTIN TIME [id number] 18:16:00* Test Item Value Reference Range Interpretation Comme nts PTT ACTIVATED (test code = APTT) 33.0 secs 26.6-34.6 N Please note new normal range. IS PATIENT ON ANTICOAGULANTS ? NHas Lab been notified if Patient is on Heparin Drip? NOIf Yes, order CBC, OCCULT BLOOD, PT every other day NPROTHROMBIN TIME 2021-05-31 18:16:00* Test Item Value Reference Range Interpretation Comme nts PROTHROMBIN TIME PATIENT (test code = PTP) 11.6 secs 9.7-12.5 N Please note new normal range. INTERNATIONAL NORMAL RATIO (test code = INR) 1.04 <2.0 RECOMMENDED THER APEUTIC RANGE FOR ORAL ANTICOAGULANTTREATMENT: CONDITION INRProphylaxis of venous thrombosis in 2.0 - 3.0 high-risk medical or surgical patientsTreatment of venous thrombosis 2.0 - 3.0Prevention of embolism 2.0 - 3.0Prevention of recurrent embolism, or 3.0 - 4.5 patients with mechanical prosthetic intravascular valves IS PATIENT ON ANTICOAGULANTS ? NHas Lab been notified if Patient is on Heparin Drip? NOIf Yes, order CBC, OCCULT BLOOD, PT every other day NCHEM PANEL 2020-01-25 10:11:00* Test Item Value Reference Range Interpretation Comme nts Glucose Lvl (test code = Glucose Lvl) 267 70-99 BUN (test code = BUN) 14 7-22 Creatinine Lvl (test code = Creatinine Lvl) 0.68 0.50-1.40 Sodium Lvl (test code = Sodium Lvl) 138 135-145 Potassium Lvl (test code = P otassium Lvl) 3.6 3.5-5.1 Chloride Lvl (test code = Chloride Lvl) 103 95-109 CO2 (test code = CO2) 27 24-32 Calcium Lvl (test code = Calcium Lvl) 8.2 8.5-10.5 Total Protein (test code = T otal Protein) 5.7 6.4-8.4 Albumin Lvl (test code = Albumin Lvl) 1.8 3.5-5.0 ALT (test code = ALT) 11 <=65 AST (test code = AST) 20 <=37 Alk Phos (test code = Alk Phos) 110 39-136 Bili Total (test code = Bili Total) 0.4 0.2-1.3 AGAP (test code = AGAP) 11.6 10.0-20.0 B/C Ratio (test code = B/C Ratio) 21 1 6-25 Globulin (test code = Globulin) 3.9 2.7-4.2 A/G Ratio (test code = A/G Ratio) 0.5 1 0.7-1.6 eGFR (test code = eGFR) 88 Phosphorus (test code = Phosphorus) 1.8 2.5-4.5 Lipase Lvl (test code = Lipase Lvl) 80 73-393 Magnesium Lvl (test code = M agnesium Lvl) 1.8 1.8-2.4 [id number] 10:11:00* Test Item Value Reference Range Interpretation Comme [facility] Segs (test code = Segs) 79.1 45.0-75.0 Lymphocytes (test code = Lymphocytes) 11.4 20.0-40.0 Monocytes (test code = Monocytes) 6.6 2.0-12.0 Eosinophils (test code = Eosinophils) 1.6 <=4.0 Basophils (test code = Basophils) 1.3 <=1.0 Neutrophils # (test code = Neutrophils #) 10.0 1.5-8.1 Lymphocytes # (test code = Lymphocytes #) 1.4 1.0-5.5 Monocytes # (test code = Monocytes #) 0.8 <=0.8 Eosinophils # (test code = Eosinophils #) 0.2 <=0.5 Basophils # (test code = Basophils #) 0.2 <=0.2 WBC (test code = WBC) 12.6 3.7-10.4 RBC (test code = RBC) 3.36 4.20-5.40 Hgb (test code = Hgb) 10.3 12.0-16.0 Hct (test code = Hct) 31.3 36.0-48.0 MCV (test code = MCV) 93.1 80.0-98.0 MCH (test code = MCH) 30.5 pg 27.0-31.0 MCHC (test code = MCHC) 32.8 32.0-36.0 RDW (test code = RDW) 13.3 11.5-14.5 Platelet (test code = Platelet) 233 133-450 MPV (test code = MPV) 10.5 7.4-10.4 [facility] [id number] 08:20:00* Test Item Value Reference Range Interpretation Comme [facility] Glucose Lvl (test code = Glucose Lvl) 360 70-99 BUN (test code = BUN) 14 7-22 Creatinine Lvl (test code = Creatinine Lvl) 0.78 0.50-1.40 Sodium Lvl (test code = Sodium Lvl) 139 135-145 Potassium Lvl (test code = P otassium Lvl) 3.8 3.5-5.1 Chloride Lvl (test code = Chloride Lvl) 108 95-109 CO2 (test code = CO2) 21 24-32 AGAP (test code = AGAP) 13.8 10.0-20.0 Calcium Lvl (test code = Calcium Lvl) 7.9 8.5-10.5 eGFR (test code = eGFR) 77 Magnesium Lvl (test code = M agnesium Lvl) 1.8 1.8-2.4 Phosphorus (test code = Phosphorus) 2.8 2.5-4.5 [id number] 04:50:00* Test Item Value Reference Range Interpretation Comme nts Potassium Lvl (test code = P otassium Lvl) 3.9 3.5-5.1 [facility] [id number] 16:24:00* Test Item Value Reference Range Interpretation Comme nts Ferritin Lvl (test code = Ferritin Lvl) 263 5-204 Folate Lvl (test code = Folate Lvl) 7.7 Iron (test code = Iron) 70 45-160 Vitamin B12 Lvl (test code = Vitamin B12 Lvl) 411 629-1136 [facility] [id number] 16:13:00* Test Item Value Reference Range Interpretation Comme nts Phosphorus (test code = Phosphorus) 1.2 2.5-4.5 [facility] [id number] 10:06:00* Test Item Value Reference Range Interpretation Comme nts eGFR (test code = eGFR) 81 Magnesium Lvl (test code = M agnesium Lvl) 2.0 1.8-2.4 [facility] [id number] 10:06:00* Test Item Value Reference Range Interpretation Comme nts WBC (test code = WBC) 19.2 3.7-10.4 RBC (test code = RBC) 3.23 4.20-5.40 Hgb (test code = Hgb) 10.1 12.0-16.0 Hct (test code = Hct) 29.8 36.0-48.0 MCV (test code = MCV) 92.4 80.0-98.0 MCH (test code = MCH) 31.2 pg 27.0-31.0 MCHC (test code = MCHC) 33.8 32.0-36.0 RDW (test code = RDW) 13.3 11.5-14.5 Platelet (test code = Platelet) 249 133-450 MPV (test code = MPV) 9.8 7.4-10.4 Segs (test code = Segs) 87.4 45.0-75.0 Lymphocytes (test code = Lymphocytes) 6.6 20.0-40.0 Monocytes (test code = Monocytes) 5.2 2.0-12.0 Eosinophils (test code = Eosinophils) 0.5 <=4.0 Basophils (test code = Basophils) 0.3 <=1.0 Neutrophils # (test code = Neutrophils #) 16.8 1.5-8.1 Lymphocytes # (test code = Lymphocytes #) 1.3 1.0-5.5 Monocytes # (test code = Monocytes #) 1.0 <=0.8 Eosinophils # (test code = Eosinophils #) 0.1 <=0.5 Basophils # (test code = Basophils #) 0.1 <=0.2 [facility] [id number] 10:04:00* Test Item Value Reference Range Interpretation Comme nts Glucose Lvl (test code = Glucose Lvl) 144 70-99 BUN (test code = BUN) 15 7-22 Creatinine Lvl (test code = Creatinine Lvl) 0.74 0.50-1.40 Sodium Lvl (test code = Sodium Lvl) 143 135-145 Chloride Lvl (test code = Chloride Lvl) 116 95-109 CO2 (test code = CO2) 22 24-32 AGAP (test code = AGAP) 8.8 10.0-20.0 Calcium Lvl (test code = Calcium Lvl) 7.9 8.5-10.5 [facility] CampusSpringestBACTERIAL - [id number] 08:20:00* Test Item Value Reference Range Interpretation Comme nts MRSA by PCR (test code = MRSA by PCR) Negative (01/22/20 3:20 AM) [facility] [employer] [id number] 08:20:00* Test Item Value Reference Range Interpretation Comme nts Total Protein (test code = T otal Protein) 6.0 6.4-8.4 Albumin Lvl (test code = Albumin Lvl) 2.1 3.5-5.0 Globulin (test code = Globulin) 3.9 2.7-4.2 A/G Ratio (test code = A/G Ratio) 0.5 1 0.7-1.6 ALT (test code = ALT) 14 <=65 AST (test code = AST) 9 <=37 Alk Phos (test code = Alk Phos) 125 39-136 Bili Total (test code = Bili Total) 0.4 0.2-1.3 Bili Direct (test code = Bili Direct) 0.2 <=0.3 Bili Indirect (test code = B bhargav Indirect) 0.2 <=1.0 [facility] [id number] 08:20:00* Test Item Value Reference Range Interpretation Comme nts Trig (test code = Trig) 138 [facility] [id number] 05:46:00* Test Item Value Reference Range Interpretation Comme nts Lactic Acid Lvl (test code = Lactic Acid Lvl) 2.4 0.5-2.2 Glucose Lvl (test code = Glucose Lvl) 519 70-99 BUN (test code = BUN) 33 7-22 Creatinine Lvl (test code = Creatinine Lvl) 1.51 0.50-1.40 Sodium Lvl (test code = Sodium Lvl) 146 135-145 Potassium Lvl (test code = P otassium Lvl) 4.0 3.5-5.1 Chloride Lvl (test code = Chloride Lvl) 116 95-109 CO2 (test code = CO2) 11 24-32 AGAP (test code = AGAP) 23.0 10.0-20.0 Calcium Lvl (test code = Calcium Lvl) 8.1 8.5-10.5 eGFR (test code = eGFR) 35 Lipase Lvl (test code = Lipase Lvl) 72 73-393 [facility] [id number] 02:59:00* Test Item Value Reference Range Interpretation Comme nts Lactic Acid Lvl (test code = Lactic Acid Lvl) 2.9 0.5-2.2 [facility] [id number] 02:44:00* Test Item Value Reference Range Interpretation Comme nts Osmolality (test code = Osmolality) 365 280-300 Ketone Quantitative (test co de = Ketone Quantitative) X-NORESULT Magnesium Lvl (test code = Magnesium Lvl) 2.4 1.8-2.4 Phosphorus (test code = Phosphorus) 4.7 2.5-4.5 [facility] [id number] 02:44:00* Test Item Value Reference Range Interpretation Comme nts Hgb A1C (test code = Hgb A1C) 9.3 [facility] [id number] 01:13:00* Test Item Value Reference Range Interpretation Comme nts Calcium Lvl (test code = Calcium Lvl) 9.4 8.5-10.5 Glucose Lvl (test code = Glucose Lvl) 799 70-99 BUN (test code = BUN) 35 7-22 Creatinine Lvl (test code = Creatinine Lvl) 1.85 0.50-1.40 Sodium Lvl (test code = Sodium Lvl) 134 135-145 Potassium Lvl (test code = P otassium Lvl) 5.3 3.5-5.1 Chloride Lvl (test code = Chloride Lvl) 98 95-109 CO2 (test code = CO2) 8 24-32 AGAP (test code = AGAP) 33.3 10.0-20.0 B/C Ratio (test code = B/C Ratio) 19 1 6-25 Total Protein (test code = T otal Protein) 8.2 6.4-8.4 Albumin Lvl (test code = Albumin Lvl) 2.6 3.5-5.0 Globulin (test code = Globulin) 5.6 2.7-4.2 A/G Ratio (test code = A/G Ratio) 0.5 1 0.7-1.6 ALT (test code = ALT) 20 <=65 AST (test code = AST) 25 <=37 Alk Phos (test code = Alk Phos) 183 39-136 Bili Total (test code = Bili Total) 0.7 0.2-1.3 eGFR (test code = eGFR) 27 [id number]:13:00* Test Item Value Reference Range Interpretation Comme nts WBC (test code = WBC) 34.9 3.7-10.4 RBC (test code = RBC) 3.96 4.20-5.40 Hgb (test code = Hgb) 12.2 12.0-16.0 Hct (test code = Hct) 41.0 36.0-48.0 MCV (test code = MCV) 103.6 80.0-98.0 MCH (test code = MCH) 30.8 pg 27.0-31.0 MCHC (test code = MCHC) 29.8 32.0-36.0 RDW (test code = RDW) 15.4 11.5-14.5 Platelet (test code = Platelet) 377 133-450 MPV (test code = MPV) 11.2 7.4-10.4 RBC Morph (test code = RBC Morph) Normal (01/21/20 8:13 PM) Plt Morph (test code = Plt Morph) See Note (01/21/20 8:13 PM) Large Plt (test code = Large Plt) Moderate *ABN*(01/21/20 8:13 PM) Segs (test code = Segs) 95.6 45.0-75.0 Lymphocytes (test code = Lymphocytes) 1.7 20.0-40.0 Monocytes (test code = Monocytes) 2.3 2.0-12.0 Basophils (test code = Basophils) 0.4 <=1.0 Neutrophils # (test code = Neutrophils #) 33.4 1.5-8.1 Lymphocytes # (test code = Lymphocytes #) 0.6 1.0-5.5 Monocytes # (test code = Monocytes #) 0.8 <=0.8 Basophils # (test code = Basophils #) 0.1 <=0.2 [facility] AND [id number] 00:58:00* Test Item Value Reference Range Interpretation Comme nts UA Color (test code = UA Color) Yellow *NA*(01/21/20 7:58 PM) UA Turbidity (test code = UA Turbidity) Marked *ABN*(01/21/20 7:58 PM) UA Spec Grav (test code = UA Spec Grav) 1.018 1 UA pH (test code = UA pH) 5.0 1 5.0-8.0 UA Protein (test code = UA Protein) 30 mg/dL UA Glucose (test code = UA Glucose) >=500 mg/dL UA Ketones (test code = UA Ketones) 20 mg/dL UA Bili (test code = UA Bili) Negative *NA*(01/21/20 7:58 PM) UA Blood (test code = UA Blood) Large *ABN*(01/21/20 7:58 PM) UA Nitrite (test code = UA Nitrite) Negative (01/21/20 7:58 PM) UA Leuk Est (test code = UA Leuk Est) Negative (01/21/20 7:58 PM) UA Sq Epi (test code = UA Sq Epi) Occasional /LPF UA WBC (test code = UA WBC) 6 <=5 UA RBC (test code = UA RBC) 15 <=2 UA Bacteria (test code = UA Bacteria) Occasional /HPF UA Mucus (test code = UA Mucus) Few /LPF UA Amorph Florina (test code = UA Amorph Florina) Occasional /HPF UA Hyal Cast (test code = UA Hyal Cast) 4 <=2 UA Urobilinogen (test code = UA Urobilinogen) <=1.0 mg/dL 0.1-1.0 [facility] [id number] 09:22:00* Test Item Value Reference Range Interpretation Comme nts Lipase Lvl (test code = Lipase Lvl) 352 73-393 Glucose Lvl (test code = Glucose Lvl) 252 70-99 BUN (test code = BUN) 20 7-22 Creatinine Lvl (test code = Creatinine Lvl) 0.99 0.50-1.40 Sodium Lvl (test code = Sodium Lvl) 140 135-145 Potassium Lvl (test code = P otassium Lvl) 3.3 3.5-5.1 Chloride Lvl (test code = Chloride Lvl) 106 95-109 CO2 (test code = CO2) 26 24-32 Calcium Lvl (test code = Calcium Lvl) 8.4 8.5-10.5 Total Protein (test code = T otal Protein) 6.1 6.4-8.4 Albumin Lvl (test code = Albumin Lvl) 2.2 3.5-5.0 ALT (test code = ALT) 42 <=65 AST (test code = AST) 101 <=37 Alk Phos (test code = Alk Phos) 85 39-136 Bili Total (test code = Bili Total) 1.4 0.2-1.3 AGAP (test code = AGAP) 11.3 10.0-20.0 B/C Ratio (test code = B/C Ratio) 20 1 6-25 Globulin (test code = Globulin) 3.9 2.7-4.2 A/G Ratio (test code = A/G Ratio) 0.6 1 0.7-1.6 eGFR (test code = eGFR) 57 [id number] 09:22:00* Test Item Value Reference Range Interpretation Comme nts WBC (test code = WBC) 18.4 3.7-10.4 RBC (test code = RBC) 3.57 4.20-5.40 Hgb (test code = Hgb) 11.3 12.0-16.0 Hct (test code = Hct) 33.4 36.0-48.0 MCV (test code = MCV) 93.8 80.0-98.0 MCH (test code = MCH) 31.6 pg 27.0-31.0 MCHC (test code = MCHC) 33.7 32.0-36.0 RDW (test code = RDW) 13.3 11.5-14.5 Platelet (test code = Platelet) 115 133-450 MPV (test code = MPV) 11.1 7.4-10.4 Segs (test code = Segs) 85.1 45.0-75.0 Lymphocytes (test code = Lymphocytes) 6.8 20.0-40.0 Monocytes (test code = Monocytes) 7.9 2.0-12.0 Eosinophils (test code = Eosinophils) 0.1 <=4.0 Basophils (test code = Basophils) 0.1 <=1.0 Neutrophils # (test code = Neutrophils #) 15.6 1.5-8.1 Lymphocytes # (test code = Lymphocytes #) 1.3 1.0-5.5 Monocytes # (test code = Monocytes #) 1.5 <=0.8 [facility] [id number] 15:21:00* Test Item Value Reference Range Interpretation Comme nts Coronavirus (COVID-19) SUBHA (test code = Coronavirus (COVID-19) SUBHA) Not Detected (01/13/20 10:21 AM) [facility]CHEM [id number] 08:50:00* Test Item Value Reference Range Interpretation Comme nts Glucose Lvl (test code = Glucose Lvl) 238 70-99 BUN (test code = BUN) 15 7-22 Creatinine Lvl (test code = Creatinine Lvl) 0.80 0.50-1.40 Sodium Lvl (test code = Sodium Lvl) 139 135-145 Potassium Lvl (test code = P otassium Lvl) 3.4 3.5-5.1 Chloride Lvl (test code = Chloride Lvl) 105 95-109 CO2 (test code = CO2) 24 24-32 Calcium Lvl (test code = Calcium Lvl) 8.3 8.5-10.5 Total Protein (test code = T otal Protein) 6.4 6.4-8.4 Albumin Lvl (test code = Albumin Lvl) 2.4 3.5-5.0 ALT (test code = ALT) 38 <=65 AST (test code = AST) 95 <=37 Alk Phos (test code = Alk Phos) 77 39-136 Bili Total (test code = Bili Total) 1.5 0.2-1.3 AGAP (test code = AGAP) 13.4 10.0-20.0 B/C Ratio (test code = B/C Ratio) 19 1 6-25 Globulin (test code = Globulin) 4.0 2.7-4.2 A/G Ratio (test code = A/G Ratio) 0.6 1 0.7-1.6 eGFR (test code = eGFR) 75 Lipase Lvl (test code = Lipase Lvl) [id number] [facility] H[id number] 08:50:00* Test Item Value Reference Range Interpretation Comme nts WBC (test code = WBC) 24.6 3.7-10.4 RBC (test code = RBC) 3.76 4.20-5.40 Hgb (test code = Hgb) 11.9 12.0-16.0 Hct (test code = Hct) 35.0 36.0-48.0 MCV (test code = MCV) 93.2 80.0-98.0 MCH (test code = MCH) 31.6 pg 27.0-31.0 MCHC (test code = MCHC) 33.9 32.0-36.0 RDW (test code = RDW) 12.9 11.5-14.5 Platelet (test code = Platelet) 117 133-450 MPV (test code = MPV) 11.1 7.4-10.4 Segs (test code = Segs) 86.1 45.0-75.0 Lymphocytes (test code = Lymphocytes) 5.4 20.0-40.0 Monocytes (test code = Monocytes) 8.4 2.0-12.0 Basophils (test code = Basophils) 0.1 <=1.0 Neutrophils # (test code = Neutrophils #) 21.2 1.5-8.1 Lymphocytes # (test code = Lymphocytes #) 1.3 1.0-5.5 Monocytes # (test code = Monocytes #) 2.1 <=0.8 [facility] [id number] 08:50:00* Test Item Value Reference Range Interpretation Comme [facility] Hgb A1C (test code = Hgb A1C) 7.7 [facility]CHE[facility] [id number] 09:04:00* Test Item Value Reference Range Interpretation Comme [facility] Lipase Lvl (test code = Lipase Lvl) 6656 73-393 Glucose Lvl (test code = Glucose Lvl) 285 70-99 BUN (test code = BUN) 19 7-22 Creatinine Lvl (test code = Creatinine Lvl) 0.88 0.50-1.40 Sodium Lvl (test code = Sodium Lvl) 141 135-145 Potassium Lvl (test code = P otassium Lvl) 3.9 3.5-5.1 Chloride Lvl (test code = Chloride Lvl) 110 95-109 CO2 (test code = CO2) 23 24-32 Calcium Lvl (test code = Calcium Lvl) 8.1 8.5-10.5 Total Protein (test code = T otal Protein) 6.3 6.4-8.4 Albumin Lvl (test code = Albumin Lvl) 2.7 3.5-5.0 ALT (test code = ALT) 47 <=65 AST (test code = AST) 114 <=37 Alk Phos (test code = Alk Phos) 68 39-136 Bili Total (test code = Bili Total) 1.4 0.2-1.3 AGAP (test code = AGAP) 11.9 10.0-20.0 B/C Ratio (test code = B/C Ratio) 22 1 6-25 Globulin (test code = Globulin) 3.6 2.7-4.2 A/G Ratio (test code = A/G Ratio) 0.8 1 0.7-1.6 eGFR (test code = eGFR) 66 [facility] [id number] 09:04:00* Test Item Value Reference Range Interpretation Comme [facility] WBC (test code = WBC) 20.5 3.7-10.4 RBC (test code = RBC) 4.13 4.20-5.40 Hgb (test code = Hgb) 12.8 12.0-16.0 Hct (test code = Hct) 38.3 36.0-48.0 MCV (test code = MCV) 92.8 80.0-98.0 MCH (test code = MCH) 31.1 pg 27.0-31.0 MCHC (test code = MCHC) 33.6 32.0-36.0 RDW (test code = RDW) 13.0 11.5-14.5 Platelet (test code = Platelet) 131 133-450 MPV (test code = MPV) 11.2 7.4-10.4 Segs (test code = Segs) 84.3 45.0-75.0 Lymphocytes (test code = Lymphocytes) 6.5 20.0-40.0 Monocytes (test code = Monocytes) 8.9 2.0-12.0 Basophils (test code = Basophils) 0.3 <=1.0 Neutrophils # (test code = Neutrophils #) 17.3 1.5-8.1 Lymphocytes # (test code = Lymphocytes #) 1.3 1.0-5.5 Monocytes # (test code = Monocytes #) 1.8 <=0.8 Basophils # (test code = Basophils #) 0.1 <=0.2 [facility] [id number] 17:27:00* Test Item Value Reference Range Interpretation Comme nts Chol (test code = Chol) 151 Trig (test code = Trig) 75 HDL (test code = HDL) 64 CHD Risk (test code = CHD Risk) 2.36 1 3.90-5.80 LDL (Calculated) (test code = LDL (Calculated)) 72 VLDL (test code = VLDL) 15 1 [facility] [id number] 10:06:00* Test Item Value Reference Range Interpretation Comme nts Hct (test code = Hct) 31.0 36.0-48.0 Hgb (test code = Hgb) 10.1 12.0-16.0 [facility] C[id number] 09:41:00* Test Item Value Reference Range Interpretation Comme nts CO2 (test code = CO2) 25 24-32 AGAP (test code = AGAP) 12.5 10.0-20.0 Creatinine Lvl (test code = Creatinine Lvl) 0.9 0.5-1.4 Glucose Lvl (test code = Glucose Lvl) 137 70-99 BUN (test code = BUN) 15 7-22 Calcium Lvl (test code = Calcium Lvl) 9.1 8.5-10.5 eGFR (test code = eGFR) 67 Potassium Lvl (test code = P otassium Lvl) 4.5 3.5-5.1 Chloride Lvl (test code = Chloride Lvl) 105 95-109 Sodium Lvl (test code = Sodium Lvl) 138 135-145 [facility] C[id number] 09:41:00* Test Item Value Reference Range Interpretation Comme nts Hgb (test code = Hgb) 9.9 12.0-16.0 Hct (test code = Hct) 30.0 36.0-48.0 [facility] [id number] 09:41:00* Test Item Value Reference Range Interpretation Comme nts Hgb A1C (test code = Hgb A1C) 5.8 [facility] Notes Date/Time Note Provider Source 2021-05-31 17:23:00 [id number] [place] [address] PATIENT NAME: LUCINDA SON ADMIT DATE: ACCOUNT NO: [id number] ROOM NO: AGE: 70 REPORT TYPE: ELECTROCARDIOGRAM SEX: F ADMITTING PHYSICIAN:Forrest Joyner MD ATTENDING PHYSICIAN:Forrest Joyner MD Order: [id number] Test Reason : PRE OP CLEARANCE H/O HTN Test Date/Time Stamp: SunMay 31 2021 17:23:05 Blood Pressure : / mmHG Vent. Rate : 058 BPM Atrial Rate : 058 BPM P-R Int : 172 ms QRS Dur : 096 ms QT Int : 414 ms P-R-T Axes : 051 -17 038 degrees QTc Int : 406 ms Sinus bradycardia with marked sinus arrhythmia Otherwise normal ECG No previous ECGs available Confirmed by RUDY SAAVEDRA MD ([id number]) on 06/04/2021 7:36:01 PM Referred By: Forrest Joyner Confirmed by:RUDY SAAVEDRA MD at 1936 PAT[facility] 00:07:17 Radiation Dose CTDIV OL = 0 (mGy): DLP = 1148.11 (mGy-cm) PROCEDURE INFORMATION: Exam: CT Head Without Contrast Exam date and time: 01/21/2020 11:52 PM Age: 69 years old Clinical indication: Altered mental status/memory loss; TECHNIQUE: Imaging protocol: Computed tomography of the head without contrast. Radiation optimization: All CT scans at this facility use at least one of these dose optimization techniques: automated exposure control; mA and/or kV adjustment per patient size (includes targeted exams where dose is matched to clinical indication); or iterative reconstruction. COMPARISON: No relevant prior studies available. RADIATION DOSE METRICS: Total DLP (mGy-cm): 1148.11 FINDINGS: Brain: - Moderate diffuse supratentorial subcortical, periventricular, and deep white matter hypoattenuation, most consistent with chronic microangiopathic ischemic disease, which can obscure subtle non-hemorrhagic ischemic changes. - No definite acute transcortical infarct. No intracranial hemorrhage or other fluid collection. No brain parenchymal contusion or edema. No intracranial mass. No significant effacement of the basal cisterns or foramen magnum. Age-consistent global parenchymal volume. Cerebral ventricles: No hydrocephalus. Bones/joints: No significant abnormality of the calvarium or skull base. 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 Paranasal sinuses: Visualized sinuses are unremarkable. No fluid levels. Mastoid air cells: No significant fluid in the imaged mastoid air cells. Vasculature: Atherosclerotic calcifications along the distal vertebral and cavernous carotid arteries. Soft tissues: Unremarkable. IMPRESSION: 1. Moderate chronic microangiopathic ischemic gliosis. 2. No acute intracranial abnormality. COMMENTS: MR is more sensitive for subtle intracranial abnormality and may be helpful for further assessment if clinically appropriate. Emmanuel Woodall MD On 01/22/2020 00:17:52; [id number] [facility] 2020-01-22 00:07:17 Radiation Dose CTDIVOL = 0 (mGy): DLP = 1087.79 (mGy-cm) PROCEDURE INFORMATION: Exam: CT Chest Without Contrast Exam date and time: 01/21/2020 11:55 PM Age: 69 years old Clinical indication: Abdominal tenderness; Cough; Patient HX: PT is altered/ family has no HX to give/ PT had gallbladder removed 'about a week ago'; Additional info: /ams, dka, wbc 34k TECHNIQUE: Imaging protocol: Computed tomography of the chest without contrast. Radiation optimization: All CT scans at this facility use at least one of these dose optimization techniques: automated exposure control; mA and/or kV adjustment per patient size (includes targeted exams where dose is matched to clinical indication); or iterative reconstruction. COMPARISON: No relevant prior studies available. RADIATION DOSE METRICS: Total DLP (mGy-cm): 1087.79 FINDINGS: Lungs: Faint bilateral ground-glass opacity noted nonspecific. Pleural space: No pneumothorax or pleural effusion appreciated. Heart: No pericardial effusion or other acute pathology appreciated. Aorta: No aneurysm or other acute pathology appreciated. Lymph nodes: No lymphadenopathy appreciated. Bones/joints: No focal suspicious lesions appreciated. Soft tissues: No acute pathology appreciated. PROCEDURE INFORMATION: Exam: CT Abdomen And Pelvis Without Contrast Exam date and time: 01/21/2020 11:55 PM Age: 69 years old Clinical indication: Abdominal tenderness; Cough; Patient HX: PT is altered/ family has no HX to give/ PT had gallbladder removed 'about a week ago'; Additional info: /ams, dka, wbc 34k TECHNIQUE: Imaging protocol: Computed tomography of the abdomen and pelvis without contrast. Radiation optimization: All CT scans at this facility use at least one of these dose optimization techniques: automated exposure control; mA and/or kV adjustment per patient size (includes targeted exams where dose is matched to clinical indication); or iterative reconstruction. COMPARISON: No relevant prior studies available. RADIATION DOSE METRICS: Total DLP (mGy-cm): 1087.79 FINDINGS: Liver: No focal lesion or acute pathology appreciated. Gallbladder and bile ducts: The gallbladder has been removed. Pancreas: Peripancreatic inflammatory changes noted suggesting pancreatitis, please correlate. Spleen: No focal lesion or other acute pathology appreciated. Adrenals: No focal lesion or acute pathology appreciated. Kidneys and ureters: 2.2 cm right renal lesion noted, not a simple cyst in appearance but limited by motion artifact. Follow-up recommended. Stomach and bowel: No obstruction or abnormal thickening appreciated. Appendix: No evidence of appendicitis appreciated. No evidence of appendicitis appreciated. Intraperitoneal space: No free air or significant fluid collection appreciated. Vasculature: No acute pathololgy appreciated. Lymph nodes: No lymphadenopathy appreciated. Urinary bladder: Unremarkable as visualized. Reproductive: No acute pathology appreciated. Bones/joints: Degenerative changes noted. Soft tissues: No acute pathology appreciated. IMPRESSION: CT Chest Without Contrast Nonspecific faint bilateral ground-glass opacities. Limited by lack of comparisons. CT Abdomen And Pelvis Without Contrast 1. Findings consistent with pancreatitis, please correlate. 2. Indeterminate right renal cyst, follow-up recommended. Annalisa Grove MD On 01/22/2020 00:28:15; [id number] [facility] 2020-01-21 23:35:10 PROCEDURE INFORMATIO N: Exam: XR Chest, 1 View Exam date and time: 01/21/2020 11:18 PM Age: 69 years old Clinical indication: /ams TECHNIQUE: Imaging protocol: XR of the chest Views: 1 view. COMPARISON: No relevant prior studies available. FINDINGS: Lungs: Lung volumes are decreased. Pleural space: There are no effusions or pneumothoraces noted. Heart/Mediastinum: The cardiac silhouette is normal in caliber. The aorta is unremarkable. Vasculature: There is mild atherosclerosis of the aorta. Bones/joints: Unremarkable. IMPRESSION: No acute findings. Mellisa Neumann MD On 01/22/2020 00:02:05; [id number] [facility] 2020-01-12 05:30:00 PROCEDURE INFORMATIO N: Exam: US Abdomen, Limited; Right Upper Quadrant Exam date and time: 01/12/2020 5:04 AM Age: 69 years old Clinical indication: /pancreatitis, evaluate for any biliary etiology, evaluate bile ducts/evaluate for cholelithiasis TECHNIQUE: Imaging protocol: US abdomen. Real time ultrasound with image documentation. Limited exam focused on the right upper quadrant. COMPARISON: No relevant prior studies available. FINDINGS: LIVER: The visualized liver shows normal contour, size 17.1 cm, and morphology with heterogeneous parenchymal echotexture. PORTAL VENOUS: Main portal vein shows hepatopedal flow. BILE DUCTS: The intrahepatic bile ducts are not dilated. Mildly prominent common bile duct measuring 7 mm, within normal limits for age. The distal common bile duct is not well seen. GALLBLADDER: Shadowing gallstones present. No significant wall thickening. PANCREAS: The pancreas is obscured by bowel gas. RIGHT KIDNEY: The right kidney measures 11.2 cm. Mild pelviectasis. Simple appearing 1.5 cm cyst noted. INTRAPERITONEAL SPACE: Trace perihepatic free fluid. IMPRESSION: 1. Heterogeneous hepatic parenchyma suggestive of fibrofatty change. 2. Cholelithiasis. 3. Trace perihepatic free fluid. 4. Simple appearing right renal cyst. 5. Mild right pelviectasis. Ivette Song MD On 01/12/2020 09:29:07; [id number] [facility] 2015-03-11 07:15:00 EXAM: CHEST 2 VIEWS DATE: Mar 11, 2015 07:18:00 AM INDICATION: Hypertension , right knee arthroplasty COMPARISON: None available. TECHNIQUE: Frontal and lateral chest radiographs FINDINGS: Heart is normal in size with an uncoiled aorta. No mediastinal or hilar mass. Mild reticulonodular pattern seen in right upper lobe/apical region however lungs are otherwise clear. No pleural effusion or pneumothorax. IMPRESSION: 1. Mild reticulonodular pattern right upper lobe/apical region probably secondary to scarring. Recommend comparison with old chest films [facility]
--- NOTE | 2024-09-15 12:45 | RAD REPORT ---
EXAMINATION: CT LUMBAR SPINE WITHOUT CONTRAST CLINICAL INDICATION: Fall with back pain TECHNIQUE: Axial CT images were obtained through the lumbar spine in soft tissue and bone windows wit hout intravenous contrast. Coronal and Sagittal reformatted images were created from the data set. One or more of the following dose reduction techniques were used: Automated exposure control, adjustm ent of the mA and/ or kV according to patient size, and/or iterative reconstruction. Unless otherwise specified, incidental findings do not require dedicated imaging follow-up. 2019. FINDINGS: For purposes of this dictation, it is assumed that there are 5 non rib-bearing lumbar type vertebrae, and the most caudal fully segmented lumbar vertebra is labeled L5. No fracture seen Minimal chronic compression L3 vertebral body. Spondylosis L4-5 results in marked right foraminal stenosis. Mild to moderate chronic anterior subluxation L5 on S1. Disc bulge, osteophytes and facet hypertrophy resulting in moderate narrowing of the thecal sac. IMPRESSION: No fracture seen. If the patient continues to have symptoms to suggest acute spinal canal pathology then MRI would be recommended
--- NOTE | 2024-09-15 12:54 | ER ---
Nurse's Notes [facility] Name: Lottie Apodaca Age: 73 yrs Sex: Female : 1950 Arrival Date: 09/15/2024 Time: 11:29 Bed 11 Private MD: Diagnosis: Low back pain Presentation: 09/15 12:08 Chief complaint: Patient states: FELL YESTERDAY GOING DOWN 2 STEPS, LANDED ON BUTT. dd2 REPORTS HAVING LOW BACK PAIN SINCE. 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 Coronavirus screen: At this time, the client does not indicate any symptoms associated with coronavirus-19. Ebola Screen: No symptoms or risks identified at this time. Initial Sepsis Screen: Does the patient meet any 2 criteria? No. Patient's initial sepsis screen is negative. Does the patient have a suspected source of infection? No. Patient's initial sepsis screen is negative. Risk Assessment: Do you want to hurt yourself or someone else? Patient reports no desire to harm self or others. Onset of symptoms was September 14, 2024. 12:08 Method Of Arrival: Ambulatory dd2 12:08 Acuity: CHRIS 4 dd2 Triage Assessment: 12:11 General: Appears in no apparent distress. uncomfortable, Behavior is calm, cooperative, dd2 appropriate for age. Pain: Complains of pain in low back area and sacrum Pain currently is 6 out of 10 on a pain scale. EENT: No deficits noted. No signs and/or symptoms were reported regarding the EENT system. Neuro: No deficits noted. Level of Consciousness is awake, alert, obeys commands, Oriented to person, place, time, situation, Appropriate for age. Cardiovascular: No deficits noted. Respiratory: No deficits noted. Airway is patent Respiratory effort is even, unlabored, Respiratory pattern is regular, symmetrical. GI: No deficits noted. No signs and/or symptoms were reported involving the gastrointestinal system. : No deficits noted. No signs and/or symptoms were reported regarding the genitourinary system. Derm: No deficits noted. No signs and/or symptoms reported regarding the dermatologic system. Musculoskeletal: Circulation, motion, and sensation intact. Range of motion: intact in all extremities. Historical: - Allergies: 12:11 No Known Allergies; dd2 - PMHx: 12:11 chronic back pain; Diabetes - NIDDM; Hypertension; dd2 - PSHx: 12:11 Cholecystectomy; dd2 - Immunization history:: Adult Immunizations up to date. - Infectious Disease History:: Denies. - Social history:: Smoking status: Patient denies any tobacco usage or history of. Screenin:13 [facility] ED Fall Risk Assessment (Adult) History of falling in the last 3 months, dd2 including since admission Yes- single mechanical fall (1 pt) Confusion or Disorientation No (0 pts) Intoxicated or Sedated No (0 pts) Impaired Gait No (0 pts) Mobility Assist Device Used Yes (1 pt) Altered Elimination No (0 pt) Score/Fall Risk Level 3 or more points = High Risk Oriented to surroundings, Maintained a safe environment, Educated pt \T\ family on fall prevention, incl call for assistance when getting out of bed, Assessed \T\ reinforced patient's understanding of fall precautions, Hourly rounding (assess needs \T\ fall precautionary measures) done, Used ambulatory aids as needed (educated on \T\ assisted with). Abuse screen: Denies threats or abuse. Denies injuries from another. Nutritional screening: No deficits noted. Tuberculosis screening: No symptoms or risk factors identified. Assessment: 12:13 Reassessment: SEE TRIAGE ASSESSMENT FOR FULL ASSESSMENT. dd2 Vital Signs: 12:08 BP 136 / 68; Pulse 60; Resp 16; Temp 98.4; Pulse Ox 100% ; Weight 56.7 kg; Height 4 ft. dd2 9 in. ; Pain 6/10; 13:09 BP 131 / 65; Pulse 63; Resp 17; Pulse Ox 99% on R/A; dd2 12:08 Body Mass Index 27.05 (56.70 kg, 144.78 cm) dd2 12:08 Pain Scale: Adult dd2 [place] Coma Score: 12:13 Eye Response: spontaneous(4). Motor Response: obeys commands(6). Verbal Response: dd2 oriented(5). Total: 15. ED Course: 11:34 Patient arrived in ED. gl 11:34 Eugene Diaz [facility]-C [facility]. dr5 12:10 Triage completed. dd2 12:11 Arm band placed on right wrist. dd2 12:13 Patient has correct armband on for positive identification. Bed in low position. Call dd2 light in reach. Side rails up X 1. Client placed on continuous cardiac and pulse oximetry monitoring. NIBP monitoring applied. Door closed. Noise minimized. Warm blanket given. Pillow given. Verbal reassurance given. 12:13 No provider procedures requiring assistance completed. Patient did not have IV access dd2 during this emergency room visit. Patient maintains SpO2 saturation greater than 95% on room air. 12:33 CT Lumbar Spine Wo Con In Process Unspecified. EDMS 12:47 Miguel Bishop DO is Attending Physician. dr5 12:56 IAM MELENDREZ, RN is Primary Nurse. dd2 13:09 Provided Education on: D/C EDUCATION. dd2 Administered Medications: 13:09 Drug: Ketorolac IM 30 mg IM once Route: IM; Site: left deltoid; dd2 13:10 Follow up: Response: Medication administered at discharge. dd2 Medication: 12:13 VIS not applicable for this client. dd2 Outcome: 12:54 Discharge ordered by MD. dr5 13:09 Discharged to home via wheelchair, with family, dd2 13:09 Condition: stable 13:09 Discharge instructions given to patient, family, Instructed on discharge instructions, follow up and referral plans. medication usage, Demonstrated understanding of instructions, follow-up care, medications, Prescriptions given X 2, 13:13 Patient left the ED. dd2 Signatures: Dispatcher [employer] EDWI IAM MELENDREZ RN RN dd2 Eugene Diaz, DATA SYSTEMS MANAGER-C DATA SYSTEMS MANAGER-Cdr5 Cady Barrett, Reg Reg gl
--- NOTE | 2024-09-15 12:54 | EDPHYS ---
Physician Documentation [facility] Name: Lottie Apodaca Age: 73 yrs Sex: Female : 1950 Arrival Date: 09/15/2024 Time: 11:29 Bed 11 Private MD: ED Physician Miguel Bishop HPI: 09/15 12:54 This 73 yrs old Female presents to ER via Ambulatory with complaints of Back dr5 Injury. 12:54 The patient presents with pain that is acute. Patient is a 33-year-old female with dr5 history of chronic back pain, diabetes and hypertension coming in with fall that occurred yesterday morning. Patient reports she was stepping out of her house and has 2 small steps that she slipped and fell on her buttocks. Patient reports that the pain is worse this morning and wanted get checked out. Patient denies loss of consciousness. Patient denies hitting head. Patient is not on blood thinners. Historical: - Allergies: 12:11 No Known Allergies; dd2 - PMHx: 12:11 chronic back pain; Diabetes - NIDDM; Hypertension; dd2 - PSHx: 12:11 Cholecystectomy; dd2 - Immunization history:: Adult Immunizations up to date. - Infectious Disease History:: Denies. - Social history:: Smoking status: Patient denies any tobacco usage or history of. ROS: 12:54 Constitutional: as per hpi dr5 Exam: 12:54 Constitutional: This is a well developed, well nourished patient who is awake, alert, dr5 and in no acute distress. Head/Face: Normocephalic, atraumatic. Eyes: Pupils equal round and reactive to light, extra-ocular motions intact. Lids and lashes normal. Conjunctiva and sclera are non-icteric and not injected. Cornea within normal limits. Periorbital areas with no swelling, redness, or edema. Neck: Trachea midline, no thyromegaly or masses palpated, and no cervical lymphadenopathy. Supple, full range of motion without nuchal rigidity, or vertebral point tenderness. No Meningismus. Chest/axilla: Normal chest wall appearance and motion. Nontender with no deformity. No lesions are appreciated. Cardiovascular: Regular rate and rhythm with a normal S1 and S2. Normal PMI, no JVD. No pulse deficits. Respiratory: Lungs have equal breath sounds bilaterally, clear to auscultation. No rales, rhonchi or wheezes noted. No increased work of breathing, no retractions or nasal flaring. Back: Mild low lumbar midline spinal tenderness. No costovertebral tenderness. Full range of motion. Skin: Warm, dry with normal turgor. Normal color with no rashes, no lesions, and no evidence of cellulitis. MS/ Extremity: Pulses equal, no cyanosis. Neurovascular intact. Full, normal range of motion. Neuro: Awake and alert, GCS 15, oriented to person, place, time, and situation. Cranial nerves II-XII grossly intact. Motor strength 5/5 in all extremities. Sensory grossly intact. Cerebellar exam normal. Normal gait. Vital Signs: 12:08 BP 136 / 68; Pulse 60; Resp 16; Temp 98.4; Pulse Ox 100% ; Weight 56.7 kg; Height 4 ft. dd2 9 in. ; Pain 6/10; 13:09 BP 131 / 65; Pulse 63; Resp 17; Pulse Ox 99% on R/A; dd2 12:08 Body Mass Index 27.05 (56.70 kg, 144.78 cm) dd2 12:08 Pain Scale: Adult dd2 [place] Coma Score: 12:13 Eye Response: spontaneous(4). Motor Response: obeys commands(6). Verbal Response: dd2 oriented(5). Total: 15. MDM: 11:35 Medical Screening Exam initiated dr5 12:54 Differential diagnosis: Fracture Scoliosis sprain, vertebral fracture. Data reviewed: dr5 vital signs, nurses notes, radiologic studies, CT scan. I considered the following discharge prescriptions or medication management in the emergency department Medications were administered in the Emergency Department. See MAR. Care significantly affected by the following chronic conditions: Diabetes, Hypertension. Care significantly affected by the following Social Determinants of Health: Poor access to healthcare and/or lack of insurance, Poor access to transportation, Problems related to employment. Counseling: I had a detailed discussion with the patient and/or guardian regarding the historical points, exam findings, and any diagnostic results supporting the discharge/admit diagnosis, the presence of at least one elevated blood pressure reading (>120/80) during this emergency department visit, radiology results, the need for outpatient follow up, for definitive care, a family practitioner, to return to the emergency department if symptoms worsen or persist or if there are any questions or concerns that arise at home. ED course: Patient CT scan was discussed with patient and printed out given to her. Toradol injection given to help with inflammation. Patient reports that she has 7.5 mg hydrocodone that she takes already for her chronic back pain. Will add on ibuprofen to help with inflammation. Will give methocarbamol to take at bedtime prior to going to bed if pain is not tolerated.. 09/15 12:08 Order name: CT Lumbar Spine Wo Con; Complete Time: 12:46 dr5 Administered Medications: 13:09 Drug: Ketorolac IM 30 mg IM once Route: IM; Site: left deltoid; dd2 13:10 Follow up: Response: Medication administered at discharge. dd2 Disposition: 13:23 I was immediately available on-site in the Emergency Department for consultation in the ms3 care of the patient. Disposition Summary: 09/15/24 12:54 Discharge Ordered Notes: Location: Home dr5 Condition: Stable dr5 Diagnosis - Low back pain dr5 Followup: dr5 - With: Emergency Department - When: As needed - Reason: Worsening of condition Followup: dr5 - With: Private Physician - When: 1 - 2 days - Reason: Recheck today's complaints, Continuance of care, Re-evaluation by your physician Discharge Instructions: - Discharge Summary Sheet dr5 - Acute Back Pain, Adult dr5 Forms: - Medication Reconciliation Form dr5 - Antibiotic Education dr5 - Patient Portal Instructions dr5 - Leadership Thank You Letter dr5 Prescriptions: - Ibuprofen 800 mg Oral Tablet - take 1 tablet ORAL route every 12 hours As needed take with food; 20 tablet; dr5 Refills: 0, Product Selection Permitted - methocarbamol 750 mg Oral tablet - take 1 tablet ORAL route 3 times per day; 20 tablet; Refills: 0, Product dr5 Selection Permitted Signatures: Dispatcher [employer] EDMS Miguel Bishop DO DO ms3 IAM MELENDREZ RN RN dd2 Eugene Diaz, SECURITY AGENT-C SECURITY AGENT-Cdr5
[2024-09-15] MEDS ORDERED: KETOROLAC 30 MG/ML INJ ONE (12:57)
[2024-09-15 13:20] VITALS: TEMP 98.4
[2024-09-15 13:21] VITALS: BP 131/65; O2SAT 99
== END 2024-09-15 13:13 | disposition home or self-care (01) ==
LOC: ER 11:29
DX: M54.50 Low back pain, unspecified (principal); W01.0XXA Fall on same level from slipping, tripping and stumbling without subsequent striking against object, initial encounter
CPT/HCPCS: 72131; 96372; 99284